=== PATIENT | female | born 2000 | race Caucasian/White ===

== ENCOUNTER 2019-03-10 19:22 | Outpatient (REF) | payer MEDICAID, SELFPAY ==
--- NOTE | 2019-03-10 14:40 | PAPFT_PTH ---
PATIENT: Christie Nuñez LOC: [facility] U#:[id number] AGE/SX: 19/F ROOM: RE03/10/[address]: Natividad Kenney : 2000 BED: DIS: 03/10/2019 SPEC #: [id number] RECD: 03/11/19 12:01 STATUS: JENNIFER WHITMAN #: [id number] RAO: 03/10/19 14:[address]: Natividad Kenney DEPT: [facility] Cytology RECD BY: Claire Borjas Tissues: 1 - CX/ENDOCX FOR PAP SMEARS Procedures: PAP THIN PREP/UVM Screening Comments: [id number]
[2019-03-12 12:37] LABS: Chlamydia Result Negative; GC Result Negative; Specimen Description CERVIX
== END 2019-03-10 19:42 ==
LOC: NCHCN 19:22
PROVIDERS: PCP Nurse Practitioner Family; Visit Provider Nurse Practitioner Family
DX: Z11.3 Encounter for screening for infections with a predominantly sexual mode of transmission (principal); Z20.2 Contact with and (suspected) exposure to infections with a predominantly sexual mode of transmission; Z00.00 Encounter for general adult medical examination without abnormal findings; Z12.4 Encounter for screening for malignant neoplasm of cervix; Z11.51 Encounter for screening for human papillomavirus (HPV)
CPT/HCPCS: 87491; 87591; 88142

== ENCOUNTER 2019-09-06 10:41 | Emergency (ER) | payer MEDICAID, SELFPAY ==
[2019-09-06 10:58] VITALS: BP 148/77; PULSE 74; RESP 16; TEMP 36.5; O2SAT 100
--- NOTE | 2019-09-06 11:58 | ED.GENADUL_ITS ---
Discharge Plan Disposition Patient Disposition: HOME Condition: Improving Discharge Details Chief Complaint: Nk/Back Pain Clinical Impression: Back contusion, Lumbar radiculopathy, right, Primary Care Provider: Natividad Kenney ED Provider: Maty Worley Home Meds and New Rx's Prescriptions: Continued trazodone 50 MG tablet 50 mg PO HS RF: 0 prazosin 1 MG capsule 1 mg PO HS RF: 0 escitalopram oxalate [Lexapro] 20 MG tablet 20 mg PO DAILY RF: 0 Discharge Instructions Instructions: (ED), Contusion in Adults (ED) Additional Instructions: Alternate ice and heat to the affected area several times daily for 20 minutes at a time. Take Tylenol as needed and directed for pain. Return to the hospital in 48 hours for repeat hormone blood test. Follow-up with women's wellness for the results. Return to the emergency department if you develop any worsening or new concerning symptoms. Stand Alone Forms: Work Release Discharge Data Discharge Physician: Maty Worley Medical Decision Making 19-year-old female presents with right sided lower back pain with radiation to her right leg since fall last night. Patient states she was at a local gym play area when she slipped and hit her right lower back on a hard cement floor. She states she woke this morning and had worsening of pain with paresthesias in her right leg. She has been able to ambulate and weight-bear but with pain. She has not taken any medication for pain today. test obtained on arrival and faintly positive x2. Will obtain beta quant. She states her last menstrual period was July 14 and she is usually every 28 days. She recently stopped her control. She states she was unaware she was . She denies any abdominal pain, vaginal bleeding or vomiting. Tenderness to palpation midline and right paraspinal lumbar spine region. No focal deficits. Neurovascularly intact. Abdomen soft nontender. Discussed with patient that we can consider a lumbar spine x-ray for further evaluation but she would rather wait on beta quant result. Will give a dose of Tylenol and place a Lidoderm patch. 1435 --beta quant 9. This was discussed with OB on-call who recommended repeat beta quant in 48 hours. It was discussed at length whether patient wanted to obtain a lumbar spine x- ray. She was informed of the risk although low radiation to the fetus and she would like an x-ray. X-ray was negative. She felt better and was able to ambulate. An order for beta quant in 48 hours was ordered and she was advised to follow-up with women's wellness for results. Medical Records Medical records reviewed: Yes I reviewed the patient's medical records. Imaging Data Radiologic Study: Radiologist's impression: XR Lumbosacral Spine, 4 or 5 Views Exam date and time: 09/06/2019 2:00 PM Age: 19 years old Clinical indication: Injury or trauma; Fall; Initial encounter; Blunt trauma (contusions or hematomas); Injury details: Fell; Patient HX: Patient is potentially one week . TECHNIQUE: Imaging protocol: XR of the lumbosacral spine, 4 or 5 views. COMPARISON: No relevant prior studies available. FINDINGS: Vertebrae: No acute fracture or subluxation is seen. Intraperitoneal space: Surgical clips project over the right upper quadrant. Gastrointestinal tract: The bowel gas pattern is unremarkable. Soft tissues: Unremarkable as visualized. IMPRESSION: No acute findings. Lab Data Lab results reviewed: Yes I reviewed the patient's lab results. Labs: Laboratory Tests Range/Units 09/06/19 12:20 Beta HCG, Quant (1-3) mIU/mL 9 H HPI General Mode of arrival: ambulatory . Date/Time Provider Initiated Documentation: 09/06/19 11:11 . Limitations to Documentation: no limitations . Information obtained by: patient . History of Present Illness 19 year old F presents to the emergency department with the chief complaint of back pain , Patient extremity (R leg). Patient started experiencing this day(s) (last night) and it has been constant. No relieving factors improve symptom(s), Movement worsens symptoms . Patient notes denies fever/chills, headaches, loss of appetite, malaise and nausea/vomiting. Patient did receive the following treatments prior to arrival, none Related Data Home Medications Medication Instructions Recorded Confirmed escitalopram oxalate [Lexapro] 20 mg PO DAILY 12/22/17 09/06/19 prazosin 1 mg PO HS 12/22/17 09/06/19 trazodone 50 mg PO HS 12/22/17 09/06/19 Allergies Allergy/AdvReac Type Severity Reaction Status Date / Time Penicillins Allergy Intermediate Skin Rash Unverified 09/06/19 11:02 blueberries Allergy Severe Anaphylaxsi Uncoded 09/06/19 11:02 s blue food coloring Allergy Intermediate Hives Uncoded 09/06/19 11:02 General Stated Complaint: Nk/Back Pain HERBERT: 4 Review of Systems All systems reviewed & are unremarkable except as noted in HPI and below Constitutional Constitutional: Reports as per HPI, Denies chills and Denies fever(s) Eyes Eyes: Denies blurry vision ENT Ears, Nose, Mouth, and Throat: Denies dizziness, Denies sore throat and Denies throat swelling Cardiovascular Cardiovascular: Denies chest pain and Denies dyspnea Respiratory Respiratory: Denies cough and Denies dyspnea Gastrointestinal Gastrointestinal: Denies abdominal pain, Denies diarrhea and Denies vomiting Genitourinary Genitourinary: Denies hematuria and Denies dysuria Musculoskeletal Musculoskeletal: Reports back pain and Denies numbness Integumentary/Breasts Skin/Breast: Denies lesions and Denies rash Neurologic Neurologic: Denies dizziness, Denies focal weakness and Denies numbness Allergic/Immunologic Allergic/Immunologic: Denies throat swelling [facility] Medical History Anxiety (Chronic) Bipolar affective disorder (Acute) PTSD (post-traumatic stress disorder) (Acute) Surgical History No significant past surgical history (Acute) Social History Smoking/Tobacco Use Status: Current every day Tobacco Type: cigarettes Drug use: Daily Substance use type: marijuana Do you feel safe in your relationship?: Yes Exam Const General: cooperative, healthy appearing and no acute distress HENWY Head: normal to inspection Face and sinus: normal facial exam Eyes General: appearance normal, both eyes and all related structures EOM: EOM intact bilaterally Neck Neck: normal visual inspection and No submandibular swelling Lymphatic: no lymphadenopathy noted Chest Chest: normal inspection of the chest and no tenderness Resp Effort & Inspection: normal respiratory effort and able to speak in complete sentences Auscultation: clear to auscultation bilaterally Cardio Rate: regular rate Rhythm: regular rhythm GI Inspection: normal to inspection Palpation: soft, not firm, not rigid and nontender Auscultation: normal bowel sounds Back/Spine/Pelvis Thoracic/Lumbar Spine: thoracic and lumbar spine normal to inspection, straight leg raise negative bilaterally, No thoracic spinal tenderness and lumbar spinal tenderness Pelvis: no pain with anterior-posterior compression Skin General skin exam: no rashes or lesions noted Neuro General: alert, awake and oriented x3 Cognition: normal cognition Speech: speech normal Motor: muscle tone normal throughout and strength 5/5 throughout Sensory Exam: no sensory deficits noted Extrem General: normal to inspection, full ROM, normal capillary refill, no calf tenderness bilaterally and no edema Other: B/L DP/PT pulses intact Psych Appearance: grossly normal Mental Status: mental status grossly normal Speech and Movement: speech and movement normal Affect: normal affect Course Vital Signs Vital signs: Vital Signs Temperature 97.7 F 09/06/19 10:58 Pulse 74 09/06/19 10:58 Respiratory Rate 16 09/06/19 10:58 Blood Pressure 148/77 H 09/06/19 10:58 Pulse Oximetry 100 09/06/19 10:58 Temperature 97.7 F 09/06/19 10:58 Temperature Source Skin 09/06/19 10:58 Pulse 74 09/06/19 10:58 Respiratory Rate 16 09/06/19 10:58 Respiratory Effort Non-Labored 09/06/19 10:58 Blood Pressure 148/77 H 09/06/19 10:58 Blood Pressure Position Sitting 09/06/19 10:58 Pulse Oximetry 100 09/06/19 10:58 Oxygen Delivery Method Room Air 09/06/19 10:58 Oxygen Flow Rate 0 09/06/19 10:58 Pain Level 8 09/06/19 11:15 Lab/Test Results Lab/Test Results: POC- Test(urine) Positive
[2019-09-06 12:47] LABS: HCG Quant, Pregnancy 9 mIU/mL (1-3)
[2019-09-06] MEDS: Acetaminophen 325 MG TAB 650 MG PO (12:53)
[2019-09-06] MEDS: Lidocaine 5% Patch 1 PATCH TP (12:54)
[2019-09-06 13:21] VITALS: BP 126/72; PULSE 70; TEMP 36.9; O2SAT 100
--- NOTE | 2019-09-06 13:54 | DI.RAD_ITS ---
EXAM: XR LUMBAR SPINE COMPLETE INDICATION: s/p fall onto her back, r/o acute fracture. COMPARISON: No exams were available for comparison TECHNIQUE: 2D digital imaging was performed. FINDINGS: No acute fracture or subluxation is present. The bones are normally mineralized. IMPRESSION: No acute fracture or subluxation.
--- NOTE | 2019-09-06 14:29 | DI.VRAD_ITS ---
PROCEDURE INFORMATION: Exam: XR Lumbosacral Spine, 4 or 5 Views Exam date and time: 09/06/2019 2:00 PM Age: 19 years old Clinical indication: Injury or trauma; Fall; Initial encounter; Blunt trauma (contusions or hematomas); Injury details: Fell; Patient HX: Patient is potentially one week . TECHNIQUE: Imaging protocol: XR of the lumbosacral spine, 4 or 5 views. COMPARISON: No relevant prior studies available. FINDINGS: Vertebrae: No acute fracture or subluxation is seen. Intraperitoneal space: Surgical clips project over the right upper quadrant. Gastrointestinal tract: The bowel gas pattern is unremarkable. Soft tissues: Unremarkable as visualized. IMPRESSION: No acute findings. Dictated and Authenticated by: Maryk Moreno MD. Ordering:BEATRIZ Rutledge MD
[2019-09-06 15:08] VITALS: BP 110/68; PULSE 72; RESP 16; O2SAT 99
== END 2019-09-06 15:06 | disposition home or self-care (01) ==
PROVIDERS: Emergency Provider Physician Assistant; PCP Nurse Practitioner Family
DX: S20.221A Contusion of right back wall of thorax, initial encounter (principal); W17.89XA Other fall from one level to another, initial encounter; Z33.1 Pregnant state, incidental; M54.16 Radiculopathy, lumbar region
CPT/HCPCS: 36415; 81025; 99283; 72110; 84702

== ENCOUNTER 2019-09-08 08:54 | Outpatient (CLI) | payer MEDICAID, SELFPAY ==
[2019-09-08 10:34] LABS: HCG Quant, Pregnancy 10 mIU/mL (1-3)
== END 2019-09-08 09:14 ==
PROVIDERS: PCP Nurse Practitioner Family; Visit Provider Physician Assistant
DX: Z32.01 Encounter for pregnancy test, result positive (principal)
CPT/HCPCS: 36415; 84702

== ENCOUNTER 2019-09-10 09:06 | Emergency (ER) | payer MEDICAID, SELFPAY ==
[2019-09-10 09:11] VITALS: BP 134/81; PULSE 74; RESP 20; TEMP 36.7; O2SAT 100
--- NOTE | 2019-09-10 09:15 | W.ED.GENAD ---
Discharge Plan Disposition Patient Disposition: HOME Condition: Good Discharge Details Chief Complaint: Abd Prob Clinical Impression: Nausea & vomiting, Chemical Primary Care Provider: Natividad Kenney ED Provider: Tana Quintero Home Meds and New Rx's Prescriptions: New ondansetron 4 mg tablet,disintegrating 4 mg PO Q6H PRN (Reason: nausea and vomiting) Qty: 10 RF: 0 prenat.vits,oni,[id number] Tablet 1 tab PO DAILY Qty: 30 RF: 0 Continued albuterol sulfate 90 mcg/actuation Hfa Aerosol Inhaler 2 puff INHALATION PRN PRNRF: 0 No Action aripiprazole [Abilify] 2 mg Tablet 1 mg PO DAILY RF: 0 Flovent HFA 220 mcg/actuation Hfa Aerosol Inhaler 2 puff INHALATION BID RF: 0 trazodone 50 MG tablet 50 mg PO HS RF: 0 prazosin 1 MG capsule 1 mg PO HS RF: 0 escitalopram oxalate [Lexapro] 20 MG tablet 20 mg PO DAILY RF: 0 Discharge Instructions Instructions: Acute Nausea and Vomiting (ED) Additional Instructions: Encourage hydration. You may use the Zofran as prescribed if you have any recurrence of your nausea or vomiting. Please keep your upcoming appointment with [facility]. Please begin your daily . Continue with the smoking cessation. Your serum quantitative hCG has gone down today indicating that you do not currently have a viable . This does not mean you will not have a successful in the future and should continue to plan for one. Please see the education given. Please discuss your medications further with [facility] at upcoming appointment. If you develop any fever/chills, increased pain or other new/worsening symptoms please seek care urgently once again. Stand Alone Forms: Work Release Referrals: Eileen Yeung MD [ [facility] STAFF PHYSICIAN] - Natividad Kenney [Primary Care Provider] - Medical Decision Making Patient is a 19-year-old female, accompanied by significant other, with chief complaint of nausea, vomiting abdominal pain. She reports that symptoms began approximately 3 days ago and have progressively been worsening. Patient was seen here 2 days ago after a fall. At that time, her chief complaint was back pain and imaging was ordered. Patient is currently trying to become and was noted to have a quantitative hCG of 10 at that time. Was advised that she have this rechecked in 48 hours. She would like to have this rechecked today. Denies any vaginal discharge. No bleeding. No cramping. Indicates the left upper quadrant as area of discomfort describes this as needle stabbing me. Has not had any vomiting today but vomited x1 yesterday. Reports I vomit every time I eat. She does appear well-hydrated. Vital signs are within normal limits. No pain is elicited on exam. Abdomen is benign. Patient is status post cholecystectomy. She has no lower abdominal pain. Based on recent menses, patient will have estimated gestational age of 2 weeks. I have very low suspicion for emergent pathology based on her exam. As she is likely , will hold off on imaging we will instead perform baseline labs to include a lipase given location. She denies any alcohol intake. Has stopped taking her medications as she would like to discuss this further with obstetrics next week at her upcoming appointment. Will give Zofran to help with nausea, hydrate the patient. UPT positive. Patient feels improved after Zofran. Abdominal pain resolved. Reviewed the labs. No leukocytosis. Patient is anemic. No abnormalities in her electrolytes, she appears well-hydrated. Normalities in the urine. Patient has persistent low level quant. On the quant was 9, on the quant was 10 and today at 7. Consulted with [facility], spoke with Dr. Yeung, she advised that this is likely chemical with no growth and that patient will likely have a period soon. Discussed this with the patient. She does use multivitamins. We did discuss ensuring she is ready for upcoming would be getting . She has stopped smoking recently and I encouraged her to continue with this. We discussed cessation from alcohol. She has an appointment next week with [facility] which I advised she keep. We discussed return precautions. Advised that she may also have a gastroenteritis causing her with her GI upset. Will give prescription for ondansetron to help with the nausea and vomiting. This did seem to work well for her here. No evidence of emergent etiology causing her abdominal pain today. All of her questions and concerns were addressed and she is in agreement this plan. HPI General Mode of arrival: ambulatory. Date/Time Provider Initiated Documentation: 09/10/19 09:15. Limitations to Documentation: no limitations. Information obtained by: patient and family (signficant other). History of Present Illness 19 year old F presents to the emergency department with the chief complaint of LUQ pain, described as moderate, with intensity rated at 7. Quality is described as stabbing (endorses needles stabbing me), and is localized to the abdomen. Patient reports no radiation. Patient started experiencing this hour(s) and it has been constant. No relieving factors improve symptom(s), No exacerbating factors reported . Patient notes loss of appetite (associated with nausea present x 3 days); denies chest pain, cough, fever/chills and headaches. Patient did receive the following treatments prior to arrival, none Related Data Home Medications Medication Instructions Recorded Confirmed escitalopram oxalate [Lexapro] 20 mg PO DAILY 12/22/17 09/10/19 prazosin 1 mg PO HS 12/22/17 09/10/19 trazodone 50 mg PO HS 12/22/17 09/10/19 albuterol sulfate 2 puff INHALATION PRN PRN 09/10/19 09/10/19 aripiprazole [Abilify] 1 mg PO DAILY 09/10/19 09/10/19 fluticasone propionate [Flovent 2 puff INHALATION BID 09/10/19 09/10/19 HFA] ondansetron 4 mg PO Q6H PRN #10 tab 09/10/19 prenat.vits,oni,[id number] 1 tab PO DAILY #30 tab 09/10/19 Previous Rx's Medication Instructions Recorded ondansetron 4 mg PO Q6H PRN #10 tab 09/10/19 prenat.vits,oni,[id number] 1 tab PO DAILY #30 tab 09/10/19 Allergies Allergy/AdvReac Type Severity Reaction Status Date / Time Penicillins Allergy Intermediate Skin Rash Unverified 09/10/19 09:43 blueberries Allergy Severe Anaphylaxsi Uncoded 09/10/19 09:43 s blue food coloring Allergy Intermediate Hives Uncoded 09/10/19 09:43 General Stated Complaint: Abd Prob HERBERT: 3 Review of Systems Constitutional Constitutional: Reports as per HPI, Denies chills, Denies fatigue, Denies fever(s) and Denies headache(s) ENT Ears, Nose, Mouth, and Throat: Denies headache(s) Cardiovascular Cardiovascular: Reports as per HPI, Denies chest pain and Denies dyspnea Respiratory Respiratory: Reports as per HPI, Denies cough and Denies dyspnea Gastrointestinal Gastrointestinal: Reports as per HPI Genitourinary Genitourinary: Denies urinary frequency, Denies dysuria, Denies pelvic pain, Denies flank pain, Denies urinary hesitancy, Denies urinary urgency, Denies vaginal discharge and Denies vaginal pruritus Musculoskeletal Musculoskeletal: Reports as per HPI and Denies back pain Integumentary/Breasts Skin/Breast: Reports as per HPI and Denies rash Neurologic Neurologic: Reports as per HPI and Denies headache(s) Endocrine Endocrine: Denies fatigue [facility] Medical History Anxiety (Chronic) Bipolar affective disorder (Acute) PTSD (post-traumatic stress disorder) (Acute) Surgical History No significant past surgical history (Acute) Social History Smoking/Tobacco Use Status: Current every day Tobacco Type: cigarettes Drug use: Daily Substance use type: marijuana Details: quit smoking 09/08/2019 when she found out she was Do you feel safe at home: Yes Do you feel safe in your relationship?: Yes Exam Const General: cooperative, healthy appearing, comfortable, no acute distress and well developed Nutritional Appearance: well nourished and obese Orientation: alert and awake HENMT Head: normal to inspection Mouth: moist mucous membranes Resp Effort & Inspection: normal respiratory effort, able to speak in complete sentences and no respiratory distress Auscultation: clear to auscultation bilaterally, no rales, no rhonchi and no wheezes Cardio Rate: regular rate Rhythm: regular rhythm Heart Sounds: S1 normal and S2 normal GI Inspection: normal to inspection and obesity Palpation: soft, no hepatosplenomegaly, not firm, no guarding, not rigid and nontender Percussion: normal to percussion Auscultation: normal bowel sounds Back/Spine/Pelvis Back: no CVA tenderness Skin General skin exam: no rashes or lesions noted Trauma: no lacerations or abrasions Neuro General: alert and awake Cognition: normal cognition Speech: speech normal Gait: normal gait Psych Appearance: grossly normal and well kempt Mental Status: mental status grossly normal Speech and Movement: speech and movement normal Course Vital Signs Vital signs: Vital Signs Temperature 36.7 C 09/10/19 09:11 Pulse 74 09/10/19 09:11 Respiratory Rate 09/10/19 09:11 Blood Pressure 134/81 09/10/19 09:11 Pulse Oximetry 100 09/10/19 09:11 Temperature 36.7 C 09/10/19 09:11 Temperature Source Skin 09/10/19 09:11 Pulse 74 09/10/19 09:11 Respiratory Rate 09/10/19 09:11 Blood Pressure 134/81 09/10/19 09:11 Blood Pressure Position Sitting 09/10/19 09:11 Pulse Oximetry 100 09/10/19 09:11 Oxygen Delivery Method Room Air 09/10/19 09:11 Oxygen Flow Rate 0 09/10/19 09:11 Pain Level 7 09/10/19 09:11 Comment has been trying to get 09/10/19 09:11
[2019-09-10 09:30] LABS: Bilirubin Negative (Negative); Blood Negative (Negative); Clarity Clear (Clear); Glucose Negative (Negative); Ketones Negative (Negative); Leukocyte Esterase Negative (Negative); Nitrite Negative (Negative); Specific Gravity 1.025 (1.005-1.025); Urobilinogen 0.2 EU/dL (Up TO 0.2)
[2019-09-10] MEDS: Normal Saline 1,000 ML 1000 ML IV (09:30)
[2019-09-10] MEDS: Normal Saline Flush 10 ML SYR IVP (09:30)
[2019-09-10] MEDS: Ondansetron 4 MG/2 ML VIAL IVP (09:40)
[2019-09-10 09:43] LABS: Abs Immature Grans 0.01 k/cumm (0.0-0.09); Absolute Basophil Count 0.02 k/cumm (0.0-0.2); Absolute Eosinophil Count 0.07 k/cumm (0.0-0.7); Absolute Lymphocyte Count 1.88 k/cumm (1.2-3.4); Absolute Monocyte Count 0.48 k/cumm (0.11-0.7); Absolute Neutrophil Count 3.82 k/cumm (1.2-6.7); Basophils % 0.3; Eosinophils % 1.1; HCT 43.7 % (36.0-46.0); HGB 14.5 g/dL (12.0-15.5); Immature Grans % 0.2; Lymphocytes % 29.9; Mean Corp. HGB Concentration 33.2 g/dL (32.0-36.0); Mean Corpuscular Hemoglobin 29.2 pg (27.0-33.0); Mean Corpuscular Volume 87.9 fL (80-95); Mean Platelet Volume 9.8 fL (8.0-11.0); Monocytes % 7.6; Neutrophils % 60.9; Platelet Count 311 x1000/uL (130-400); RBC 4.97 m/cumm (4.00-5.20); RBC Distribution Width 12.9 % (11.7-14.6); White Blood Cell Count 6.28 k/cumm (4.4-10.8)
[2019-09-10 09:59] LABS: ALT 16 U/L (14-59); AST 17 U/L (15-37); Albumin 3.5 g/dL (3.4-5.0); Alkaline Phosphatase 76 U/L (46-116); BUN 7 mg/dL (7-18); Bilirubin, Total 0.6 mg/dL (0.2-1.0); CREATININE 0.77 mg/dL (0.55-1.02); Calcium 8.8 mg/dL (8.5-10.1); Chloride 105 mmol/L (98-107); Glucose 96 mg/dL (74-106); Lipase 52 U/L (73-393); Sodium 142 mmol/L (136-145)
[2019-09-10 10:16] LABS: HCG Quant, Pregnancy 7 mIU/mL (1-3)
[2019-09-10 10:32] VITALS: BP 109/61; PULSE 75; RESP 15; TEMP 36.9; O2SAT 99
[2019-09-10 10:33] VITALS: BP 109/61; PULSE 75; RESP 15; TEMP 36.9; O2SAT 99
== END 2019-09-10 10:48 | disposition home or self-care (01) ==
PROVIDERS: Emergency Provider Physician Assistant; PCP Nurse Practitioner Family
DX: O02.81 Inappropriate change in quantitative human chorionic gonadotropin (hCG) in early pregnancy (principal); R10.12 Left upper quadrant pain
CPT/HCPCS: 80053; 81025; 83690; 96361; 96374; 99284; 81003; 84702; 85025; 99283; J2405

== ENCOUNTER 2019-09-15 15:55 | Outpatient (CLI) | payer MEDICAID, SELFPAY ==
[2019-09-15 17:42] LABS: HCG Quant, Pregnancy < 1 mIU/mL (1-3)
== END 2019-09-15 16:15 ==
PROVIDERS: PCP Nurse Practitioner Family; Visit Provider Nurse Practitioner Women's Health
DX: O02.81 Inappropriate change in quantitative human chorionic gonadotropin (hCG) in early pregnancy (principal); E34.9 Endocrine disorder, unspecified
CPT/HCPCS: 36415; 84702

== ENCOUNTER 2021-06-11 22:06 | Emergency (ER) | payer SELFPAY ==
[2021-06-11 22:09] VITALS: BP 126/66; PULSE 90; RESP 20; TEMP 36.7; O2SAT 97
--- NOTE | 2021-06-11 22:34 | NUR.NOTE ---
Nursing Note:REFERAL SENT TO CM FOR FOLLOW UP ABDOMINAL TRAUMA FOR 06/12/21
--- NOTE | 2021-06-11 22:39 | ED.GENADUL_ITS ---
Discharge Plan Disposition Patient Disposition: HOME Condition: Good Discharge Details Clinical Impression: Pelvic cramping Primary Care Provider: Natividad Kenney ED Provider: Balbir Singh Home Meds and New Rx's Prescriptions: Continued albuterol sulfate 90 mcg/actuation Hfa Aerosol Inhaler 2 puff INHALATION PRN PRNRF: 0 prenat.vits,oni,[id number] Tablet 1 tab PO DAILY Qty: 30 RF: 0 Discharge Instructions Additional Instructions: At this time there is no evidence of significant abnormality on the limited bedside ultrasound, however this is not a formal ultrasound. It is very important that you follow-up promptly with OB tomorrow. They will contact you for an appointment time, but please do not hesitate to call them tomorrow morning when you wake up to help schedule the time. If you notice any worsening of your symptoms, or any new symptoms such as pelvic cramping that is worsening, vaginal discharge, worsening pain, vomiting, diarrhea, fever, chills, shortness of breath, chest pain, numbness, weakness, or fainting , please return immediately to the emergency department for reevaluation. Please follow up with your primary care provider as soon as possible for reassessment and reevaluation. As always, it was a pleasure participating in your medical care today. Referrals: Paula Lu MD [ [facility] STAFF PHYSICIAN] - Shanae Zaidi DO [OSTEOPATHIC DOCTOR] - Eileen Yeung MD [ [facility] STAFF PHYSICIAN] - Medical Decision Making This is a 21-year-old female who is a G5, P1 who is currently 16 weeks who is O+, who presents for abdominal and pelvic pain. Patient recently just moved here back from [place]. OB appointment 2 weeks ago was unremarkable. Patient states that 3 hours ago her 4-year-old child on her her lower pelvic region, and since then she has been having cramping. She denies any vaginal discharge or bleeding. She denies any change in movement of the baby. No other complaints at this time. No other modifying factors. Physical exam demonstrates mild/minimal lower pelvic tenderness on the left and right. No vaginal discharge, no bruising. Limited bedside ultrasound was performed demonstrate an intact fetus, moving vigorously, heart rate is 160. Evaluation of the placenta on limited bedside exam demonstrates no evidence of large central leg, homogenous vascularity throughout, no other significant abnormalities. Bedside FAST exam shows no evidence of free fluid or other abnormality in the abdomen. I did contact the OB physician seasoner hand Dr. Negro and discussed the case with her, as well as the limited ultrasound findings. No formal ultrasonography available at this time. Patient feels well and is hemodynamically stable. At this time after discussion with the OB provider, decision was made that the patient demonstrates notable stability, no significant concerning exam findings, patient stable for discharge with very close follow-up. Patient will follow up with the OB office tomorrow morning to establish care and be rechecked. Discussed red flags which to return. I have extensively reviewed the treatment plan and discharge instructions with the patient. I have addressed all patient concerns at this time. The patient was made aware of what symptoms to monitor for that would warrant a return to the emergency department. Discussed the plan with the patient, they demonstrate verbal understanding and agreement with our assessment and plan at this time. The documentation in this chart was dictated using [employer] dictation software. Please excuse any dictation errors. HPI General Date/Time Provider Initiated Documentation: 06/11/21 22:11 . HPI Narrative: This is a 21-year-old female who is a G5, P1 who is currently 16 weeks who is O+, who presents for abdominal and pelvic pain. Patient recently just moved here back from [place]. OB appointment 2 weeks ago was unremarkable. Patient states that 3 hours ago her 4-year-old child on her her lower pelvic region, and since then she has been having cramping. She denies any vaginal discharge or bleeding. She denies any change in movement of the baby. No other complaints at this time. No other modifying factors. Related Data Home Medications Medication Instructions Recorded Confirmed albuterol sulfate 2 puff INHALATION PRN PRN 09/10/19 06/11/21 prenat.vits,oni,[id number] 1 tab PO DAILY #30 tab 09/10/19 06/11/21 Previous Rx's Medication Instructions Recorded prenat.vits,oni,bgl-okue-sdndy 1 tab PO DAILY #30 tab 09/10/19 Allergies Allergy/AdvReac Type Severity Reaction Status Date / Time cephalexin [From Keflex] Allergy Severe Hives Unverified 06/11/21 22:12 Penicillins Allergy Intermediate Skin Rash Unverified 06/11/21 22:12 blueberries Allergy Severe Anaphylaxsi Uncoded 06/11/21 22:12 s blue food coloring Allergy Intermediate Hives Uncoded 06/11/21 22:12 General Stated Complaint: Abd Prob HERBERT: 3 Review of Systems All systems reviewed & are unremarkable except as noted in HPI and below PFSH Medical History Anxiety Bipolar affective disorder PTSD (post-traumatic stress disorder) Smoker Surgical History No significant past surgical history Social History Smoking/Tobacco Use Status: Current-Occasional Tobacco Type: cigarettes Tobacco: How many years used: 4 Quit status: has quit before Smoking risk assessment performed?: Yes Drug use: Daily Substance use type: marijuana Details: quit smoking 09/08/2019 when she found out she was Do you feel safe at home: Yes Do you feel safe in your relationship?: Yes Female Reproductive History Menstrual control method: none History History 3 Para 1 Hx # Term Pregnancies Multiple births Hx # Pregnancies Ectopic pregnancies AB induced Hx Number of Living Children AB spontaneous 2 Exam Narrative Exam Narrative: 1.Const: Well-nourished, Well-developed, appearing stated age 2.Eyes: PERRL, no conjunctival injection, and symmetrical lids. 3.ENT: Atraumatic external nose and ears. Moist MM. Neck: Symmetric, trachea midline, No thyromegaly. 4.CVS: +S1/S2, No murmurs or gallops. Peripheral pulses 2+ and equal in all extremities. Brisk capillary refill in all extremities. 5.RESP: Unlabored respiratory effort. Clear to auscultation bilaterally. No wheezes rales or rhonchi 6.GI: Soft, Nontender/Nondistended, No hepatosplenomegaly. No guarding or rebound. Exam demonstrated very mild pelvic tenderness on palpation. No signs of an acute surgical abdomen. No vaginal bleeding or discharge. 7.MSK: Normocephalic/Atraumatic, Extremities w/o deformity or ttp No cyanosis or clubbing, Normal movement of all extremities 8.Skin: Warm, Dry. No rashes or lesions. 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 Sensation grossly intact, no focal neurologic deficits. 10.Psych: (AAO) x3. Appropriate mood and affect Course Vital Signs Vital signs: Vital Signs Temperature 36.7 C 06/11/21 22:09 Pulse 90 06/11/21 22:09 Respiratory Rate 20 06/11/21 22:09 Blood Pressure 126/66 06/11/21 22:09 Pulse Oximetry 97 06/11/21 22:09 Temperature 36.7 C 06/11/21 22:09 Temperature Source Temporal Artery Scan 06/11/21 22:09 Pulse 90 06/11/21 22:09 Respiratory Rate 20 06/11/21 22:09 Blood Pressure 126/66 06/11/21 22:09 Blood Pressure Position Sitting 06/11/21 22:09 Pulse Oximetry 97 06/11/21 22:09 Oxygen Delivery Method Room Air 06/11/21 22:09 Oxygen Flow Rate 0 06/11/21 22:09 Pain Level 6 06/11/21 22:09
[2021-06-11 23:03] VITALS: BP 116/80; PULSE 80; RESP 20; TEMP 36.8; O2SAT 98
== END 2021-06-11 23:00 | disposition home or self-care (01) ==
PROVIDERS: Emergency Provider Student in an Organized Health Care Education/Training Program; PCP Nurse Practitioner Family
DX: O26.892 Other specified pregnancy related conditions, second trimester (principal); R10.31 Right lower quadrant pain; Z3A.16 16 weeks gestation of pregnancy
CPT/HCPCS: 99284; 87070; 99283

== ENCOUNTER 2021-06-20 08:33 | Emergency (ER) | payer SELFPAY ==
[2021-06-20 08:37] VITALS: BP 150/70; PULSE 86; RESP 16; TEMP 36.2; O2SAT 97
--- NOTE | 2021-06-20 08:45 | DI.RAD_ITS ---
Exam(s) XR FOOT RT LIMITED EXAM: XR FOOT RT LIMITED-two views CLINICAL HISTORY: FB (needle) Right lateral foot, R/O bone involve. TECHNIQUE: 2D digital imaging was performed. COMPARISON: No exams were available for comparison FINDINGS: There is a metallic pin foreign body in the lateral aspect of the right foot extending from inferior upwards and lying lateral to the midshaft of the 5th metatarsal. No fractures. No radiographic evid ence of osteomyelitis. No other foreign bodies evident. IMPRESSION: DATA REPOSITORY: RADIATION DOSE DELIVERED:
--- NOTE | 2021-06-20 08:52 | ED.GENADUL_ITS ---
Discharge Plan Disposition Patient Disposition: HOME Condition: Stable Discharge Details Clinical Impression: Foreign body in foot, right, Puncture wound of foot Primary Care Provider: Natividad Kenney ED Provider: Mely Madera Home Meds and New Rx's Prescriptions: No Action reglan PO RF: 0 albuterol sulfate 90 mcg/actuation Hfa Aerosol Inhaler 2 puff INHALATION PRN PRNRF: 0 prenat.vits,oni,jpl-ziyh-smvkp Tablet 1 tab PO DAILY Qty: 30 RF: 0 Discharge Instructions Instructions: Puncture Wound (ED) Additional Instructions: Keep clean and dry. Have it rechecked in 2 to 3 days if you notice any signs of infection including increased redness, swelling, drainage or increased pain. At this time we hold off on antibiotics due to your allergies and . You were given a tetanus booster today. Please discuss this with your CONSTRUCTION DIRECTOR. Wash area once a day. No soaking. Follow up with primary care provider in 3-5 days. Return to ED sooner if any worsening or concerns. Increase oral fluids. Please take Tylenol with food every 6 hours as needed for pain and swelling. Referrals: Eileen Yeung MD [ [facility] STAFF PHYSICIAN] - Return if symptoms worsen Natividad Kenney [Primary Care Provider] - 3 days Medical Decision Making I did discuss options including removal of foreign body by direct visualization versus obtaining x-ray and numbing the area. I did discuss the risks and benefits regarding x-ray patient verbalized understanding and agrees to be x-ray and numbing at this time. X-ray right foot limited ordered. Lateral foot anesthetized with 1% lidocaine with epinephrine. Patient tolerated with some difficulty complaining of pain. Foreign body removed as noted in procedure note above. Needle is intact. According to the CDC, patients can receive Tdap prior to 24 to 27-week if needed. This time we will give Tdap booster last tetanus shot was in 2009 according to our records. Patient is allergic to Keflex and penicillin. At this time we will hold off giving antibiotic due to the allergy and . I did inform patient of signs of infection and when to return and to get rechecked in 2 to 3 days. Patient was given a postop shoe here in the department. Instructed on home care, verbalized standing. This text was generated using [employer] Mediaation system, please disregard any oddities of phrase or misspellings. HPI General Mode of arrival: ambulatory . Date/Time Provider Initiated Documentation: 06/20/21 08:38 . Limitations to Documentation: no limitations . Information obtained by: patient and RN notes reviewed . HPI Narrative: 21-yea r-old female presents to the ER with chief complaint of needle embedded into her right lateral foot. Patient states that she stepped on the needle this morning. She was unable to pull it out prior to arrival. The end of the needle is visualized. Patient is 18 weeks . She denies any other complaints. Patient has a past medical history of bipolar, anxiety, PTSD. She is a former smoker. Related Data Home Medications Medication Instructions Recorded Confirmed albuterol sulfate 2 puff INHALATION PRN PRN 09/10/19 06/20/21 prenat.vits,oni,fkc-[id number] 1 tab PO DAILY #30 tab 09/10/19 06/20/21 reglan PO 06/12/21 06/12/21 Previous Rx's Medication Instructions Recorded prenat.vits,oni,thk-qtjq-bribe 1 tab PO DAILY #30 tab 09/10/19 Allergies Allergy/AdvReac Type Severity Reaction Status Date / Time cephalexin [From Keflex] Allergy Severe Hives Unverified 06/20/21 08:44 Penicillins Allergy Intermediate Skin Rash Unverified 06/20/21 08:44 blueberries Allergy Severe Anaphylaxsi Uncoded 06/20/21 08:44 s blue food coloring Allergy Intermediate Hives Uncoded 06/20/21 08:44 General Stated Complaint: Laceration HERBERT: 4 Review of Systems All systems reviewed & are unremarkable except as noted in HPI and below Musculoskeletal Musculoskeletal: Reports as per HPI Comments: FB right foot PFSH Medical History Anxiety Bipolar affective disorder PTSD (post-traumatic stress disorder) Smoker Surgical History No significant past surgical history Social History Smoking/Tobacco Use Status: Former Tobacco Use Tobacco: How many years used: 4 Quit status: has quit before Smoking risk assessment performed?: Yes Alcohol Intake: former Substance use type: marijuana Details: quit smoking 09/08/2019 when she found out she was Do you feel safe at home: Yes Do you feel safe in your relationship?: Yes Female Reproductive History Menstrual control method: none History History 2 5 Para 1 Hx # Term Pregnancies 1 Multiple births Hx # Pregnancies Ectopic pregnancies AB induced Hx Number of Living Children AB spontaneous 2 Exam Extrem Right lower extremity: foot Details: normal capillary refill and foreign body plantar lateral mid Details: single (Sewing needle) Ankle/foot/toe images: 1. Visualized tip of needle to lateral plantar edge of foot Course Vital Signs Vital signs: Vital Signs Temperature 36.2 C L 06/20/21 08:37 Pulse 86 06/20/21 08:37 Respiratory Rate 16 06/20/21 08:37 Blood Pressure 150/70 H 06/20/21 08:37 Pulse Oximetry 97 06/20/21 08:37 Temperature 36.2 C L 06/20/21 08:37 Temperature Source Skin 06/20/21 08:37 Pulse 86 06/20/21 08:37 Respiratory Rate 16 06/20/21 08:37 Respiratory Effort Non-Labored 06/20/21 08:37 Blood Pressure 150/70 H 06/20/21 08:37 Blood Pressure Position Sitting 06/20/21 08:37 Pulse Oximetry 97 06/20/21 08:37 Oxygen Delivery Method Room Air 06/20/21 08:37 Oxygen Flow Rate 0 06/20/21 08:37 Pain Level 8 06/20/21 08:46 Procedures Foreign Body Removal Time Out Performed: no Site: right and foot Description of foreign body: needle Sedation/Analgesia: none and other (Local anesthesia, Lido with Epi 1%) Technique: manual removal Confirmed by:: direct visualization and radiograph Complications: pain Post-procedure exam: awake, alert Neurovascular: normal distal pulse, normal capillary fill, distal light touch sensation intact, distal motor function normal, no signs of compartment syndrome and no change from pre-procedure
== END 2021-06-20 09:59 | disposition home or self-care (01) ==
PROVIDERS: Emergency Provider Registered Nurse Emergency; PCP Nurse Practitioner Family
DX: S91.341A Puncture wound with foreign body, right foot, initial encounter (principal); W27.3XXA Contact with needle (sewing), initial encounter
CPT/HCPCS: 90471; 99284; 73620; 99283

== ENCOUNTER 2021-06-21 04:12 | Outpatient (CLI) | payer SELFPAY ==
[2021-06-21 15:15] LABS: Glucose,1 Hr (Glucola) 140 mg/dL (80-140)
[2021-06-21 15:45] LABS: TSH (W/Ref FT4) 0.57 uIU/mL (0.36-3.74)
[2021-06-21 20:17] LABS: *AMPHETAMINES SCREEN URINE Negative (Negative); *BARBITURATES SCREEN URINE Negative (Negative); *BENZODIAZEPINES SCREEN URINE Negative (Negative); Cannabinoids THC Positive (Negative); Cocaine Screen,Urine Negative (Negative); METHADONE URINE SCREEN Negative (Negative); OPIATES URINE SCREEN Negative (Negative); Tricyclic Antidepressants Negative (Negative)
[2021-06-29 11:46] LABS: Buprenorphine Negative ng/mL (Cutoff: 5.0); Norbuprenorphine Negative ng/mL (Cutoff: 2.5)
== END 2021-06-21 04:13 | disposition home or self-care (01) ==
LOC: LBO 04:12
PROVIDERS: PCP Nurse Practitioner Family; Visit Provider Advanced Practice Midwife
DX: Z34.91 Encounter for supervision of normal pregnancy, unspecified, first trimester; F41.9 Anxiety disorder, unspecified
CPT/HCPCS: 36415; 80307; 82950; 84443; 87086

== ENCOUNTER 2021-07-12 00:42 | Outpatient (CLI) | payer SELFPAY ==
[2021-08-10 17:23] VITALS: BP 111/63; PULSE 73
[2021-08-10 17:24] VITALS: BP 111/63; PULSE 73
--- NOTE | 2021-08-10 18:28 | W.OBNST ---
Date of service: 08/10/21 Time of Service: 18:28 NST Evaluation Reason for NST Reasons for Nonstress Test: OTHER, SEE COMMENT Reason for NST Other: well being Gestational Age Gestational Age in Weeks and Days: 24 Weeks and 2Days Test and Monitor Explained Test/Monitor Explained: Test Explained, Monitor Explained and Patient Verbalized Understanding Vital Signs Blood Pressure: 111/63 Pulse: 73 NST Information Date on Monitor: 08/10/21 Time on Monitor: 17:06 Date off Monitor: 08/10/21 Time off Monitor: 18:25 Total Time on Monitor: 79 NST Interventions: PO Hydration NST Evaluation Patient States Movement: Present Variability: Moderate 6-25 bpm Accelerations: 10x10 Note NST Note Note: Christie complains of right lori-umbilical pain which awoke her at 0300 and persisted all day. She is experiencing nausea associated with it and has been taking zofran 4 mg tablets. She also has had a migraine since yesterday and light sensitivity. She reports that she frequently has nausea associated with migraines. Medical history significant for cholcystitis and appendicitis. She reports that appendicitis resolved spontaneously after the gallbladder was removed. O She is resting comfortably. She reports discomfort in upper right quadrant. deep palpation elicits slight discomfort at the uterine fundus on the right side of her abdomen and mild discomfort in the right epigastric area. negative rebound tenderness. FHR 140s. No uterine contractions noted. She did report that she passed gas in the bathroom while providing a urine sample. A- RUQ abdominal pain and nausea 24 weeks gestation s/p cholecystectomy. Suspect GI gas as source of dicomfort. Will rule out right hydronephrosis P - UA sent and is pending at this time. I recommended trying fioricet for headache and attempting to rest at home. I also recommended increasing zofran to 8 mg TID for relief of nausea. Will consider an abdominal US tomorrow if symptoms persist. NST Reviewed and Verified by: Terese Cornell
[2021-08-10 18:35] VITALS: BP 111/63; PULSE 73
[2021-08-10] MEDS: Butalbital/Acetaminophen/Caffeine 50/325/40 TAB PO (18:46)
== END 2021-08-10 18:55 | disposition home or self-care (01) ==
LOC: DI 00:42 → OBS 08-10 17:03
PROVIDERS: PCP Nurse Practitioner Family; Visit Provider Obstetrics & Gynecology Gynecology
DX: O35.9XX0 Maternal care for (suspected) fetal abnormality and damage, unspecified, not applicable or unspecified (principal); Z3A.24 24 weeks gestation of pregnancy; R10.11 Right upper quadrant pain; R11.0 Nausea
CPT/HCPCS: 59025; 81003

== ENCOUNTER 2021-07-18 04:09 | Outpatient (CLI) | payer SELFPAY ==
[2021-07-18 10:19] LABS: Glucose 1 Hour 139 mg/dL
== END 2021-07-18 04:10 | disposition home or self-care (01) ==
LOC: LBO 04:09
PROVIDERS: PCP Nurse Practitioner Family; Visit Provider Advanced Practice Midwife
DX: Z34.92 Encounter for supervision of normal pregnancy, unspecified, second trimester (principal); Z3A.21 21 weeks gestation of pregnancy
CPT/HCPCS: 36415; 82951

== ENCOUNTER 2021-07-26 12:55 | Observation (INO) | payer SELFPAY ==
[2021-07-26 12:57] VITALS: BP 160/82; PULSE 92; RESP 16; TEMP 36.7; O2SAT 98
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
[2021-07-26 13:30] LABS: Source Nasal/Nares
[2021-07-26 14:21] VITALS: BP 133/70; PULSE 78; RESP 20; TEMP 36.9
[2021-07-26 14:21] LABS: COVID-19 PCR Negative (Negative)
--- NOTE | 2021-07-26 14:49 | W.PM.PROGNOT ---
Date of Service Date of service: 07/26/21 Time of Service: 14:49 Assessment and Plan Assessment and plan (1) Second trimester : Status: Acute Assessment and plan: A: @ 22 wks Dehydration per UA, sp gr 1.025, otherwise negative GI distress since after dinner last night, has not had any PO intake today Obstetrically nml, cvx closed, PPOOP, intact membranes FHT appropriate to EGA, no uterine activity traced via toco P: Pushing PO fluid intake without emesis VPS collected and pending wellbeing verified Appropriate to discharge pt to home F/up with OB Provider as scheduled and as needed Subjective Subjective Patient reports: tolerating liquids well and flatus Interval history since last seen: Pt sent to from ED after presenting for vaginal pressure, mid-abd cramps, increased white vaginal mucous, all sx starting last night and continuing this morning. ED performed initial evaluation, COVID test is negative, then referred pt to . Exam Const General: cooperative, healthy appearing and comfortable Nutritional Appearance: obese Orientation: alert, awake and oriented x3 Neck Neck: normal visual inspection and full ROM Chest Chest: normal inspection of the chest Resp Effort & Inspection: normal respiratory effort Cardio Rate: regular rate Rhythm: regular rhythm GI Inspection: normal to inspection Palpation: soft Auscultation: normal bowel sounds Rectal Exam - female: visual inspection normal Back/Spine/Pelvis Back: no CVA tenderness Skin General skin exam: no rashes or lesions noted and elasticity normal Extrem General: normal to inspection and full ROM Objective Last Vital Signs Temp 98.4 F 07/26/21 14:21 Pulse 78 07/26/21 14:21 Resp 20 07/26/21 14:21 BP 133/70 07/26/21 14:21 Pulse Ox 98 07/26/21 12:57 Laboratory Results - last 24 hr 07/26/21 13:30 COVID-19 Source Nasal/Nares
[2021-07-26 15:16] VITALS: BP 113/69; PULSE 73; RESP 16; TEMP 36.8
[2021-07-26] MEDS: Ondansetron O.D.T. 4 MG TABEF PO (15:35)
[2021-07-26] MEDS: Docusate Sodium 100 MG CAP PO (15:35)
[2021-07-26] MEDS: Simethicone 80 MG CHEW PO (15:36)
== END 2021-07-26 15:45 | disposition home or self-care (01) ==
LOC: ER 13:20 → OBS 13:41
PROVIDERS: Admitting Provider Advanced Practice Midwife; Emergency Provider Registered Nurse Emergency; PCP Nurse Practitioner Family; Visit Provider Advanced Practice Midwife
DX: O26.892 Other specified pregnancy related conditions, second trimester (principal); E86.0 Dehydration; Z3A.22 22 weeks gestation of pregnancy
CPT/HCPCS: 87635; 99285; 87480; 87510; 87660; G0378

== ENCOUNTER 2021-08-11 12:51 | Outpatient (CLI) | payer SELFPAY ==
[2021-08-10 19:03] LABS: Bilirubin Negative (Negative); Blood Negative (Negative); Clarity Clear (Clear); Glucose Negative (Negative); Ketones Trace mg/dL (Negative); Leukocyte Esterase Trace (Negative); Nitrite Negative (Negative); Specific Gravity 1.015 (1.005-1.025); Urobilinogen 0.2 EU/dL (Up TO 0.2); pH 7.5 (5-8)
[2021-08-10 19:05] LABS: Bacteria Negative HPF (Negative); C & S Indicated? Yes; Casts Negative LPF (Negative); Crystals Negative HPF (Negative); Epithelial Cells Negative HPF (Negative); Mucus Negative (Negative); Other Cells Few Transitional (Negative); RBC Negative HPF (0-2); WBC 0-2 HPF (0-5)
== END 2021-08-11 12:52 | disposition home or self-care (01) ==
LOC: BCD 12:52
PROVIDERS: PCP Nurse Practitioner Family; Visit Provider Advanced Practice Midwife
DX: O26.893 Other specified pregnancy related conditions, third trimester (principal); R11.0 Nausea; R10.11 Right upper quadrant pain
CPT/HCPCS: 81003; 81015; 87086

== ENCOUNTER 2021-09-03 21:25 | Observation (INO) | payer SELFPAY ==
[2021-09-03] MEDS: DEXTROSE 5%-LACTATED RINGERS 1,000 ML 300 ML IV (20:30)
[2021-09-03 21:51] VITALS: BP 112/60; PULSE 75; RESP 22; TEMP 36.4; O2SAT 100
[2021-09-03 23:13] VITALS: BP 120/66; PULSE 82; RESP 20; TEMP 36.7; O2SAT 97
[2021-09-03 23:26] VITALS: BP 120/66; PULSE 82; RESP 20; TEMP 36.7; O2SAT 97
[2021-09-03 23:32] LABS: Abs Immature Grans 0.09 10^3/uL (0.0-0.06); Absolute Basophil Count 0.03 10^3/uL (0.0-0.2); Absolute Eosinophil Count 0.07 10^3/uL (0.0-0.7); Absolute Lymphocyte Count 3.19 10^3/uL (1.2-3.4); Absolute Monocyte Count 0.52 10^3/uL (0.1-0.8); Absolute Neutrophil Count 7.55 10^3/uL (1.2-6.7); Basophils % 0.3; Eosinophils % 0.6; Immature Grans % 0.8; Lymphocytes % 27.9; Monocytes % 4.5; Neutrophils % 65.9
--- NOTE | 2021-09-03 23:48 | W.PM.PROGNOT ---
Date of Service Date of service: 09/03/21 Time of Service: 23:48 Assessment and Plan Assessment and plan (1) COVID-19 affecting in third trimester: Status: Acute Assessment and plan: A: COVID infection @ 28 wks, Mild symptoms began 09/01 (3 days ago) pt recalls exposure at work; is partially vaccinated (1 dose) COVID tests negative on Aug. & 15 GI upset currently controlled, rehydration in progress No OB concerns at this time P: discussed pt's status with Dr. Zaidi will continue observation & IV rehydration through the night Pt is offered MAB, fact sheet given to pt to review Pt declines PO sleep med, declines anti-diarrheal med Plan discharge tomorrow if tolerating PO fluid intake Will f/up through [facility] Subjective Subjective Patient reports: feels better, pain is less and tolerating liquids well Interval history since last seen: After being informed of COVID+ result, pt states she is worried and scared for her baby. Objective Reviewed Pertinent PMH: Yes Objective Narrative Objective Narrative: Received Zofran and Reglan IV Has received 2500 ml D5 LR Ketones are diminishing to trace/small Pt states she feels better though some epigastric discomfort persists Has taken sips of liquids and ice chips without emesis Afebrile, normotensive, pulse 70-80, O2 Sat 98% COVID swab is POSITIVE NST was reactive, no labor
[2021-09-03] MEDS: Lactated Ringers 1,000 ML 125 ML IV (23:52)
[2021-09-04] MEDS: Ondansetron 4 MG/2 ML VIAL 8 MG IVP ×2 (00:49→08:31)
[2021-09-04 03:32] VITALS: BP 107/70; PULSE 85; RESP 20; TEMP 36.9; O2SAT 98
--- NOTE | 2021-09-04 07:36 | W.PM.PROGNOT ---
Date of Service Date of service: 09/04/21 Time of Service: 07:36 Assessment and Plan Assessment and plan (1) COVID-19 affecting in third trimester: Status: Acute Assessment and plan: A: mild symptoms of COVID infection status is stable 28 wks , obstetrically stable P: Pt to be discharged this morning Will give MAB prior to discharge if pt consents NST (30 minute tracing) prior to discharge appt this week will be changed to telehealth 28 wk glucola will be rescheduled Subjective Subjective Patient reports: no new complaints and feels better Interval history since last seen: Sleeping since 129, feels tired Objective Reviewed Pertinent PMH: Yes Objective Narrative Objective Narrative: Pt slept through the night No vomiting, no coughing Vital signs remain stable, O2 sat is nml, no signs of respiratory difficulty MAB infusion recommended to pt, she is undecided
[2021-09-04] MEDS: Lactated Ringers 1,000 ML 125 ML IV (07:38)
[2021-09-04 07:39] VITALS: BP 121/80; PULSE 83; RESP 16; TEMP 36.6; O2SAT 99
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
--- NOTE | 2021-09-04 08:47 | W.OBNST ---
Date of service: 09/04/21 Time of Service: 08:47 NST Evaluation Reason for NST Reasons for Nonstress Test: OTHER, SEE COMMENT Gestational Age Gestational Age in Weeks and Days: 27 Weeks and 5Days Test and Monitor Explained Test/Monitor Explained: Test Explained, Monitor Explained and Patient Verbalized Understanding NST Information Date on Monitor: 09/04/21 Time on Monitor: 07:45 Date off Monitor: 09/04/21 Time off Monitor: 08:20 Total Time on Monitor: 35 NST Interventions: None, PO Hydration, IV Fluids and Reposition Patient NST Evaluation Patient States Movement: Present FHR Baseline: 150 Variability: Moderate 6-25 bpm Accelerations: 10x10 Decelerations: None NST Results: Reactive Note NST Note Note: reactive NST which was performed due to patient who is being treated for dehydration, plan discharge to home. NST Reviewed and Verified by: Terese Calhoun
--- NOTE | 2021-09-04 10:01 | NUR.NOTE ---
This RN assumed care at 0700. Pt was in bed. CNM in room. This RN did VSS, which are stable, NST, which was reactive. Encouraged clear diet, got patietn OOB to shower, gave 3rd dose of zofran. Pt declined monoclonal treatment IV. CNM aware. IV was d/c. Pt's sister called to let her know patietn was d/c. no answer. Pt was comfortable driving herself home. This RN wheelchaired her to the exit as precuations ordered. Nursing Note:
== END 2021-09-04 10:00 | disposition home or self-care (01) ==
PROVIDERS: Admitting Provider Advanced Practice Midwife; PCP Nurse Practitioner Family; Visit Provider Advanced Practice Midwife
DX: O98.513 Other viral diseases complicating pregnancy, third trimester (principal); U07.1 COVID-19; O99.613 Diseases of the digestive system complicating pregnancy, third trimester; Z3A.28 28 weeks gestation of pregnancy; E86.0 Dehydration; R82.4 Acetonuria; R11.11 Vomiting without nausea
CPT/HCPCS: 96360; 96361; 59025; 85007; G0378; J2405

== ENCOUNTER 2021-09-14 14:50 | Outpatient (CLI) | payer MEDICAID, SELFPAY ==
[2021-09-14 16:28] VITALS: BP 129/75; PULSE 95; TEMP 36.6
[2021-09-14 17:38] LABS: Bilirubin Small (Negative); Blood Negative (Negative); Clarity Clear (Clear); Glucose Negative (Negative); Ketones 15 mg/dL (Negative); Leukocyte Esterase Small (Negative); Nitrite Negative (Negative); Specific Gravity >= 1.030 (1.005-1.025); Urobilinogen 0.2 EU/dL (Up TO 0.2)
[2021-09-14 17:44] LABS: Bacteria Moderate HPF (Negative); C & S Indicated? No/Sq. Contamination; Casts Negative LPF (Negative); Crystals Negative HPF (Negative); Epithelial Cells Many HPF (Negative); Mucus Trace (Negative); RBC 0-2 HPF (0-2)
[2021-09-14 18:40] LABS: Fetal Fibronectin Positive (Negative)
--- NOTE | 2021-09-15 10:42 | PDOC.NST_ITS ---
Date of service: 09/14/21 Time of Service: 16:00 NST Evaluation Reason for NST Reasons for Nonstress Test: OTHER, SEE COMMENT Reason for NST Other: lower abdominal pain Gestational Age Gestational Age in Weeks and Days: 29 Weeks and 2Days Test and Monitor Explained Test/Monitor Explained: Test Explained, Monitor Explained and Patient Verbalized Understanding Vital Signs Blood Pressure: 129/75 Pulse: 95 Temperature: 97.9 F Urine Results Urine Protein: Positive Urine Ketones: Positive Urine Glucose: Negative Urine Blood: Negative NST Information Date on Monitor: 09/14/21 Time on Monitor: 16:17 NST Interventions: PO Hydration and Notify Provider NST Evaluation Patient States Movement: Present FHR Baseline: 135 Variability: Moderate 6-25 bpm Accelerations: 15x15 Decelerations: None NST Results: Reactive Note NST Note Note: Christie reported lower abdominal pain which woke her up at 0430. it persisted through the day. It was better when she was resting but would occur when she sat up in a chair. She describes suprapubic discomfort. Urine dip shows concentrated urine and ketones. We discussed dehydration and adequate fluid intake was encouraged. No evidence of uterine contractions. Sterile speculum exam. fibronectin and vaginal pathogen screen taken. SVE. External os soft and open, internal os closed. No presenting part in the pelvis. Reviewed signs of labor. Rest and fluids at home discussed. Lab results show pos. fibronectin and gardnerella infection. I attempted to reach Christie by telephone and was unable to leave a message on her phone x 2. Metronidazole escribed to [facility] rom[facility] in [facility]. NST Reviewed and Verified by: Terese Cornell
[2021-09-15 10:47] VITALS: BP 129/75; PULSE 95; TEMP 36.6
== END 2021-09-14 18:05 | disposition home or self-care (01) ==
LOC: BCD 14:52 → OBS 16:24
PROVIDERS: Advanced Practice Midwife; PCP Nurse Practitioner Family; Visit Provider Advanced Practice Midwife
DX: O26.893 Other specified pregnancy related conditions, third trimester (principal); R10.30 Lower abdominal pain, unspecified; O99.283 Endocrine, nutritional and metabolic diseases complicating pregnancy, third trimester; E86.0 Dehydration; O23.593 Infection of other part of genital tract in pregnancy, third trimester; B96.89 Other specified bacterial agents as the cause of diseases classified elsewhere
CPT/HCPCS: 59025; 81003; 81015; 82731; 87086; 87480; 87510; 87660

== ENCOUNTER 2021-09-18 03:51 | Outpatient (CLI) | payer MEDICAID, SELFPAY | END 2021-09-18 03:52 | disposition home or self-care (01) | PROVIDERS: PCP Nurse Practitioner Family; Visit Provider Advanced Practice Midwife ==

== ENCOUNTER 2021-09-22 19:36 | Outpatient (CLI) | payer MEDICAID, SELFPAY ==
[2021-09-22 20:32] VITALS: BP 120/67; PULSE 87; TEMP 36.6
[2021-09-22 20:36] VITALS: BP 120/67; PULSE 86; PULSE 91; O2SAT 98
--- NOTE | 2021-09-22 21:26 | W.OBNST ---
Date of service: 09/22/21 Time of Service: 21:25 NST Evaluation Reason for NST Reasons for Nonstress Test: OTHER, SEE COMMENT Reason for NST Other: Rule Out Gestational Age Gestational Age in Weeks and Days: 30 Weeks and 3Days Test and Monitor Explained Test/Monitor Explained: Test Explained, Monitor Explained and Patient Verbalized Understanding Vital Signs Blood Pressure: 120/67 Pulse: 87 Temperature: 97.9 F NST Information Date on Monitor: 09/22/21 Time on Monitor: 20:31 Date off Monitor: 09/22/21 Time off Monitor: 20:53 Total Time on Monitor: 22 NST Interventions: PO Hydration Contraction Frequency: 0 NST Evaluation Patient States Movement: Present FHR Baseline: 145 Variability: Moderate 6-25 bpm Accelerations: 15x15 Decelerations: None NST Results: Reactive Note NST Note Note: Christie presented for NST due to complaint of contractions that are occasional but then spotting times 2 of red blood on toilet tissue after using bathroom today. Baby is active. NST is reassuring and reactive. Cervix is visualized with speculum, appears closed ( recent VE /-4 ) here at [facility] and then 4 [place] [facility] [place]. She had diagnosis of BV when [place] [facility] and is taking Flagyl for that. Urinalysis was negative for [place] [facility] and patient denies symptoms. There was no blood or old blood in vagina on exam. Patient is discharged to home ambulatory, in satisfactory condition. She does not have a partner at this time and states she is not sexually active. She is usually working 4-8 hour shifts at [employer] in [place] and feels she can continue working. Will RTO on 10/02 for her next visit. Is aware of PTL warning signs and when to page CNM. RANGEL NST Reviewed and Verified by: Terese Calhoun
[2021-09-22 21:30] VITALS: BP 120/67; PULSE 87; TEMP 36.6
== END 2021-09-22 21:23 | disposition home or self-care (01) ==
LOC: BCD 19:37 → OBS 20:30
PROVIDERS: PCP Nurse Practitioner Family; Visit Provider Advanced Practice Midwife
DX: O47.03 False labor before 37 completed weeks of gestation, third trimester (principal); Z3A.30 30 weeks gestation of pregnancy
CPT/HCPCS: 59025

== ENCOUNTER 2021-09-26 16:59 | Outpatient (CLI) | payer MEDICAID, SELFPAY ==
[2021-09-26 17:29] VITALS: BP 111/59; PULSE 77; TEMP 36.5
[2021-09-26 17:36] LABS: Bilirubin Negative (Negative); Blood Negative (Negative); Clarity Clear (Clear); Glucose Negative (Negative); Ketones Negative (Negative); Leukocyte Esterase Negative (Negative); Nitrite Negative (Negative); Urobilinogen 0.2 EU/dL (Up TO 0.2)
[2021-09-26 19:26] LABS: Fetal Fibronectin Negative (Negative)
--- NOTE | 2021-09-26 19:33 | PDOC.NST_ITS ---
Date of service: 09/26/21 Time of Service: 19:33 NST Evaluation Reason for NST Reasons for Nonstress Test: OTHER, SEE COMMENT Reason for NST Other: wellbeing Gestational Age Gestational Age in Weeks and Days: 31 Weeks and 0Days Test and Monitor Explained Test/Monitor Explained: Test Explained, Monitor Explained and Patient Verbalized Understanding Vital Signs Blood Pressure: 111/59 Pulse: 77 Temperature: 97.7 F Urine Results Urine Protein: Negative Urine Ketones: Negative Urine Glucose: Negative Urine Blood: Negative NST Information Time on Monitor: 16:50 NST Interventions: PO Hydration Note NST Note Note: Pt presents with lower abd pain & contractions since 08 today Last Zofran 8 mg @ 1300; currently taking Flagyl 500 PO BID for BV Cvx ft/th posterior, firm, PPOOP; fFN today is negative, UA is neg Notes from [facility] triage visit 09/19/21 reviewed; pt responded to flexaril & Atarax Today NST is reactive, given PO hydration, phenergan 12.5 PO, Vistaril 50 mg PO, discharged to home Will send note requesting her employer provider her with 15 minute breaks q3hrs daily NST Reviewed and Verified by: Lyla Seymour
[2021-09-26 19:38] VITALS: BP 111/59; PULSE 77; TEMP 36.5
[2021-09-26] MEDS: Promethazine 25 MG TAB 12.5 MG PO (20:19)
[2021-09-26] MEDS: hydrOXYzine PAMOATE 25 MG CAP 50 MG PO (20:19)
[2021-09-26 20:28] VITALS: BP 111/59; PULSE 77; RESP 20; TEMP 36.7
== END 2021-09-26 21:00 | disposition home or self-care (01) ==
LOC: BCD 17:00 → OBS 17:09
PROVIDERS: PCP Nurse Practitioner Family; Visit Provider Advanced Practice Midwife
DX: O35.8XX0 Maternal care for other (suspected) fetal abnormality and damage, not applicable or unspecified (principal); Z3A.31 31 weeks gestation of pregnancy
CPT/HCPCS: 59025; 81003; 82731; G0378

== ENCOUNTER 2021-10-01 13:33 | Outpatient (CLI) | payer MEDICAID, SELFPAY ==
[2021-10-01] MEDS: Ondansetron O.D.T. 4 MG TABEF 8 MG PO (15:11)
[2021-10-01 15:13] VITALS: BP 114/66; PULSE 71; TEMP 36.4
[2021-10-01 15:43] VITALS: TEMP 36.4
[2021-10-01] MEDS: Acetaminophen 500 MG TAB 1000 MG PO (15:43)
[2021-10-01 16:02] LABS: Bilirubin Negative (Negative); Blood Negative (Negative); Clarity Sl Cloudy (Clear); Glucose Negative (Negative); Ketones Negative (Negative); Leukocyte Esterase Negative (Negative); Nitrite Negative (Negative); Specific Gravity 1.025 (1.005-1.025); Urobilinogen 0.2 EU/dL (Up TO 0.2)
--- NOTE | 2021-10-01 17:09 | W.OBNST ---
Date of service: 10/01/21 Time of Service: 17:09 NST Evaluation Reason for NST Reasons for Nonstress Test: OTHER, SEE COMMENT Reason for NST Other: pain, llQ Gestational Age Gestational Age in Weeks and Days: 31 Weeks and 5Days Test and Monitor Explained Test/Monitor Explained: Test Explained, Monitor Explained and Patient Verbalized Understanding Vital Signs Blood Pressure: 114/66 Pulse: 71 Temperature: 97.5 F NST Information Date on Monitor: 10/01/21 Time on Monitor: 14:52 Date off Monitor: 10/01/21 Time off Monitor: 15:54 Total Time on Monitor: 62 NST Interventions: PO Hydration NST Evaluation Patient States Movement: Present FHR Baseline: 130 Variability: Moderate 6-25 bpm Accelerations: 15x15 Decelerations: None NST Results: Reactive Note NST Note Note: DFM and LLQ pain No contractions Given tylenol and Zofran UA and UC&S sent Pt discharged to home NST Reviewed and Verified by: Lyla Seymour
[2021-10-01 17:10] VITALS: BP 114/66; PULSE 71; TEMP 36.4
== END 2021-10-01 16:14 | disposition home or self-care (01) ==
LOC: BCD 13:34 → OBS 14:48
PROVIDERS: PCP Nurse Practitioner Family; Visit Provider Advanced Practice Midwife
DX: O26.893 Other specified pregnancy related conditions, third trimester (principal); R10.32 Left lower quadrant pain; Z3A.31 31 weeks gestation of pregnancy
CPT/HCPCS: 59025; 81003; 87086

== ENCOUNTER 2021-11-01 00:27 | Outpatient (CLI) | payer MEDICAID, SELFPAY ==
--- NOTE | 2021-11-01 06:54 | DI.US_ITS ---
Exam(s) US OB SG WEIGHT EXAM: US OB SG WEIGHT CLINICAL HISTORY: growth and SG check due to COVID during ,u07.1. COMPARISON: No exams were available for comparison TECHNIQUE: Transabdominal obstetrical ultrasound performed. FINDINGS: Sonographic images demonstrate a single intrauterine gestation in cephalic position. Placenta:Anterior, grade 2. Predicted gestational age: 36 weeks 1 day Estimated date of delivery 28 November 2021: heart rate motion is Dopplered at: 130 BPM. BPD: 89mm = 36+ 1 weeks HC: 322mm = 36+ 3 weeks AC: 324mm = 36+ 2 weeks FL: 71mm = 36+ 1 weeks EFW: [id number] Grams = 56 % Sonographically assessed composite gestational age: 36+ 2 weeks Estimated date of delivery based on this ultrasound is: 27 November 2021 Amniotic fluid:. Amount of fluid is within normal limits. IMPRESSION: size and weight are within the expected range . DATA REPOSITORY:
== END 2021-11-01 00:47 ==
PROVIDERS: PCP Nurse Practitioner Family; Visit Provider Advanced Practice Midwife
DX: U07.1 COVID-19 (principal); O98.513 Other viral diseases complicating pregnancy, third trimester
CPT/HCPCS: 76816

== ENCOUNTER 2021-11-02 11:15 | Outpatient (RCR) | payer MEDICAID, SELFPAY ==
[2021-11-02] MEDS: Normal Saline Flush 10 ML SYR IVP (12:35)
[2021-11-02] MEDS: IRON SUCROSE COMPLEX 200 MG in Normal Saline 100 ML 220 MG IVPB (12:43)
== END 2021-11-06 23:59 | disposition home or self-care (01) ==
LOC: INF 11:15
PROVIDERS: PCP Nurse Practitioner Family; Visit Provider Advanced Practice Midwife
DX: D50.9 Iron deficiency anemia, unspecified (principal)
CPT/HCPCS: 96365; J1756

== ENCOUNTER 2021-11-02 12:35 | Outpatient (REF) | payer MEDICAID, SELFPAY ==
[2021-11-02 14:14] LABS: *AMPHETAMINES SCREEN URINE Negative (Negative); *BARBITURATES SCREEN URINE Negative (Negative); *BENZODIAZEPINES SCREEN URINE Negative (Negative); Cannabinoids THC Positive (Negative); Cocaine Screen,Urine Negative (Negative); METHADONE URINE SCREEN Negative (Negative); OPIATES URINE SCREEN Negative (Negative); Tricyclic Antidepressants Negative (Negative)
[2021-11-08 10:45] LABS: Buprenorphine Negative ng/mL (Cutoff: 5.0); Norbuprenorphine Negative ng/mL (Cutoff: 2.5)
== END 2021-11-02 12:36 | disposition home or self-care (01) ==
LOC: LBN 12:35
PROVIDERS: PCP Nurse Practitioner Family; Visit Provider Advanced Practice Midwife
DX: O99.013 Anemia complicating pregnancy, third trimester (principal)
CPT/HCPCS: 80307; 87081

== ENCOUNTER 2021-11-03 04:37 | Observation (INO) | payer MEDICAID, SELFPAY ==
[2021-11-03 04:28] VITALS: PULSE 82; RESP 18; TEMP 36.8; O2SAT 98
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
--- NOTE | 2021-11-03 06:30 | W.OBNST ---
Date of service: 11/03/21 Time of Service: 04:50 NST Evaluation Reason for NST Reasons for Nonstress Test: FALSE LABOR Gestational Age Gestational Age in Weeks and Days: 36 Weeks and 3Days Test and Monitor Explained Test/Monitor Explained: Test Explained, Monitor Explained and Patient Verbalized Understanding NST Information Date on Monitor: 11/03/21 Time on Monitor: 04:21 Date off Monitor: 11/03/21 Time off Monitor: 04:56 Total Time on Monitor: 35 NST Interventions: PO Hydration NST Evaluation Patient States Movement: Present FHR Baseline: 135 Variability: Moderate 6-25 bpm Accelerations: 15x15 Decelerations: None NST Results: Reactive Note NST Note Note: NST is done for irregular uterine contractions. Reactive and reassuring. If no cervical changes in 2 hours will discharge to home. CLAIRE NST Reviewed and Verified by: Terese Calhoun
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
== END 2021-11-03 06:59 | disposition home or self-care (01) ==
PROVIDERS: Admitting Provider Advanced Practice Midwife; PCP Nurse Practitioner Family; Visit Provider Advanced Practice Midwife
DX: O47.03 False labor before 37 completed weeks of gestation, third trimester (principal); Z3A.36 36 weeks gestation of pregnancy; O99.013 Anemia complicating pregnancy, third trimester; D64.9 Anemia, unspecified; O99.333 Smoking (tobacco) complicating pregnancy, third trimester; F17.210 Nicotine dependence, cigarettes, uncomplicated; Z86.16 Personal history of COVID-19; O99.343 Other mental disorders complicating pregnancy, third trimester; F43.10 Post-traumatic stress disorder, unspecified; F41.9 Anxiety disorder, unspecified; F31.9 Bipolar disorder, unspecified
CPT/HCPCS: 59025; G0378

== ENCOUNTER 2021-11-05 11:55 | Inpatient (IN) | payer MEDICAID, SELFPAY ==
[2021-11-05] VITALS (30 sets, daily range): BP systolic 106–143; BP diastolic 57–86; PULSE 65–98; RESP 18–20; TEMP 36.3–37.2; O2SAT 94–100; BMI 41.8
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
[2021-11-05 12:55] LABS: HCT 33.2 % (36.0-46.0); HGB 9.8 g/dL (11.2-15.7); MCH 23.1 pg (27.0-33.0); MCHC 29.5 % (32.0-36.0); MCV 78.3 fL (80-95); MPV 11.6 fL (8.0-11.0); Platelet Count 338 10^3/uL (130-400); RBC 4.24 10^6/uL (3.93-5.22); RDW 18.4 % (11.7-14.6); RDW-SD 49.3 fL; WBC 12.71 10^3/uL (4.4-10.8)
[2021-11-05 12:58] LABS: Source Nasal/Nares
[2021-11-05 13:15] LABS: ALT 28 U/L (14-59); AST 27 U/L (15-37); Albumin 2.3 g/dL (3.4-5.0); Alkaline Phosphatase 133 U/L (46-116); Anion Gap 8.2 mmol/L (3-11); BUN 9 mg/dL (7-18); Bilirubin, Total 0.2 mg/dL (0.2-1.0); CO2 23.8 mmol/L (21.0-32.0); CREATININE 0.7 mg/dL (0.55-1.02); Calcium 8.7 mg/dL (8.5-10.1); Chloride 105 mmol/L (98-107); Glucose 85 mg/dL (74-106); Potassium 4.3 mmol/L (3.5-5.1); Sodium 137 mmol/L (136-145); Total Protein 6.5 g/dL (6.4-8.2)
[2021-11-05] MEDS: VANCOMYCIN 1,000 MG in Normal Saline 250 ML 166.667 MG IVPB (13:28)
--- NOTE | 2021-11-05 13:43 | W.PM.OBNL1 ---
Date of service: 11/05/21 Time of Service: 13:44 Informed Consent Informed Consent: Augmentation of Labor and Other (GBS prophylaxis with Vancomycin) Pelvic Exam Dilation: 3 Effacement (%): 80 station: -1 Position: NEDA Cervix Position: mid Consistency: soft BISHOPS Score(Cervical Ripeness Score): 9 Contractions Monitor Mode: Palpation (plapble on right side of fundus, moderate, 2-4 minutes apart, lasting 40-60) Fetus A Monitor: External (US) Heart Rate Baseline: 135 Presentation: Vertex Variability: Moderate (6-25 BPM) Categories: Category I Accelerations: 15 X 15 Decelerations: None Assessment and Plan Assessment and plan (1) premature rupture of membranes: Status: Acute Assessment and plan: will continue to support labor, no need for augmentation at this time. IV antibiotic is hung at this time due to difficulty obtaining IV site prior to this. will use nitrous to help with relaxation. KH Objective Abnormal lab results 11/05/21 11/05/21 Range/Units 12:45 12:45 WBC 12.71 H (4.4-10.8) 10^3/uL Hgb 9.8 L (11.2-15.7) g/dL Hct 33.2 L (36.0-46.0) % MCV 78.3 L (80-95) fL MCH 23.1 L (27.0-33.0) pg MCHC 29.5 L (32.0-36.0) % RDW 18.4 H (11.7-14.6) % MPV 11.6 H (8.0-11.0) fL Alkaline Phosphatase 133 H (46-116) U/L Albumin 2.3 L (3.4-5.0) g/dL Pulse BP 74 127/66 11/05/21 13:35 11/05/21 13:35 Laboratory Results WBC 12.71 10^3/uL (4.4-10.8) H 11/05/21 12:45 RBC 4.24 10^6/uL (3.93-5.22) 11/05/21 12:45 Hgb 9.8 g/dL (11.2-15.7) L 11/05/21 12:45 Hct 33.2 % (36.0-46.0) L 11/05/21 12:45 MCV 78.3 fL (80-95) L 11/05/21 12:45 MCH 23.1 pg (27.0-33.0) L 11/05/21 12:45 MCHC 29.5 % (32.0-36.0) L 11/05/21 12:45 RDW 18.4 % (11.7-14.6) H 11/05/21 12:45 Plt Count 338 10^3/uL (130-400) 11/05/21 12:45 MPV 11.6 fL (8.0-11.0) H 11/05/21 12:45 Sodium 137 mmol/L (136-145) 11/05/21 12:45 Potassium 4.3 mmol/L (3.5-5.1) 11/05/21 12:45 Chloride 105 mmol/L (98-107) 11/05/21 12:45 Carbon Dioxide 23.8 mmol/L (21.0-32.0) 11/05/21 12:45 Anion Gap 8.2 mmol/L (3-11) 11/05/21 12:45 BUN 9 mg/dL (7-18) 11/05/21 12:45 Creatinine 0.7 mg/dL (0.55-1.02) 11/05/21 12:45 Estimated GFR/1.73 m2 >= 60.00 (mL/min/1.73m2) 11/05/21 12:45 Glucose 85 mg/dL (74-106) 11/05/21 12:45 Calcium 8.7 mg/dL (8.5-10.1) 11/05/21 12:45 Total Bilirubin 0.2 mg/dL (0.2-1.0) 11/05/21 12:45 AST 27 U/L (15-37) 11/05/21 12:45 ALT 28 U/L (14-59) 11/05/21 12:45 Alkaline Phosphatase 133 U/L (46-116) H 11/05/21 12:45 Total Protein 6.5 g/dL (6.4-8.2) 11/05/21 12:45 Albumin 2.3 g/dL (3.4-5.0) L 11/05/21 12:45 COVID-19 Source Nasal/Nares 11/05/21 12:15 Subjective Interval history since last seen: feeling much more discomfort. Rhonda Kochi is being used to monitor patient and is picking up FHR very well but unable to get contractions. Will be readjusted by Nursing and if no improvement we may need to return to external or internal monitoring if necessary. KH Interventions Pain Management Interventions: Comfort Measures , Breathing/Relaxation Techniques, Position Change and Soothing Environment and Nitrous Oxide , Patient has been informed on how to use Nitrous oxide and its expected results. KH . Results Hemoglobin/Hematocrit: Hgb 9.8 g/dL (11.2-15.7) L 11/05/21 12:45 Hct 33.2 % (36.0-46.0) L 11/05/21 12:45 Abnormal Lab Findings: Abnormal Labs 11/05/21 11/05/21 12:45 12:45 WBC 12.71 H Hgb 9.8 L Hct 33.2 L MCV 78.3 L MCH 23.1 L MCHC 29.5 L RDW 18.4 H MPV 11.6 H Alkaline Phosphatase 133 H Albumin 2.3 L
[2021-11-05 13:50] LABS: COVID-19 PCR Negative (Negative)
[2021-11-05] MEDS: Ondansetron 4 MG/2 ML VIAL IVP (14:48)
[2021-11-05] MEDS: Lactated Ringers 1,000 ML 125 ML IV (16:17)
--- NOTE | 2021-11-05 16:19 | W.PM.OBNL1 ---
Date of service: 11/05/21 Time of Service: 16:20 Informed Consent Informed Consent: Augmentation of Labor and Other (GBS prophylaxis with Vancomycin) Pelvic Exam Dilation: 3.5 Effacement (%): 90 station: -1 Cervix Position: mid Contractions Contraction Frequency(min): every 3-4 minutes by palpation, patient has difficult time allowing monitor Intensity: Moderate Fetus A Monitor: Doppler (130) Assessment Note: patient is not tolerating monitor well, will continue with doppler assessments and work toward epidural for pain management. Assessment and Plan Assessment and plan (1) premature rupture of membranes: Status: Acute Assessment and plan: 1. Patient has tried multiple position changes and tub / shower with minimal relief of her pain. She is becoming intolerant of labor. Has requested epidural and anesthesia will attend when able but are currently in a case, will give Nubain IV to help patient relax through contractions until epidural is available. 2. Much emotional and physical support offered. Objective Abnormal lab results 11/05/21 11/05/21 Range/Units 12:45 12:45 WBC 12.71 H (4.4-10.8) 10^3/uL Hgb 9.8 L (11.2-15.7) g/dL Hct 33.2 L (36.0-46.0) % MCV 78.3 L (80-95) fL MCH 23.1 L (27.0-33.0) pg MCHC 29.5 L (32.0-36.0) % RDW 18.4 H (11.7-14.6) % MPV 11.6 H (8.0-11.0) fL Alkaline Phosphatase 133 H (46-116) U/L Albumin 2.3 L (3.4-5.0) g/dL Temp Pulse Resp BP 97.5 F L 74 20 127/66 11/05/21 14:22 11/05/21 14:22 11/05/21 13:35 11/05/21 13:35 Laboratory Results WBC 12.71 10^3/uL (4.4-10.8) H 11/05/21 12:45 RBC 4.24 10^6/uL (3.93-5.22) 11/05/21 12:45 Hgb 9.8 g/dL (11.2-15.7) L 11/05/21 12:45 Hct 33.2 % (36.0-46.0) L 11/05/21 12:45 MCV 78.3 fL (80-95) L 11/05/21 12:45 MCH 23.1 pg (27.0-33.0) L 11/05/21 12:45 MCHC 29.5 % (32.0-36.0) L 11/05/21 12:45 RDW 18.4 % (11.7-14.6) H 11/05/21 12:45 Plt Count 338 10^3/uL (130-400) 11/05/21 12:45 MPV 11.6 fL (8.0-11.0) H 11/05/21 12:45 Sodium 137 mmol/L (136-145) 11/05/21 12:45 Potassium 4.3 mmol/L (3.5-5.1) 11/05/21 12:45 Chloride 105 mmol/L (98-107) 11/05/21 12:45 Carbon Dioxide 23.8 mmol/L (21.0-32.0) 11/05/21 12:45 Anion Gap 8.2 mmol/L (3-11) 11/05/21 12:45 BUN 9 mg/dL (7-18) 11/05/21 12:45 Creatinine 0.7 mg/dL (0.55-1.02) 11/05/21 12:45 Estimated GFR/1.73 m2 >= 60.00 (mL/min/1.73m2) 11/05/21 12:45 Glucose 85 mg/dL (74-106) 11/05/21 12:45 Calcium 8.7 mg/dL (8.5-10.1) 11/05/21 12:45 Total Bilirubin 0.2 mg/dL (0.2-1.0) 11/05/21 12:45 AST 27 U/L (15-37) 11/05/21 12:45 ALT 28 U/L (14-59) 11/05/21 12:45 Alkaline Phosphatase 133 U/L (46-116) H 11/05/21 12:45 Total Protein 6.5 g/dL (6.4-8.2) 11/05/21 12:45 Albumin 2.3 g/dL (3.4-5.0) L 11/05/21 12:45 COVID-19 Source Nasal/Nares 11/05/21 12:15 SARS-CoV-2 (PCR) Negative (Negative) 11/05/21 12:15 Patient ABO/Rh O Positive 11/05/21 12:45 Antibody Screen NEGATIVE 11/05/21 12:45 Subjective Patient Reports: New Complaints (I can't take the pain any more, I need an epidural) Results Hemoglobin/Hematocrit: Hgb 9.8 g/dL (11.2-15.7) L 11/05/21 12:45 Hct 33.2 % (36.0-46.0) L 11/05/21 12:45 Abnormal Lab Findings: Abnormal Labs 11/05/21 11/05/21 12:45 12:45 WBC 12.71 H Hgb 9.8 L Hct 33.2 L MCV 78.3 L MCH 23.1 L MCHC 29.5 L RDW 18.4 H MPV 11.6 H Alkaline Phosphatase 133 H Albumin 2.3 L
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
[2021-11-05] MEDS: FentaNYL/ROPIvacaine 2 mcg/ml and 0.1% 200 ML CADD Cassette EP (18:02)
--- NOTE | 2021-11-05 18:46 | W.PM.OBNL1 ---
Date of service: 11/05/21 Time of Service: 18:46 Informed Consent Informed Consent: Augmentation of Labor and Other (GBS prophylaxis with Vancomycin) Pelvic Exam Dilation: 5.5 Effacement (%): 90 station: -1 Cervix Position: mid Consistency: soft Contractions Contraction Frequency(min): 2-4 Contraction Duration(sec): 50-90 Intensity: Moderate Fetus A Heart Rate Baseline: 130 Variability: Moderate (6-25 BPM) Categories: Category I Accelerations: Absent Decelerations: None Assessment and Plan Assessment and plan (1) Active labor at term: Status: Acute Assessment and plan: 1. Epidural placed and pain is well controlled 2. will place IUPC and FSE for better monitoring 3. Kennedy will be placed 4. Will augment with pitocin to achieve delivery if indicated by MVU's. KH Objective Abnormal lab results 11/05/21 11/05/21 Range/Units 12:45 12:45 WBC 12.71 H (4.4-10.8) 10^3/uL Hgb 9.8 L (11.2-15.7) g/dL Hct 33.2 L (36.0-46.0) % MCV 78.3 L (80-95) fL MCH 23.1 L (27.0-33.0) pg MCHC 29.5 L (32.0-36.0) % RDW 18.4 H (11.7-14.6) % MPV 11.6 H (8.0-11.0) fL Alkaline Phosphatase 133 H (46-116) U/L Albumin 2.3 L (3.4-5.0) g/dL Temp Pulse Resp BP Pulse Ox 97.6 F 90 20 130/67 100 11/05/21 17:25 11/05/21 18:41 11/05/21 13:35 11/05/21 18:40 11/05/21 18:41 Laboratory Results WBC 12.71 10^3/uL (4.4-10.8) H 11/05/21 12:45 RBC 4.24 10^6/uL (3.93-5.22) 11/05/21 12:45 Hgb 9.8 g/dL (11.2-15.7) L 11/05/21 12:45 Hct 33.2 % (36.0-46.0) L 11/05/21 12:45 MCV 78.3 fL (80-95) L 11/05/21 12:45 MCH 23.1 pg (27.0-33.0) L 11/05/21 12:45 MCHC 29.5 % (32.0-36.0) L 11/05/21 12:45 RDW 18.4 % (11.7-14.6) H 11/05/21 12:45 Plt Count 338 10^3/uL (130-400) 11/05/21 12:45 MPV 11.6 fL (8.0-11.0) H 11/05/21 12:45 Sodium 137 mmol/L (136-145) 11/05/21 12:45 Potassium 4.3 mmol/L (3.5-5.1) 11/05/21 12:45 Chloride 105 mmol/L (98-107) 11/05/21 12:45 Carbon Dioxide 23.8 mmol/L (21.0-32.0) 11/05/21 12:45 Anion Gap 8.2 mmol/L (3-11) 11/05/21 12:45 BUN 9 mg/dL (7-18) 11/05/21 12:45 Creatinine 0.7 mg/dL (0.55-1.02) 11/05/21 12:45 Estimated GFR/1.73 m2 >= 60.00 (mL/min/1.73m2) 11/05/21 12:45 Glucose 85 mg/dL (74-106) 11/05/21 12:45 Calcium 8.7 mg/dL (8.5-10.1) 11/05/21 12:45 Total Bilirubin 0.2 mg/dL (0.2-1.0) 11/05/21 12:45 AST 27 U/L (15-37) 11/05/21 12:45 ALT 28 U/L (14-59) 11/05/21 12:45 Alkaline Phosphatase 133 U/L (46-116) H 11/05/21 12:45 Total Protein 6.5 g/dL (6.4-8.2) 11/05/21 12:45 Albumin 2.3 g/dL (3.4-5.0) L 11/05/21 12:45 COVID-19 Source Nasal/Nares 11/05/21 12:15 SARS-CoV-2 (PCR) Negative (Negative) 11/05/21 12:15 Patient ABO/Rh O Positive 11/05/21 12:45 Antibody Screen NEGATIVE 11/05/21 12:45 Vital Signs Reviewed: Yes Subjective Interval history since last seen: much more comfortable since epidural was placed. KH Results Hemoglobin/Hematocrit: Hgb 9.8 g/dL (11.2-15.7) L 11/05/21 12:45 Hct 33.2 % (36.0-46.0) L 11/05/21 12:45 Abnormal Lab Findings: Abnormal Labs 11/05/21 11/05/21 12:45 12:45 WBC 12.71 H Hgb 9.8 L Hct 33.2 L MCV 78.3 L MCH 23.1 L MCHC 29.5 L RDW 18.4 H MPV 11.6 H Alkaline Phosphatase 133 H Albumin 2.3 L
--- NOTE | 2021-11-05 18:49 | W.ANESNEU ---
Epidural/Spinal Catheter Date Performed: 11/05/21 Procedure Start: 18:02 Procedure Stop: 18:24 Requesting Provider: Terese Calhoun Procedure Location: Obstetrics Reason Performed: Labor Epidural Standard Monitors Applied: Blood Pressure and SpO2 Patient Position: Sitting Sedation Given (Indicate Dose Given): No Sedation given Patient Mental Status: Awake Sterility: Hand Hygiene, Surgical Cap, Surgical Mask, Sterile Gloves, Sterile Drape/Sheet and Chlorhexidine Procedure Location: L2-L3 Interspace Epidural Needle: Tuohy 17 Guage Needle Length: 5 Inch Needle Approach: Midline Epidural Procedure: Skin Prepped, Sterile Drape Placed, 1% Lidocaine to skin and subcutaneous tissue with 25G needle, Tuohy Needle placed, MATTHEW to Saline Used and Epidural Catheter Placed Catheter Placed?: Catheter Placed Test Dose (Indicate Dose Given): 3ml 1.5% Lidocaine with 1:200K Epinephrine Given Loss of Resistance Depth (cm): 10 Catheter depth at skin (cm): 15 Dressing: Sorbaview Dressing Placed and Mastisol Used Epidural Provider Bolus (Indicate Dose Given): Total Ropivacaine 0.1% with Fentanyl 2mcg/ml Given from pump. (ml) (8 mL + 5 mL + 5 mL over ~ 15 minutes. ) Dose:: 18 mL Additives (Indicate Dose Given ): None Infusion Medication: Medication Infusion Began Medication Infusion: Ropivacaine 0.1% with Fentanyl 2mcg/ml Maintenance Infusion Rate (ml/hour): 10 PCEA Bolus Dose (ml): 5 Block Level: N/A Paresthesia: None Ultrasound: Used to buck site Number of Attempts (See previous attempts in note section): 1 Procedure Tolerated: No Complications Procedure Outcome: Successful Procedure Comment:: epidural placed with good MATTHEW and catheter threaded very easily. Negative test dose. Loaded off pump. After first 8 mL, pt looks more comfortable, but doesn't feel much better. Test with alcohol wipes, she states no loss of cold sensation. additional 5 mL given. States better, but still uncomfortable. Describes the numbness being over most of her lower back, which is an improvement. We discussed the lack of losing sensation to cold may mean that we are in the incorrect spot, but that given how easily the catheter threaded that it should be unlikely, dafne since she does appear and feel slightly more comfortable. another 5 mL bolus was given with more improvement in her discomfort. She was educated on the PCEA function of the epidural. Of note, NOT pertaining to this patient, Buddy her SO/FOB has a seizure around the time that I was entering the room. O2 was administered, an IV was placed (18 ga left FA), and his SPO2 was ~ 95%. After a few minutes he roused. He has a known seizure disorder. He was asked repeatedly by myself, and the OB staff if we can assist him to the ED for evaluation. He declined to do so. He is alert, oriented, and fully aware of what is going on and what happened. His IV was removed shortly after the epidural was placed. Performed By: Jamir Wharton
--- NOTE | 2021-11-05 20:45 | W.PM.OBNL1 ---
Date of service: 11/05/21 Time of Service: 20:45 Informed Consent Informed Consent: Augmentation of Labor and Other (GBS prophylaxis with Vancomycin) Pelvic Exam Effacement (%): 90 station: -1 Cervix Position: anterior Contractions Monitor Mode: External (latanya novi) Contraction Frequency(min): 2-4 Contraction Duration(sec): 40-60 Intensity: Moderate/Strong (on palpation) Fetus A Monitor: External (US) Heart Rate Baseline: 150 Variability: Moderate (6-25 BPM) Categories: Category II (occasional variable deceleration, non repetative, overall reassuring.) Accelerations: 15 X 15 Decelerations: Variable Recurrence: Intermittent Assessment and Plan Assessment and plan (1) Active labor at term: Status: Acute Assessment and plan: 1. continue with present management 2. Bladder scan performed, less than 130 ml noted, fluid bolus given 3. will encourage position changes 4. reassess at midnight or prn. KH Objective Abnormal lab results 11/05/21 11/05/21 Range/Units 12:45 12:45 WBC 12.71 H (4.4-10.8) 10^3/uL Hgb 9.8 L (11.2-15.7) g/dL Hct 33.2 L (36.0-46.0) % MCV 78.3 L (80-95) fL MCH 23.1 L (27.0-33.0) pg MCHC 29.5 L (32.0-36.0) % RDW 18.4 H (11.7-14.6) % MPV 11.6 H (8.0-11.0) fL Alkaline Phosphatase 133 H (46-116) U/L Albumin 2.3 L (3.4-5.0) g/dL Temp Pulse Resp BP Pulse Ox 97.6 F 74 18 122/60 100 11/05/21 20:09 11/05/21 19:18 11/05/21 19:15 11/05/21 19:18 11/05/21 19:15 Laboratory Results WBC 12.71 10^3/uL (4.4-10.8) H 11/05/21 12:45 RBC 4.24 10^6/uL (3.93-5.22) 11/05/21 12:45 Hgb 9.8 g/dL (11.2-15.7) L 11/05/21 12:45 Hct 33.2 % (36.0-46.0) L 11/05/21 12:45 MCV 78.3 fL (80-95) L 11/05/21 12:45 MCH 23.1 pg (27.0-33.0) L 11/05/21 12:45 MCHC 29.5 % (32.0-36.0) L 11/05/21 12:45 RDW 18.4 % (11.7-14.6) H 11/05/21 12:45 Plt Count 338 10^3/uL (130-400) 11/05/21 12:45 MPV 11.6 fL (8.0-11.0) H 11/05/21 12:45 Sodium 137 mmol/L (136-145) 11/05/21 12:45 Potassium 4.3 mmol/L (3.5-5.1) 11/05/21 12:45 Chloride 105 mmol/L (98-107) 11/05/21 12:45 Carbon Dioxide 23.8 mmol/L (21.0-32.0) 11/05/21 12:45 Anion Gap 8.2 mmol/L (3-11) 11/05/21 12:45 BUN 9 mg/dL (7-18) 11/05/21 12:45 Creatinine 0.7 mg/dL (0.55-1.02) 11/05/21 12:45 Estimated GFR/1.73 m2 >= 60.00 (mL/min/1.73m2) 11/05/21 12:45 Glucose 85 mg/dL (74-106) 11/05/21 12:45 Calcium 8.7 mg/dL (8.5-10.1) 11/05/21 12:45 Total Bilirubin 0.2 mg/dL (0.2-1.0) 11/05/21 12:45 AST 27 U/L (15-37) 11/05/21 12:45 ALT 28 U/L (14-59) 11/05/21 12:45 Alkaline Phosphatase 133 U/L (46-116) H 11/05/21 12:45 Total Protein 6.5 g/dL (6.4-8.2) 11/05/21 12:45 Albumin 2.3 g/dL (3.4-5.0) L 11/05/21 12:45 COVID-19 Source Nasal/Nares 11/05/21 12:15 SARS-CoV-2 (PCR) Negative (Negative) 11/05/21 12:15 Patient ABO/Rh O Positive 11/05/21 12:45 Antibody Screen NEGATIVE 11/05/21 12:45 Subjective Interval history since last seen: very comfortable and able to watch TV. Denies rectal pressure. Is aware of fluid leaking and can move legs well. Denies urge to void. KH Results Hemoglobin/Hematocrit: Hgb 9.8 g/dL (11.2-15.7) L 11/05/21 12:45 Hct 33.2 % (36.0-46.0) L 11/05/21 12:45 Abnormal Lab Findings: Abnormal Labs 11/05/21 11/05/21 12:45 12:45 WBC 12.71 H Hgb 9.8 L Hct 33.2 L MCV 78.3 L MCH 23.1 L MCHC 29.5 L RDW 18.4 H MPV 11.6 H Alkaline Phosphatase 133 H Albumin 2.3 L
--- NOTE | 2021-11-05 22:55 | W.PM.OBNL1 ---
Date of service: 11/05/21 Time of Service: 22:55 Informed Consent Informed Consent: Augmentation of Labor and Other (GBS prophylaxis with Vancomycin) Pelvic Exam Dilation: 9 Effacement (%): 100 station: -1 Contractions Contraction Frequency(min): 5-6 Contraction Duration(sec): 50-60 Fetus A Heart Rate Baseline: 150 Variability: Moderate (6-25 BPM) Categories: Category I Accelerations: 15 X 15 Decelerations: None Assessment and Plan Assessment and plan (1) Irregular uterine contractions: Status: Acute Assessment and plan: 1. Will augment with pitocin due to irregularity of contractions at this time, patient is aware of risks, benefits and alternatives of pitocin use and expectant management 2. expect NVD. KH Objective Abnormal lab results 11/05/21 11/05/21 Range/Units 12:45 12:45 WBC 12.71 H (4.4-10.8) 10^3/uL Hgb 9.8 L (11.2-15.7) g/dL Hct 33.2 L (36.0-46.0) % MCV 78.3 L (80-95) fL MCH 23.1 L (27.0-33.0) pg MCHC 29.5 L (32.0-36.0) % RDW 18.4 H (11.7-14.6) % MPV 11.6 H (8.0-11.0) fL Alkaline Phosphatase 133 H (46-116) U/L Albumin 2.3 L (3.4-5.0) g/dL Temp Pulse Resp BP Pulse Ox 99.0 F 72 18 118/66 100 11/05/21 22:00 11/05/21 21:02 11/05/21 21:00 11/05/21 21:02 11/05/21 21:00 Laboratory Results WBC 12.71 10^3/uL (4.4-10.8) H 11/05/21 12:45 RBC 4.24 10^6/uL (3.93-5.22) 11/05/21 12:45 Hgb 9.8 g/dL (11.2-15.7) L 11/05/21 12:45 Hct 33.2 % (36.0-46.0) L 11/05/21 12:45 MCV 78.3 fL (80-95) L 11/05/21 12:45 MCH 23.1 pg (27.0-33.0) L 11/05/21 12:45 MCHC 29.5 % (32.0-36.0) L 11/05/21 12:45 RDW 18.4 % (11.7-14.6) H 11/05/21 12:45 Plt Count 338 10^3/uL (130-400) 11/05/21 12:45 MPV 11.6 fL (8.0-11.0) H 11/05/21 12:45 Sodium 137 mmol/L (136-145) 11/05/21 12:45 Potassium 4.3 mmol/L (3.5-5.1) 11/05/21 12:45 Chloride 105 mmol/L (98-107) 11/05/21 12:45 Carbon Dioxide 23.8 mmol/L (21.0-32.0) 11/05/21 12:45 Anion Gap 8.2 mmol/L (3-11) 11/05/21 12:45 BUN 9 mg/dL (7-18) 11/05/21 12:45 Creatinine 0.7 mg/dL (0.55-1.02) 11/05/21 12:45 Estimated GFR/1.73 m2 >= 60.00 (mL/min/1.73m2) 11/05/21 12:45 Glucose 85 mg/dL (74-106) 11/05/21 12:45 Calcium 8.7 mg/dL (8.5-10.1) 11/05/21 12:45 Total Bilirubin 0.2 mg/dL (0.2-1.0) 11/05/21 12:45 AST 27 U/L (15-37) 11/05/21 12:45 ALT 28 U/L (14-59) 11/05/21 12:45 Alkaline Phosphatase 133 U/L (46-116) H 11/05/21 12:45 Total Protein 6.5 g/dL (6.4-8.2) 11/05/21 12:45 Albumin 2.3 g/dL (3.4-5.0) L 11/05/21 12:45 COVID-19 Source Nasal/Nares 02/27/22 12:15 SARS-CoV-2 (PCR) Negative (Negative) 11/05/21 12:15 Patient ABO/Rh O Positive 11/05/21 12:45 Antibody Screen NEGATIVE 11/05/21 12:45 Vital Signs Reviewed: Yes Subjective Interval history since last seen: remains comfortable, anxious to meet baby. KH Interventions Augmentation , Pitocin rate (mU/min): 2 reviewed risks and benefits as well as risks and benefits of expectant management, patient agrees to move forward with pitocin as contractions have spaced out despite some cervical changes. KH . Results Hemoglobin/Hematocrit: Hgb 9.8 g/dL (11.2-15.7) L 11/05/21 12:45 Hct 33.2 % (36.0-46.0) L 11/05/21 12:45 Abnormal Lab Findings: Abnormal Labs 11/05/21 11/05/21 12:45 12:45 WBC 12.71 H Hgb 9.8 L Hct 33.2 L MCV 78.3 L MCH 23.1 L MCHC 29.5 L RDW 18.4 H MPV 11.6 H Alkaline Phosphatase 133 H Albumin 2.3 L
[2021-11-05] MEDS: Oxytocin/Normal Saline 30 UNIT/500 ML BAG 2 UNITS IV (23:00)
[2021-11-05] MEDS: VANCOMYCIN 1,000 MG in Normal Saline 250 ML 167 MG IVPB (23:55)
[2021-11-06] VITALS (16 sets, daily range): BP systolic 105–154; BP diastolic 58–72; PULSE 62–111; RESP 18–20; TEMP 36.6–37.2; O2SAT 96–99
[2021-11-06] MEDS: Oxytocin/Normal Saline 30 UNIT/500 ML BAG 95 UNITS IV (00:49)
--- NOTE | 2021-11-06 00:57 | PLAC_PTH ---
PATIENT: Christie Nuñez LOC: OBS U#:[id number] AGE/SX: 21/F ROOM: OBS.300 RE11/05/[address]: Terese Calhoun CNM : 2000 BED: A DIS: 11/08/2021 SPEC #: [id number] RECD: 11/06/21 12:34 STATUS: JENNIFER REQ #: [id number] RAO: 11/06/21 00:[address]: Terese Calhoun DEPT: Surgical Specimen RECD BY: Yessi Claudio ENTERED: 11/06/21 12:34 SP TYPE: PLAC OTHR DR: Natividad Kenney Tissues: 1 - PLACENTA (3RD TRIMESTER) Procedures: GROSS AND MICRO LEVEL 5 Comments: [id number]
--- NOTE | 2021-11-06 01:10 | W.OBDELIVERY ---
Date of service: 11/06/21 Time of Service: 01:10 OB Labor/ Delivery Information Baby A Delivery Delivery Method: Spontaneaous Presentation: Vertex Cephalic Position: Vertex Vertex Position: Left Occipital Anterior Breech Position: N/A Cord Description-Baby A: 3 Vessels and Nuchal Cord (times 1, loose, reduced before shoulders deliver) Estimated Blood Loss: 250 Delivery Outcome: Liveborn Infant Transferred: Remains with Mother Note: tracing was CAT I until 9 cm then became CAT II with variable decelerations with overall good variability and accelerations. Patient progressed to 10 cm with urge to push. Second stage huddle was completed with team. Reviewed risks with increase risk of PPH reviewed. Active management of third stage with IV pitocin discussed and rectal misoprostol if needed. Patient had excellent pushing effort and head delivered JEANETTE, nuchal cord times 1 loose was reduced easily and shoulders delivered quickly with maternal pushing effort at 0047. Baby girl was brought to Mother's abdomen for skin to skin. Positive bonding noted. scores, 8 and 9. After 5 minutes cord stopped pulsing and was double clamped and cut by Christie. Placenta delivers via ray mechanism, intact at 0057. Pitocin IV was infusing after baby delivered. Fundus firms to U-1 with massage and EBL is 250cc. Perineum and vagina inspected and noted to be intact with hemostatic abrasion on left labia and at introitus which are left unrepaired. Sponge, needle and instrument count are correct. Baby's weight 6lb 2715 g. Patient plans Kyleena IUD at 6 week PP visit. Tyler is baby's name. Expect normal PP course. Providers Nurse Subwarehouse Supervisor: Terese Calhoun Nurse: Hortencia Sanchez Nurse: Peggy Bowen Labor/Delivery Information Number of Babies in Womb: 1 Steroids Given: None Reason Steroids Not Administered: N/A Group Beta Strep: Positive Antibiotics Administered: Yes Rubella Status: Immune Blood Type: O+ Varicella Immunity: Immune Shoulder Dystocia: No Stages of Labor Onset of Labor Date: 11/05/21 Onset of Labor Time: 11:00 Complete Dilatation Date: 11/06/21 Complete Dilatation Time: 00:44 Labor - Stage 1 Duration: 24 hours and 0 minutes ROM Baby A: 11/05/21 ROM Baby A: 10:30 Delivery Date-Baby A: 11/06/21 Infant Delivery Time-Baby A: 00:47 Labor Stage 2 Duration: 3 minutes Placenta Delivery Date-Baby A: 11/06/21 Placenta Delivery Time-Baby A: 00:57 Labor-Stage 3 Duration: 10 minutes Total Length of Labor-Baby A: 13 hours and 47 minutes Placenta Status: Delivered Baby A Gender: Female Gestational Status: Late (34-36.6 wks) Gestational Age in Weeks/Days: 36 Weeks and 6 Days Score-1 Minute Interval(Baby A) Heart Rate-1 minute: 100 BPM or Greater Respiratory Effort- 1 minute: Slow Respiration/Weak Cry Muscle Tone-1 minute: Active Movement Reflex Response-1 minute: Prompt Response Color-1 minute: Bluish Hands or Feet Total Score-1 minute: 8 Score-5 Minute Interval(Baby A) Heart Rate- 5 minute: 100 BPM or Greater Respiratory Effort-5 minute: Spontaneous/Strong Cry Muscle Tone-5 minute: Active Movement Reflex Response-5 minute: Prompt Response Color-5 minute: Bluish Hands or Feet Total Score- 5 minute: 9 Shoulder Dystocia Delivery Times Date of Delivery of Head: 11/06/21 Time of Delivery of the Head: 00:47
[2021-11-06] MEDS: Ibuprofen 600 MG TAB PO (01:49)
[2021-11-06] MEDS: Dibucaine 1% 28 GM TUBE TP (03:31)
[2021-11-06] MEDS: Lactated Ringers 1,000 ML 125 ML IV (03:31)
[2021-11-06] MEDS: Hamamelis Leaf/Glycerin 100 EACH BOX PR (03:32)
[2021-11-06] MEDS: Ondansetron 4 MG/2 ML VIAL (07:59)
[2021-11-06] MEDS: Sertraline 50 MG TAB PO ×2 (08:06→21:30)
[2021-11-06 08:08] LABS: HCT 27.9 % (36.0-46.0); HGB 8.3 g/dL (11.2-15.7); MCH 23.1 pg (27.0-33.0); MCHC 29.7 % (32.0-36.0); MCV 77.5 fL (80-95); MPV 11.8 fL (8.0-11.0); Platelet Count 258 10^3/uL (130-400); RDW 18.6 % (11.7-14.6); RDW-SD 49.1 fL; WBC 18.74 10^3/uL (4.4-10.8)
--- NOTE | 2021-11-06 08:26 | W.ANESPOSTOP ---
Postoperative Evaluation Date, Time and Location Date Performed: 11/06/21 Time Performed: 08:15 Patient Location: Obstetrics Vital Signs Most Recent Imported Vital Signs: Most Recent Vital Signs Temp Pulse Resp BP Pulse Ox 36.8 C 72 18 115/72 96 11/06/21 07:23 11/06/21 07:23 11/06/21 07:23 11/06/21 07:23 11/06/21 07:23 Assessment Mental Status: Awake (Alert & Oriented to Patient Baseline) Airway and Respiratory Function: Patent airway with normal (patient baseline) respiratory exam Cardiovascular Function: Hemodynamically Stable Hydration Status: Adequately Hydrated Nausea & Vomiting: No Nausea or Vomiting Pain: Pt. Denies Any Pain Peripheral Nerve Block: Patient did not receive a nerve block Epidural/Spinal Cath. Removal Date Performed: 11/06/21 Procedure Time: 08:15 Catheter Removal Type: Epidural Catheter Procedure Location: Obstetrics Patient Position: Left Lateral Decubitus Catheter Removal Procedure: Dressing Removed, Catheter removed with slight resistance and Catheter Tip Intact Paresthesia: None Procedure Tolerated: No Complications Procedure Outcome: Successful Performed By: Leah Morales
--- NOTE | 2021-11-06 10:51 | W.PM.OBPNV1 ---
Date of service: 11/06/21 Time of Service: 10:54 Exam Physical Exam Vital signs: Temp Pulse Resp BP Pulse Ox 98.2 F 72 18 115/72 96 11/06/21 07:23 11/06/21 07:23 11/06/21 07:23 11/06/21 07:23 11/06/21 07:23 Constitutional Comments: Christie feels well and has had a few hours sleep. I Discussed sertraline dose with Christie. She had reported to hugh Rico that she did not feel that it is working for her depression symptoms. We discussed increasing the dose to 100 mg PO at HS. Christie is agreeable to that and will given an additional 50 mg at HS and then 100 mg at HS tomorrow. Results Hemoglobin/Hematocrit: Hgb 8.3 g/dL (11.2-15.7) L 11/06/21 07:40 Hct 27.9 % (36.0-46.0) L 11/06/21 07:40 Abnormal Lab Findings: Abnormal Labs 11/05/21 11/05/21 11/06/21 12:45 12:45 07:40 WBC 12.71 H 18.74 H D RBC 3.60 L Hgb 9.8 L 8.3 L Hct 33.2 L 27.9 L MCV 78.3 L 77.5 L MCH 23.1 L 23.1 L MCHC 29.5 L 29.7 L RDW 18.4 H 18.6 H MPV 11.6 H 11.8 H Alkaline Phosphatase 133 H Albumin 2.3 L
[2021-11-07] MEDS: Acetaminophen 325 MG TAB 650 MG PO (01:16)
[2021-11-07] MEDS: Ibuprofen 600 MG TAB PO (01:16)
[2021-11-07 01:46] VITALS: BP 136/88; PULSE 71; RESP 18; TEMP 36.6
[2021-11-07 07:32] VITALS: BP 108/66; PULSE 59; RESP 16; TEMP 36.6; O2SAT 100
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
[2021-11-07 19:45] VITALS: BP 110/71; PULSE 59; RESP 18; TEMP 37.1
[2021-11-07] MEDS: Sertraline 50 MG TAB 100 MG PO (22:25)
[2021-11-08 08:05] VITALS: BP 131/86; PULSE 62; RESP 16; TEMP 36.5; O2SAT 97
--- NOTE | 2021-11-08 09:47 | OBPPV_ITS ---
Date of service: 11/08/21 Time of Service: 09:47 Assessment and Plan Assessment and plan (1) Anemia affecting second : Status: Acute Assessment and plan: Will receive 200 mg Iron Sucrose today IVPB Asymptomatic (2) Term delivered: Status: Acute Assessment and plan: A: PPD#2, normal recovery Anemia of , asymptomatic Depression Rx'ed with sertraline 100 mg qd Plans to pump milk & bottle feed, currently supplementing w/formula Appropriate responses to infant observed Pt moving into her own apartment soon P: Pt was scheduled for iron infusion this week, will do today prior to discharge Reschedule next iron infusion for 1 week later Pt desires Depo injection for immediate BCM, then plans IUD insertion @ 6 wks Will order Depo for pt to bring to 2 wk appt w/CNM Written instructions reviewed and given F/up at 2 & 6 wks with feeder associate Subjective Subjective Patient comments: Pain well controlled, Tolerating diet and Bowel Movement Patient's Mood: happy, tired [place] baby status: Doing well, Nursing well, Rooming in and Strong Bonding Observed [place] feeding status: Exclusively breast feeding Exam Physical Exam Vital signs: Temp Pulse Resp BP Pulse Ox 97.7 F 62 16 131/86 97 11/08/21 08:05 11/08/21 08:05 11/08/21 08:05 11/08/21 08:05 11/08/21 08:05 Vital Signs Reviewed: Yes Constitutional Constitutional: no acute distress, obese and cooperative HEENT Exam HEENT Exam: Normal Neck Exam Neck Exam: Not Done Breast Exam Bilateral: Breast Exam: Normal and Soft Nipple Exam: Normal and Uninjured Respiratory Exam Respiratory Exam: Normal Cardiovascular Exam Cardiovascular Exam: Normal Abdominal Exam Abdomen: Other (soft, nontender) Fundal Exam Fundus: Below Umbilicus and Firm Rectal Exam Rectal Exam: Not Done Exam Perineum: Intact and Normal Extremities Exam Extremity Exam: Normal Back/Spine/Pelvis Exam Back Exam: Normal Skin Exam Skin Exam: Normal Neurological Exam Neurological Exam: Normal Psychiatric Exam Psychiatric Exam: Normal (feeling better emotionally since she started sertraline 100 mg, bonding well with . ) Additional findings Additional findings: Most Recent Vital Signs Temp Pulse Resp BP 36.4 C L 74 20 127/66 11/05/21 14:22 11/05/21 14:22 11/05/21 13:35 11/05/21 13:35 Results Hemoglobin/Hematocrit: Hgb 8.3 g/dL (11.2-15.7) L 11/06/21 07:40 Hct 27.9 % (36.0-46.0) L 11/06/21 07:40
[2021-11-08] MEDS: IRON SUCROSE COMPLEX 200 MG in Normal Saline 100 ML 400 MG IVPB (14:15)
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
== END 2021-11-08 16:39 | disposition home or self-care (01) | DRG 807 ==
PROVIDERS: Admitting Provider Advanced Practice Midwife; PCP Nurse Practitioner Family; Visit Provider Advanced Practice Midwife
DX: O42.913 Preterm premature rupture of membranes, unspecified as to length of time between rupture and onset of labor, third trimester (principal); Z37.0 Single live birth; O99.824 Streptococcus B carrier state complicating childbirth; Z3A.36 36 weeks gestation of pregnancy
CPT/HCPCS: 36415; 80053; 85027; 86850; 86900; 86901; 87635; 96365; 88307; J1756; J2405; J3490

== ENCOUNTER 2022-01-05 15:40 | Outpatient (REF) | payer MEDICAID, SELFPAY ==
--- NOTE | 2022-01-05 14:40 | PAPFT_PTH ---
PATIENT: Christie Nuñez LOC: [facility] U#:[id number] AGE/SX: 21/F ROOM: RE01/05/[address]: Terese Calhoun CNM : 2000 BED: DIS: 01/05/2022 SPEC #: [id number] RECD: 01/05/22 17:21 STATUS: JENNIFER REQ #: [id number] RAO: 01/05/22 14:[address]: Terese Calhoun DEPT: [facility] Cytology RECD BY: Yessi Claudio ENTERED: 01/05/22 17:21 SP TYPE: PAPFT OTHR DR: Nativiadd Kenney Tissues: 1 - CX/ENDOCX FOR PAP SMEARS Procedures: PAP THIN PREP/UVM Screening Comments: [id number] (CHLAMYDIA/GC)
[2022-01-10 15:42] LABS: Chlamydia Result Negative (Negative); GC Result Negative (Negative)
== END 2022-01-05 15:41 | disposition home or self-care (01) ==
LOC: LBN 15:40
PROVIDERS: PCP Nurse Practitioner Family; Visit Provider Advanced Practice Midwife
DX: Z11.3 Encounter for screening for infections with a predominantly sexual mode of transmission (principal); Z12.4 Encounter for screening for malignant neoplasm of cervix
CPT/HCPCS: 87491; 87591; 88142

== ENCOUNTER 2022-01-18 18:38 | Emergency (ER) | payer MEDICAID, SELFPAY ==
[2022-01-18 18:44] VITALS: BP 144/94; PULSE 114; RESP 14; TEMP 36.1; O2SAT 100
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
== END 2022-01-18 19:46 | disposition left against medical advice (07) ==
PROVIDERS: Emergency Provider Physician Assistant; PCP Nurse Practitioner Family
DX: Z53.29 Procedure and treatment not carried out because of patient's decision for other reasons (principal)

== ENCOUNTER 2022-01-27 14:38 | Emergency (ER) | payer MEDICAID, SELFPAY ==
[2022-01-27 15:05] VITALS: BP 125/72; PULSE 78; RESP 18; TEMP 36.9; O2SAT 96
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
--- NOTE | 2022-01-27 16:41 | DI.VRAD_ITS ---
PROCEDURE INFORMATION: Exam: CT Head Without Contrast Exam date and time: 01/27/2022 3:59 PM Age: 22 years old Clinical indication: Other: Head tauma, headache TECHNIQUE: Imaging protocol: Computed tomography of the head without contrast. COMPARISON: No relevant prior studies available. FINDINGS: Brain: Cerebrum is unremarkable. Lam-white matter differentiation is intact. No mass lesion is seen. No mass effect or midline shift. Thalamus is unremarkable. No evidence of hemorrhage. Cerebellum is unremarkable. No posterior fossa mass lesion or mass effect. No pathologic edema. No evidence of cerebellar hemorrhage. Cerebral ventricles: No ventriculomegaly. Paranasal sinuses: Small retention cyst in dependent portion of left maxillary sinus. No fluid levels in the sinuses. Mastoid air cells: Visualized mastoid air cells are well aerated. Orbital cavities: Orbits are unremarkable. No orbital hematoma. No mass lesion. No proptosis. Oculomotor muscles and optic nerves are unremarkable. Orbital globes are intact. No evidence of globe rupture. Bones/joints: No evidence of fracture. Soft tissues: Unremarkable. IMPRESSION: 1. No evidence of fracture. No evidence of acute intracranial bleed. 2. No evidence of pathology. Dictated and Authenticated by: Darrin Espinosa MD. Ordering:MIKY Boone MD
[2022-01-27 16:59] VITALS: BP 128/68; PULSE 70; RESP 18; TEMP 37; O2SAT 99
== END 2022-01-27 16:58 | disposition home or self-care (01) ==
PROVIDERS: Emergency Provider Nurse Practitioner Family; PCP Nurse Practitioner Family
DX: S06.0X9A Concussion with loss of consciousness of unspecified duration, initial encounter (principal); Y04.2XXA Assault by strike against or bumped into by another person, initial encounter
CPT/HCPCS: 81025; 99284; 70450; 99283

== ENCOUNTER 2022-04-02 11:09 | Outpatient (REF) | payer MEDICAID, SELFPAY ==
[2022-04-02 14:57] LABS: Abs Immature Grans 0.02 10^3/uL (0.0-0.06); Absolute Basophil Count 0.03 10^3/uL (0.0-0.2); Absolute Eosinophil Count 0.14 10^3/uL (0.0-0.7); Absolute Lymphocyte Count 2.78 10^3/uL (1.2-3.4); Absolute Monocyte Count 0.63 10^3/uL (0.1-0.8); Absolute Neutrophil Count 5.05 10^3/uL (1.2-6.7); Basophils % 0.3; Eosinophils % 1.6; HCT 43.1 % (36.0-46.0); HGB 13.3 g/dL (11.2-15.7); Immature Grans % 0.2; Lymphocytes % 32.1; MCH 25.8 pg (27.0-33.0); MCHC 30.9 % (32.0-36.0); MCV 84 fL (80-95); MPV 10.7 fL (8.0-11.0); Monocytes % 7.3; Neutrophils % 58.5; Platelet Count 353 10^3/uL (130-400); RBC 5.16 10^6/uL (3.93-5.22); RDW 16.2 % (11.7-14.6); RDW-SD 48.7 fL; WBC 8.65 10^3/uL (4.4-10.8)
[2022-04-02 15:15] LABS: ALT 26 U/L (14-59); AST 23 U/L (15-37); Albumin 3.7 g/dL (3.4-5.0); Alkaline Phosphatase 76 U/L (46-116); Anion Gap 8.9 mmol/L (3-11); BUN 9 mg/dL (7-18); Bilirubin, Total 0.5 mg/dL (0.2-1.0); C-Reactive Protein 0.45 mg/dL (0.0-0.3); CO2 26.1 mmol/L (21.0-32.0); CREATININE 0.7 mg/dL (0.55-1.02); Chloride 106 mmol/L (98-107); Glucose 90 mg/dL (74-106); Potassium 4.4 mmol/L (3.5-5.1); Sodium 141 mmol/L (136-145)
[2022-04-02 21:23] LABS: HCG Beta,Quant Preg <5 mIU/mL (<5)
== END 2022-04-02 11:10 | disposition home or self-care (01) ==
LOC: NCHCN 11:09
PROVIDERS: PCP Nurse Practitioner Family; Visit Provider Nurse Practitioner Family
DX: R10.31 Right lower quadrant pain (principal)
CPT/HCPCS: 80053; 84702; 85025; 86140; 87086

== ENCOUNTER 2022-05-02 15:41 | Emergency (ER) | payer MEDICAID, SELFPAY ==
--- NOTE | 2022-05-02 15:45 | DI.CT_ITS ---
Exam(s) CT ABDOMEN PELVIS W EXAM: CT ABDOMEN PELVIS W INDICATION: LLQ pain on ex, epigastric pain on hx(fhx panc CA). COMPARISON: CT ABD PELVIS WITH CONTRAST from 01/04/2018 TECHNIQUE: FINDINGS: CT examination of the abdomen and pelvis was performed with intravenous infusion of 100 cc of Omnipaq ue 350. Images obtained through the lung bases are unremarkable. The liver is unremarkable in appearance. Gallbladder has been surgically removed, bile ducts are CT normal. Pancreas appears normal. Spleen is unremarkable in appearance. Adrenals appear normal. The kidneys are unremarkable with no evidence of hydronephrosis, nephrolithiasis, or renal mass.. Ur inary bladder unremarkable. Abdominal aorta is of normal diameter and no major vascular abnormality is seen. No abdominal wall hernia. No abdominal or pelvic adenopathy. 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 Appendix is normal. No evidence of diverticulitis or bowel obstruction. IMPRESSION: Negative CT examination of the abdomen and pelvis. RADIATION DOSE DELIVERED: 1,404.04mGy.cm Total DLP 1,404.04mGy.cm Total DLP !Error CTDIvol RADIATION OPTIMIZATION: All CT scans at this facility use at least one of these dose optimization te chniques: automated exposure control; mA and/or kV adjustment per patient size (includes targeted exa ms where dose is matched to clinical indication); or iterative reconstruction.
[2022-05-02 15:49] VITALS: BP 112/84; PULSE 112; RESP 18; TEMP 36.6; O2SAT 97
[2022-05-02] MEDS: Normal Saline 1,000 ML 1000 ML IV (16:15)
[2022-05-02] MEDS: Ondansetron 4 MG/2 ML VIAL IVP (16:28)
[2022-05-02 16:32] LABS: Abs Immature Grans 0.04 10^3/uL (0.0-0.06); Absolute Basophil Count 0.05 10^3/uL (0.0-0.2); Absolute Eosinophil Count 0.08 10^3/uL (0.0-0.7); Absolute Lymphocyte Count 3.22 10^3/uL (1.2-3.4); Absolute Monocyte Count 0.76 10^3/uL (0.1-0.8); Basophils % 0.4; Eosinophils % 0.7; HCT 45.8 % (36.0-46.0); Immature Grans % 0.3; Lymphocytes % 27.4; MCH 25.9 pg (27.0-33.0); MCHC 32.8 % (32.0-36.0); MCV 79 fL (80-95); MPV 10.6 fL (8.0-11.0); Monocytes % 6.5; Neutrophils % 64.7; Platelet Count 376 10^3/uL (130-400); RBC 5.79 10^6/uL (3.93-5.22); RDW-SD 45.7 fL; WBC 11.74 10^3/uL (4.4-10.8)
[2022-05-02 16:34] LABS: Bilirubin Negative (Negative); Blood Negative (Negative); Clarity Sl Cloudy (Clear); Glucose Negative (Negative); Ketones Negative (Negative); Leukocyte Esterase Negative (Negative); Nitrite Negative (Negative); Specific Gravity >= 1.030 (1.005-1.025)
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
[2022-05-02 16:45] LABS: Bacteria Moderate HPF (Negative); C & S Indicated? No; Crystals Negative HPF (Negative); Epithelial Cells Many HPF (Negative); Mucus Moderate (Negative); RBC 0-2 HPF (0-2); WBC 0-2 HPF (0-5)
[2022-05-02 16:49] LABS: ALT 25 U/L (14-59); AST 19 U/L (15-37); Albumin 4.1 g/dL (3.4-5.0); Alkaline Phosphatase 88 U/L (46-116); Anion Gap 13.2 mmol/L (3-11); BUN 13 mg/dL (7-18); Bilirubin, Total 0.6 mg/dL (0.2-1.0); CO2 22.8 mmol/L (21.0-32.0); CREATININE 0.8 mg/dL (0.55-1.02); Calcium 9.3 mg/dL (8.5-10.1); Chloride 105 mmol/L (98-107); Glucose 97 mg/dL (74-106); Lipase 57 U/L (73-393); Potassium 3.9 mmol/L (3.5-5.1); Sodium 141 mmol/L (136-145); Total Protein 8.4 g/dL (6.4-8.2)
[2022-05-02] MEDS: Omnipaque 350 MG/ML 100 ML BTL IJ (17:54)
--- NOTE | 2022-05-02 18:33 | DI.VRAD_ITS ---
PROCEDURE INFORMATION: Exam: CT Abdomen And Pelvis With Contrast Exam date and time: 05/02/2022 5:52 PM Age: 22 years old Clinical indication: Llq pain on ex, epigastic pain on HX panc CA TECHNIQUE: Imaging protocol: Computed tomography of the abdomen and pelvis with contrast. Contrast material: 350; Contrast volume: 100 ml; Contrast route: INTRAVENOUS (IV); COMPARISON: CT ABD PELVIS WITH CONTRAST 02/09/2017 2:30 AM FINDINGS: Liver: Unremarkable liver. No mass identified. Gallbladder and bile ducts: The patient is status post cholecystectomy. Pancreas: No definite pancreatic lesion seen. Correlate with prior clinical history. Spleen: The spleen is unremarkable. No splenomegaly. No ductal dilation. Adrenal glands: The adrenal glands are unremarkable. No defined mass. Kidneys and ureters: The kidneys are unremarkable. No hydronephrosis. Stomach and bowel: No obstruction. No mucosal thickening. Appendix: No evidence of appendicitis. Intraperitoneal space: No free air. No significant fluid collection. Vasculature: No abdominal aortic aneurysm. Lymph nodes: No enlarged lymph nodes. Urinary bladder: Unremarkable as visualized. Reproductive: A prominent 3.3 cm cystic structure noted in the right ovary and 2.9 cm cystic structure in the left ovary. Bones/joints: No acute fracture. Soft tissues: Unremarkable. IMPRESSION: 1. No evidence of bowel obstruction or acute bowel inflammation. 2. Prominent cystic structures in the bilateral ovaries, which may represent dominant ovarian follicles/cysts. Dictated and Authenticated by: Elif Loya MD. Ordering:NEELAM Mcgregor MD
[2022-05-02] MEDS: Ondansetron O.D.T. 4 MG TABEF, 3 TABS/BTL PO (19:00)
== END 2022-05-02 19:06 | disposition home or self-care (01) ==
PROVIDERS: Emergency Provider Student in an Organized Health Care Education/Training Program; PCP Nurse Practitioner Family
DX: R10.13 Epigastric pain (principal); R11.2 Nausea with vomiting, unspecified; Z90.49 Acquired absence of other specified parts of digestive tract; R10.816 Epigastric abdominal tenderness; Z87.891 Personal history of nicotine dependence
CPT/HCPCS: 80053; 81025; 83690; 96361; 96374; 99285; 74177; 81003; 81015; 85025; 99284; J2405; J3490

== ENCOUNTER 2022-07-03 14:42 | Outpatient (REF) | payer MEDICAID, SELFPAY ==
[2022-07-06 16:01] LABS: Chlamydia Result Negative (Negative); GC Result Negative (Negative)
== END 2022-07-03 14:43 | disposition home or self-care (01) ==
LOC: LBN 14:42
PROVIDERS: PCP Nurse Practitioner Family; Visit Provider Advanced Practice Midwife
DX: Z01.419 Encounter for gynecological examination (general) (routine) without abnormal findings (principal); Z11.3 Encounter for screening for infections with a predominantly sexual mode of transmission
CPT/HCPCS: 87491; 87591; 87480; 87510; 87660

== ENCOUNTER 2022-08-30 16:55 | Outpatient (REF) | payer MEDICAID, SELFPAY ==
[2022-08-30 17:54] LABS: Abs Immature Grans 0.03 10^3/uL (0.0-0.06); Absolute Basophil Count 0.03 10^3/uL (0.0-0.2); Absolute Eosinophil Count 0.14 10^3/uL (0.0-0.7); Absolute Lymphocyte Count 3.16 10^3/uL (1.2-3.4); Absolute Neutrophil Count 6.04 10^3/uL (1.2-6.7); Basophils % 0.3; Eosinophils % 1.4; HCT 45.2 % (36.0-46.0); HGB 14.6 g/dL (11.2-15.7); Immature Grans % 0.3; Lymphocytes % 31.6; MCH 27.4 pg (27.0-33.0); MCHC 32.3 % (32.0-36.0); MCV 85 fL (80-95); MPV 10.7 fL (8.0-11.0); Neutrophils % 60.4; Platelet Count 317 10^3/uL (130-400); RBC 5.32 10^6/uL (3.93-5.22); RDW-SD 46.6 fL
[2022-08-30 18:26] LABS: Vitamin D 25 Total 14.1 ng/mL (30-100)
[2022-08-30 18:32] LABS: ALT 19 U/L (14-59); AST 18 U/L (15-37); Albumin 3.6 g/dL (3.4-5.0); Alkaline Phosphatase 93 U/L (46-116); Anion Gap 6.4 mmol/L (3-11); BUN 10 mg/dL (7-18); Bilirubin, Total 0.3 mg/dL (0.2-1.0); CO2 29.6 mmol/L (21.0-32.0); CREATININE 0.8 mg/dL (0.55-1.02); Calcium 9.2 mg/dL (8.5-10.1); Chloride 106 mmol/L (98-107); Estimated GFR 105.45 (mL/min/1.73m2); Glucose 99 mg/dL (74-106); Potassium 4.2 mmol/L (3.5-5.1); Sodium 142 mmol/L (136-145); TSH (W/Ref FT4) 1.41 uIU/mL (0.36-3.74); Total Protein 7.1 g/dL (6.4-8.2); Vitamin B12 315 pg/mL (193-986)
== END 2022-08-30 16:56 | disposition home or self-care (01) ==
LOC: NCHCN 16:55
PROVIDERS: PCP Nurse Practitioner Family; Visit Provider Nurse Practitioner Family
DX: R51.9 Headache, unspecified (principal); F41.8 Other specified anxiety disorders; F43.10 Post-traumatic stress disorder, unspecified; D64.9 Anemia, unspecified
CPT/HCPCS: 80053; 82306; 82607; 84443; 85025

== ENCOUNTER 2022-12-07 20:26 | Outpatient (CLI) | payer MEDICAID, SELFPAY ==
--- NOTE | 2022-12-07 | DI.RAD_ITS ---
Exam(s) XR TIB/FIB LT EXAM: XR TIB/FIB LT CLINICAL HISTORY: pain. TECHNIQUE: 2D digital imaging was performed. COMPARISON: No exams were available for comparison FINDINGS: Two views: No evidence of fracture nor dislocation. Bone density normal. No osseous lesions. No radiopaque fo reign body. Tibial plateau appears unremarkable. IMPRESSION: No acute osseous findings. DATA REPOSITORY: RADIATION DOSE DELIVERED:
--- NOTE | 2022-12-07 19:50 | DI.VRAD_ITS ---
PROCEDURE INFORMATION: Exam: XR Left Tibia and Fibula Exam date and time: 12/07/2022 7:19 PM Age: 22 years old Clinical indication: Injury or trauma; Fall; Sprain or strain; Lower leg; Injury details: Snowboard injury, left ankle pain TECHNIQUE: Imaging protocol: Radiologic exam of the left tibia and fibula. Views: 2 views. COMPARISON: No relevant prior studies available. FINDINGS: Bones/joints: Normal. Soft tissues: Normal. IMPRESSION: No acute findings. Dictated and Authenticated by: Shalom Cerda MD. Ordering:COURTNEY Milelrlouann Sneed MD
== END 2022-12-07 20:46 ==
LOC: DI 20:27
PROVIDERS: PCP Nurse Practitioner Family; Visit Provider Nurse Practitioner Family
DX: M79.662 Pain in left lower leg (principal)
CPT/HCPCS: 73590

== ENCOUNTER 2023-02-07 12:57 | Outpatient (CLI) | payer MEDICAID, SELFPAY ==
[2023-02-07 17:00] LABS: HCG Quant, Pregnancy 110 mIU/mL (1-3)
== END 2023-02-07 12:58 | disposition home or self-care (01) ==
LOC: LBO 05-07 12:58
PROVIDERS: PCP Nurse Practitioner Family; Visit Provider Advanced Practice Midwife
DX: N92.6 Irregular menstruation, unspecified (principal); Z32.01 Encounter for pregnancy test, result positive
CPT/HCPCS: 36415; 84702

== ENCOUNTER 2023-02-11 03:41 | Outpatient (CLI) | payer MEDICAID, SELFPAY ==
[2023-02-11 17:18] LABS: HCG Quant, Pregnancy 186 mIU/mL (1-3)
== END 2023-02-11 03:42 | disposition home or self-care (01) ==
LOC: LBO 03:42
PROVIDERS: PCP Nurse Practitioner Family; Visit Provider Advanced Practice Midwife
DX: N92.5 Other specified irregular menstruation (principal)
CPT/HCPCS: 36415; 84702

== ENCOUNTER 2023-02-13 04:21 | Outpatient (CLI) | payer MEDICAID, SELFPAY ==
[2023-02-13 10:09] LABS: HCG Quant, Pregnancy 222 mIU/mL (1-3)
== END 2023-02-13 04:22 | disposition home or self-care (01) ==
LOC: LBO 04:21
PROVIDERS: PCP Nurse Practitioner Family; Visit Provider Advanced Practice Midwife
DX: O20.0 Threatened abortion (principal)
CPT/HCPCS: 36415; 84702

== ENCOUNTER 2023-02-14 15:25 | Outpatient (CLI) | payer MEDICAID, SELFPAY ==
[2023-02-14 11:10] LABS: Abs Immature Grans 0.02 10^3/uL (0.0-0.06); Absolute Basophil Count 0.02 10^3/uL (0.0-0.2); Absolute Eosinophil Count 0.16 10^3/uL (0.0-0.7); Absolute Lymphocyte Count 3.01 10^3/uL (1.2-3.4); Absolute Monocyte Count 0.52 10^3/uL (0.1-0.8); Absolute Neutrophil Count 5.12 10^3/uL (1.2-6.7); Basophils % 0.2; Eosinophils % 1.8; HGB 15.1 g/dL (11.2-15.7); Immature Grans % 0.2; MCH 29.3 pg (27.0-33.0); MCHC 32.8 % (32.0-36.0); MCV 89 fL (80-95); MPV 10.3 fL (8.0-11.0); Monocytes % 5.9; Neutrophils % 57.9; Platelet Count 289 10^3/uL (130-400); RBC 5.15 10^6/uL (3.93-5.22); RDW-SD 45.9 fL; WBC 8.85 10^3/uL (4.4-10.8)
[2023-02-14 11:39] LABS: ALT 15 U/L (14-59); AST 11 U/L (15-37); Albumin 3.6 g/dL (3.4-5.0); Alkaline Phosphatase 87 U/L (46-116); Anion Gap 5.4 mmol/L (3-11); BUN 3 mg/dL (7-18); Bilirubin, Total 0.3 mg/dL (0.2-1.0); CO2 28.6 mmol/L (21.0-32.0); CREATININE 0.7 mg/dL (0.55-1.02); Calcium 8.8 mg/dL (8.5-10.1); Chloride 106 mmol/L (98-107); Estimated GFR 123.01 (mL/min/1.73m2); Glucose 102 mg/dL (74-106); HCG Quant, Pregnancy 268 mIU/mL (1-3); Potassium 3.8 mmol/L (3.5-5.1); Sodium 140 mmol/L (136-145); Total Protein 7.4 g/dL (6.4-8.2)
== END 2023-02-14 15:26 | disposition home or self-care (01) ==
LOC: LBO 15:25
PROVIDERS: PCP Nurse Practitioner Family; Visit Provider Obstetrics & Gynecology
DX: O36.80X0 Pregnancy with inconclusive fetal viability, not applicable or unspecified (principal); F41.8 Other specified anxiety disorders; F32.89 Other specified depressive episodes; Z86.2 Personal history of diseases of the blood and blood-forming organs and certain disorders involving the immune mechanism
CPT/HCPCS: 36415; 80053; 84702; 85025

== ENCOUNTER 2023-02-18 04:32 | Outpatient (CLI) | payer MEDICAID, SELFPAY ==
[2023-02-18 17:02] LABS: HCG Quant, Pregnancy 253 mIU/mL (1-3)
== END 2023-02-18 04:33 | disposition home or self-care (01) ==
LOC: LBO 04:32
PROVIDERS: PCP Nurse Practitioner Family; Visit Provider Obstetrics & Gynecology Gynecology
DX: O36.80X0 Pregnancy with inconclusive fetal viability, not applicable or unspecified (principal)
CPT/HCPCS: 36415; 84702

== ENCOUNTER 2023-02-21 01:28 | Outpatient (CLI) | payer MEDICAID, SELFPAY ==
[2023-02-21 19:35] LABS: HCG Quant, Pregnancy 175 mIU/mL (1-3)
== END 2023-02-21 01:29 | disposition home or self-care (01) ==
LOC: LBO 01:28
PROVIDERS: PCP Nurse Practitioner Family; Visit Provider Obstetrics & Gynecology
DX: O20.0 Threatened abortion (principal); Z3A.00 Weeks of gestation of pregnancy not specified
CPT/HCPCS: 36415; 84702

== ENCOUNTER 2023-02-28 15:54 | Outpatient (CLI) | payer MEDICAID, SELFPAY ==
[2023-02-28 14:55] LABS: HCG Quant, Pregnancy 45 mIU/mL (1-3)
== END 2023-02-28 15:55 | disposition home or self-care (01) ==
LOC: LBO 15:58
PROVIDERS: PCP Nurse Practitioner Family; Visit Provider Obstetrics & Gynecology
DX: O36.80X0 Pregnancy with inconclusive fetal viability, not applicable or unspecified; Z3A.01 Less than 8 weeks gestation of pregnancy
CPT/HCPCS: 36415; 84702

== ENCOUNTER 2023-03-22 02:18 | Outpatient (CLI) | payer MEDICAID, SELFPAY ==
[2023-03-22 14:48] LABS: HCG Quant, Pregnancy 3 mIU/mL (1-3)
== END 2023-03-22 02:19 | disposition home or self-care (01) ==
PROVIDERS: PCP Nurse Practitioner Family; Visit Provider Obstetrics & Gynecology
DX: O36.80X0 Pregnancy with inconclusive fetal viability, not applicable or unspecified (principal); Z3A.00 Weeks of gestation of pregnancy not specified
CPT/HCPCS: 36415; 84702

== ENCOUNTER 2023-08-31 19:17 | Emergency (ER) | payer MEDICAID, SELFPAY ==
--- NOTE | 2023-08-31 19:15 | RT.EKG_ITS ---
APPROVED REPORT Exam: Resting ECG Reason for Exam: chest paain Patient Location: E HR:81 bpm ECG Measurements Heart Rate 81 AXIS NJ 82 P 31 QRSd 93 QRS 80 QT 364 T 14 QTc 423 Conclusion Sinus rhythm...normal P axis, V-rate 60- 99 sinus rhythm, normal axis, normal intervals, non ischemic
[2023-08-31 19:22] VITALS: BP 139/65; PULSE 100; RESP 22; TEMP 36.2; O2SAT 100
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
[2023-08-31 20:11] LABS: COVID-19 PCR Negative (Negative); Influenza A PCR Negative (Negative); Influenza B PCR Negative (Negative)
[2023-08-31 20:18] LABS: RSV PCR Positive (Negative); Source Nasopharynx
[2023-08-31 20:24] VITALS: BP 112/66; BP 123/64; PULSE 75; PULSE 76; RESP 21; RESP 24; TEMP 36.8; TEMP 37; O2SAT 99
--- NOTE | 2023-09-04 07:27 | NUR.NOTE ---
Accessed chart to determine orders for EKG and to determine whether or not one needs to be cancelled. Nursing Note:
== END 2023-08-31 20:24 | disposition home or self-care (01) ==
PROVIDERS: Emergency Provider Registered Nurse Emergency; PCP Nurse Practitioner Family
DX: J06.9 Acute upper respiratory infection, unspecified (principal); B97.4 Respiratory syncytial virus as the cause of diseases classified elsewhere; F17.210 Nicotine dependence, cigarettes, uncomplicated; F12.90 Cannabis use, unspecified, uncomplicated; O99.321 Drug use complicating pregnancy, first trimester; O99.331 Smoking (tobacco) complicating pregnancy, first trimester; O99.511 Diseases of the respiratory system complicating pregnancy, first trimester
CPT/HCPCS: 87637; 93005; 99282; 93010

== ENCOUNTER 2023-11-02 12:14 | Emergency (ER) | payer MEDICAID, SELFPAY ==
[2023-11-02 12:20] VITALS: BP 137/55; PULSE 75; RESP 14; TEMP 36.5; O2SAT 98
--- NOTE | 2023-11-02 12:30 | W.EDPROG ---
Date of service: 11/13/23 Time of Service: 12:30 Medical Decision Making I participated in this patient's care by assisting with limited bedside ultrasound in setting of with back pain. Patient had bilateral mild hydronephrosis consistent with . Reassuring heart rate at 160 bpm. Please see advanced practice providers note for complete details. Quality:SDOH Health Related Social Needs: No Data to Display Discharge Plan Discharge Details Chief Complaint: Nk/Back Pain Primary Care Provider: Natividad Kenney ED Provider: Yessi Reaves Home Meds and New Rx's Prescriptions: No Action albuterol sulfate 90 mcg/actuation HFA aerosol inhaler 2 puff INHALATION PRN PRN (Reason: shortness of breath or wheezing) Qty: 6.7 1RF acetaminophen 500 mg Capsule 1,000 mg PO PRN PRN pantoprazole [Protonix] 20 mg tablet,delayed release (DR/EC) 20 mg PO DAILY Vitamin 27 mg iron- 800 mcg tablet 1 tab PO DAILY POCUS Exam (ED) Limited Pelvic Exam DATE OF EXAM: 11/02/23 TIME OF EXAM: 13:24 PROVIDER THAT PERFORMED THE STUDY: Azar Ewing IS THIS A REPEAT EXAM DURING THIS ENCOUNTER: No Type of Exam: Pelvic Trans Abdominal Exam REASON FOR EXAM: Other indication: VISUALIZED STRUCTURES: Uterus PERTINENT FINDINGS/IMPRESSION: Other (Reassuring heart rate 160 bpm) impression: Reassuring heart rate 160 bpm Exam Complete Limited Retroperitoneal(Renal)Exam DATE OF EXAM: 11/02/23 TIME OF EXAM: 13:23 PROVIDER THAT PERFORMED THE STUDY: Azar Ewing IS THIS A REPEAT EXAM DURING THIS ENCOUNTER: No REASON FOR EXAM: Other indication: Low back pain VISUALIZED STRUCTURES: Left kidney, Right kidney and Other structures: Bladder appeared decompressed PERTINENT FINDINGS/IMPRESSION: Hydronephrosis present bilaterally INCIDENTAL FINDINGS: Mild bilateral hydronephrosis. Bladder not visualized. Exam complete
[2023-11-02 13:00] LABS: Bilirubin Negative (Negative); Blood Negative (Negative); Clarity Clear (Clear); Glucose Negative (Negative); Ketones Negative (Negative); Leukocyte Esterase Negative (Negative); Nitrite Negative (Negative); Specific Gravity 1.025 (1.005-1.025); Urobilinogen 0.2 mg/dL (Up to 0.2); pH 6.5 (5-8)
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
== END 2023-11-02 14:14 | disposition home or self-care (01) ==
PROVIDERS: Emergency Provider Physician Assistant; PCP Nurse Practitioner Family
DX: O99.892 Other specified diseases and conditions complicating childbirth (principal); M54.50 Low back pain, unspecified
CPT/HCPCS: 00123; 76775; 76857; 99284; 81003; 99283

== ENCOUNTER 2024-02-17 13:58 | Emergency (ER) | payer MEDICAID, SELFPAY ==
[2024-02-17] VITALS (58 sets, daily range): BP systolic 99–148; BP diastolic 52–77; PULSE 58–108; RESP 14–29; TEMP 36.3; O2SAT 94–100
[2024-02-17] MEDS: Normal Saline 1,000 ML 1000 ML IV ×3 (14:20→16:01)
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
[2024-02-17 14:23] LABS: Abs Immature Grans 0.13 10^3/uL (0.0-0.06); Absolute Eosinophil Count 0.23 10^3/uL (0.0-0.7); Absolute Monocyte Count 0.75 10^3/uL (0.1-0.8); Absolute Neutrophil Count 11.77 10^3/uL (1.2-6.7); Basophils % 0.3 %; Eosinophils % 1.5 %; HGB 13.3 g/dL (11.2-15.7); Immature Grans % 0.8 %; Lymphocytes % 15.9 %; MCH 29.9 pg (27.0-33.0); MCHC 33.3 % (32.0-36.0); MCV 90 fL (80-95); MPV 10.8 fL (8.0-11.0); Monocytes % 4.9 %; Neutrophils % 76.6 %; Platelet Count 252 10^3/uL (130-400); RBC 4.45 10^6/uL (3.93-5.22); RDW-SD 42.5 fL; WBC 15.37 10^3/uL (4.4-10.8)
[2024-02-17 14:24] LABS: Absolute Basophil Count 0.05 10^3/uL (0.0-0.2); Absolute Lymphocyte Count 2.44 10^3/uL (1.2-3.4)
[2024-02-17] MEDS: diphenhydrAMINE 50 MG/ML VIAL 25 MG IVP ×2 (14:26→14:52)
[2024-02-17] MEDS: Prochlorperazine 10 MG/2 ML VIAL IVP (14:27)
[2024-02-17 14:33] LABS: Anion Gap 9.2 mmol/L (3-11); BUN 5 mg/dL (7-18); CO2 25.8 mmol/L (21.0-32.0); CREATININE 0.6 mg/dL (0.55-1.02); Chloride 103 mmol/L (98-107); Estimated GFR 126.87 (mL/min/1.73m2); Glucose 87 mg/dL (74-106); Magnesium 1.6 mg/dL (1.8-2.4); Potassium 3.6 mmol/L (3.5-5.1); Sodium 138 mmol/L (136-145)
[2024-02-17 14:39] LABS: Bilirubin Small (Negative); Blood Negative (Negative); Clarity Clear (Clear); Glucose Negative (Negative); Ketones 80 mg/dL (Negative); Leukocyte Esterase Negative (Negative); Nitrite Positive (Negative); Specific Gravity 1.025 (1.005-1.025)
[2024-02-17 14:57] LABS: Bacteria Rare HPF (Negative); C & S Indicated? No; Casts 0-2 Hyaline LPF (Negative); Crystals Negative HPF (Negative); Epithelial Cells Few HPF (Negative); Mucus Moderate (Negative); Other Cells Rare Renal (Negative); RBC Negative HPF (0-2); WBC Negative HPF (0-5)
== END 2024-02-17 16:52 | disposition home or self-care (01) ==
PROVIDERS: Emergency Provider Emergency Medicine; PCP Nurse Practitioner Family
DX: O21.2 Late vomiting of pregnancy (principal); O99.333 Smoking (tobacco) complicating pregnancy, third trimester; F17.290 Nicotine dependence, other tobacco product, uncomplicated; Z3A.35 35 weeks gestation of pregnancy
CPT/HCPCS: 80048; 96360; 99284; 81003; 81015; 83735; 85025; J0780; J1200

== ENCOUNTER 2024-03-02 20:38 | Observation (INO) | payer MEDICAID, SELFPAY ==
[2024-03-02 20:35] VITALS: BP 154/85; PULSE 82; RESP 18; TEMP 37.1
[2024-03-02 21:15] VITALS: BP 126/84
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
[2024-03-02] MEDS: DEXTROSE 5%-0.9% SALINE 1,000 ML 1000 ML IV (21:35)
[2024-03-02 21:37] LABS: Abs Immature Grans 0.06 10^3/uL (0.0-0.06); Absolute Basophil Count 0.05 10^3/uL (0.0-0.2); Absolute Eosinophil Count 0.15 10^3/uL (0.0-0.7); Absolute Monocyte Count 0.76 10^3/uL (0.1-0.8); Absolute Neutrophil Count 9.49 10^3/uL (1.2-6.7); Basophils % 0.4 %; Eosinophils % 1.1 %; HCT 41.6 % (36.0-46.0); HGB 13.9 g/dL (11.2-15.7); Immature Grans % 0.5 %; MCH 29.8 pg (27.0-33.0); MCHC 33.4 % (32.0-36.0); MCV 89 fL (80-95); MPV 11.3 fL (8.0-11.0); Monocytes % 5.7 %; Neutrophils % 71.3 %; Platelet Count 288 10^3/uL (130-400); RBC 4.67 10^6/uL (3.93-5.22); RDW-SD 42.5 fL; WBC 13.31 10^3/uL (4.4-10.8)
[2024-03-02] MEDS: Ondansetron 4 MG/2 ML VIAL IVP (21:37)
--- NOTE | 2024-03-02 21:45 | RT.EKG_ITS ---
APPROVED REPORT Exam: Resting ECG Reason for Exam: chest pain Patient Location: E HR:61 bpm ECG Measurements Heart Rate 61 AXIS DE 107 P 0 QRSd 95 QRS 72 QT 427 T 35 QTc 431 Conclusion Sinus rhythm...normal P axis, V-rate 60- 99 Narrow complex normal sinus rhythm at a rate of 61. Normal axis. Short DE interval no obvious delta wave. QTc within normal limits. Biphasic T wave in lead III. No acute injury pattern. Compared t o prior dated last year DE interval has lengthened. Biphasic T wave in lead III is persistent. Appe ars similar.
[2024-03-02 21:50] LABS: ALT 35 U/L (14-59); AST 40 U/L (15-37); Albumin 2.8 g/dL (3.4-5.0); Alkaline Phosphatase 147 U/L (46-116); Anion Gap 12.8 mmol/L (3-11); BUN 5 mg/dL (7-18); Bilirubin, Total 0.39 mg/dL (0.2-1.0); CO2 22.2 mmol/L (21.0-32.0); CREATININE 0.6 mg/dL (0.55-1.02); Chloride 104 mmol/L (98-107); Estimated GFR 126.87 (mL/min/1.73m2); Glucose 78 mg/dL (74-106); Potassium 3.9 mmol/L (3.5-5.1); Sodium 139 mmol/L (136-145); Total Protein 7.4 g/dL (6.4-8.2)
[2024-03-02 22:16] LABS: Troponin I < 50 ng/L (< or =60)
[2024-03-02 22:19] VITALS: O2SAT 97
[2024-03-02 22:35] LABS: D-Dimer 865 ng/mlFEU (<500)
[2024-03-02 23:17] VITALS: BP 123/72; PULSE 75; RESP 18; TEMP 36.7; O2SAT 98
[2024-03-02 23:37] VITALS: BP 100/57; PULSE 62; TEMP 36.7
[2024-03-02 23:42] VITALS: BP 100/57; PULSE 62; TEMP 36.7
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
[2024-03-03 00:58] VITALS: BP 100/57; PULSE 62; TEMP 36.7
[2024-03-03] MEDS: ACETAMINOPHEN 1,000 MG/100 ML BTL 400 MG IVPB (01:15)
[2024-03-03 01:30] VITALS: BP 112/63; PULSE 60
[2024-03-03 02:35] LABS: Bilirubin Small (Negative); Blood Negative (Negative); Clarity Sl Cloudy (Clear); Glucose Negative (Negative); Ketones 80 mg/dL (Negative); Leukocyte Esterase Negative (Negative); Nitrite Negative (Negative); Specific Gravity 1.025 (1.005-1.025)
[2024-03-03] MEDS: Ondansetron 4 MG/2 ML VIAL IVP (02:36)
[2024-03-03 02:44] LABS: Bacteria Few HPF (Negative); C & S Indicated? No; Crystals Negative HPF (Negative); Epithelial Cells Moderate HPF (Negative); Mucus Moderate (Negative); RBC 0-2 HPF (0-2); WBC 0-2 HPF (0-5)
[2024-03-03 03:43] VITALS: BP 100/57; PULSE 62; TEMP 36.7
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
== END 2024-03-03 07:15 | disposition home or self-care (01) ==
LOC: ER 22:59 → OBS 23:29
PROVIDERS: Admitting Provider Obstetrics & Gynecology Gynecology; Emergency Provider Emergency Medicine; PCP Nurse Practitioner Family; Visit Provider Obstetrics & Gynecology Gynecology
DX: O21.2 Late vomiting of pregnancy (principal); Z3A.36 36 weeks gestation of pregnancy; O47.03 False labor before 37 completed weeks of gestation, third trimester; R07.89 Other chest pain; R10.12 Left upper quadrant pain; O99.343 Other mental disorders complicating pregnancy, third trimester; F41.9 Anxiety disorder, unspecified; F43.10 Post-traumatic stress disorder, unspecified; F31.9 Bipolar disorder, unspecified; O99.333 Smoking (tobacco) complicating pregnancy, third trimester; F17.290 Nicotine dependence, other tobacco product, uncomplicated
CPT/HCPCS: 36415; 76815; 80053; 93005; 96361; 96365; 96372; 96375; 96376; 99285; 59025; 81003; 81015; 84484; 85025; 85379; 87081; 93010; G0378; J0131; J2405; J7042

== ENCOUNTER 2024-04-05 16:49 | Emergency (ER) | payer MEDICAID, SELFPAY ==
[2024-04-05 16:54] VITALS: BP 131/91; PULSE 133; RESP 18; TEMP 36.8; O2SAT 96
--- OUTSIDE RECORDS SUMMARY | 2024-04-05 16:57 | XMS_ITS | Continuity of Care Document ---
Author Organization [facility] Address [address] [place] [address] Encounter [facility] FIN NBR [id number] Date(s): 08/05/23 - 08/05/23 [facility] [address] [place] [address]- [place] Discharge Disposition: Home Allergies, Adverse Reactions, Alerts Substance Reaction Severity Status penicillin Hives Mild Active Assessment and Plan Future Appointments Future Scheduled Tests Radiology* US OB < 14 Weeks Single 08/07/23 Medications Complete with DHA 0 Refill(s) Start Date: 07/22/23 Status: Ordered Problem List Condition Confirmation Course Effective Dates Status Health atus Informant Depression 1 Confirmed Active 1suicide attempt 10/2017, hospitalized at [facility] [place] Procedures Procedure Date Related Diagnosis Body Site Status Cholecystectomy 06/2016 Completed Social History Social History Type Response Tobacco Current everyday tob acco user Tobacco Use:. smokes in a bong with MJ at same time per day. Sex
--- OUTSIDE RECORDS SUMMARY | 2024-04-05 16:57 | XMS_ITS | Continuity of Care Document ---
Author Organization [facility] Address [address] [place] [id number] Care Team Providers Care [employer] Installer Name Role Phone ALYCIA ARCHER APRN Primary Care Physician Encounter [facility] FIN NBR [id number] Date(s): 11/05/23 - 11/05/[address] [id number]- [place] Encounter Diagnosis Supervision of other high risk pregnancies, first trimester(Final) - Discharge Disposition: Home or Self Care Attending Physician: Dionisio Ochoa MD Admitting Physician: Dionisio Ochoa MD Referring Physician: Dionisio Ochoa MD Allergies, Adverse Reactions, Alerts Substance Reaction Severity Status penicillin Hives Mild Active Blueberries Anaphylaxis Severe Active Assessment and Plan Future Appointments Appointment Date:12/05/2023 10:00:00 AM Scheduled Provider:Moris Perez MD Location:[facility] Appointment Type:OB Follow Up Medications acetaminophen 500 mg oral tablet 1,000 mg = 2 tab, Oral, every 8 hr, PRN as needed for fever, 0 Refill(s) Start Date: 09/06/23 Status: Ordered albuterol 90 mcg/inh inhalation powder 1 puffs, Inhale, every 4 hr, PRN as needed, # 1 EA, 0 Refill(s) Start Date: 09/06/23 Status: Ordered cyclobenzaprine 10 mg oral tablet 10 mg = 1 tab, Oral, TID, PRN as needed for muscle spasm, # 30 tab, 0 Refill(s), Pharmacy: [id number], 165.1, cm, 09/06/23 13:49:00 EST, Height, 105, kg, 11/05/23 14:29:00 EST, Weight Dosing Start Date: 11/05/23 Status: Ordered ondansetron 4 mg oral disintegrating strip 4 mg = 1 EA, Oral, TID, PRN nausea, # 6 EA, 0 Refill(s) Start Date: 09/06/23 Status: Ordered ondansetron 4 mg oral tablet, disintegrating 4 mg = 1 tab, Oral, every 8 hr, PRN as needed for nausea/vomiting, # 30 tab, 0 Refill(s), Pharmacy:[id number], 165.1, cm, 09/06/23 13:49:00 EST, Height, 103.6, kg, 09/06/23 14:07:00 EST, Weight Dosing Start Date: 10/02/23 Status: Ordered Complete with DHA 0 Refill(s) Start Date: 07/22/23 Status: Ordered promethazine 12.5 mg oral tablet 12.5 mg = 1 tab, Oral, every 4 hr, PRN as needed for nausea/vomiting, # 60 tab, 2 Refill(s), Pharmacy: [id number], 165.1, cm, 08/07/23 10:09:00 EST, Height, 107.9, kg, 08/07/23 10:15:00 EST, Weight Dosing Start Date: 08/07/23 Status: Ordered Protonix 20 mg oral delayed release tablet 20 mg = 1 tab, Oral, Daily, # 90 tab, 3 Refill(s), Pharmacy: [id number], 165.1, cm, 09/06/23 13:49:00 EST, Height, 104.6, kg, 10/04/23 13:31:00 EST, Weight Dosing Start Date: 10/04/23 Status: Ordered Problem List Condition Confirmation Course Effective Dates Status Health St at[facility] Informant Depression 1 Confirmed Active History of ectopic Confirmed Active with history of ectopic , antepartum Confirmed Active History of recurrent miscarriages Confirmed Active History of delivery, currently in first trimester Confirmed Active History of gestational diabetes Confirmed Active Supervision of normal in second trimester Confirmed Active Confirmed 06/19/23 Active 1suicide attempt 10/2017, hospitalized at [facility] and [facility] Procedures Procedure Date Related Diagnosis Body Site Status Cholecystectomy 06/2016 Completed Results Radiology Reports * Exam Date Time Procedure Performing Provider Status 11/05/23 1:51 PM US OB Greater Than 14 Weeks Maillet, A nhan; Auth (Verified) Notes: (US OB Greater Than 14 Weeks) Reason For Exam: Anatomy survey US OB Greater Than 14 Weeks EXAM DESCRIPTION: US OB Greater Than 14 Weeks 11/05/2023 INDICATION: ANATOMY SURVEY TECHNIQUE: Grayscale and color Doppler obstetric ultrasound. COMPARISON: 08/07/2023 FINDINGS: Single live uterine gestation in variable position with average ultrasound age of 20 weeks 1 days for an ultrasound EDC of 03/23/2024. Appropriate interval growth. Amniotic fluid volume is qualitatively normal. Anterior placenta with no previa, terminating greater than 2 cm from the internal os. BPD: 20 weeks 2 days. Head circumference: 20 weeks 1 days. Abdominal circumference: 19 weeks 6 days. Femur length: 20 weeks 2 days. heart rate was 158 bpm. Survey of anatomy reveals no obvious anomaly. Views of the face, head including lateral ventricles, choroid plexus and cerebellum, chest including four-chamber heart and outflow tract views, abdomen including stomach, kidneys, bladder and cord insertion, three-vessel umbilical cord, as well as views of the spine and extremities were submitted. Estimated weight is 329.0 grams which is the 56th percentile by LMP. Placental cord insertion is approximately 2 cm from the edge of the placenta consistent with borderline marginal cord insertion. IMPRESSION: Single live intrauterine gestation with average ultrasound age of 20 weeks 1 days for an ultrasound EDC of 03/23/2024. Appropriate interval growth anatomy survey was completed Placental cord insertion is approximately 2 cm from the edge of the placenta consistent with borderline marginal cord insertion. JOB #: [id number] Final Signed by: Dionisio Russell MD Signed (Electronic Signature): 11/05/2023 2:02 pm Social History Social History Type Response Smoking Status Smoking tobacco use: Current everyday tobacco user;Never; Number used per day: smokes in a bong with MJ at same time; entered on: 09/06/23 Sex Patient Care team information Care Team Personnel Name: ALYCIA ARCHER APRN Position: No Access Member Role: Primary Care Physician Address: Address: [address] [phone]- [place]
--- OUTSIDE RECORDS SUMMARY | 2024-04-05 16:57 | XMS_ITS | Continuity of Care Document ---
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 Role Phone ALYCIA ARCHER APRN Primary Care Physician Encounter [facility] NBR [id number] Date(s): 03/19/24 - 03/19/24 [facility] Ambulatory Clinics [address] [place] [address]- Encounter Diagnosis endometritis(Discharge Diagnosis) - 03/19/24 Endometritis following delivery(Final) - Cannabis use, unspecified, uncomplicated(Final) - Discharge Disposition: Home or Self Care Attending Physician: Dionisio Ochoa MD Allergies, Adverse Reactions, Alerts Substance Reaction Severity Status penicillin Hives Mild Active Blueberries Anaphylaxis Severe Active Assessment and Plan Extracted from: Title:Office Visit Note Author:Dionisio Ochoa MD D ate:03/19/24 1.?? endometritis? ?O86.12 ??Likely this represents endometritis.?? She does have risk factor??related to the D&C and Tawnya catheter.?? I do recommend??IV antibiotics at least 24 hours??in the hospital.?? She does have challenges at home??as her significant other has a poorly controlled??seizure disorder and cannot be left alone with the baby. Future Appointments Future Scheduled Tests Laboratory* Group B Strep ([facility]) 03/10/24 Immunizations Given and Recorded Vaccine Date Status Refusal Reason tetanus/diphth/pertuss (Tdap) adult/adol 12/30/23 Given Medications acetaminophen 500 mg oral tablet 1,000 mg = 2 tab, Oral, every 8 hr, PRN as needed for fever, 0 Refill(s) Start Date: 09/06/23 Status: Ordered albuterol 90 mcg/inh inhalation powder 1 puffs, Inhale, every 4 hr, PRN as needed, # 1 EA, 0 Refill(s) Start Date: 09/06/23 Status: Ordered clindamycin 300 mg oral capsule 300 mg = 1 cap, Oral, every 6 hr, # 40 cap, 0 Refill(s), Pharmacy: [facility], 165.1, cm, 03/19/24 15:24:00 EDT, Height, 98.5, kg, 03/19/24 15:25:00 EDT, Weight Dosing Start Date: 03/20/24 Stop Date: 03/30/24 Status: Ordered cyclobenzaprine 10 mg oral tablet 10 mg = 1 tab, Oral, TID, PRN as needed for muscle spasm, # 30 tab, 0 Refill(s), Pharmacy: [facility], 165.1, cm, 09/06/23 13:49:00 EST, Height, 105, kg, 11/05/23 14:29:00 EST, Weight Dosing Start Date: 11/05/23 Status: Ordered ibuprofen as needed., 0 Refill(s) Start Date: 03/19/24 Status: Ordered ondansetron 4 mg oral tablet, disintegrating 4 mg = 1 tab, Oral, every 8 hr, PRN as needed for nausea/vomiting, # 30 tab, 0 Refill(s), Pharmacy:[facility], 165.1, cm, 01/10/24 14:49:00 EDT, Height, 106.6, kg, 01/10/24 14:55:00 EDT, Weight Dosing Start Date: 01/30/24 Status: Ordered Complete with DHA 1 cap, Oral, Daily, 0 Refill(s) Start Date: 07/22/23 Status: Ordered promethazine 25 mg oral tablet 25 mg = 1 tab, Oral, every night at bedtime, # 24 tab, 0 Refill(s), Pharmacy: [facility], 165.1, cm, 02/24/24 14:56:00 EDT, Height, 109, kg, 02/24/24 15:10:00 EDT, Weight Dosing Start Date: 02/24/24 Status: Ordered Protonix 20 mg oral delayed release tablet 20 mg = 1 tab, Oral, Daily, # 90 tab, 3 Refill(s), Pharmacy: [facility], 165.1, cm, 09/06/23 13:49:00 EST, Height, 104.6, kg, 10/04/23 13:31:00 EST, Weight Dosing Start Date: 10/04/23 Status: Ordered Tums 500 mg oral tablet, chewable 1,000 mg = 2 tab, Chewed, QID, PRN as needed for dyspepsia, 0 Refill(s) Start Date: 03/07/24 Status: Ordered Problem List Condition Confirmation Course Effective Dates Status Health St atus Informant Depression 1 Confirmed Active GERD (gastroesophageal reflux disease) Confirmed Active History of ectopic Confirmed Active with history of ectopic , antepartum Confirmed Active History of recurrent miscarriages Confirmed Active History of delivery, currently in third trimester Confirmed Active History of gestational diabetes Confirmed Active History of delivery Confirmed Active Normal in multigravida in third trimester Confirmed Active endometritis Confirmed Active 1suicide attempt 10/2017, hospitalized at [facility] and [facility] Procedures Procedure Date Related Diagnosis Body Site Status Dilation and Curettage 1 03/08/24 Completed Cholecystectomy 06/2016 Completed 1auto-populated from documented surgical case Vital Signs Most recent to oldest [Reference Range]: 1 Blood Pressure [90-140/60-90 mmHg] 110/8 0mmHg (03/19/24 1:41 PM) Mean Arterial Pressure, Cuff [65-140 mmH g] 90 mmHg (03/19/24 1:41 PM) Weight 98.5 kg (03/19/24 1:41 PM) Weight Measured (lbs) 217.155 lb (03/19/24 1:41 PM) Weight Dosing 98.500 kg (03/19/24 1:41 PM) Social History Social History Type Response Smoking Status Smoking tobacco use: Current everyday tobacco user;Never; Number used per day: smokes in a bong with MJ at same time; entered on: 09/06/23 Sex summary Document * Event Display: Summary Document Authored Date: [id number] BRIDGET ALCOCER : 2000 Age: 24 Years BRIDGET ALCOCER : [birth year] Summary (Date of Report: 03/20/24) G 7 P 2 (1,1,4,2) Gestation: Anderson LMP: 06/19/2023 (from pt. history) JEREMÍAS: 03/25/2024 JEREMÍAS/EGA Method: Last Menstrual Period EGA: Delivered Gestation info at delivery: Baby A : 37 weeks 3 days BRIDGET ALCOCER : [birth year] Antepartum Note Date: 02/11/24 17:07 (33 weeks) By: Moris Perez MD Reglan for nausea (c) Date: 01/10/24 15:06 (29 weeks) By: Moris Perez MD Will add in Pepcid. Date: 12/30/23 11:14 (27 weeks) By: Moris Perez MD Labs, Kick counts, Tdap Date: 12/26/23 13:11 (27 weeks) By: Dionisio Ochoa MD GCT ordered Date: 10/04/23 13:54 (15 weeks) By: Dionisio Ochoa MD Anatomy survey next visit. Date: 09/06/23 14:37 (11 weeks) By: Carlos Akers MD Initial OB BRIDGET ALCOCER : [birth year] Problems (Active Problems Only) (SNOMED CT: 332647138, Onset: 06/19/23) Tobacco use (SNOMED CT: 1674515049, Onset: --) Depressive disorder (SNOMED CT: 50260940, Onset: --) Comment: suicide attempt 10/2017, hospitalized at [facility] and [facility] (Lata Cano on 07/22/23) H/O: ectopic (SNOMED CT: 264034109, Onset: --) History of gestational diabetes mellitus (SNOMED CT: 8122967002, Onset: --) H/O: miscarriage (SNOMED CT: 057126435, Onset: --) H/O: ectopic (SNOMED CT: 608060873, Onset: --) Gastroesophageal reflux disease (SNOMED CT: 610286732, Onset: --) Normal (SNOMED CT: 137340827, Onset: --) History of delivery (SNOMED CT: 5129203730, Onset: --) High risk (SNOMED CT: 42075502, Onset: --) Puerperal endometritis (SNOMED CT: 32462798, Onset: --) BRIDGET ALCOCER DOB: [birth year] Risk Factors and Genetic Screening All Results Documented Since 06/19/2023 Risk Factors (Current ) Unique Risk Factors: Drug abuse during , Tobacco use during Ethnic Screening No ethnicities have been recorded. Genetic Disorders Screening No genetic disorders have been recorded. BRIDGET ALCOCER DOB: [birth year] Gestational Age (EGA) and JEREMÍAS * Note: EGA calculated as of 03/20/2024 JEREMÍAS: 03/25/2024 EGA*: 37 weeks 3 days Type: Authoritative Method Date: 06/19/2023 Method: Last Menstrual Period (06/19/2023) Confirmation: Confirmed Description: -- Comments: -- Entered by: Lisa Cisse on 09/05/2023 Other JEREMÍAS Calculations for this : Method: Ultrasound Method Date: 11/05/2023 JEREMÍAS: 03/23/2024 EGA (At Entry): 20 weeks 1 days Type: Non-Authoritative Comments: Normal anatomy, survey complete, cord insert 2 cm from sheridan of placenta (no f/u required) Entered by: Moris Perez MD on 12/05/2023 Method: Ultrasound Method Date: 08/07/2023 JEREMÍAS: 03/22/2024 EGA (At Entry): 7 weeks 3 days Type: Non-Authoritative Comments: -- Entered by: Lisa Cisse on 09/05/2023 BRIDGET ALCOCER : [birth year] Measurements Pre- Weight: -- Recent Weight Measured: 109 kg 03/07/24 (37 weeks) Height/Length Measured: 165.1 cm 03/07/24 (37 weeks) Body Mass Index Measured: 39.99 kg/m2 03/07/24 (37 weeks) BRIDGET ALCOCER : [birth year] Exam and Notes Date EGA FunHt PTL S/S Cervix BP Weight Urine Baby cm Dil Eff(%) Sta mmHg lbs kg Gluc Prot FHR Activity Fet Pres 03/07/24 37w3d -- -- 6.5 100% 0 149/82 *240... -- -- Baby A = 135bpm *Present pe... -- 02/24/24 35w5d 37 None -- -- -- 90/56 *240... Negative Trace Baby A = 145 *Present pe... Vertex 02/11/24 33w6d 34 -- -- -- -- 122/68 *238... Negative Negative Baby A = 145 *Present pe... -- 01/30/24 32w1d -- -- -- -- -- 114/62 -- -- -- Baby A = 140 *Present pe... -- 01/10/24 29w2d 30 -- -- -- -- 126/64 *235... Negative Trace Baby A = 140 *Present pe... -- 12/31/23 27w6d -- -- 0 0% -- 132/70 -- -- -- Baby A = 150bpm *Present pe... -- 12/30/23w5d 27 -- -- -- -- 118/68 *235... Negative Trace Baby A = 145 *Present pe... -- 12/26/23 27w1d -- -- -- -- -- 106/58 *238... Negative Trace Baby A = 153 -- -- 11/05/23 19w6d -- -- -- -- -- 120/68 *231... Negative Trace -- -- -- 10/04/23 15w2d -- None -- -- -- 124/66 *230... Negative Trace Baby A = 160 -- -- 09/06/23 11w2d 11 None -- -- -- 130/76 *228... -- -- Baby A = 160 -- -- 08/07/23 7w0d -- -- -- -- -- 116/74 *237... -- -- -- -- -- 07/22/23 4w4d -- -- -- -- -- 144/84 *238... -- -- -- -- -- Next Visit: +1 weeks from 02/24/2024 * Weight 03/07/2024 240.345(lbs) 109(kg) 02/24/2024 240.345(lbs) 109.0(kg) 02/11/2024 238.140(lbs) 108.0(kg) 01/10/2024 235.053(lbs) 106.6(kg) 12/30/2023 235.274(lbs) 106.7(kg) 12/26/2023 238.140(lbs) 108.0(kg) 11/05/2023 231.525(lbs) 105.0(kg) 10/04/2023 230.643(lbs) 104.6(kg) 09/06/2023 228.438(lbs) 103.6(kg) 08/07/2023 237.920(lbs) 107.9(kg) 07/22/2023 238.140(lbs) 108(kg) * Activity 03/07/2024 Present per patient 03/07/2024 Present per patient 03/07/2024 Present per patient 03/07/2024 Present per patient 03/07/2024 Present per patient 03/07/2024 Present per patient 03/07/2024 Present per patient 03/07/2024 Present per patient 03/07/2024 Present per patient 03/07/2024 Present per patient 03/07/2024 Present per patient 03/07/2024 Present per patient 03/07/2024 Present per patient 03/07/2024 Present per patient 03/07/2024 Present per patient 03/07/2024 Present per patient 03/07/2024 Present per patient 03/07/2024 Present per patient 03/07/2024 Present per patient 03/07/2024 Present per patient 03/07/2024 Present per patient 03/07/2024 Present per patient 03/07/2024 Present per patient 03/07/2024 Present per patient 03/07/2024 Present per palpation 03/07/2024 Present per palpation 03/07/2024 Present per palpation 03/07/2024 Present per palpation 03/07/2024 Present per palpation 03/07/2024 Present per palpation 03/07/2024 Present per patient 03/07/2024 Present per patient 03/07/2024 Present per patient 03/07/2024 Present per patient 02/24/2024 Present per patient 02/11/2024 Present per patient 01/30/2024 Present per patient 01/30/2024 Present per patient 01/30/2024 Present per patient 01/30/2024 Present per patient 01/10/2024 Present per patient 12/31/2023 Present per patient 12/30/2023 Present per patient BRIDGET ALCOCER : [birth year] Physical Exams Physical Exam Mental Status Level of Consciousness: Alert (03/19/24) Orientation Assessment: Oriented x 4 (03/19/24) Affect/Behavior: Appropriate, Calm (03/19/24) Distress: None (03/07/24) HEENT Mouth: Mouth appears normal (03/09/24) Throat: Throat appears normal (03/08/24) Cardiovascular Cardiovascular Symptoms: None (03/19/24) Nail Bed Color: Normal for ethnicity (03/19/24) Capillary Refill: 2 seconds or less (03/19/24) Skin Temperature, Upper Extremities: Warm (03/09/24) Skin Temperature, Lower Extremities: Warm (03/09/24) Heart Rhythm: Regular (03/19/24) Respiratory Respiratory Symptoms: None (03/19/24) Respirations: Unlabored (03/19/24) Respiratory Pattern: Regular (03/19/24) Chest Motion: Symmetrical (03/19/24) Oxygen Therapy: Room air (03/19/24) SpO2: 94 % (03/08/24) Cough: None (03/19/24) All Lobes Breath Sounds: Clear (03/19/24) Gastrointestinal GI Symptoms: None (03/09/24) Appetite: Good (03/07/24) Abdomen Description: Rounded (03/19/24) Abdomen Palpation: Soft (03/19/24) Bowel Sounds All Quadrants: Present (03/07/24) Passing Flatus: Yes (03/19/24) Musculoskeletal Ambulatory Devices: None (03/07/24) Extremities Clonus: Not present (03/07/24) Clonus Number of Beats: 0 (03/07/24) Edema Edema: None (03/19/24) Integumentary Skin Color General: Usual for ethnicity (03/09/24) Skin Color: Normal for ethnicity (03/19/24) Skin Description: Elmo (03/19/24) Skin Temperature: Warm (03/19/24) Skin Turgor: Elastic (03/19/24) Skin Moisture General: Dry (03/19/24) Skin Integrity: Intact, no abnormalities (03/19/24) Mucous Membrane Color: Elmo (03/19/24) BRIDGET ALCOCER : [birth year] Blood Types and Anti-D Immune Globulin Blood Type and Screen Mother ABO/Rh: O POS Mother Antibody Screen: -- Father of Baby ABO/Rh: -- Father of Baby Antibody Screen: -- Anti-D Immune Globulin Rho(D) Initial Status: -- Rho(D) 28 Week Status: -- Rho(D) Dates Given: -- BRIDGET ALCOCER : [birth year] Tests and Lab Results Results ending with 'TR' have been keyed in by the practice or interpreted manually. Result Date: Estimated weeks post onset will display next to actual result date. Test Result Date Ref Range Beta hCG Qnt (H) 1630.0 mIntlUnit/mL 07/22/23 (4 weeks) <=5.0 U Preg POCT (A) Positive 07/22/23 (4 weeks) Negative Beta hCG Qnt (H) 2913.0 mIntlUnit/mL 07/24/23 (5 weeks) <=5.0 Test Result Date Ref Range WBC 10.0 K/mcL 09/06/23 (11 weeks) (4.8 - 10.8) RBC 5.04 Million/mcL 09/06/23 (11 weeks) (4.20 - 5.40) Slide Review Not Indicated 09/06/23 (11 weeks) RDW-CV 13.7 % 09/06/23 (11 weeks) (11.5 - 14.5) Platelets 257 K/mcL 09/06/23 (11 weeks) (130 - 400) MPV 8.7 fL 09/06/23 (11 weeks) (7.4 - 10.4) Hgb 15.1 g/dL 09/06/23 (11 weeks) (12.0 - 16.0) MCH 29.9 pg 09/06/23 (11 weeks) (27.0 - 31.0) Hct 44.7 % 09/06/23 (11 weeks) (37.0 - 47.0) MCHC 33.7 g/dL 09/06/23 (11 weeks) (32.0 - 37.0) MCV 88.6 fL 09/06/23 (11 weeks) (81.0 - 99.0) [place] Absolute 0.5 K/mcL 09/06/23 (11 weeks) (0.1 - 0.6) Eos Absolute 0.1 K/mcL 09/06/23 (11 weeks) (0.0 - 0.2) Lymph Absolute 3.2 K/mcL 09/06/23 (11 weeks) (1.2 - 3.4) Basophil Auto 0.4 % 09/06/23 (11 weeks) (0.0 - 0.8) [place] Auto 4.9 % 09/06/23 (11 weeks) (1.7 - 9.3) Neutro Absolute 6.2 K/mcL 09/06/23 (11 weeks) (1.4 - 6.5) Neutro Auto 62.3 % 09/06/23 (11 weeks) (42.2 - 75.2) Baso Absolute 0.0 K/mcL 09/06/23 (11 weeks) (0.0 - 0.2) Eos, Auto 0.60 % 09/06/23 (11 weeks) (0.00 - 3.00) Lymph Auto 31.8 % 09/06/23 (11 weeks) (20.5 - 51.1) ABO/Rh Echo (U) O POS 09/06/23 (11 weeks) ABSC Echo Negative ABSC 09/06/23 (11 weeks) HCV Ab: LC (N) Non Reactive 09/06/23 (11 weeks) Non Reactive Hep B Surf Ag Scr LC (N) Negative 09/06/23 (11 weeks) Negative Interpretation 1 LC (N) Comment 09/06/23 (11 weeks) Treponema pallidum Antibodies: LC (N) Non Reactive 09/06/23 (11 weeks) Non Reactive HIV Scrn 4th Generation wRfx LC (N) Non Reactive 09/06/23 (11 weeks) Non Reactive Rubella Antibodies, IgG LC (N) 2.98 index 09/06/23 (11 weeks) Immune >0.99 MaterniT 21 PLUS w/ESS and SCA Ref See scan report 09/06/23 (11 weeks) Inheritest Core Panel Ref See scan report 09/06/23 (11 weeks) MaterniT 21 PLUS w/ESS and SCA Ref See scan report 09/23/23 (13 weeks) Urobilinogen Urine Dipstick 1 mg/dl 10/04/23 (15 weeks) Protein Urine Dipstick Trace 10/04/23 (15 weeks) Urine Color Urine Dipstick Dark yellow 10/04/23 (15 weeks) Urine Appearance Urine Dipstick Clear 10/04/23 (15 weeks) Glucose Urine Dipstick Negative 10/04/23 (15 weeks) Neisseria gonorrhoeae DNA -[facility] Not Detected 10/04/23 (15 weeks) Not Detected Chlamydia trachomatis DNA -[facility] Not Detected 10/04/23 (15 weeks) Not Detected Urine Color Urine Dipstick Dark yellow 11/05/23 (19 weeks) Glucose Urine Dipstick Negative 11/05/23 (19 weeks) Urine Appearance Urine Dipstick Clear 11/05/23 (19 weeks) Protein Urine Dipstick Trace 11/05/23 (19 weeks) Test Result Date Ref Range Protein Urine Dipstick Trace 12/26/23 (27 weeks) Glucose Urine Dipstick Negative 12/26/23 (27 weeks) Urine Color Urine Dipstick Dark yellow 12/26/23 (27 weeks) Protein Urine Dipstick Trace 12/30/23 (27 weeks) Glucose Urine Dipstick Negative 12/30/23 (27 weeks) Urine Color Urine Dipstick Dark yellow 12/30/23 (27 weeks) Urine Appearance Urine Dipstick Clear 12/30/23 (27 weeks) RBC 4.20 Million/mcL 12/30/23 (27 weeks) (4.20 - 5.40) WBC (H) 12.2 K/mcL 12/30/23 ( weeks) (4.8 - 10.8) RDW-CV 13.5 % 12/30/23 ( weeks) (11.5 - 14.5) Platelets 269 K/mcL 12/30/23 ( weeks) (130 - 400) MPV 9.1 fL 12/30/23 ( weeks) (7.4 - 10.4) Hgb 13.1 g/dL 12/30/23 (27 weeks) (12.0 - 16.0) MCH (H) 31.2 pg 12/30/23 (27 weeks) (27.0 - 31.0) Hct 37.5 % 12/30/23 ( weeks) (37.0 - 47.0) MCHC 34.9 g/dL 12/30/23 (27 weeks) (32.0 - 37.0) MCV 89.4 fL 12/30/23 ( weeks) (81.0 - 99.0) Eos, Auto 1.50 % 12/30/23 ( weeks) (0.00 - 3.00) [place] Absolute (H) 0.7 K/mcL 12/30/23 ( weeks) (0.1 - 0.6) Neutro Absolute (H) 8.9 K/mcL 12/30/23 ( weeks) (1.4 - 6.5) Lymph Absolute 2.4 K/mcL 12/30/23 ( weeks) (1.2 - 3.4) Eos Absolute 0.2 K/mcL 12/30/23 ( weeks) (0.0 - 0.2) Neutro Auto 72.8 % 12/30/23 ( weeks) (42.2 - 75.2) Baso Absolute 0.0 K/mcL 12/30/23 ( weeks) (0.0 - 0.2) Basophil Auto 0.4 % 12/30/23 ( weeks) (0.0 - 0.8) [place] Auto 5.7 % 12/30/23 ( weeks) (1.7 - 9.3) Lymph Auto (L) 19.6 % 12/30/23 ( weeks) (20.5 - 51.1) Gluc 1hr OB (N) 104 12/30/23 ( weeks) UA Color Yellow 12/31/23 ( weeks) Yellow UA Urobilinogen (A) 1.0 12/31/23 ( weeks) 0.2 UA Bili (A) Small 12/31/23 ( weeks) Negative UA Ketones (N) >=80 mg/dL 12/31/23 ( weeks) UA Leuk Est Negative 12/31/23 (27 weeks) Negative UA Nitrite Negative 12/31/23 (27 weeks) Negative UA Glucose Negative 12/31/23 ( weeks) Negative UA Protein (A) Trace 12/31/23 ( weeks) Negative UA Blood Negative 12/31/23 (27 weeks) Negative UA Spec Grav 1.015 12/31/23 (27 weeks) (1.001 - 1.030) UA pH 8.00 12/31/23 (27 weeks) (5.00 - 9.00) UA Appear Clear 12/31/23 (27 weeks) Clear Urine Srce Clean Catch 12/31/23 (27 weeks) Test Result Date Ref Range Protein Urine Dipstick Trace 01/10/24 (29 weeks) Urine Color Urine Dipstick Yellow 01/10/24 (29 weeks) Urine Appearance Urine Dipstick Clear 01/10/24 (29 weeks) Glucose Urine Dipstick Negative 01/10/24 (29 weeks) Hgb 12.3 g/dL 01/30/24 (32 weeks) (12.0 - 16.0) MCH 30.6 pg 01/30/24 (32 weeks) (27.0 - 31.0) RBC (L) 4.03 Million/mcL 01/30/24 (32 weeks) (4.20 - 5.40) Hct (L) 36.4 % 01/30/24 (32 weeks) (37.0 - 47.0) Platelets 225 K/mcL 01/30/24 ( weeks) (130 - 400) WBC 9.4 K/mcL 01/30/24 ( weeks) (4.8 - 10.8) MCV 90.5 fL 01/30/24 (32 weeks) (81.0 - 99.0) RDW-CV 13.4 % 01/30/24 (32 weeks) (11.5 - 14.5) MPV 9.5 fL 01/30/24 (32 weeks) (7.4 - 10.4) MCHC 33.8 g/dL 01/30/24 (32 weeks) (32.0 - 37.0) Neutro Auto 70.8 % 01/30/24 (32 weeks) (42.2 - 75.2) Lymph Auto 20.6 % 01/30/24 ( weeks) (20.5 - 51.1) Eos, Auto 0.50 % 01/30/24 (32 weeks) (0.00 - 3.00) Eos Absolute 0.1 K/mcL 01/30/24 (32 weeks) (0.0 - 0.2) Neutro Absolute (H) 6.7 K/mcL 01/30/24 (32 weeks) (1.4 - 6.5) [place] Absolute (H) 0.7 K/mcL 01/30/24 (32 weeks) (0.1 - 0.6) Lymph Absolute 1.9 K/mcL 01/30/24 (32 weeks) (1.2 - 3.4) Baso Absolute 0.0 K/mcL 01/30/24 (32 weeks) (0.0 - 0.2) Basophil Auto 0.5 % 01/30/24 (32 weeks) (0.0 - 0.8) [place] Auto 7.6 % 01/30/24 (32 weeks) (1.7 - 9.3) Urine Color Urine Dipstick Yellow 02/11/24 (33 weeks) Glucose Urine Dipstick Negative 02/11/24 (33 weeks) Urine Appearance Urine Dipstick Clear 02/11/24 (33 weeks) Protein Urine Dipstick Negative 02/11/24 (33 weeks) Urine Color Urine Dipstick Yasemin 02/24/24 (35 weeks) Glucose Urine Dipstick Negative 02/24/24 (35 weeks) Protein Urine Dipstick Trace 02/24/24 (35 weeks) Urine Appearance Urine Dipstick Clear 02/24/24 (35 weeks) Amnisure ROM Negative 03/07/24 (37 weeks) Negative Eos Absolute (H) 0.4 K/[facility] 03/07/24 (37 weeks) (0.0 - 0.2) Neutro Auto 61.7 % 03/07/24 (37 weeks) (42.2 - 75.2) [place] Auto 7.6 % 03/07/24 (37 weeks) (1.7 - 9.3) Lymph Absolute (H) 3.8 K/[facility] 03/07/24 (37 weeks) (1.2 - 3.4) Baso Absolute 0.1 K/[facility] 03/07/24 (37 weeks) (0.0 - 0.2) Basophil Auto 0.6 % 03/07/24 (37 weeks) (0.0 - 0.8) Eos, Auto 2.60 % 03/07/24 (37 weeks) (0.00 - 3.00) [place] Absolute (H) 1.1 K/[facility] 03/07/24 (37 weeks) (0.1 - 0.6) Lymph Auto 27.5 % 03/07/24 (37 weeks) (20.5 - 51.1) Neutro Absolute (H) 8.6 K/[facility] 03/07/24 (37 weeks) (1.4 - 6.5) Hct 37.9 % 03/07/24 (37 weeks) (37.0 - 47.0) RBC 4.30 Million/mcL 03/07/24 (37 weeks) (4.20 - 5.40) MCH 30.1 pg 03/07/24 (37 weeks) (27.0 - 31.0) Hgb 12.9 g/dL 03/07/24 (37 weeks) (12.0 - 16.0) MCV 88.2 fL 03/07/24 (37 weeks) (81.0 - 99.0) MPV 9.9 fL 03/07/24 (37 weeks) (7.4 - 10.4) Platelets 277 K/mcL 03/07/24 (37 weeks) (130 - 400) MCHC 34.1 g/dL 03/07/24 (37 weeks) (32.0 - 37.0) Slide Review Not Indicated 03/07/24 (37 weeks) RDW-CV 13.4 % 03/07/24 (37 weeks) (11.5 - 14.5) WBC (H) 14.0 K/mcL 03/07/24 (37 weeks) (4.8 - 10.8) Globulin 3.0 g/dL 03/07/24 (37 weeks) (2.3 - 3.5) BUN/Creat Ratio 17.1 03/07/24 (37 weeks) (8.0 - 20.0) A/G Ratio 1.2 g/dL 03/07/24 (37 weeks) (1.0 - 2.5) Anion Gap 10.0 03/07/24 (37 weeks) (3.0 - 12.0) Chloride Level 104 mmol/L 03/07/24 (37 weeks) (98 - 107) CO2 23 mmol/L 03/07/24 (37 weeks) (21 - 31) Alk Phos (H) 126 IntlUnit/L 03/07/24 (37 weeks) (34 - 104) Bilirubin Total 0.3 mg/dL 03/07/24 (37 weeks) (0.3 - 1.0) Protein Total 6.6 g/dL 03/07/24 (37 weeks) (6.4 - 8.9) eGFR CKD-EPI 122 mL/min/1.73 m2 03/07/24 (37 weeks) >=60 Calcium Level 9.1 mg/dL 03/07/24 (37 weeks) (8.6 - 10.3) Sodium Level 137 mmol/L 03/07/24 (37 weeks) (136 - 145) Osmolality (L) 273 mOsm/kg 03/07/24 (37 weeks) (275 - 295) ALT 29 IntlUnit/L 03/07/24 (37 weeks) (7 - 52) AST 29 IntlUnit/L 03/07/24 (37 weeks) (13 - 39) Potassium Level 3.9 mmol/L 03/07/24 (37 weeks) (3.5 - 5.1) Glucose Level 83 mg/dL 03/07/24 (37 weeks) (70 - 109) BUN 12 mg/dL 03/07/24 (37 weeks) (7 - 25) Creatinine Level 0.70 mg/dL 03/07/24 (37 weeks) (0.60 - 1.20) Albumin Level 3.6 g/dL 03/07/24 (37 weeks) (3.5 - 5.7) Antibody Screen Gel Negative ABSC 03/07/24 (37 weeks) Group B Strep ([facility]) Negative 03/07/24 (37 weeks) Negative ABO/Rh Type (U) O POS 03/07/24 (37 weeks) BRIDGET ALCOCER : [birth year] Actions No Actions have been documented. BRIDGET ALCOCER DOB: [birth year] Situational Awareness No comments have been documented. 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 DOB: [birth year] Medications Prescriptions and Home Medications Currently Active or Taking acetaminophen 500 mg oral tablet (Historically recorded) SI,000 mg = 2 tab, Oral, every 8 hr, PRN: as needed for fever, 0 Refill(s) Ordered: 09/06/23 Provider: -- albuterol 90 mcg/inh inhalation powder (Historically recorded) SI puffs, Inhale, every 4 hr, PRN: as needed, 1 EA, 0 Refill(s) Ordered: 09/06/23 Provider: -- cyclobenzaprine 10 mg oral tablet SI mg = 1 tab, Oral, TID, PRN: as needed for muscle spasm, 30 tab, 0 Refill(s) Ordered: 11/05/23 Provider: Dionisio Ochoa MD ibuprofen (Historically recorded) SIG: as needed., 0 Refill(s) Ordered: 03/19/24 Provider: -- ondansetron 4 mg oral tablet, disintegrating SI mg = 1 tab, Oral, every 8 hr, PRN: as needed for nausea/vomiting, 30 tab, 0 Refill(s) Ordered: 01/30/24 Provider: Dionisio Ochoa MD Complete with DHA (Historically recorded) SI cap, Oral, Daily, 0 Refill(s) Ordered: 07/22/23 Provider: -- promethazine 25 mg oral tablet SI mg = 1 tab, Oral, every night at bedtime, 24 tab, 0 Refill(s) Ordered: 02/24/24 Provider: Carlos Akers MD Protonix 20 mg oral delayed release tablet SI mg = 1 tab, Oral, Daily, 90 tab, 3 Refill(s) Ordered: 10/04/23 Provider: Dionisio Ochoa MD Tums 500 mg oral tablet, chewable (Historically recorded) SI,000 mg = 2 tab, Chewed, QID, PRN: as needed for dyspepsia, 0 Refill(s) Ordered: 03/07/24 Provider: -- Inactive or Suspended (Prescriptions and documented medications since 03/19/23) metoclopramide 10 mg oral tablet SI mg = 1 tab, Oral, QID, for 30 days, 30 tab, 1 Refill(s) Status: Discontinued Ordered: 02/11/24 Provider: Moris Perez MD ondansetron 4 mg oral disintegrating strip (Historically recorded) SI mg = 1 EA, Oral, TID, PRN: nausea, 6 EA, 0 Refill(s) Status: Discontinued Ordered: 09/06/23 Provider: -- ondansetron 4 mg oral tablet, disintegrating SI mg = 1 tab, Oral, every 8 hr, PRN: as needed for nausea/vomiting, 30 tab, 0 Refill(s) Status: Discontinued Ordered: 10/02/23 Provider: Lore Guido APRN promethazine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 of other high risk pregnancies, first trimester (ICD-10-CM: O09.891, Date: 10/04/23) 09/23/23 - Encounter for supervision of other normal , second trimester (ICD-10-CM: Z34.82, Date: ) 09/23/23 - Weeks of gestation of not specified (ICD-10-CM: Z3A.00, Date: ) 09/23/23 - Encounter for supervision of other normal , second trimester (ICD-10-CM: Z34.82, Date: 09/23/23) 09/06/23 - Encounter for supervision of other normal , first trimester (ICD-10-CM: Z34.81,Date: ) 09/06/23 - Weeks of gestation of not specified (ICD-10-CM: Z3A.00, Date: ) 09/06/23 - Encounter for supervision of other normal , first trimester (ICD-10-CM: Z34.81,Date: 09/06/23) 09/06/23 - Procedure and treatment not carried out, unspecified reason (ICD-10-CM: Z53.9, Date: ) 09/06/23 - Supervision of with history of ectopic , first trimester (ICD-10-CM: O09.11, Date: ) 09/06/23 - 11 weeks gestation of (ICD-10-CM: Z3A.11, Date: ) 09/06/23 - Nicotine dependence, other tobacco product, uncomplicated (ICD-10-CM: F17.290, Date: ) 09/06/23 - Smoking (tobacco) complicating , first trimester (ICD-10-CM: O99.331, Date: ) 09/06/23 - Supervision of with history of ectopic , first trimester (ICD-10-CM: O09.11, Date: ) 09/06/23 - Supervision of with history of ectopic , unspecified trimester (ICD-10-CM: O09.10, Date: 09/06/23) 09/06/23 - Supervision of other high risk pregnancies, first trimester (ICD-10-CM: O09.891, Date: 09/06/23) 08/07/23 - Vomiting of , unspecified (ICD-10-CM: O21.9, Date: ) 08/07/23 - Personal history of gestational diabetes (ICD-10-CM: Z86.32, Date: ) 08/07/23 - Personal history of pre-term labor (ICD-10-CM: Z87.51, Date: ) 08/07/23 - Less than 8 weeks gestation of (ICD-10-CM: Z3A.01, Date: ) 08/07/23 - Nicotine dependence, cigarettes, uncomplicated (ICD-10-CM: F17.210, Date: ) 08/07/23 - Smoking (tobacco) complicating , first trimester (ICD-10-CM: O99.331, Date: ) 08/07/23 - Vomiting of , unspecified (ICD-10-CM: O21.9, Date: ) 08/07/23 - Personal history of other complications of , childbirth and the puerperium (ICD-10-CM: Z87.59, Date: 08/07/23) 08/07/23 - Personal history of pre-term labor (ICD-10-CM: Z87.51, Date: 08/07/23) 08/07/23 - Personal history of gestational diabetes (ICD-10-CM: Z86.32, Date: 08/07/23) 08/07/23 - Vomiting of , unspecified (ICD-10-CM: O21.9, Date: 08/07/23) 08/07/23 - Supervision of with other poor reproductive or obstetric history, first trimester (ICD-10-CM: O09.291, Date: ) 08/07/23 - Personal history of other complications of , childbirth and the puerperium (ICD-10-CM: Z87.59, Date: ) 07/24/23 - Supervision of with other poor reproductive or obstetric history, first trimester (ICD-10-CM: O09.291, Date: ) 07/24/23 - Weeks of gestation of not specified (ICD-10-CM: Z3A.00, Date: ) 07/24/23 - Supervision of with other poor reproductive or obstetric history, first trimester (ICD-10-CM: O09.291, Date: ) 07/24/23 - Supervision of with other poor reproductive or obstetric history, first trimester (ICD-10-CM: O09.291, Date: ) 07/24/23 - Supervision of with other poor reproductive or obstetric history, first trimester (ICD-10-CM: O09.291, Date: 07/24/23) 07/22/23 - Supervision of with other poor reproductive or obstetric history, first trimester (ICD-10-CM: O09.291, Date: ) 07/22/23 - Weeks of gestation of not specified (ICD-10-CM: Z3A.00, Date: ) 07/22/23 - Supervision of with other poor reproductive or obstetric history, first trimester (ICD-10-CM: O09.291, Date: ) 07/22/23 - Supervision of with other poor reproductive or obstetric history, first trimester (ICD-10-CM: O09.291, Date: ) 07/22/23 - Supervision of with other poor reproductive or obstetric history, first trimester (ICD-10-CM: O09.291, Date: 07/22/23) 07/22/23 - Supervision of with other poor reproductive or obstetric history, first trimester (ICD-10-CM: O09.291, Date: ) 07/22/23 - Nicotine dependence, other tobacco product, uncomplicated (ICD-10-CM: F17.290, Date: ) 07/22/23 - Weeks of gestation of not specified (ICD-10-CM: Z3A.00, Date: ) 07/22/23 - Personal history of other complications of , childbirth and the puerperium (ICD-10-CM: Z87.59, Date: ) 07/22/23 - Supervision of with other poor reproductive or obstetric history, first trimester (ICD-10-CM: O09.291, Date: ) 07/22/23 - Personal history of other complications of , childbirth and the puerperium (ICD-10-CM: Z87.59, Date: 07/22/23) 07/22/23 - Supervision of with other poor reproductive or obstetric history, first trimester (ICD-10-CM: O09.291, Date: 07/22/23) 09/09/99 - Encounter for supervision of other normal , third trimester (ICD-10-CM: Z34.83,Date: 09/09/99) 09/09/99 - Encounter for supervision of normal , unspecified, second trimester (ICD-10-CM:Z34.92, Date: 12/25/23) BRIDGET ALCOCER : 89 Delivery Summary Baby A Membrane Status Information ROM Date/Time: 03/07/24 08:35:00 Amniotic Fluid Color/Description: Clear Labor Information Labor Onset Methods: Spontaneous, Augmented Augmentation Methods: Artificial rupture of membranes, Oxytocin infusion Precipitous Labor: No Prolonged Labor: No Monitoring FHR Monitoring Method: spiral electrode Delivery Information Delivery Type: Vaginal Delivery of Head Date/Time: 03/07/24 21:29:00 Date/Time of : 03/07/24 21:30:00 Placenta Delivery Date/Time: 03/07/24 21:35:00 Placenta Delivery Method: Spontaneous Placenta to Pathology: Yes Cord Blood Banking: No Cord Blood Sent to Lab: Yes Compound Finisher: Love Kamara Maternal Delivery Complications: None Delivery Physician: Dionisio Ochoa MD Information Risk Factors: Other: left compound arm Complications: None Nuchal Cord Times: 1 Nuchal Cord Tension: Loose Nuchal Cord Intervention: Reduced prior to delivery Umbilical Cord Description: 3 vessel cord, Nuchal cord Infant Data Gender: Male ID Band Number: [id number] Outcome: Live Security Tag Number: [id number] Weight: 2.750 kg Score 1 Minute: 8 Score 5 Minute: 9 Human Resources Psychologist: Bridgette Jasso MD Note: Items documented with '--' had no clinical data which qualified at time of report creation END OF REPORT Physician Outpatient Note * Dionisio Ochoa MD: PERFORM Event Display: Office Clinic Note Physician Authored Date: [id number] BRIDGET ALCOCER :2000 Age:24 years Sex:Female Visit Date:03/19/2024 Primary Care Physician: ALYCIA ARCHER APRN Chief Complaint Soaking through pads, having to change her pad every hour, trying to wear a thicker pad currently. Cramping, painful. Lower back pain, epidural with delivery. Some clots with the bleeding, size of nickel. D&C on 03/08, pp hemorhage. Additional Information Tearful in the room. History of Present Illness Presents for evaluation of vaginal bleeding. She is s/p complicated by hemorrhage requiring D&C and Tawnya catheter placement.?She reports the onset of moderate to severe??low abdominal cramping pain??and had vaginal bleeding beginning this morning.?? She reports saturating pads??and not feeling well. ??She denies any fevers or chills??but does??feel like she has had some??hot flashes. Review of Systems Constitutional:?No??fevers,?No??chills,?No??sweats Eye:?No??recent visual problems ENT:?No??ear pain,?No??nasal congestion,?No??sore throat Respiratory:?No??shortness of breath,?No??cough Cardiovascular:?No??Chest pain,?No??palpitations,?No??syncope Gastrointestinal:?Nonausea,?No??vomiting,?No??diarrhea Genitourinary:?No??hematuria Bernardo/Lymph:?No??bruising tendency,?No??swollen lymph glands Endocrine:?No??excessive thirst,??No??excessive hunger Musculoskeletal:??No??back pain,??No??neck pain,??No??joint pain,??No??muscle pain,??No??decreased range of motion Integumentary:?No??rash,?No??pruritus,?No??abrasions Neurologic: Alert & oriented X 4 Psychiatric:?No??anxiety,?No??depression Physical Exam Vitals & Measurements BP:??110/80?? WT:??98.5??kg?? Abdomen:??Soft. ??With moderate tenderness palpation in the low midline abdomen??overlying the uterine fundus Pelvic:??A speculum examination was performed. ??Moderate vaginal bleeding??which did not appear tohave??abnormal discharge was noted??and was malodorous. Assessment/Plan 1.?? endometritis??O86.12 ??Likely this represents endometritis.?? She does have risk factor??related to the D&C and Tawnya catheter.?? I do recommend??IV antibiotics at least 24 hours??in the hospital.?? She does have challenges at home??as her significant other has a poorly controlled??seizure disorder and cannot be left alone with the baby. Problem List/Past Medical History Ongoing Depression GERD (gastroesophageal reflux disease) History of ectopic History of gestational diabetes History of delivery History of delivery, currently in third trimester History of recurrent miscarriages Normal in multigravida in third trimester endometritis with history of ectopic , antepartum Tobacco use Historical History of delivery, currently in first trimester Supervision of normal in second trimester Procedure/Surgical History ???Dilation and Curettage (03/08/2024)???Cholecystectomy (06/2016) Medications acetaminophen 500 mg oral tablet, 1000 mg= 2 tab, Oral, every 8 hr, PRN albuterol 90 mcg/inh inhalation powder, 1 puffs, Inhale, every 4 hr, PRN cyclobenzaprine 10 mg oral tablet, 10 mg= 1 tab, Oral, TID, PRN ibuprofen ondansetron 4 mg oral tablet, disintegrating, 4 mg= 1 tab, Oral, every 8 hr, PRN Complete with DHA, 1 cap, Oral, Daily promethazine 25 mg oral tablet, 25 mg= 1 tab, Oral, every night at bedtime Protonix 20 mg oral delayed release tablet, 20 mg= 1 tab, Oral, Daily, 3 refills Tums 500 mg oral tablet, chewable, 1000 mg= 2 tab, Chewed, QID, PRN Allergies Blueberries??(Anaphylaxis) penicillin??(Hives) Social History Alcohol Past- Comments: very occasionallly Electronic Cigarette/Vaping Electronic Cigarette Use: Never. 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 Home/Environment Lives with Children, baby's dad. Sexual Sexually active: Yes. Substance Use Marijuana- Comments: smokes in bong with tobacco Tobacco Current everyday tobacco user Tobacco Use:. smokes in a bong with MJ at same time per day. Never Smokeless Tobacco use:. Family History Alive and well: Sister and Daughter. Cancer: Father. Heart attack: Mother. Family Member(s): ?? FATHER, at age: Unknown. Cause of : pancreatic cancer, lung cancer Family Member(s): ?? MOTHER, at age: Unknown. Cause of : heart attack, obesity Family Member(s): ?? GPARENT, at age: Unknown. Cause of : Family Member(s): ?? GPARENT, at age: Unknown. Cause of : Family Member(s): ?? GPARENT, at age: Unknown. Cause of : Immunizations Vaccine Date Status tetanus/diphth/pertuss (Tdap) adult/adol 12/30/2023 Given Electronically Signed on 03/19/2024 14:02 EDT Dionisio Ochoa MD Patient Care team information Care Team Personnel Name: ALYCIA ARCHER APRN Position: No Access Member Role: Primary Care Physician Address: Address: [address] [address]- Care Team Related Persons Name: RYLEY ALCOCER Address: Home [address] [place], [place] [id number] [facility]
--- OUTSIDE RECORDS SUMMARY | 2024-04-05 16:57 | XMS_ITS | Continuity of Care Document ---
Author Organization [facility] Address [address] [place] [address] Encounter [facility] FIN NBR [id number] Date(s): 09/06/23 - 09/06/23 [facility] [address] [place] [address]- [place] Discharge Disposition: Home or Self Care Attending Physician: Carlos Akers MD Admitting Physician: Carlos Akers MD Referring Physician: Carlos Akers MD Allergies, Adverse Reactions, Alerts Substance Reaction Severity Status penicillin Hives Mild Active Blueberries Anaphylaxis Severe Active Assessment and Plan Future Appointments Appointment Date:10/04/2023 01:30:00 PM Scheduled Provider:Dionisio Ochoa MD Location:[facility] Appointment Type:OB Follow Up Medications acetaminophen 500 mg oral tablet 1,000 mg = 2 tab, Oral, every 8 hr, PRN as needed for fever, 0 Refill(s) Start Date: 09/06/23 Status: Ordered albuterol 90 mcg/inh inhalation powder 1 puffs, Inhale, every 4 hr, PRN as needed, # 1 EA, 0 Refill(s) Start Date: 09/06/23 Status: Ordered ondansetron 4 mg oral disintegrating strip 4 mg = 1 EA, Oral, TID, PRN nausea, # 6 EA, 0 Refill(s) Start Date: 09/06/23 Status: Ordered Complete with DHA 0 Refill(s) Start Date: 07/22/23 Status: Ordered promethazine 12.5 mg oral tablet 12.5 mg = 1 tab, Oral, every 4 hr, PRN as needed for nausea/vomiting, # 60 tab, 2 Refill(s), Pharmacy: [facility], 165.1, cm, 08/07/23 10:09:00 EST, Height, 107.9, kg, 08/07/23 10:15:00 EST, Weight Dosing Start Date: 08/07/23 Status: Ordered Problem List Condition Confirmation Course Effective Dates Status Health St [facility] Informant Depression 1 Confirmed Active History of ectopic Confirmed Active with history of ectopic , antepartum Confirmed Active History of recurrent miscarriages Confirmed Active History of delivery, currently in first trimester Confirmed Active History of gestational diabetes Confirmed Active Confirmed 06/19/23 Active 1suicide attempt 10/2017, hospitalized at [facility] and [facility] Procedures Procedure Date Related Diagnosis Body Site Status Cholecystectomy 06/2016 Completed Social History Social History Type Response Smoking Status Smoking tobacco use: Current everyday tobacco user;Never; Number used per day: smokes in a bong with MJ at same time; entered on: 09/06/23 Sex
--- OUTSIDE RECORDS SUMMARY | 2024-04-05 16:57 | XMS_ITS | Continuity of Care Document ---
Author Organization [facility] Address [address] [place] [address] Encounter [facility] FIN NBR [id number] Date(s): 07/24/23 - 07/24/23 [facility] [address] [place] [address]- [place] Discharge Disposition: Home Allergies, [...] Confirmed Active 1suicide attempt 10/2017, hospitalized at [facility] and [facility] Procedures Procedure Date Related Diagnosis Body Site Status Cholecystectomy 06/2016 Completed Social History Social History Type Response Tobacco Current everyday tob acco user Tobacco Use:. smokes in a bong with MJ at same time per day. Sex
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
--- OUTSIDE RECORDS SUMMARY | 2024-04-05 16:57 | XMS_ITS | Continuity of Care Document ---
Author Organization [facility] Ambulatory Clinics Address [address] [place] [address] Encounter [facility] NBR [id number] Date(s): 09/12/23 - 09/12/23 [facility] Ambulatory Clinics [address] [place] [address]- [place] Discharge Disposition: Home Allergies, Adverse Reactions, Alerts Substance Reaction Severity Status penicillin Hives Mild Active Blueberries Anaphylaxis Severe Active Assessment and Plan Future Appointments Appointment Date:10/04/2023 01:30:00 PM Scheduled Provider:Dionisio Ochoa MD Location:[facility] Appointment Type:OB Follow Up Medications acetaminophen 500 [...] nausea/vomiting, # 60 tab, 2 Refill(s), Pharmacy: [id number], 165.1, cm, 08/07/23 10:09:00 EST, Height, [...] 06/19/23 Active 1suicide attempt 10/2017, hospitalized at [facility] and [facility] [place] Procedures Procedure Date Related Diagnosis Body Site Status Cholecystectomy 06/2016 Completed Social History Social History Type Response Smoking Status Smoking tobacco use: Current everyday tobacco user;Never; Number used per day: smokes in a bong with MJ at same time; entered on: 09/06/23 Sex
--- OUTSIDE RECORDS SUMMARY | 2024-04-05 16:57 | XMS_ITS | Continuity of Care Document ---
Author Organization [facility] Ambulatory Clinics Address [address] [place] [address] Care Team Providers Care Thermoplastic Technician Name Role Phone ALYCIA ARCHER APRN Primary Care Physician Encounter [facility] FIN NBR [id number] Date(s): 10/04/23 - 10/04/23 [facility] Ambulatory Clinics [address] [place] [address]- Encounter Diagnosis History of delivery, currently in first trimester(Discharge Diagnosis) - 10/04/23 History of delivery, currently in second trimester(Discharge Diagnosis) - 10/04/23 Discharge Disposition: Home or Self Care Attending Physician: Dionisio Ochoa MD Allergies, Adverse Reactions, Alerts Substance Reaction Severity Status penicillin Hives Mild Active Blueberries Anaphylaxis Severe Active Assessment and Plan Extracted from: Title:Office Visit Note Author:Dionisio Ochoa MD D ate:10/04/23 1.??History of wilberiv yaneth, currently in first trimester??O09.891 Reports continued difficulty with morning sickness. Zofran helps a little. Reports a fair amount of reflux. Rx for protonix. Follow up 4 weeks US for anatomy ordered. ?? Ordered: US OB Greater Than 14 Weeks, 11/04/23, Routine, Reason: Anatomy survey, Transport Mode: Ambulatory, History of delivery, currently in first trimester ?? Orders: Protonix 20 mg oral delayed release tablet, 20 mg = 1 tab, Oral, Daily, # 90 tab, 3 Refill(s), Pharmacy: [facility] #[facility], 165.1, cm, 09/06/23 13:49:00 EST, Height, 104.6, kg, 10/04/23 13:31:00 EST, Weight Dosing Future Appointments Appointment Date:11/05/2023 02:15:00 PM Scheduled Provider:Dionisio Ochoa MD Location:[facility] Appointment Type:OB Follow Up Future Scheduled Tests Radiology* US OB Greater Than 14 Weeks 11/05/23 Medications acetaminophen 500 mg oral tablet 1,000 [...] for nausea/vomiting, # 30 tab, 0 Refill(s), Pharmacy:[facility] #[facility], 165.1, cm, 09/06/23 13:49:00 EST, Height, 103.6, kg, 09/06/23 14:07:00 EST, Weight Dosing Start Date: 10/02/23 Status: Ordered Complete with DHA 0 Refill(s) Start Date: 07/22/23 Status: Ordered promethazine 12.5 mg oral tablet 12.5 mg = 1 tab, Oral, every 4 hr, PRN as needed for nausea/vomiting, # 60 tab, 2 Refill(s), Pharmacy: [facility] #[facility], 165.1, cm, 08/07/23 10:09:00 EST, Height, 107.9, kg, 08/07/23 10:15:00 EST, Weight Dosing Start Date: 08/07/23 Status: Ordered Protonix 20 mg oral delayed release tablet 20 mg = 1 tab, Oral, Daily, # 90 tab, 3 Refill(s), Pharmacy: [facility] #[facility], 165.1, cm, 09/06/23 13:49:00 EST, Height, [...] 06/19/23 Active 1suicide attempt 10/2017, hospitalized at [facility] and [facility] [place] Procedures Procedure Date Related Diagnosis Body Site Status Cholecystectomy 06/2016 Completed Results Most recent to oldest [Reference Range]: 1 Urobilinogen Urine Dipstick 1 mg/dl (10/04/23 1:20 PM) Protein Urine Dipstick Trace (10/04/23 1:20 PM) Glucose Urine Dipstick Negative (10/04/23 1:20 PM) Urine Color Urine Dipstick Dark yellow (10/04/23 1:20 PM) Urine Appearance Urine Dipstick Clear (10/04/23 1:20 PM) Vital Signs Most recent to oldest [Reference Range]: 1 Blood Pressure [90-140/60-90 mmHg] 124/6 6mmHg (10/04/23 1:20 PM) Mean Arterial Pressure, Cuff [70-110 mmH g] 85 mmHg (10/04/23 1:20 PM) Weight 104.6 kg (10/04/23 1:20 PM) Weight Measured (lbs) 230.603 lb (10/04/23 1:20 PM) Weight Dosing 104.600 kg (10/04/23 1:20 PM) Social History Social History Type Response Smoking Status Smoking tobacco use: Current everyday tobacco user;Never; Number used per day: smokes in a bong with MJ at same time; entered on: 09/06/23 Sex Physician Outpatient Note * Dionisio Ochoa MD: PERFORM Event Display: Office Clinic Note Physician Authored Date: [id number] BRIDGET ALCOCER :2000 Age:23 years Sex:Female Visit Date:10/04/2023 Primary Care Physician: ALYCIA ARCHER APRN Chief Complaint OB FU 15wks, 2d. Pain on left lower side, sometimes radiates up into the rib cage. Received gender in envelope from front desk representative. CT/NG today. Physical Exam Vitals & Measurements BP:??124/66?? WT:??104.6??kg?? Assessment/Plan 1.??History of delivery, currently in first trimester??O09.891 Reports continued difficulty with morning sickness. Zofran helps a little. Reports a fair amount ofreflux. Rx for protonix. Follow up 4 weeks US for anatomy ordered. Ordered: US OB Greater Than 14 Weeks, 11/04/23, Routine, Reason: Anatomy survey, Transport Mode: Ambulatory,History of delivery, currently in first trimester ?? Orders: Protonix 20 mg oral delayed release tablet, 20 mg = 1 tab, Oral, Daily, # 90 tab, 3 Refill(s), Pharmacy: [facility] #[facility], 165.1, cm, 09/06/23 13:49:00 EST, Height, 104.6, kg, 10/04/23 13:31:00 EST, Weight Dosing Future Orders US OB Greater Than 14 Weeks, 11/04/23, Routine, Reason: Anatomy survey, Transport Mode: Ambulatory,History of delivery, currently in first trimester Problem List/Past Medical History Ongoing Depression History of ectopic History of gestational diabetes History of delivery, currently in first trimester History of recurrent miscarriages with history of ectopic , antepartum Tobacco use Historical Procedure/Surgical History ???Cholecystectomy (06/2016) Medications acetaminophen 500 mg oral tablet, 1000 mg= 2 tab, Oral, every 8 hr, PRN albuterol 90 mcg/inh inhalation powder, 1 puffs, Inhale, every 4 hr, PRN ondansetron 4 mg oral disintegrating strip, 4 mg= 1 EA, Oral, TID, PRN ondansetron 4 mg oral tablet, disintegrating, 4 mg= 1 tab, Oral, every 8 hr, PRN Complete with DHA promethazine 12.5 mg oral tablet, 12.5 mg= 1 tab, Oral, every 4 hr, PRN, 2 refills Protonix 20 mg oral delayed release tablet, [...] GPARENT, at age: Unknown. Cause of : Lab Results Test Name Test Result Date/Time Urine Color Urine Dipstick Dark yellow 10/04/2023 13:20 EST Urine Appearance Urine Dipstick Clear 10/04/2023 13:20 EST Urobilinogen Urine Dipstick 1 mg/dl 10/04/2023 13:20 EST Glucose Urine Dipstick Negative 10/04/2023 13:20 EST Protein Urine Dipstick Trace 10/04/2023 13:20 EST Electronically Signed on 10/04/23 01:54 PM Dionisio Ochoa MD Patient Care team information Care Team Personnel Name: ALYCIA ARCHER APRN Position: No Access Member Role: Primary Care Physician Address: Address: [address] [facility] [address]
--- OUTSIDE RECORDS SUMMARY | 2024-04-05 16:57 | XMS_ITS | Continuity of Care Document ---
Author Organization [facility] Address [address] [place] [address] Encounter [facility] FIN NBR [id number] Date(s): 09/23/23 - 09/23/[address] [address]- [place] Discharge Disposition: Home or Self Care Attending Physician: Carlos Akers MD Admitting Physician: Carlos Akers MD Allergies, Adverse Reactions, Alerts Substance Reaction Severity Status penicillin Hives Mild Active Blueberries Anaphylaxis Severe Active Assessment and Plan Future Appointments Appointment Date:10/04/2023 01:30:00 PM Scheduled Provider:Dionisio Ochoa MD Location:[facility] Appointment Type:OB Follow Up Diagnostic Tests Pending * MaterniT 21 PLUS w/ESS and SCA Ref 09/23/23 Medications acetaminophen 500 mg oral tablet 1,000 [...] nausea/vomiting, # 60 tab, 2 Refill(s), Pharmacy: [facility] #[facility], 165.1, cm, 08/07/23 10:09:00 EST, Height, 107.9, kg, 08/07/23 10:15:00 EST, Weight Dosing Start Date: 08/07/23 Status: Ordered Problem List Condition Confirmation Course Effective Dates Status Health atus Informant Depression 1 Confirmed Active History of ectopic Confirmed Active with history of ectopic , antepartum Confirmed Active History of recurrent miscarriages Confirmed Active History of delivery, currently in first trimester Confirmed Active History of gestational diabetes Confirmed Active Confirmed 06/19/23 Active 1suicide attempt 10/2017, hospitalized at [facility] and [facility] Procedures Procedure Date Related Diagnosis Body Site Status Cholecystectomy 06/2016 Completed Social History Social History Type Response Smoking Status Smoking tobacco use: Current everyday tobacco user;Never; Number used per day: smokes in a bong with MJ at same time; entered on: 09/06/23 Sex
--- OUTSIDE RECORDS SUMMARY | 2024-04-05 16:57 | XMS_ITS | Continuity of Care Document ---
Author Organization [facility] Ambulatory Clinics Address [address] [place] [address] Care Team Providers Care Benzene Washer Operator Name Role Phone ALYCIA ARCHER APRN Primary Care Physician Encounter [facility] NBR [id number] Date(s): 12/26/23 - 12/26/23 [facility] Ambulatory Clinics [address], [place] [address] Encounter Diagnosis Supervision of normal in third trimester(Discharge Diagnosis) - 12/26/23 Discharge Disposition: Home or Self Care Attending Physician: Dionisio Ochoa MD Allergies, Adverse Reactions, Alerts Substance Reaction Severity Status penicillin Hives Mild Active Blueberries Anaphylaxis Severe Active Assessment and Plan Extracted from: Title:OB Extended Office Visit Author:Dionisio rogel MD Date:12/26/23 1.??Supervision of normal pr egnancy in third trimester??Z34.93 ??Did not complete GCT. - Reports having had vomiting with prior GCTs in the past and would elect for meal.?? No showed last visit.?? Doing well. Some periodic vomiting in am.? Orders: CBC w/ Diff, Blood, Routine, 12/25/23, Once, Lab Collect, Supervision of normal in second trimester, Order for future visit Glucose 1Hr 50 gm OB, Blood, Stat, 12/25/23, Once, Lab Collect, Supervision of normal in second trimester, Order for future visit Future Appointments Appointment Date:12/30/2023 11:00:00 AM Scheduled Provider:Moris Perez MD Location:[facility] Appointment Type:OB Follow Up Future Scheduled Tests Laboratory* CBC w/ Diff 12/25/23 * Glucose 1Hr 50 gm OB 12/25/23 Medications acetaminophen 500 mg oral tablet 1,000 [...] # 30 tab, 0 Refill(s), Pharmacy: [facility] #[facility], 165.1, cm, [...] for nausea/vomiting, # 30 tab, 0 Refill(s), Pharmacy:[facility] #93, 165.1, cm, 09/06/23 13:49:00 EST, Height, 103.6, kg, 09/06/23 14:07:00 EST, Weight Dosing Start Date: 10/02/23 Status: Ordered Complete with DHA 0 Refill(s) Start Date: 07/22/23 Status: Ordered promethazine 12.5 mg oral tablet 12.5 mg = 1 tab, Oral, every 4 hr, PRN as needed for nausea/vomiting, # 60 tab, 2 Refill(s), Pharmacy: [facility] #93, 165.1, cm, 08/07/23 10:09:00 EST, Height, [...] of recurrent miscarriages Confirmed Active History of gestational diabetes Confirmed Active Supervision of normal in second trimester Confirmed Active Confirmed 06/19/23 Active 1suicide attempt 10/2017, hospitalized at [facility] and [facility] Procedures Procedure Date Related Diagnosis Body Site Status Cholecystectomy 06/2016 Completed Results Most recent to oldest [Reference Range]: 1 Protein Urine Dipstick Trace (12/26/23 11:05 AM) Glucose Urine Dipstick Negative (12/26/23 11:05 AM) Urine Color Urine Dipstick Dark yellow (12/26/23 11:05 AM) Vital Signs Most recent to oldest [Reference Range]: 1 Blood Pressure [90-140/60-90 mmHg] 106/5 8mmHg (12/26/23 11:05 AM) Mean Arterial Pressure, Cuff [65-140 mmH g] 74 mmHg (12/26/23 11:05 AM) Weight 108.0 kg (12/26/23 11:05 AM) Weight Measured (lbs) 238.099 lb (12/26/23 11:05 AM) Weight Dosing 108.000 kg (12/26/23 11:05 AM) Social History Social History Type Response Smoking Status Smoking tobacco use: Current everyday tobacco user;Never; Number used per day: smokes in a bong with MJ at same time; entered on: 09/06/23 Sex Physician Outpatient Note * Dionisio Ochoa MD: PERFORM Event Display: Office Clinic Note Physician Authored Date: [id number] BRIDGET ALCOCER :2000 Age:23 years Sex:Female Visit Date:12/26/2023 Primary Care Physician: ALYCIA ARCHER APRN Chief Complaint OB FU 27wks, 1d. Doing alright, having vomiting in the morning. Protonix, helping with acid reflux.Wearing a belly band, to help with back pain, has provided some relief. Visit Vital Signs/Measurements Systolic Blood Gwuzykjz793 mmHg Diastolic Blood Qsnxffae05 mmHg (Low) Uaefqi838.0 kg Physical Exam Vitals & Measurements BP:??106/58?? WT:??108.0??kg?? Assessment/Plan 1.??Supervision of normal in third trimester??Z34.93 ??Did not complete GCT. - Reports having had vomiting with prior GCTs in the past and would elect for meal.?? No showed last visit.?? Doing well. Some periodic vomiting in am.?? Orders: CBC w/ Diff, Blood, Routine, 12/25/23, Once, Lab Collect, Supervision of normal in secondtrimester, Order for future visit Glucose 1Hr 50 gm OB, Blood, Stat, 12/25/23, Once, Lab Collect, Supervision of normal in second trimester, Order for future visit LMP/EGA/JEREMÍAS Last Menstrual Period: 06/19/23 Gestational Age (EGA) and JEREMÍAS? * Note: EGA calculated as of 12/26/2023 ?? JEREMÍAS:??03/25/2024?EGA*:??27 weeks 1 day ?Type:??Authoritative?MethodDate:??06/19/2023 ?Method:??Last Menstrual Period??(06/19/2023) ?Confirmation:??Confirmed ?Description:??-- ?Comments:??-- ?Entered [...] weeks ? Outcome:??Live ? Sex:??Female?Wt:?2722 g ?Child's Name:??Brenleigh ?Hospital:??[facility] ?Comment:??Covid in August prior to delivery, dilated [...] recorded. Problem List/Past Medical History Ongoing Depression History of ectopic History of gestational diabetes History of recurrent miscarriages with history of ectopic , antepartum Supervision of normal in second trimester Tobacco use Historical History of delivery, currently in first trimester Procedure/Surgical History ???Cholecystectomy (06/2016) Medications acetaminophen 500 mg oral tablet, 1000 mg= 2 tab, Oral, every 8 hr, PRN albuterol 90 mcg/inh inhalation powder, 1 puffs, Inhale, every 4 hr, PRN cyclobenzaprine 10 mg oral tablet, 10 mg= 1 tab, Oral, TID, PRN ondansetron 4 mg oral disintegrating strip, [...] GPARENT, at age: Unknown. Cause of : Transcribed Labs ABO/Rh Echo: O POS Blood Type, Transcribed: O positive Chlamydia Date Performed: 10/04/23 Chlamydia, Transcribed: Negative Gonorrhea Date Performed: 10/04/23 Gonorrhea, Transcribed: Negative Hepatitis B Date Performed: 09/06/23 Hepatitis B, Transcribed: Negative HIV Antibodies, Transcribed: Negative HIV Date Performed: 09/06/23 RPR Date Performed: 09/06/23 RPR, Transcribed: Negative Rubella Date Performed: 09/06/23 Rubella,Transcribed: Immune Electronically Signed on 12/26/23 01:08 PM Dionisio Ochoa MD Patient Care team information Care Team Personnel Name: ALYCIA ARCHER APRN Position: No Access Member Role: Primary Care Physician Address: Address: [address], [place] [address]
--- OUTSIDE RECORDS SUMMARY | 2024-04-05 16:58 | XMS_ITS | Continuity of Care Document ---
Author Organization [facility] Ambulatory Clinics Address [address] [place] [address] Care Team Providers Care Chemistry Quality Control Analyst Name Role Phone ALYCIA ARCHER APRN Primary Care Physician Encounter [facility] NBR [id number] Date(s): 02/11/24 - 02/11/24 [facility] Ambulatory Clinics [address] [place], [place] [address] Encounter Diagnosis Normal in multigravida in third trimester(Discharge Diagnosis) - 02/11/24 Encounter for supervision of other normal , third trimester(Final) - 33 weeks gestation of (Final) - Discharge Disposition: Home or Self Care Attending Physician: Moris Perez MD Allergies, Adverse Reactions, Alerts Substance Reaction Severity Status penicillin Hives Mild Active Blueberries Anaphylaxis Severe Active Assessment and Plan Extracted from: Title:OB Extended Office Visit Author:Moris miels MD Date:02/11/24 1.??Normal in mult igravida in third trimester??Z34.83 ??The patient describes symptoms consistent with??gastroparesis. ??She can vomit her dinner??and it looks basically chewed but undigested the following morning. ??Frequent small meals with BRAT Diet type??offerings??would be a good start??along with??plenty of fluids.?? She may see some improvement with??metoclopramide??if it can help her with improved gastric emptying. Orders: metoclopramide 10 mg oral tablet, 10 mg = 1 tab, Oral, QID, # 30 tab, 1 Refill(s), Pharmacy: [facility] #93, 165.1, cm, 02/11/24 13:45:00 EDT, Height, 108, kg, 02/11/24 13:52:00 EDT, Weight Dosing Future Appointments Appointment Date:02/24/2024 02:45:00 PM Scheduled Provider:Carlos Akers MD Location:[facility] Appointment Type:OB Follow Up Appointment Date:03/02/2024 01:45:00 PM Scheduled Provider:Moris Perez MD Location:[facility] Appointment Type:OB Follow Up Appointment Date:03/10/2024 01:00:00 PM Scheduled Provider:Dionisio Ochoa MD Location:[facility] Appointment Type:OB Follow Up Appointment Date:03/17/2024 01:00:00 PM Scheduled Provider:Carlos Akers MD Location:[facility] Appointment Type:OB Follow Up Appointment Date:03/24/2024 01:00:00 PM Scheduled Provider:Dionisio Ochoa MD Location:[facility] Appointment Type:OB Follow Up Immunizations Given and [...] spasm, # 30 tab, 0 Refill(s), Pharmacy: [facility] #93, 165.1, cm, 09/06/23 13:49:00 EST, Height, 105, kg, 11/05/23 14:29:00 EST, Weight Dosing Start Date: 11/05/23 Status: Ordered metoclopramide 10 mg oral tablet 10 mg = 1 tab, Oral, QID, # 30 tab, 1 Refill(s), Pharmacy: [facility] #93, 165.1, cm, 02/11/24 13:45:00 EDT, Height, 108, kg, 02/11/24 13:52:00 EDT, Weight Dosing Start Date: 02/11/24 Stop Date: 04/11/24 Status: Ordered ondansetron 4 mg oral disintegrating strip 4 mg = 1 EA, Oral, TID, PRN nausea, # 6 EA, 0 Refill(s) Start Date: 09/06/23 Status: Ordered ondansetron 4 mg oral tablet, disintegrating 4 mg = 1 tab, Oral, every 8 hr, PRN as needed for nausea/vomiting, # 30 tab, 0 Refill(s), Pharmacy:[facility] #93, 165.1, cm, 01/10/24 14:49:00 EDT, Height, 106.6, kg, 01/10/24 14:55:00 EDT, Weight Dosing Start Date: 01/30/24 Status: Ordered Complete with DHA 0 Refill(s) Start Date: 07/22/23 Status: Ordered promethazine 12.5 mg oral tablet 12.5 mg = 1 tab, Oral, every 4 hr, PRN as needed for nausea/vomiting, # 60 tab, 2 Refill(s), Pharmacy: [facility] #93, 165.1, cm, 08/07/23 10:09:00 EST, Height, 107.9, kg, 08/07/23 10:15:00 EST, Weight Dosing Start Date: 08/07/23 Status: Ordered Protonix 20 mg oral delayed release tablet 20 mg = 1 tab, Oral, Daily, # 90 tab, 3 Refill(s), Pharmacy: [facility] #93, 165.1, cm, 09/06/23 13:49:00 EST, Height, [...] 06/19/23 Active 1suicide attempt 10/2017, hospitalized at [facility] and [facility] Procedures Procedure Date Related Diagnosis Body Site Status Cholecystectomy 06/2016 Completed Results Most recent to oldest [Reference Range]: 1 Protein Urine Dipstick Negative (02/11/24 1:45 PM) Glucose Urine Dipstick Negative (02/11/24 1:45 PM) Urine Color Urine Dipstick Yellow (02/11/24 1:45 PM) Urine Appearance Urine Dipstick Clear (02/11/24 1:45 PM) Vital Signs Most recent to oldest [Reference Range]: 1 Blood Pressure [90-140/60-90 mmHg] 122/6 8mmHg (02/11/24 1:45 PM) Mean Arterial Pressure, Cuff [65-140 mmH g] 86 mmHg (02/11/24 1:45 PM) Weight 108.0 kg (02/11/24 1:45 PM) Weight Measured (lbs) 238.099 lb (02/11/24 1:45 PM) Weight Dosing 108.000 kg (02/11/24 1:45 PM) [place] Body Weight Calculated 57 kg (02/11/24 1:45 PM) Height 165.1 cm (02/11/24 1:45 PM) Height/Length Measured (inches) 65 inch (02/11/24 1:45 PM) BSA Measured 2.23 m2 (02/11/24 1:45 PM) Body Mass Index 39.62 kg/m2 (02/11/24 1:45 PM) Social History Social History Type Response Smoking Status Smoking tobacco use: Current everyday tobacco user;Never; Number used per day: smokes in a bong with MJ at same time; entered on: 09/06/23 Sex Physician Outpatient Note * Moris Perez MD: PERFORM Event Display: Office Clinic Note Physician Authored Date: [id number] BRIDGET ALCOCER :2000 Age:24 years Sex:Female Visit Date:02/11/2024 Primary Care Physician: ALYCIA ARCHER APRN Chief Complaint OB follow-up History of Present Illness Miserable with N/V.?? No bleeding or cramping.?? Baby is active.? Visit Baby A Activity:Present per patient FHR Baseline:145 Vital Signs/Measurements Systolic Blood Zsxfcxxx329 mmHg Diastolic Blood Dhnunoyl69 mmHg Zoasgw467.0 kg Urine POC Protein Urine DipstickNegative Glucose Urine DipstickNegative Fundal Height Fundal Dxnslk19 cm Additional Information Antepartum CommentReglan for nausea Next Appointment2 weeks Physical Exam Vitals & Measurements BP:??122/68?? HT:??165.1??cm?? WT:??108.0??kg?? BMI:??39.62?? BSA:??2.23?? Assessment/Plan 1.??Normal in multigravida in third trimester??Z34.83 ??The patient describes symptoms consistent with??gastroparesis. ??She can vomit her dinner??and itlooks basically chewed but undigested the following morning. ??Frequent small meals with BRAT Diet type??offerings??would be a good start??along with??plenty of fluids.?? She may see some improvement with??metoclopramide??if it can help her with improved gastric emptying. Orders: metoclopramide 10 mg oral tablet, 10 mg = 1 tab, Oral, QID, # 30 tab, 1 Refill(s), Pharmacy: [facility] #93, 165.1, cm, 02/11/24 13:45:00 EDT, Height, 108, kg, 02/11/24 13:52:00 EDT, Weight Dosing LMP/EGA/JEREMÍAS Last Menstrual Period: 06/19/23 Gestational Age (EGA) and JEREMÍAS? * Note: EGA calculated as of 02/11/2024 ?? JEREMÍAS:??03/25/2024?EGA*:??33 weeks 6 days ?Type:??Authoritative?Method Date:??06/19/2023 ?Method:??Last Menstrual Period??(06/19/2023) ?Confirmation:??Confirmed [...] gestational diabetes History of delivery History of recurrent miscarriages Normal in multigravida [...] 10 mg= 1 tab, Oral, TID, PRN metoclopramide 10 mg oral tablet, 10 mg= 1 tab, Oral, QID, 1 refills ondansetron 4 mg oral disintegrating strip, 4 [...] Performed: 09/06/23 Rubella,Transcribed: Immune Electronically Signed on 02/11/2024 17:10 EDT Moris Perez MD Patient Care team information Care Team Personnel Name: ALYCIA ARCHER APRN Position: No Access Member Role: Primary Care Physician Address: Address: [address] [place] [facility] [place] [address]- [place]
--- OUTSIDE RECORDS SUMMARY | 2024-04-05 16:58 | XMS_ITS | Continuity of Care Document ---
Author Organization [facility] Ambulatory Clinics Address [address] [place] [address] Care Team Providers Care Tier Lift Operator Name Role Phone ALYCIA ARCHER APRN Primary Care Physician Encounter [facility] NBR [id number] Date(s): 01/22/24 - 01/22/24 [facility] Ambulatory Clinics [address] [place] [address]- [place] Discharge Disposition: Home Allergies, Adverse Reactions, Alerts Substance Reaction Severity Status penicillin Hives Mild Active Blueberries Anaphylaxis Severe Active Assessment and Plan Future Appointments Appointment Date:01/27/2024 02:00:00 PM Scheduled Provider:Lore Guido APRN Location:[facility] Appointment Type:OB Follow Up Appointment Date:02/11/2024 04:00:00 PM Scheduled Provider:Moris Perez MD Location:[facility] Appointment Type:OB Follow Up Appointment Date:02/24/2024 02:45:00 PM Scheduled Provider:Carlos Akers MD Location:[facility] Appointment Type:OB Follow Up Appointment Date:03/02/2024 01:45:00 PM Scheduled Provider:Moris Perez MD Location:[facility] Appointment Type:OB Follow Up Appointment Date:03/10/2024 01:00:00 PM Scheduled Provider:Dionisio Ochoa MD Location:[facility] Appointment Type:OB Follow Up Appointment Date:03/17/2024 01:00:00 PM Scheduled Provider:Carlos Akers MD Location:[facility] Appointment Type:OB Follow Up Appointment Date:03/24/2024 01:00:00 PM Scheduled Provider:Dionisio Ochoa MD Location:[facility] Appointment Type:OB Follow Up Immunizations [...] spasm, # 30 tab, 0 Refill(s), Pharmacy: [facility] #93, 165.1, cm, 09/06/23 13:49:00 EST, Height, [...] for nausea/vomiting, # 30 tab, 0 Refill(s), Pharmacy:[facility] #[facility], 165.1, cm, 09/06/23 13:49:00 EST, Height, 103.6, kg, 09/06/23 14:07:00 EST, Weight Dosing Start Date: 10/02/23 Status: Ordered Complete with DHA 0 Refill(s) Start Date: 07/22/23 Status: Ordered promethazine 12.5 mg oral tablet 12.5 mg = 1 tab, Oral, every 4 hr, PRN as needed for nausea/vomiting, # 60 tab, 2 Refill(s), Pharmacy: [facility] #93, 165.1, cm, 08/07/23 10:09:00 EST, Height, [...] Active 1suicide attempt 10/2017, hospitalized at [facility] Procedures Procedure Date Related Diagnosis [...] Member Role: Primary Care Physician Address: Address: [place] [address] [facility] [address]
--- OUTSIDE RECORDS SUMMARY | 2024-04-05 16:58 | XMS_ITS | Continuity of Care Document ---
Author Organization [facility] Ambulatory Clinics Address [address] [place] [address] Care Team Providers Care Board Winder Name Role Phone ALYCIA ARCHER APRN Primary Care Physician Encounter [facility] NBR [id number] Date(s): 12/30/23 - 12/30/23 [facility] Ambulatory Clinics [address] [place], [place] [address] Encounter Diagnosis Supervision of normal in second trimester(Discharge Diagnosis) - 12/30/23 Need for Tdap vaccination(Discharge Diagnosis) - 12/30/23 GERD (gastroesophageal reflux disease)(Discharge Diagnosis) - 12/30/23 Discharge Disposition: Home or Self Care Attending Physician: Moris Perez MD Allergies, Adverse Reactions, Alerts Substance Reaction Severity Status penicillin Hives Mild Active Blueberries Anaphylaxis Severe Active Assessment and Plan Extracted from: Title:OB Extended Office Visit Author:Moris miles MD Date:12/30/23 1.??Supervision of normal pr egnancy in second trimester??Z34.82 ??Doing well except her GERD ?? 2.??GERD (gastroesophageal reflux disease)??K21.9 ??Will inc her protonix from 20 to 40mg.? Need for Tdap vaccination??Z23 Ordered: Adacel (Tdap), 0.5 mL, Intramuscular, Once, First Dose: 12/30/23 12:00:00 EDT, Stop Date: 12/30/23 12:00:00 EDT, Physician Stop, Routine ?? Future Appointments Appointment Date:12/31/2023 02:30:00 PM Scheduled Provider:Carlos Akers MD Location:[facility] Appointment Type:OB Follow Up Appointment Date:01/10/2024 02:45:00 PM Scheduled Provider:Moris Perez MD Location:[facility] Appointment Type:OB Follow Up Immunizations Given and [...] spasm, # 30 tab, 0 Refill(s), Pharmacy: [facility] #[facility], 165.1, cm, 09/06/23 13:49:00 EST, Height, [...] for nausea/vomiting, # 30 tab, 0 Refill(s), Pharmacy:[facility] #[facility], 165.1, cm, 09/06/23 13:49:00 EST, Height, 103.6, kg, 09/06/23 14:07:00 EST, Weight Dosing Start Date: 10/02/23 Status: Ordered Complete with DHA 0 Refill(s) Start Date: 07/22/23 Status: Ordered promethazine 12.5 mg oral tablet 12.5 mg = 1 tab, Oral, every 4 hr, PRN as needed for nausea/vomiting, # 60 tab, 2 Refill(s), Pharmacy: [facility] #93, 165.1, cm, 08/07/23 10:09:00 EST, Height, 107.9, kg, 08/07/23 10:15:00 EST, Weight Dosing Start Date: 08/07/23 Status: Ordered Protonix 20 mg oral delayed release tablet 20 mg = 1 tab, Oral, Daily, # 90 tab, 3 Refill(s), Pharmacy: [facility], 165.1, cm, 09/06/23 13:49:00 EST, Height, [...] 06/19/23 Active 1suicide attempt 10/2017, hospitalized at [facility] Procedures Procedure Date Related Diagnosis Body Site Status Cholecystectomy 06/2016 Completed Results Most recent to oldest [Reference Range]: 1 Protein Urine Dipstick Trace (12/30/23 10:54 AM) Glucose Urine Dipstick Negative (12/30/23 10:54 AM) Urine Color Urine Dipstick Dark yellow (12/30/23 10:54 AM) Urine Appearance Urine Dipstick Clear (12/30/23 10:54 AM) Vital Signs Most recent to oldest [Reference Range]: 1 Blood Pressure [90-140/60-90 mmHg] 118/6 8mmHg (12/30/23 10:54 AM) Mean Arterial Pressure, Cuff [65-140 mmH g] 85 mmHg (12/30/23 10:54 AM) Weight 106.7 kg (12/30/23 10:54 AM) Weight Measured (lbs) 235.233 lb (12/30/23 10:54 AM) Weight Dosing 106.700 kg (12/30/23 10:54 AM) [place] Body Weight Calculated 57 kg (12/30/23 10:54 AM) Height 165.1 cm (12/30/23 10:54 AM) Height/Length Measured (inches) 65 inch (12/30/23 10:54 AM) BSA Measured 2.21 m2 (12/30/23 10:54 AM) Body Mass Index 39.14 kg/m2 (12/30/23 10:54 AM) Social History Social History Type Response Smoking Status Smoking tobacco use: Current everyday tobacco user;Never; Number used per day: smokes in a bong with MJ at same time; entered on: 09/06/23 Sex Physician Outpatient Note * Moris Perez MD: PERFORM Event Display: Office Clinic Note Physician Authored Date: [id number] BRIDGET ALCOCER :2000 Age:23 years Sex:Female Visit Date:12/30/2023 Primary Care Physician: ALYCIA ARCHER APRN Chief Complaint OB follow-up History of Present Illness Still vomiting- typically in the morning.?? Taking protonix Visit Baby A Activity:Present per patient FHR Baseline:145 Vital Signs/Measurements Systolic Blood Dhhktljp598 mmHg Diastolic Blood Wbnkpkpw23 mmHg Bucejj418.7 kg Urine POC Protein Urine DipstickTrace Glucose Urine DipstickNegative Fundal Height Fundal Xzraux58 cm Additional Information Antepartum CommentLabs, Kick counts, Tdap Next Appointment2 weeks Physical Exam Vitals & Measurements BP:??118/68?? HT:??165.1??cm?? WT:??106.7??kg?? BMI:??39.14?? BSA:??2.21?? Assessment/Plan 1.??Supervision of normal in second trimester??Z34.82 ??Doing well except her GERD ?? 2.??GERD (gastroesophageal reflux disease)??K21.9 ??Will inc her protonix from 20 to 40mg.? Need for Tdap vaccination??Z23 Ordered: Adacel (Tdap), 0.5 mL, Intramuscular, Once, First Dose: 12/30/23 12:00:00 EDT, Stop Date: 12/30/23 12:00:00 EDT, Physician Stop, Routine ?? LMP/EGA/JEREMÍAS Last Menstrual Period: 06/19/23 Gestational Age (EGA) and JEREMÍAS? * Note: EGA calculated as of 12/30/2023 ?? JEREMÍAS:??03/25/2024?EGA*:??27 weeks 5 days ?Type:??Authoritative?Method Date:??06/19/2023 ?Method:??Last Menstrual [...] ? Outcome:??Live ? Sex:??Female?Wt:?2722 g ?Child's Name:??Lance ?Hospital:??[facility] ?Comment:??Covid in August prior to delivery, [...] 2 tab, Oral, every 8 hr, PRN Adacel (Tdap), 0.5 mL, Intramuscular, Once albuterol 90 mcg/inh inhalation powder, 1 puffs, [...] Performed: 09/06/23 Rubella,Transcribed: Immune Electronically Signed on 12/30/23 11:16 AM Moris ePrez MD Patient Care team information Care Team Personnel Name: ALYCIA ARCHER APRN Position: No Access Member Role: Primary Care Physician Address: Address: [address], [place] [address]
--- OUTSIDE RECORDS SUMMARY | 2024-04-05 16:58 | XMS_ITS | Continuity of Care Document ---
Author Organization [facility] Ambulatory Clinics Address [address] [place] [address] Encounter [facility] NBR [id number] Date(s): 07/25/23 - 07/25/23 [facility] Ambulatory Clinics [address] [place] [address]- [place] Discharge Disposition: Home Allergies, [...] Confirmed Active 1suicide attempt 10/2017, hospitalized at [facility] and [facility] Procedures Procedure Date Related Diagnosis Body Site Status Cholecystectomy 06/2016 Completed Social History Social History Type Response Tobacco Current everyday tob acco user Tobacco Use:. smokes in a bong with MJ at same time per day. Sex
--- OUTSIDE RECORDS SUMMARY | 2024-04-05 16:58 | XMS_ITS | Continuity of Care Document ---
Author Organization [facility] Address [address] [place] [id number] Care Team Providers Care [employer] Name Role Phone ALYCIA ARCHER APRN Primary Care Physician Encounter [facility] NBR [id number] Date(s): 11/05/23 - 11/05/[address] [address] Encounter Diagnosis Supervision of normal in second trimester(Discharge Diagnosis) - 11/05/23 Encounter for supervision of normal , unspecified, second trimester (Final) - Weeks of gestation of not specified(Final) - Discharge Disposition: Home or Self Care Attending Physician: Dionisio Ochoa MD Admitting Physician: Dionisio Ochoa MD Allergies, Adverse Reactions, Alerts Substance Reaction Severity Status penicillin Hives Mild Active Blueberries Anaphylaxis Severe Active Assessment and Plan Future Appointments Appointment Date:12/05/2023 10:00:00 AM Scheduled Provider:Moris Perez MD Location:[facility] Appointment Type:OB Follow Up Medications [...] spasm, # 30 tab, 0 Refill(s), Pharmacy: [id number], 165.1, cm, 09/06/23 13:49:00 EST, Height, [...] for nausea/vomiting, # 30 tab, 0 Refill(s), Pharmacy:[id number], 165.1, cm, 09/06/23 13:49:00 EST, Height, 103.6, kg, 09/06/23 14:07:00 EST, Weight Dosing Start Date: 10/02/23 Status: Ordered Complete with DHA 0 Refill(s) Start Date: 07/22/23 Status: Ordered promethazine 12.5 mg oral tablet 12.5 mg = 1 tab, Oral, every 4 hr, PRN as needed for nausea/vomiting, # 60 tab, 2 Refill(s), Pharmacy: [id number], 165.1, cm, 08/07/23 10:09:00 EST, Height, 107.9, kg, 08/07/23 10:15:00 EST, Weight Dosing Start Date: 08/07/23 Status: Ordered Protonix 20 mg oral delayed release tablet 20 mg = 1 tab, Oral, Daily, # 90 tab, 3 Refill(s), Pharmacy: [id number], 165.1, cm, 09/06/23 13:49:00 EST, Height, 104.6, kg, 10/04/23 13:31:00 EST, Weight Dosing Start Date: 10/04/23 Status: Ordered Problem List Condition Confirmation Course Effective Dates Status [facility] Informant Depression 1 Confirmed Active History of ectopic Confirmed Active with history of ectopic , antepartum Confirmed Active History of recurrent miscarriages Confirmed Active History of delivery, currently in first trimester Confirmed Active History of gestational diabetes Confirmed Active Supervision of normal in second trimester Confirmed Active Confirmed 06/19/23 Active 1suicide attempt 10/2017, hospitalized at [facility] and [facility] Procedures Procedure Date Related Diagnosis Body Site Status Cholecystectomy 06/2016 Completed Results Orders for Microbiology Reports Name Date Urine Culture 11/05/23 Microbiology Reports TEST:Urine Culture STATUS:Order in Progress BODY SITE: SOURCE:Urine, Clean Catch COLLECTED DATE/TIME:11/05/23 3:39 PM PRELIMINARY REPORT No growth first am read Social History Social History Type Response Smoking Status Smoking tobacco use: Current everyday tobacco user;Never; Number used per day: smokes in a bong with MJ at same time; entered on: 09/06/23 Sex Patient Care team information Care Team Personnel Name: ALYCIA ARCHER APRN Position: No Access Member Role: Primary Care Physician Address: Address: [address] [facility] [address]
--- OUTSIDE RECORDS SUMMARY | 2024-04-05 16:58 | XMS_ITS | Continuity of Care Document ---
Author Organization [facility] Address [address] [place] [address] Care Team Providers Care Project Geophysicist Name Role Phone ALYCIA ARCHER APRN Primary Care Physician Encounter [facility] NBR [id number] Date(s): 12/05/23 - 12/05/23 [facility] [address], [place] [address] Discharge Disposition: Home Allergies, Adverse Reactions, Alerts Substance Reaction Severity Status penicillin Hives Mild Active Blueberries Anaphylaxis Severe Active Medications acetaminophen 500 mg oral tablet 1,000 [...] # 30 tab, 0 Refill(s), Pharmacy: [id number], 165.1, cm, 09/06/23 13:49:00 EST, Height, [...] for nausea/vomiting, # 30 tab, 0 Refill(s), Pharmacy:[id number], 165.1, cm, 09/06/23 13:49:00 EST, Height, 103.6, kg, 09/06/23 14:07:00 EST, Weight Dosing Start Date: 10/02/23 Status: Ordered Complete with DHA 0 Refill(s) Start Date: 07/22/23 Status: Ordered promethazine 12.5 mg oral tablet 12.5 mg = 1 tab, Oral, every 4 hr, PRN as needed for nausea/vomiting, # 60 tab, 2 Refill(s), Pharmacy: [id number], 165.1, cm, 08/07/23 10:09:00 EST, Height, 107.9, kg, 08/07/23 10:15:00 EST, Weight Dosing Start Date: 08/07/23 Status: Ordered Protonix 20 mg oral delayed release tablet 20 mg = 1 tab, Oral, Daily, # 90 tab, 3 Refill(s), Pharmacy: [id number], 165.1, cm, 09/06/23 13:49:00 EST, [...] 06/19/23 Active 1suicide attempt 10/2017, hospitalized at [facility] and [facility] Procedures Procedure Date Related Diagnosis Body Site [...] Member Role: Primary Care Physician Address: Address: [address] [place], [place] [address]
--- OUTSIDE RECORDS SUMMARY | 2024-04-05 16:58 | XMS_ITS | Continuity of Care Document ---
Author Organization [facility] Address [address] [place] [address] Care Team Providers Care Policy Writer Sales Name Role Phone ALYCIA ARCHER APRN Primary Care Physician Encounter [facility] NBR [id number] Date(s): 03/24/24 - 03/24/[address] [facility] [address] [place] [address]- Encounter Diagnosis exam(Discharge Diagnosis) - 03/24/24 Encounter for routine follow-up(Final) - Cannabis use, unspecified, uncomplicated(Final) - Discharge Disposition: Home or Self Care Attending Physician: Dionisio Ochoa MD Allergies, Adverse Reactions, Alerts Substance Reaction Severity Status penicillin Hives Mild Active Blueberries Anaphylaxis Severe Active Assessment and Plan Extracted from: Title:Office Visit Note Author:Dionisio Ochoa MD D ate:03/24/24 1.?? exam??Z39.2 ??Clinical course of endometritis appears to be??improved. Discussed coping strategies??in order to??try to??meet her own personal needs. Follow-up in 1 month for visit. ?? Future Appointments Future Scheduled Tests Laboratory* Group [...] Refill(s) Start Date: 09/06/23 Status: Ordered clindamycin 150 mg oral capsule 300 mg = 2 cap, Oral, every 6 hr, 0 Refill(s) Start Date: 03/20/24 Status: Ordered clindamycin 300 mg oral capsule 300 mg = 1 cap, Oral, every 6 hr, # 40 cap, 0 Refill(s), Pharmacy: [facility], 165.1, cm, 03/19/24 15:24:00 EDT, Height, 98.5, kg, 03/19/24 15:25:00 EDT, Weight Dosing Start Date: 03/20/24 Stop Date: 03/30/24 Status: Ordered cyclobenzaprine 10 mg oral tablet 10 mg = 1 tab, Oral, TID, PRN as needed for muscle spasm, # 30 tab, 0 Refill(s), Pharmacy: [id number], 165.1, cm, 09/06/23 13:49:00 EST, Height, 105, kg, 11/05/23 14:29:00 EST, Weight Dosing Start Date: 11/05/23 Status: Ordered ibuprofen as needed., 0 Refill(s) Start Date: 03/19/24 Status: Ordered Complete with DHA 1 cap, Oral, Daily, 0 Refill(s) Start Date: 07/22/23 Status: Ordered Tums 500 mg oral tablet, [...] in multigravida in third trimester Confirmed Active exam Confirmed Active endometritis Confirmed Active 1suicide attempt 10/2017, hospitalized at [facility] Procedures Procedure Date Related Diagnosis Body Site Status Dilation and Curettage 1 03/08/24 Completed Cholecystectomy 06/2016 Completed 1auto-populated from documented surgical case Vital Signs Most recent to oldest [Reference Range]: 1 Blood Pressure [90-140/60-90 mmHg] 112/8 6mmHg (03/24/24 1:29 PM) Mean Arterial Pressure, Cuff [65-140 mmH g] 95 mmHg (03/24/24 1:29 PM) Social History Social History Type Response Smoking Status Smoking tobacco use: Current everyday tobacco user;Never; Number used per day: smokes in a bong with MJ at same time; entered on: 09/06/23 Sex summary Document * Event Display: Summary Document Authored Date: [id number] BRIDGET ALCOCER : 2000 Age: 24 Years [...] [birth year] Problems (Active Problems Only) (SNOMED CT: 156904292, Onset: 06/19/23) Tobacco use (SNOMED CT: 9746971702, Onset: --) Depressive disorder (SNOMED CT: 69883726, Onset: --) Comment: suicide attempt 10/2017, hospitalized at [facility] (Lata Cano on 07/22/23) H/O: ectopic (SNOMED CT: 915207694, Onset: --) History of gestational diabetes mellitus (SNOMED CT: 3175396645, Onset: --) H/O: miscarriage (SNOMED CT: 981891885, Onset: --) H/O: ectopic (SNOMED CT: 070841058, Onset: --) Gastroesophageal reflux disease ([facility] CT: 558359797, Onset: --) Normal ([facility] CT: 554224028, Onset: --) History of delivery ([facility] CT: 4544915723, Onset: --) High risk ([facility] CT: 52081121, Onset: --) Puerperal endometritis ([facility] CT: 47648014, Onset: --) BRIDGET ALCOCER DOB: [birth year] Risk Factors and Genetic Screening All Results Documented Since 06/19/2023 Risk Factors (Current ) Unique Risk Factors: Drug abuse during , Tobacco use during Ethnic Screening No ethnicities have been recorded. Genetic Disorders Screening No genetic disorders have been recorded. BRIDGET ALCOCER : [birth year] Gestational Age (EGA) and JEREMÍAS * [...] Index Measured: 39.99 kg/m2 03/07/24 (37 weeks) CARLYNBRIDGET : [birth year] Exam and Notes Date EGA [...] Baby A = 150bpm *Present pe... -- 12/30/23 27w5d 27 -- -- -- -- 118/68 *235... [...] Color: Normal for ethnicity (03/19/24) Skin Description: [place] (03/19/24) Skin Temperature: Warm (03/19/24) Skin Turgor: Elastic (03/19/24) Skin Moisture General: Dry (03/19/24) Skin Integrity: Intact, no abnormalities (03/19/24) Mucous Membrane Color: [place] (03/19/24) CARLYN, BRIDGET L : [birth year] Blood Types and Anti-D Immune [...] fL 09/06/23 (11 weeks) (81.0 - 99.0) [place] Absolute 0.5 K/mcL 09/06/23 (11 weeks) (0.1 - 0.6) Eos Absolute 0.1 K/mcL 09/06/23 (11 weeks) (0.0 - 0.2) Lymph Absolute 3.2 K/mcL 09/06/23 (11 weeks) (1.2 - 3.4) Basophil Auto 0.4 % 09/06/23 (11 weeks) (0.0 - 0.8) [place] Auto 4.9 % 09/06/23 (11 weeks) (1.7 [...] - 5.40) WBC (H) 12.2 K/mcL 12/30/23 (27 weeks) (4.8 - 10.8) RDW-CV 13.5 % 12/30/23 (27 weeks) (11.5 - 14.5) Platelets 269 K/mcL 12/30/23 ( weeks) (130 - 400) MPV 9.1 fL 12/30/23 ( weeks) (7.4 - 10.4) Hgb 13.1 g/dL 12/30/23 ( weeks) (12.0 - 16.0) MCH (H) 31.2 pg 12/30/23 ( weeks) (27.0 - 31.0) Hct 37.5 % 12/30/23 ( weeks) (37.0 - 47.0) MCHC 34.9 g/dL 12/30/23 ( weeks) (32.0 - 37.0) MCV 89.4 fL 12/30/23 ( weeks) (81.0 - 99.0) Eos, Auto 1.50 % 12/30/23 ( weeks) (0.00 - 3.00) [place] Absolute (H) 0.7 K/mcL 12/30/23 ( weeks) [...] % 12/30/23 ( weeks) (0.0 - 0.8) [place] Auto 5.7 % 12/30/23 ( weeks) (1.7 - 9.3) Lymph Auto (L) 19.6 % 12/30/23 ( weeks) (20.5 - 51.1) Gluc 1hr OB (N) 104 12/30/23 ( weeks) UA Color Yellow 12/31/23 ( weeks) Yellow UA Urobilinogen (A) 1.0 12/31/23 ( weeks) 0.2 UA Bili (A) Small 12/31/23 ( weeks) Negative UA Ketones (N) >=80 mg/dL 12/31/23 (27 weeks) UA Leuk Est Negative 12/31/23 ( weeks) Negative UA Nitrite Negative 12/31/23 ( weeks) Negative UA Glucose Negative 12/31/23 ( weeks) Negative UA Protein (A) Trace 12/31/23 ( weeks) Negative UA Blood Negative 12/31/23 ( weeks) Negative UA Spec Grav 1.015 12/31/23 ( weeks) (1.001 - 1.030) UA pH 8.00 12/31/23 ( weeks) (5.00 - 9.00) UA Appear Clear 12/31/23 ( weeks) Clear Urine Srce Clean Catch 12/31/23 ( weeks) Test Result Date Ref Range Protein Urine Dipstick Trace 01/10/24 ( weeks) Urine Color Urine Dipstick Yellow 01/10/24 ( weeks) Urine Appearance Urine Dipstick Clear 01/10/24 ( weeks) Glucose Urine Dipstick Negative 01/10/24 ( weeks) Hgb 12.3 g/dL 01/30/24 (32 weeks) (12.0 - 16.0) MCH 30.6 pg 01/30/24 (32 weeks) (27.0 - 31.0) RBC (L) 4.03 Million/mcL 01/30/24 (32 weeks) (4.20 - 5.40) Hct (L) 36.4 % 01/30/24 (32 weeks) (37.0 - 47.0) Platelets 225 K/mcL 01/30/24 (32 weeks) (130 - 400) WBC 9.4 K/mcL 01/30/24 (32 weeks) (4.8 - 10.8) MCV 90.5 fL 01/30/24 (32 weeks) (81.0 - 99.0) RDW-CV 13.4 % 01/30/24 (32 weeks) (11.5 - 14.5) MPV 9.5 fL 01/30/24 (32 weeks) (7.4 - 10.4) MCHC 33.8 g/dL 01/30/24 (32 weeks) (32.0 - 37.0) Neutro Auto 70.8 % 01/30/24 (32 weeks) (42.2 - 75.2) Lymph Auto 20.6 % 01/30/24 (32 weeks) (20.5 - 51.1) Eos, Auto 0.50 % 01/30/24 (32 weeks) (0.00 - 3.00) Eos Absolute 0.1 K/mcL 01/30/24 (32 weeks) (0.0 - 0.2) Neutro Absolute (H) 6.7 K/mcL 01/30/24 (32 weeks) (1.4 - 6.5) [place] Absolute (H) 0.7 K/mcL 01/30/24 (32 weeks) (0.1 - 0.6) Lymph Absolute 1.9 K/mcL 01/30/24 (32 weeks) (1.2 - 3.4) Baso Absolute 0.0 K/mcL 01/30/24 (32 weeks) (0.0 - 0.2) Basophil Auto 0.5 % 01/30/24 (32 weeks) (0.0 - 0.8) [place] Auto 7.6 % 01/30/24 (32 weeks) (1.7 [...] (37 weeks) Negative Eos Absolute (H) 0.4 K/mcL 03/07/24 (37 weeks) (0.0 - 0.2) Neutro Auto 61.7 % 03/07/24 (37 weeks) (42.2 - 75.2) [place] Auto 7.6 % 03/07/24 (37 weeks) (1.7 - 9.3) Lymph Absolute (H) 3.8 K/mcL 03/07/24 (37 weeks) (1.2 - 3.4) Baso Absolute 0.1 K/mcL 03/07/24 (37 weeks) (0.0 - 0.2) Basophil Auto 0.6 % 03/07/24 (37 weeks) (0.0 - 0.8) Eos, Auto 2.60 % 03/07/24 (37 weeks) (0.00 - 3.00) [place] Absolute (H) 1.1 K/mcL 03/07/24 (37 weeks) (0.1 - 0.6) Lymph Auto 27.5 % 03/07/24 (37 weeks) (20.5 - 51.1) Neutro Absolute (H) 8.6 K/mcL 03/07/24 (37 weeks) (1.4 - 6.5) Hct [...] ABSC 03/07/24 (37 weeks) Group B Strep (GeneXpert) Negative 03/07/24 (37 weeks) Negative ABO/Rh Type (U) O POS 03/07/24 (37 weeks) BRIDGET ALCOCER DOB: [birth year] Actions No Actions have been documented. BRIDGET ALCOCER DOB: [birth year] Situational Awareness No comments have been documented. BRIDGET ALCOCER DOB: [birth year] Allergies (Active and Proposed Allergies Only) Blueberries (Severity: Severe, Onset: Unknown) Reactions: Anaphylaxis penicillin (Severity: Mild, Onset: Unknown) Reactions: Hives CARLYNBRIDGET : [birth year] Medications Prescriptions and Home Medications Currently [...] N/A, Once Status: Completed Ordered: 03/08/24 Provider: Rj Hampton dexamethasone (ANES) (dexAMETHasone 10 mg/1 mL PF Vial [LTTL]) IV, Once Status: Completed Ordered: 03/08/24 Provider: Love Kamara dexAMETHasone preservative-free (dexamethasone) 10 mg = 1 mL, N/A, Once Status: Completed Ordered: 03/08/24 Provider: Tanishar, Generated fentaNYL (ANES) (fentaNYL 50 mcg/mL 2 mL Vial [LTTL]) IV, Once Status: Completed Ordered: 03/08/24 Provider: Love Kamara ibuprofen 600 mg = 1 tab, N/A, Once Status: Completed Ordered: 03/08/24 Provider: MarilinUser, Generated Lactated Ringers Injection (ANES) 1000 mL [...] Status: Completed Ordered: 03/07/24 Provider: MarilinUser, Generated mineral oil 100% (mineral oil) 30 [...] Status: Completed Ordered: 03/08/24 Provider: MarilinUser, Generated succinylcholine (ANES) (Succinylcholine 20 mg/mL Inj [...] Provider: Dionisio Ochoa MD oxytocin IV additive 20 units [...] (Tdap) adult/adol 12/30/23 (25 weeks) BRIDGET ALCOCER DOB: [birth year] Menstrual History Last Recorded Menstrual Period: [...] Sex: Female Wt: 2722 g Child's Name: [facility]: [facility] Comment: Covid in August prior to delivery, [...] Patient Safety Assessment Safety Assessment BRIDGET ALCOCER : [birth year] Infection History Infection history negative or not recorded BRIDGET ALCOCER : [birth year] Anesthesia and Transfusions Prior Anesthesia or Transfusion Received: No prior anesthesia for procedure, No prior transfusion Prior Anesthesia Reaction(s): Other: Per patient needed inhaler prior. Prior Transfusion Reaction(s): -- Blood Transfusion Acceptable to Patient: -- BRIDGET ALCOCER : [birth year] Plan and Patient Requests Desired Delivery Location: -- Education: Never Written Plan: No Written Plan Location: -- Support Person/Ice Cream Scooper Relationship to Pt: Boyfriend, Father of baby Oral Intake OB: -- Labor Preferences: -- Non-Medicinal Pain Relief: -- Anesthesia/Pain Medication During Labor: Epidural, IV narcotic Delivery Plan: -- Infant Feeding: -- Circumcision: Before discharge Baby For Adoption: No Patient Requests: -- Father of the Baby's Name: -- Neurobiologist Selected: -- Surrogate : No Support Person's Name: Bill Barbour BRIDGET ALCOCER : [birth year] Education Educational Materials/Leaflets Provided Title/Topic Date Provided [facility] - Vaginal or Delivery Post Discharge Instructions 03/08/24 BRIDGET ALCOCER DOB: [birth year] Registration and Information Race: White Ethnicity: Not , , or Colombian Origin Marital Status: Single Language(s): Croatian Muslim Preference(s): None/No Preference Occupation/Education: Address, Phone, and Health Plans Home Address: [address] [place] [phone] (Home), , -- Health Plans: 1 - [place] Member/Group: [id number] Deductible: $ -- Type: Medicaid Address: [address] [place] [id number] 2 - [place] Member/Group: [id number] Deductible: $ -- Type: Medicaid Address: [address] [place] [id number] 3 - [place] Member/Group: [id number] Deductible: $ -- Type: Medicaid Address: [address] [address] [place], [place] [id number] 4 - [place] Member/Group: [id number] Deductible: $ -- Type: Medicaid Address: [address] [facility] [place], [place] [id number] 5 - [place] Member/Group: [id number] Deductible: $ -- Type: Medicaid Address: [address] [address] [place], [place] [id number] 6 - [place] Member/Group: [id number] Deductible: $ -- Type: Medicaid Address: [address] [facility] [place], [place] [id number] 7 - [place] Member/Group: [id number] Deductible: $ -- Type: Medicaid Address: [address], [place] [id number] General Information OB Provider(s) Information: Not explicitly recorded. May be noted in encounter section below. See below for detailed information for all visits and information. Delivery Center/Hospital Information: -- [place] Provider Information: -- Referring Provider Information: Dionisio Ochoa MD Primary Provider Information: ALYCIA ARCHER APRN /Partner Information: -- -- Support Person Information: Bill Barbour (Boyfriend, Father of baby) Planned/Unplanned : -- Date Consent Signed for Tubal Ligation: -- Date Record Sent to Hospital: -- BRIDGET ALCOCER: [birth year] Visits and Encounters (Known encounters since 06/19/2023. May include lab encounters.) Date Location Provider Type Medical Service 04/17/2024 [facility] Dionisio Ochoa MD Clinic [facility] 03/24/2024 [facility] Dionisio Ochoa MD Clinic [facility] Clinic 03/19/2024 Kerry Ochoa MD Inpatient Inpatient 03/19/2024 6 Dionisio Ochoa MD Clinic Clinic 03/17/2024 [facility] -- Clinic Preadmit Clinic 03/10/2024 [facility] -- Clinic Preadmit Clinic 03/07/2024 Kerry Ochoa MD Inpatient Inpatient 03/05/2024 [facility] Moris Perez MD Clinic [facility] 03/02/2024 [facility] Moris Perez MD Clinic [facility] Clinic 03/02/20[facility] Outpatient Lab 02/24/2024 5 Carlos Akers MD Clinic Clinic 02/11/2024 [facility] Moris Perez MD Clinic Preadmit Clinic 02/11/2024 T1 Moris Perez MD Clinic Clinic 01/30/2024 Kerry Ochoa MD Outpatient NST 01/27/2024 [facility] Lore Guido APRN Clinic Preadmit Clinic 01/22/2024 [facility] -- Between Visit -- 01/10/2024 3 Moris Perez MD Clinic Clinic 12/31/2023 Kerry Akers MD Outpatient NST 12/31/2023 [facility] -- Clinic Clinic 12/31/2023 [facility] -- Between Visit -- 12/30/20[facility] Outpatient Lab 12/30/2023 1 Moris Perez MD Clinic Clinic 12/26/2023 4 Dionisio Ochoa MD Clinic Clinic 12/05/2023 [facility] -- Between Visit -- 12/05/2023 [facility] Moris Perez MD Clinic Preadmit Clinic 11/05/2023 [facility] Dionisio Ochoa MD Outpatient Lab 11/05/2023 T2 Dionisio Ochoa MD Clinic Clinic 11/05/2023 [facility] Dionisio Ochoa MD Outpatient US 10/07/2023 [facility] -- Between Visit -- 10/04/2023 [facility] Dionisio Ochoa MD Outpatient Lab 10/04/2023 6 Dionisio Ochoa MD Clinic Clinic 10/03/2023 [facility] -- Between Visit -- 09/23/2023 [facility] Carlos Akers MD Outpatient Lab 09/16/2023 [facility] -- Between Visit -- 09/12/2023 [facility] -- Between Visit -- 09/06/2023 [facility] Carlos Akers MD Outpatient Lab 09/06/2023 [facility] Carlos Akers MD Outpatient Lab 09/06/2023 1 Carlos Akers MD Clinic Clinic 08/07/2023 [facility] Lore Guido, [facility] 08/07/2023 [facility] Lore Guido, [facility] Outpatient 08/05/2023 [facility] -- Between Visit -- 07/25/2023 [facility] -- Between Visit -- 07/24/2023 [facility] -- Between Visit -- 07/24/2023 [facility] Lore Guido, [facility] Outpatient Lab 07/22/2023 [facility] Lore Guido, [facility] Outpatient Lab 07/22/2023 [facility] Gu[facility], [facility] BRIDGET ALCOCER : [birth year] Visit / Encounter Location Information The following information represents known location and contact information for locations visitedduring [facility] Business Address: [address] [place] [address] Phone:[phone] (Business) [facility] Business Address: [address] [place] [address] Phone: No phone numbers found on file [...] No Cord Blood Sent to Lab: Yes Lay Brother: Love Kamara Maternal Delivery Complications: None Delivery Physician: Dionisio Ochoa MD Information Risk Factors: Other: left compound arm Complications: None Nuchal Cord Times: 1 Nuchal Cord Tension: Loose Nuchal Cord Intervention: Reduced prior to delivery Umbilical Cord Description: 3 vessel cord, Nuchal cord Infant Data Gender: Male ID Band Number: [id number] Outcome: Live Security Tag Number: [id number] Weight: 2.750 kg Score 1 Minute: 8 Score 5 Minute: 9 Neurobiologist: Bridgette Jasso MD Note: Items documented with '--' had no clinical data which qualified at time of report creation END OF REPORT Physician Outpatient Note * Dionisio Ochoa MD: PERFORM Event Display: Office Clinic Note Physician Authored Date: [id number] BRIDGET ALCOCER :2000 Age:24 years Sex:Female Visit Date:03/24/2024 Primary Care Physician: ALYCIA ARCHER APRN Chief Complaint Delivered 03/07 at 37wks, 3d. PPH sent to the OR for a suction D&C, AZEEM application. Tired, feel the abx is making her tired, wanting to take nap 30min after. Bleeding has lessened, light flow. At sometimes still having some cramping. Additional Information Did not obtain her weight today. History of Present Illness Patient here for follow up recently admitted for endometritis. Discharged home on Clindamycin. Cramping and pain is improved as well as bleeding.?She denies signs or symptoms of depression and EPDS score is 2.?? She does note that??she is not getting a great deal of sleep as the has been underweight requiring feedings every 2 hours and she has??little support at home.?? Her is unable to??hold the baby??without her supervision??due to??his uncontrolled seizure disorder??and does not have an appointment with neurology until??May. Review of Systems As per [facility] Physical Exam Vitals & Measurements BP:??112/86?? Assessment/Plan 1.?? exam??Z39.2 ??Clinical course of endometritis appears to be??improved. Discussed coping strategies??in order to??try to??meet her own personal needs. Follow-up in 1 month for visit. Problem List/Past Medical History Ongoing Depression GERD (gastroesophageal reflux disease) History of ectopic History of gestational diabetes History of delivery History of delivery, currently in third trimester History of recurrent miscarriages Normal in multigravida in third trimester endometritis exam with history of ectopic , antepartum Tobacco use Historical History of delivery, currently in first trimester Supervision of normal in second trimester Procedure/Surgical History ???Dilation and Curettage (03/08/2024)???Cholecystectomy (06/2016) Medications acetaminophen 500 mg oral tablet, 1000 mg= 2 tab, Oral, every 8 hr, PRN albuterol 90 mcg/inh inhalation powder, 1 puffs, Inhale, every 4 hr, PRN clindamycin 150 mg oral capsule, 300 mg= 2 cap, Oral, every 6 hr clindamycin 300 mg oral capsule, 300 mg= 1 cap, Oral, every 6 hr cyclobenzaprine 10 mg oral tablet, 10 mg= 1 tab, Oral, TID, PRN ibuprofen Complete with DHA, 1 cap, Oral, Daily Tums 500 mg oral tablet, chewable, 1000 [...] (Tdap) adult/adol 12/30/2023 Given Electronically Signed on 03/24/2024 15:36 EDT Dionisio Ochoa MD Patient Care team information Care Team Personnel Name: ALYCIA ARCHER APRN Position: No Access Member Role: Primary Care Physician Address: Address: [address] [place] [address]- [place] Care Team Related Persons Name: RYLEY ALCOCER Address: Home [address] [place] [address] [address] [place], [place] [id number] [facility]
--- OUTSIDE RECORDS SUMMARY | 2024-04-05 16:58 | XMS_ITS | Encounter Summary ---
Author Organization [facility] Address [address] [place] [address] Care Team Providers Care Bowling Alley Attendant Name Role Phone Unknown, Provider Primary Care Provider Encounter Details Date Type Department Care Team (Late st Contact Info) Description 01/05/2022 Lab Requisition [facility] Pathology & Laboratory Medicine [facility] [address] [place] [address] Terese Calhoun, RESEARCH PROJECT MANAGER [address] [place] [id number] Encounter for other general examination Social History Tobacco Use Types Packs/Day Years Used Date Smoking Tobacco: Never Assessed Interpersonal Safety Answer Date Record ed Physically Hurt Never 04/11/2020 Verbally Threaten Not on file 04/11/2020 Sex and Gender Information Value Date Recorded Sex Assigned at Not on file Gender Identity Not on file Sexual Orientation Not on file documented as of this encounter Plan of Treatment Not on file documented as of this encounter Procedures Procedure Name Priority Date/Time Associated Diagnosis Comments PAP TEST Today 01/05/2022 14:40 EDT Encounter for other general examination CHLAMYDIA/N. GONORRHOEAE AMPLIFIED NUCLEIC ACID, THINPREP Today 01/05/2022 14:40 EDT documented in this encounter Results * PAP TEST (01/05/2022 14:40 EDT) Specimens A. Cervix and/or Endocervix , ThinPrep Imaging System with Manual Evaluation 01/12/2022 12:33 EDT [facility] Specimen Adequacy Satisfactory for Evaluation - transformation zone component present 01/12/2022 12:33 EDT [facility] General Categorization Negative for intraepithelial lesion or malignancy 01/12/2022 12:33 EDT [facility] Descriptive Diagnosis Reactive cellular changes associated with inflammation present (includes repair). Shift in inna present suggestive of bacterial vaginosis. 01/12/2022 12:33 EDT [facility] Attestation By the signature below, the attending physician certifies that they have personally conducted a gross and/or microscopic examination of the described specimens and rendered or confirmed the above diagnosis. 01/12/2022 12:33 EDT [facility] at 1233 Clinical History See below 01/13/20 12:33 EDT [facility] Performing Lab [facility] 01/12/2022 12:33 EDT [facility] Scanned Images 01/12/2022 12:33 EDT [facility] Papanicolaou smear specimen (specimen) CERVIX UTERI STRUCTURE / Unknown 01/05/2022 14:40 EDT 2022 13:49 EDT Terese Calhoun APN PATHOLOGY ORDERAB LES Performing Organization Address City/State/[facility] Co de Phone Number [facility] [address] [place] [address] * CHLAMYDIA/N. GONORRHOEAE AMPLIFIED RNA, THINPREP (01/05/2022 14:40 EDT) Neisseria gonorrhoeae Result Negative Negative 01/10/2022 15:37 EDT [facility] Chlamydia trachomatis Result Negative Negative 01/10/2022 15:37 EDT [facility] Papanicolaou smear specimen (specimen) CERVIX UTERI STRUCTURE / Unknown 01/05/2022 14:40 EDT 2022 8:23 EDT Terese Calhoun APN MICROBIOLOGY - GE NERAL ORDERABLES [facility] [address] [place] [address] documented in this encounter Visit Diagnoses Diagnosis Encounter for other general examination documented in this encounter Care Teams Bowling Alley Attendant Relationship Specialty Start Date End Date Unknown, Provider, PCP - General 06/07/16 documented as of this encounter
--- OUTSIDE RECORDS SUMMARY | 2024-04-05 16:58 | XMS_ITS | Continuity of Care Document ---
Author Organization [facility] Address [address] [place] [id number] Encounter [facility] FIN NBR [id number] Date(s): 07/24/23 - 07/24/23 [facility] [address] [place] [address]- [place] Encounter Diagnosis Supervision of with other poor reproductive or obstetric history, first trimester(Final) - Weeks of gestation of not specified(Final) - Discharge Disposition: Home or Self Care Attending Physician: Lore Guido APRN Admitting Physician: Lore Guido APRN Allergies, Adverse Reactions, Alerts Substance Reaction Severity Status penicillin Hives Mild Active Assessment and Plan Future Appointments Future Scheduled Tests Radiology* US OB < 14 Weeks Single 08/07/23 Medications Complete with DHA 0 Refill(s) Start Date: 07/22/23 Status: Ordered Problem List Condition Confirmation Course Effective Dates Status Health St atus Informant Depression 1 Confirmed Active 1suicide attempt 10/2017, hospitalized at [facility] [place] Procedures Procedure Date Related Diagnosis Body Site Status Cholecystectomy 06/2016 Completed Results Laboratory List Name Date Beta hCG Quantitative 07/24/23 Most recent to oldest [Reference Range]: 1 Beta hCG Qnt [<=5.0 mIntlUnit/mL] 2913.0 mIntlUnit/mL 1 *HI* (07/24/23 10:38 AM) 1Interpretive Data: WEEKS POST LMP: APPROXIMATE HCG (mIU/mL) 3-4 Weeks 9-130 4-5 Weeks 75-2600 5-6 Weeks 850-20,800 6-7 Weeks 4,000-100,200 7-12 Weeks 11,500-289,000 12-16 Weeks 18,300-137,000 16-29 Weeks 1,400-53,000 29-41 Weeks 940-60,000 Social History Social History Type Response Tobacco Current everyday tob acco user Tobacco Use:. smokes in a bong with MJ at same time per day. Sex
--- OUTSIDE RECORDS SUMMARY | 2024-04-05 16:58 | XMS_ITS | Continuity of Care Document ---
Author Organization [facility] Address [address] [place] [address] Encounter [facility] NBR [id number] Date(s): 07/22/23 - 07/22/23 [facility] [address] [place], [place] [address] Encounter Diagnosis Prior poor obstetrical history in first trimester, antepartum(Discharge Diagnosis) - 07/22/23 Hx of ectopic (Discharge Diagnosis) - 07/22/23 Discharge Disposition: Home or Self Care Attending Physician: Lore Guido APRN Allergies, Adverse Reactions, Alerts Substance Reaction Severity Status penicillin Hives Mild Active Medications Complete with DHA 0 Refill(s) Start Date: 07/22/23 Status: Ordered Problem List Condition Confirmation Course Effective Dates Status Health St atus Informant Depression 1 Confirmed Active 1suicide attempt 10/2017, hospitalized at [facility] and [facility] Procedures Procedure Date Related Diagnosis Body Site Status Cholecystectomy 06/2016 Completed Results Laboratory List Name Date Urine Qual POCT 07/22/23 Urine Qual POCT 07/22/23 Urine Qual POCT 07/22/23 Most recent to oldest [Reference Range]: 1 2 3 U Preg POCT [Negative] Negative (07/22/23 9:30 AM) Positive *ABN* (07/22/23 9:30 AM) Positive *ABN* (07/22/23 9:30 AM) Vital Signs Most recent to oldest [Reference Range]: 1 Blood Pressure [90-140/60-90 mmHg] 144/8 4mmHg *HI* (07/22/23 9:22 AM) Mean Arterial Pressure, Cuff [70-110 mmH g] 104 mmHg (07/22/23 9:22 AM) Weight 108 kg (07/22/23 9:22 AM) Weight Measured (lbs) 238.099 lb (07/22/23 9:22 AM) Weight Dosing 108.000 kg (07/22/23 9:22 AM) [place] Body Weight Calculated 57 kg (07/22/23 9:22 AM) Height 165.10 cm (07/22/23 9:22 AM) Height/Length Measured (inches) 65 inch (07/22/23 9:22 AM) Body Mass Index 39.62 kg/m2 (07/22/23 9:22 AM) Social History Social History Type Response Tobacco Current everyday tob acco user Tobacco Use:. smokes in a bong with MJ at same time per day. Sex Physician Outpatient Note * Lore Guido, WAREHOUSE DRIVER: PERFORM Event Display: Office Clinic Note Physician Authored Date: [id number] BRIDGET ALCOCER :2000 Age:23 years Sex:Female Visit Date:07/22/2023 Chief Complaint confirmation last was ectopic, care at [facility] beginning of February smokes tobacco with MJ via a bong to treat her depression History of Present Illness Presents today to re-establish care. She recently had a +UPT. LMP 06/19/23. Her cycles were regularand monthly. PROM @36 weeks, delivered at [facility]. She states she had GDM with her last , managed through diet. She had an ectopic in February. Review of Systems GENERAL??Overall she feels well.. 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 Physical Exam Vitals & Measurements BP:??144/84?? HT:??165.10??cm?? WT:??108??kg?? BMI:??39.62?GENERAL?Alert and oriented, well nourished, no acute distress Reasonable historian.?EYES Pupils equal ? HEENT Normocephalic, grossly normal hearing, moist oral mucosa ? Assessment/Plan 1.??Prior poor obstetrical history in first trimester, antepartum??O09.291 Hx of SABs and in February there was a suspected ectopic. She reports HCGs were not rising appropriately and was given Methotrexate. She denies cramping/bleeding. Her April-Jun cycles seems to come on time/monthly. She is O pos by blood donor card. Will call with HCGs and make plans from there. Ordered: Beta hCG Quantitative, Blood, Routine, 07/22/23 10:26:00 EST, by JESSICA, every 48 hr, Lab Collect, Prior poor obstetrical history in first trimester, antepartum Urine Test Clinic POC (RE), 07/22/23 12:19:00 EST, Prior poor obstetrical history in first trimester, antepartum, 07/22/23 12:19:00 EST ?? 2.??Hx of ectopic ??Z87.59 Will obtain hCG today and repeat on Saturday. By LMP dating she is approximately 5 weeks with JEREMÍAS 03/26/23. ?? Follow Up Instructions to be determined, will call with hCGs Problem List/Past Medical History Ongoing Depression Tobacco use Historical Procedure/Surgical History ???Cholecystectomy (06/2016) Medications Complete with DHA Allergies penicillin??(Hives) Social History Alcohol Past- Comments: very [...] with MJ at same time per day. Family History Cancer: Father. Healthy adult: Sister. Heart attack: Mother. Family Member(s): ?? FATHER, [...] Lab Results Test Name Test Result Date/Time U Preg POCT Negative 07/22/2023 09:30 EST U Preg POCT Positive 07/22/2023 09:30 EST U Preg POCT Positive 07/22/2023 09:30 EST Electronically Signed on 07/22/23 03:21 PM Lore Guido APRN
--- OUTSIDE RECORDS SUMMARY | 2024-04-05 16:58 | XMS_ITS | Continuity of Care Document ---
Author Organization [facility] Ambulatory Clinics Address [address] [place] [address] Care Team Providers Care Brick Burner Head Name Role Phone ALYCIA ARCHER APRN Primary Care Physician [phone] Encounter [facility] FIN NBR [id number] Date(s): 10/07/23 - 10/07/23 [facility] Ambulatory Clinics [address] [place], [place] [address] Discharge Disposition: Home Allergies, Adverse Reactions, Alerts Substance Reaction Severity Status penicillin Hives Mild Active Blueberries Anaphylaxis Severe Active Assessment and Plan Future Appointments Appointment Date:11/05/2023 02:15:00 PM Scheduled Provider:Dionisio Ochoa MD Location:[facility] Appointment Type:OB [...] for nausea/vomiting, # 30 tab, 0 Refill(s), Pharmacy:[facility] #93, 165.1, cm, 09/06/23 13:49:00 EST, Height, 103.6, kg, 09/06/23 14:07:00 EST, Weight Dosing Start Date: 10/02/23 Status: Ordered Complete with DHA 0 Refill(s) Start Date: 07/22/23 Status: Ordered promethazine 12.5 mg oral tablet 12.5 mg = 1 tab, Oral, every 4 hr, PRN as needed for nausea/vomiting, # 60 tab, 2 Refill(s), Pharmacy: [facility] #93, 165.1, cm, 08/07/23 10:09:00 EST, Height, 107.9, kg, 08/07/23 10:15:00 EST, Weight Dosing Start Date: 08/07/23 Status: Ordered Protonix 20 mg oral delayed release tablet 20 mg = 1 tab, Oral, Daily, # 90 tab, 3 Refill(s), Pharmacy: [facility] #93, 165.1, cm, 09/06/23 13:49:00 EST, Height, [...] Active 1suicide attempt 10/2017, hospitalized at [facility] [place] Procedures Procedure Date Related [...] Member Role: Primary Care Physician Address: Address: [address] [place] [address]- [place]
--- OUTSIDE RECORDS SUMMARY | 2024-04-05 16:58 | XMS_ITS | Continuity of Care Document ---
Author Organization [facility] Address [address] [place] [address] Encounter [facility] FIN NBR [id number] Date(s): 08/07/23 - 08/07/23 [facility] [address] [place] [address]- [place] Discharge Disposition: Home or Self Care Attending Physician: Lore Guido APRN Admitting Physician: Lore Guido APRN Referring Physician: Lore Guido APRN Allergies, Adverse Reactions, Alerts Substance Reaction Severity Status penicillin Hives Mild Active Assessment and Plan Future Appointments Medications Complete with DHA 0 Refill(s) Start Date: 07/22/23 Status: Ordered promethazine 12.5 mg oral tablet 12.5 mg = 1 tab, Oral, every 4 hr, PRN as needed for nausea/vomiting, # 60 tab, 2 Refill(s), Pharmacy: [facility], 165.1, cm, 08/07/23 10:09:00 EST, Height, 107.9, kg, 08/07/23 10:15:00 EST, Weight Dosing Start Date: 08/07/23 Status: Ordered Problem List Condition Confirmation Course Effective Dates Status Health at Informant Depression 1 Confirmed Active History of ectopic Confirmed Active History of delivery Confirmed Active History of gestational diabetes Confirmed Active 1suicide attempt 10/2017, hospitalized at [facility] Procedures Procedure Date Related Diagnosis Body Site Status Cholecystectomy 06/2016 Completed Results Radiology Reports * Exam Date Time Procedure Performing Provider Status 08/07/23 9:59 AM US OB < 14 Weeks Single Vijaya Back ; Navid (Verified) Notes: (US OB < 14 Weeks Single) Reason For Exam: dating US US OB < 14 Weeks Single PROCEDURE INFORMATION: Exam: US First Trimester, Transabdominal and US , Transvaginal Exam date and time: 08/07/2023 9:45 AM Age: 23 years old Clinical indication: Supervision of with other poor reproductive or obstetric history, first trimester; Personal history of other complications of , childbirth and the puerperium; Additional info: Dating US Tech Note: EGA 7 weeks and 0 days by LMP of 06/19/2023. TECHNIQUE: Imaging protocol: Transabdominal obstetrical ultrasound of the maternal pelvis and a first trimester , less than 14 weeks 0 days, with image documentation. Transvaginal imaging was used for better evaluation of the intrauterine gestation and the adnexa. COMPARISON: No prior study is available for comparison at the time of this interpretation. FINDINGS: There is a single live intrauterine with a crown-rump length of 11.5 mm, which corresponds to an EGA (estimated gestational age) of 7 weeks and 3 days. Estimated date of confinement is 03/22/2024. Regular heart motion is detected at a rate of 142 beats per minute. There is a 2.5 mm round yolk sac adjacent to the pole. Amniotic fluid is qualitatively adequate for EGA. There is a subtle hypoechoic possible small subchorionic hemorrhage, but the surrounding uterine echogenicity is otherwise unremarkable. The maternal ovaries are normal, with a 2 cm ovoid left ovarian hemorrhagic prominent corpus luteum noted. Ovarian parenchymal color Doppler flow is demonstrated bilaterally. There is trace free fluid in the posterior cul-de-sac. No abnormal cystic or solid adnexal mass. The urinary bladder could not be adequately evaluated, as it was nearly empty at the time of examination. IMPRESSION: Single live intrauterine at EGA of 7 weeks and 3 days by current crown-rump length, with a possible small subchorionic hemorrhage, an incidental 2 cm left ovarian hemorrhagic prominent corpus luteum, and trace likely physiologic free fluid in the cul-de-sac. THIS DOCUMENT HAS BEEN ELECTRONICALLY SIGNED BY PEDRO LUIS EVANS MD on 08/08/2023 04:13 AM Final Signed by: Rj Hampton Signed (Electronic Signature): 08/08/2023 4:13 am Social History Social History Type Response Tobacco Current everyday tob acco user Tobacco Use:. smokes in a bong with MJ at same time per day. Sex
--- OUTSIDE RECORDS SUMMARY | 2024-04-05 16:58 | XMS_ITS | Continuity of Care Document ---
Author Organization [facility] Ambulatory Clinics Address [address] [place] [address] Encounter [facility] FIN NBR [id number] Date(s): 09/06/23 - 09/06/23 [facility] Ambulatory Clinics [address] [place], [place] [address] Encounter Diagnosis History of delivery, currently in first trimester(Discharge Diagnosis) - 09/06/23 with history of ectopic , antepartum(Discharge Diagnosis) - 09/06/23 Discharge Disposition: Home or Self Care Attending Physician: Carlos Akers MD Allergies, Adverse Reactions, Alerts Substance Reaction Severity Status penicillin Hives Mild Active Blueberries Anaphylaxis Severe Active Assessment and Plan Future Appointments Appointment Date:10/04/2023 01:30:00 PM Scheduled Provider:Dionisio Ochoa MD Location:[facility] Appointment Type:OB Follow Up Medications [...] nausea/vomiting, # 60 tab, 2 Refill(s), Pharmacy: [facility] #[facility], 165.1, cm, 08/07/23 10:09:00 EST, [...] 06/19/23 Active 1suicide attempt 10/2017, hospitalized at [facility] Procedures Procedure Date Related Diagnosis Body Site Status Cholecystectomy 06/2016 Completed Vital Signs Most recent to oldest [Reference Range]: 1 Blood Pressure [90-140/60-90 mmHg] 130/7 6mmHg (09/06/23 1:49 PM) Mean Arterial Pressure, Cuff [70-110 mmH g] 94 mmHg (09/06/23 1:49 PM) Weight 103.6 kg (09/06/23 1:49 PM) Weight Measured (lbs) 228.399 lb (09/06/23 1:49 PM) Weight Dosing 103.600 kg (09/06/23 1:49 PM) [place] Body Weight Calculated 57 kg (09/06/23 1:49 PM) Height 165.1 cm (09/06/23 1:49 PM) Height/Length Measured (inches) 65 inch (09/06/23 1:49 PM) BSA Measured 2.18 m2 (09/06/23 1:49 PM) Body Mass Index 38.01 kg/m2 (09/06/23 1:49 PM) Social History Social History Type Response Smoking Status Smoking tobacco use: Current everyday tobacco user;Never; Number used per day: smokes in a bong with MJ at same time; entered on: 09/06/23 Sex Physician Outpatient Note * Carlos Akers MD: PERFORM Event Display: Office Clinic Note Physician Authored Date: [id number] BRIDGET ALCOCER :2000 Age:23 years Sex:Female Visit Date:09/06/2023 JEREMÍAS/EGA Gestational Age (EGA) and JEREMÍAS? * Note: EGA calculated as of 09/06/2023 ?? JEREMÍAS:??03/25/2024?EGA*:??11 weeks 2 days ?Type:??Authoritative?Method Date:??06/19/2023 ?Method:??Last Menstrual Period??(06/19/2023) ?Confirmation:??Confirmed ?Description:??-- ?Comments:??-- ?Entered by:??Lisa Cisse on 09/05/2023? Other JEREMÍAS Calculations for this : ?Method:??Ultrasound ?Method Date:??08/07/2023 ?JEREMÍAS:??03/22/2024 ?EGA (At Entry):??7 weeks 3 days ?Type:??Non-Authoritative ?Comments:??-- ?Entered by:??Lisa Cisse on 09/05/2023 Chief Complaint Initial OB appointment, 11.2 weeks, chest pain worse with coughing, + RSV History of Present Illness 23yo 142, LMP- 06/19/2023 The patient is here today for her Initial OB appointment.?? Her cycles are usually??regular each month and she is fairly certain of her dates. ??She had a??first Trimester??Ultrasound on??08/07/2023 that was consistent with her dates.?? Since her last appointment she has had??nausea that??is relieved with Zofran. ??She eats frequent small meals several times a day. ??There is no cramping or bleeding.?She began having??symptoms of an Upper Respiratory??Infection on 08/25. ??She tested Positive for RSV??on 08/31. ??She??has congestion in her sinuses??and frequent coughing. ??No fever, shortne ss of breath,??or difficulty breathing. Physical Exam Vitals & Measurements BP:??130/76?? HT:??165.1??cm?? WT:??103.6??kg?? BMI:??38.01?? BSA:??2.18?? General: Alert and oriented, well nourished, no acute distress Eye: Pupils equal, EOMI HEENT: Normocephalic, grossly normal hearing, moist oral mucosa, no scleral icterus Lungs: Clear to auscultation, non-labored respiration Heart: Normal rate, regular rhythm, no murmurs Abdomen: Nontender, gravid Musculoskeletal: Grossly normal range of motion and strength, no tenderness or swelling Skin: Skin is warm, dry, no rashes Neurologic: Awake, alert, and oriented X4, CN II-XII grossly intact Psychiatric: Cooperative, appropriate mood and affect ? Office??US??(Transabdominal)-?? Normal intrauterine?11 weeks size, Heart Rate-160. Risk Factors No risk factors documented Assessment/Plan 1.??History of delivery, currently in first trimester??O09.891 2.?? with history of ectopic , antepartum??O09.10 After orientation to our practice, we discussed??plans for care. ??She??wants to go to [facility] today for her Panel and Maternity 21. Cards Exam and Notes ?? Exams and Notes ?? Date:??09/06/23 EGA:??11w2d Weight (lbs kg):??*228... Fundal Height (cm):??11 ? Blood Pressure (mmHg):??130/76 ? Cervix Exam (Dil cm/Eff %/Sta -):--/--/--?? Labor S/S:??None Urine Glucose:?? Urine Protein:?? Next Visit:??+4 weeks from 09/06/2023 Baby A?FHR:??160 ? Movement:?Presentation:??-- ? Date:??08/07/23 EGA:??7w0d?? Weight (lbs kg):??*237... Fundal Height (cm):??-- ? Blood Pressure (mmHg):??116/74 ? Cervix Exam (Dil cm/Eff %/Sta -):--/--/--?? Labor S/S:?? Urine Glucose:?? Urine Protein:?? Next Visit:? Date:??07/22/23 EGA:??4w5d?? Weight (lbs kg):??*238... Fundal Height (cm):??-- ? Blood Pressure (mmHg):??144/84 ? Cervix Exam (Dil cm/Eff %/Sta -):--/--/--?? Labor S/S:?? Urine Glucose:?? Urine Protein:?? Next Visit:? Problem List/Past Medical History Ongoing Depression History [...] 4 mg= 1 EA, Oral, TID, PRN Complete with DHA promethazine 12.5 mg oral tablet, 12.5 mg= 1 tab, Oral, every 4 hr, PRN, 2 refills Allergies Blueberries??(Anaphylaxis) penicillin??(Hives) Social History Alcohol [...] GPARENT, at age: Unknown. Cause of : PCM Transcribed Labs No qualifying data Electronically Signed on 09/06/23 02:39 PM Carlos Akers MD
--- OUTSIDE RECORDS SUMMARY | 2024-04-05 16:58 | XMS_ITS | Continuity of Care Document ---
Author Organization [facility] Address [address] [place] [id number] Care Team Providers Care Schedule Hanger Name Role Phone ALYCIA ARCHER APRN Primary Care Physician Encounter [facility] NBR [id number] Date(s): 03/02/24 - 03/02/[address] [address]- [place] Discharge Disposition: Home or Self Care Attending Physician: Moris Perez MD Admitting Physician: Moris Perez MD Referring Physician: Moris Perez MD Allergies, Adverse Reactions, Alerts Substance Reaction Severity Status penicillin Hives Mild Active Blueberries Anaphylaxis Severe Active Assessment and Plan Future Appointments Appointment Date:03/05/2024 04:00:00 PM Scheduled Provider:Moris Perez MD Location:[facility] Appointment Type:OB Follow Up Appointment Date:03/10/2024 01:00:00 PM Scheduled Provider:Dionisio Ochoa MD Location:[facility] Appointment Type:OB Follow Up Appointment Date:03/17/2024 01:00:00 PM Scheduled Provider:Carlos Akers MD Location:[facility] Appointment Type:OB Follow Up Appointment Date:03/24/2024 01:00:00 PM Scheduled Provider:Dionisio Ochoa MD Location:[facility] Appointment Type:OB Follow Up Future Scheduled Tests Laboratory* Group B Strep ([facility]) 03/02/24 Immunizations Given and Recorded Vaccine Date Status [...] spasm, # 30 tab, 0 Refill(s), Pharmacy: [facility] #93, 165.1, cm, 09/06/23 13:49:00 EST, Height, 105, kg, 11/05/23 14:29:00 EST, Weight Dosing Start Date: 11/05/23 Status: Ordered ondansetron 4 mg oral tablet, disintegrating 4 mg = 1 tab, Oral, every 8 hr, PRN as needed for nausea/vomiting, # 30 tab, 0 Refill(s), Pharmacy:[facility] #93, 165.1, cm, 01/10/24 14:49:00 EDT, Height, 106.6, kg, 01/10/24 14:55:00 EDT, Weight Dosing Start Date: 01/30/24 Status: Ordered Complete with DHA 0 Refill(s) Start Date: 07/22/23 Status: Ordered promethazine 25 mg oral tablet 25 mg = 1 tab, Oral, every night at bedtime, # 24 tab, 0 Refill(s), Pharmacy: [facility] #93, 165.1, cm, 02/24/24 14:56:00 EDT, Height, 109, kg, 02/24/24 15:10:00 EDT, Weight Dosing Start Date: 02/24/24 Status: Ordered Protonix 20 mg oral delayed release tablet 20 mg = 1 tab, Oral, Daily, # 90 tab, 3 Refill(s), Pharmacy: [facility] #93, 165.1, cm, 09/06/23 13:49:00 EST, Height, [...] 06/19/23 Active 1suicide attempt 10/2017, hospitalized at [facility] Procedures Procedure Date Related Diagnosis Body Site [...] Member Role: Primary Care Physician Address: Address: [address] [facility] [address]
--- OUTSIDE RECORDS SUMMARY | 2024-04-05 16:58 | XMS_ITS | Referral Summary ---
Author Organization [facility] Address [address] [place] [address] Care Team Providers Care Corporate Relations Manager Name Role Phone Unknown, Provider Primary Care Provider Social History Tobacco Use Types Packs/Day Years Used Date Smoking Tobacco: Never Assessed Interpersonal Safety Answer Date Record ed Physically Hurt Never 04/11/2020 Verbally Threaten Not on file 04/11/2020 Sex and Gender Information Value Date Recorded Sex Assigned at Not on file Gender Identity Not on file Sexual Orientation Not on file Plan of Treatment Not on file Procedures Procedure Name Priority Date/Time Associated Diagnosis Comments HEPATITIS C AB W REFLEX TO HCV RNA BY PCR Routine 09/03/2021 20:42 EST from Last 3 Months or Most Recently Relevant to Health Maintenance Results * HEPATITIS C AB W REFLEX TO HCV RNA BY PCR (09/03/2021 20:42 EST) Hep C Antibody Negative Negative 09/05/2021 12:06 EST [facility] Blood VENOUS BLOOD / Unknown 09/03/2021 20:42 EST 09/04/2021 16:32 EST Provider Outr Resulting Lab CHEMISTRY & BLOOD GAS ORDERABLES [facility] [address] [place] [address] from Last 3 Months or Most Recently Relevant to Health Maintenance Care Teams Corporate Relations Manager Relationship Specialty Start Date End Date Unknown, Provider, PCP - General 06/07/16
--- OUTSIDE RECORDS SUMMARY | 2024-04-05 16:58 | XMS_ITS | Continuity of Care Document ---
Author Organization [facility] Address [address] [place] [id number] Care Team Providers Care Medical Records Specialist Name Role Phone ALYCIA ARCHER APRN Primary Care Physician Encounter [facility] NBR [id number] Date(s): 10/04/23 - 10/04/[address] [address]- Encounter Diagnosis History of delivery, currently in second trimester(Discharge [...] for nausea/vomiting, # 30 tab, 0 Refill(s), Pharmacy:[facility], 165.1, cm, 09/06/23 13:49:00 EST, Height, 103.6, kg, 09/06/23 14:07:00 EST, Weight Dosing Start Date: 10/02/23 Status: Ordered Complete with DHA 0 Refill(s) Start Date: 07/22/23 Status: Ordered promethazine 12.5 mg oral tablet 12.5 mg = 1 tab, Oral, every 4 hr, PRN as needed for nausea/vomiting, # 60 tab, 2 Refill(s), Pharmacy: [facility], 165.1, cm, 08/07/23 10:09:00 EST, Height, 107.9, kg, 08/07/23 10:15:00 EST, Weight Dosing Start Date: 08/07/23 Status: Ordered Protonix 20 mg oral delayed release tablet 20 mg = 1 tab, Oral, Daily, # 90 tab, 3 Refill(s), Pharmacy: [facility], 165.1, cm, 09/06/23 13:49:00 EST, [...] Active 1suicide attempt 10/2017, [place] at [facility] [place] [facility] [place] Procedure Date Related Diagnosis Body Site Status Cholecystectomy 06/2016 Completed Results Laboratory List Name Date Chlamydia trachomatis and Ne isseria gonorrhoeae (GeneXpert) (CT/ NG (GeneXpert)) 10/04/23 Most recent to oldest [Reference Range]: 1 Chlamydia trachomatis DNA -GeneXpert [No t Detected] Not Detected (10/04/23 1:59 PM) Neisseria gonorrhoeae DNA -GeneXpert [No t Detected] Not Detected (10/04/23 1:59 PM) Social History Social History Type Response Smoking Status Smoking tobacco use: Current everyday tobacco user;Never; Number used per day: smokes in a bong with MJ at same time; entered on: 09/06/23 Sex Patient Care team information Care Team Personnel Name: ALYCIA ARCHER APRN Position: No Access Member Role: Primary Care Physician Address: Address: [address] [facility], [place] [address]
--- OUTSIDE RECORDS SUMMARY | 2024-04-05 16:58 | XMS_ITS | Continuity of Care Document ---
Author Organization [facility] Ambulatory Clinics Address [address] [place] [address] Care Team Providers Care Delicatessen Department Manager Name Role Phone ALYCIA ARCHER APRN Primary Care Physician Encounter [facility] NBR [id number] Date(s): 10/03/23 - 10/03/23 [facility] Ambulatory Clinics [address] [place] [address]- Discharge Disposition: Home Allergies, Adverse Reactions, Alerts Substance Reaction Severity Status penicillin Hives Mild Active Blueberries Anaphylaxis Severe Active Assessment and Plan Future Scheduled Tests Radiology* US OB Greater Than 14 Weeks 11/04/23 Medications acetaminophen 500 mg oral tablet 1,000 [...] for nausea/vomiting, # 30 tab, 0 Refill(s), Pharmacy:[id number], 165.1, cm, 09/06/23 13:49:00 EST, Height, 103.6, kg, 09/06/23 14:07:00 EST, Weight Dosing Start Date: 10/02/23 Status: Ordered Complete with DHA 0 Refill(s) Start Date: 07/22/23 Status: Ordered promethazine 12.5 mg oral tablet 12.5 mg = 1 tab, Oral, every 4 hr, PRN as needed for nausea/vomiting, # 60 tab, 2 Refill(s), Pharmacy: [facility], 165.1, cm, 08/07/23 10:09:00 EST, Height, 107.9, kg, 08/07/23 10:15:00 EST, Weight Dosing Start Date: 08/07/23 Status: Ordered Protonix 20 mg oral delayed release tablet 20 mg = 1 tab, Oral, Daily, # 90 tab, 3 Refill(s), Pharmacy: [facility], 165.1, cm, 09/06/23 13:49:00 EST, [...] 06/19/23 Active 1suicide attempt 10/2017, hospitalized at [facility] and [facility] [place] Procedures Procedure Date Related Diagnosis [...] Member Role: Primary Care Physician Address: Address: [facility] [address] [facility], [place] [address]
--- OUTSIDE RECORDS SUMMARY | 2024-04-05 16:58 | XMS_ITS | Continuity of Care Document ---
Author Organization [facility] Address [address] [place] [phone] Care Team Providers Care Company Doctor Name Role Phone ALYCIA ARCHER APRN Primary Care Physician [phone] Encounter [facility] NBR [id number] Date(s): 12/30/23 - 12/30/[address] [address]- [place] Encounter Diagnosis Encounter for supervision of normal , unspecified, second trimester (Final) - Weeks of gestation of not specified(Final) - Discharge Disposition: Home or Self Care Attending Physician: Dionisio Ochoa MD Admitting Physician: Dionisio Ochoa MD Allergies, Adverse Reactions, Alerts Substance Reaction Severity Status penicillin Hives Mild Active Blueberries Anaphylaxis Severe Active Assessment and Plan Future Appointments Appointment Date:12/31/2023 02:30:00 PM Scheduled Provider:Carlos Akers MD Location:[facility] Appointment Type:OB Follow Up Appointment Date:01/10/2024 02:45:00 PM Scheduled Provider:Moris Perez MD Location:[facility] Appointment Type:OB Follow Up Immunizations Given and [...] spasm, # 30 tab, 0 Refill(s), Pharmacy: [facility], 165.1, cm, 09/06/23 13:49:00 EST, Height, [...] for nausea/vomiting, # 30 tab, 0 Refill(s), Pharmacy:[facility], 165.1, cm, 09/06/23 13:49:00 EST, Height, 103.6, kg, 09/06/23 14:07:00 EST, Weight Dosing Start Date: 10/02/23 Status: Ordered Complete with DHA 0 Refill(s) Start Date: 07/22/23 Status: Ordered promethazine 12.5 mg oral tablet 12.5 mg = 1 tab, Oral, every 4 hr, PRN as needed for nausea/vomiting, # 60 tab, 2 Refill(s), Pharmacy: [facility], 165.1, cm, 08/07/23 10:09:00 EST, Height, 107.9, kg, 08/07/23 10:15:00 EST, Weight Dosing Start Date: 08/07/23 Status: Ordered Protonix 20 mg oral delayed release tablet 20 mg = 1 tab, Oral, Daily, # 90 tab, 3 Refill(s), Pharmacy: [facility], 165.1, cm, 09/06/23 13:49:00 EST, Height, [...] 10/2017, hospitalized at [facility] and [facility] [place] Procedures Procedure Date Related Diagnosis Body Site Status Cholecystectomy 06/2016 Completed Results Laboratory List Name Date CBC w/ Diff 12/30/23 Glucose 1Hr 50 gm OB 12/30/23 Automated Diff 12/30/23 Most recent to oldest [Reference Range]: 1 WBC [4.8-10.8 K/mcL] 12.2 K/mcL *HI* (12/30/23 10:45 AM) RBC [4.20-5.40 Million/mcL] 4.20 Million /mcL (12/30/23 10:45 AM) Neutro Auto [42.2-75.2 %] 72.8 % (12/30/23 10:45 AM) Lymph Auto [20.5-51.1 %] 19.6 % *LOW* (12/30/23 10:45 AM) Ciales Auto [1.7-9.3 %] 5.7 % (12/30/23 10:45 AM) Basophil Auto [0.0-0.8 %] 0.4 % (12/30/23 10:45 AM) Baso Absolute [0.0-0.2 K/mcL] 0.0 K/mcL (12/30/23 10:45 AM) MCV [81.0-99.0 fL] 89.4 fL (12/30/23 10:45 AM) MCHC [32.0-37.0 g/dL] 34.9 g/dL (12/30/23 10:45 AM) Lymph Absolute [1.2-3.4 K/mcL] 2.4 K/mcL (12/30/23 10:45 AM) Hct [37.0-47.0 %] 37.5 % (12/30/23 10:45 AM) Ciales Absolute [0.1-0.6 K/mcL] 0.7 K/mcL *HI* (12/30/23 10:45 AM) MCH [27.0-31.0 pg] 31.2 pg *HI* (12/30/23 10:45 AM) Neutro Absolute [1.4-6.5 K/mcL] 8.9 K/mc L *HI* (12/30/23 10:45 AM) Hgb [12.0-16.0 g/dL] 13.1 g/dL (12/30/23 10:45 AM) MPV [7.4-10.4 fL] 9.1 fL (12/30/23 10:45 AM) Platelets [130-400 K/mcL] 269 K/mcL (12/30/23 10:45 AM) Eos Absolute [0.0-0.2 K/mcL] 0.2 K/mcL (12/30/23 10:45 AM) RDW-CV [11.5-14.5 %] 13.5 % (12/30/23 10:45 AM) Gluc 1hr OB 104 *NA* (12/30/23 10:45 AM) Eos, Auto [0.00-3.00 %] 1.50 % (12/30/23 10:45 AM) Social History Social History Type Response Smoking Status Smoking tobacco use: Current everyday tobacco user;Never; Number used per day: smokes in a bong with MJ at same time; entered on: 09/06/23 Sex Patient Care team information Care Team Personnel Name: ALYCIA ARCHER APRN Position: No Access Member Role: Primary Care Physician Address: Address: [address] [place] [address]-
--- OUTSIDE RECORDS SUMMARY | 2024-04-05 16:58 | XMS_ITS | Continuity of Care Document ---
Author Organization [facility] Address [address] [place] [id number] Care Team Providers Care Imaging Scheduler Name Role Phone ALYCIA ARCHER APRN Primary Care Physician [phone] Encounter [facility] NBR [id number] Date(s): 03/07/24 - 03/09/[address] [address]- Encounter Diagnosis Labor and delivery complicated by cord around neck, without compression, not applicable or unspecified(Final) - Single live (Final) - Other immediate hemorrhage(Final) - 37 weeks gestation of (Final) - Diseases of the digestive system complicating childbirth(Final) - Gastro-esophageal reflux disease without esophagitis(Final) - Normal labor(Discharge Diagnosis) - 03/07/24 Delay hemorrhage(Discharge Diagnosis) - 03/08/24 Discharge Disposition: Home or Self Care Attending Physician: Dionisio Ochoa MD Admitting Physician: Dionisio Ochoa MD Referring Physician: Dionisio Ochoa MD Allergies, Adverse Reactions, Alerts Substance Reaction Severity Status penicillin Hives Mild Active Blueberries Anaphylaxis Severe Active Assessment and Plan Extracted from: Title:Discharge Note Author:Dionisio Ochoa MD Date :03/09/24 Discharge Plan 1.??Delay hemorrhage??O72.2 2.??Normal labor??O80 Orders: ibuprofen, 600 mg = 1 tab, Oral, Tab, every 6 hr, PRN pain, First Dose: 03/08/24 9:41:00 EDT, Routine oxyCODONE 5 mg oral tablet, 5 mg = 1 tab, Oral, Tab, every 4 hr for 4 doses, PRN pain, First Dose: 03/08/24 9:32:00 EDT, Stop Date: Limited # of times, Physician Stop, Routine Discharge Patient, 03/09/24 7:54:00 EDT, Home Independently Follow Up With When Contact Information Dionisio Ochoa MD Within 1 to 2 weeks [address] [place] [address]- [phone] Additional Instructions: Extracted from: Title:Progress/SOAP Note Author:Dionisio Ochoa MD Date:03/09/24 1.??Delay hemorrhage??O72.2 ?? day #2 status post?complicated by??uterine atony??requiring??D&C and Tawnya catheter placement. ??Remainder of course was uncomplicated??and she was felt suitable for discharge home. 2.??Normal labor??O80 Orders: ibuprofen, 600 mg = 1 tab, Oral, Tab, every 6 hr, PRN pain, First Dose: 03/08/24 9:41:00 EDT, Routine oxyCODONE 5 mg oral tablet, 5 mg = 1 tab, Oral, Tab, every 4 hr for 4 doses, PRN pain, First Dose: 03/08/24 9:32:00 EDT, Stop Date: Limited # of times, Physician Stop, Routine Extracted from: Title:OB Extended Office Visit Author:Dionisio rogel MD Date:03/08/24 1.??Delay hemorrh age??O72.2 ??PPD 1 s/p with PPH and status post D&C with Tawnya??catheter placement and removal this morning.?? Will add oxycodone for pain management this morning.?? Encourage ambulation Routine care from this point.? 2.??Normal labor??O80 Orders: methylergonovine, 0.2 mg = 1 mL, Intramuscular, Vial, Once, PRN other (see comment), First Dose: 03/07/24 23:05:00 EDT, Physician Stop, Routine miSOPROStol, 1,000 mcg = 5 tab, Rectal, Tab, Once, PRN bleeding, First Dose: 03/07/24 23:05:00 EDT, Physician Stop, Routine ondansetron, 4 mg = 2 mL, IV Push, Vial, every 4 hr, PRN nausea/vomiting, First Dose: 03/07/24 16:21:00 EDT, Routine, debby oxyCODONE 5 mg oral tablet, 5 mg = 1 tab, Oral, Tab, every 4 hr for 4 doses, PRN pain, First Dose: 03/08/24 9:32:00 EDT, Stop Date: Limited # of times, Physician Stop, Routine oxytocin, 10 units = 1 mL, Intramuscular, Vial, Once, PRN other (see comment), First Dose: 03/07/24 23:05:00 EDT, Physician Stop, Routine oxytocin IV additive 20 units + LR Diluent 1,000 mL, Total Volume (mL): 1,002, 1,000 mL, Vial, IV, Titrate per protocol, Start Date: 03/07/24 23:05:00 EDT, 109 kg, Populate Charting Weight From Order, 2.24, m2 oxytocin IV additive 30 units + LR Diluent 500 mL, Total Volume (mL): 503, 500 mL, Vial, IV, Titrate Per protocol, Order Duration: 30 days, Start Date: 03/07/24 16:55:00 EDT, Stop Date: 04/06/24 16:54:00 EDT, 109 kg, Populate Charting Weight From Order, 2.24, m2 Diet Order, 03/07/24 23:05:00 EDT, Regular Discontinue IV Fluids, 03/07/24 23:05:00 EDT, Stop date 03/07/24 23:05:00 EDT, Discontinue intravenous fluids with good oral intake if IV no longer needed. Discontinue Saline Lock, 03/07/24 23:05:00 EDT, Stop date 03/07/24 23:05:00 EDT Hematocrit, Blood, Routine, 03/07/24 23:05:00 EDT, every morning, Lab Collect Hemoglobin, Blood, Routine, 03/07/24 23:05:00 EDT, every morning, Lab Collect Notify Provider, 03/07/24 23:05:00 EDT, Constant order, of blood loss > 1 pad in less than 2hrs Notify Provider, 03/07/24 23:05:00 EDT, Constant order, of active blood clots Notify Provider, 03/07/24 23:05:00 EDT, Constant order, of large gushes/continuous trickle/heavy bleeding Checks, 03/07/24 23:05:00 EDT, every 12 hr (rudy), PRN Urinary Catheter Discontinue, 03/07/24 23:05:00 EDT Given Lactated Ringers Injection (ANES), 1000 mL, IV Lactated Ringers Injection, 1000 mL, IV oxytocin IV additive 20 units + LR Diluent 1,000 mL, IV oxytocin IV additive 30 units + LR Diluent 500 mL, IV acetaminophen, 650 mg, 650 mg, Oral albuterol (ANES), 180 mcg, IV dexamethasone (ANES), 10 mg, IV fentaNYL, 50 mcg, 50 mcg, 50 mcg, 50 mcg, 50 mcg, IV Push fentaNYL (ANES), 100 mcg, IV ondansetron, 4 mg, Oral ondansetron, 4 mg, IV Push ondansetron, 4 mg, 4 mg, IV Push propofol (ANES), 200 mg, IV succinylcholine (ANES), 120 mg, IV tranexamic acid, 1000 mg, IV Piggyback Extracted from: Title:OB Delivery - Vaginal Author:Dionisio Ochoa MD Date:03/08/24 1.??Normal labor??O80 Outcome of delivery, unspecified??Z37.9 Orders: fentaNYL, 50 mcg = 1 mL, IV Push, Injection, every 1 hr, PRN pain, severe, First Dose: 03/07/24 2:40:00 EDT, Physician Stop, Routine methylergonovine, 0.2 mg = 1 mL, Intramuscular, Vial, Once, PRN other (see comment), First Dose: 03/07/24 23:05:00 EDT, Physician Stop, Routine miSOPROStol, 1,000 mcg = 5 tab, Rectal, Tab, Once, PRN bleeding, First Dose: 03/07/24 23:05:00 EDT, Physician Stop, Routine ondansetron, 4 mg = 2 mL, IV Push, Vial, every 4 hr, PRN nausea/vomiting, First Dose: 03/07/24 16:21:00 EDT, Routine, zofran oxytocin, 10 units = 1 mL, Intramuscular, Vial, Once, PRN other (see comment), First Dose: 03/07/24 23:05:00 EDT, Physician Stop, Routine oxytocin IV additive 20 units + LR Diluent 1,000 mL, Total Volume (mL): 1,002, 1,000 mL, Vial, IV, Titrate per protocol, Start Date: 03/07/24 23:05:00 EDT, 109 kg, Populate Charting Weight From Order, 2.24, m2 oxytocin IV additive 30 units + LR Diluent 500 mL, Total Volume (mL): 503, 500 mL, Vial, IV, Titrate Per protocol, Order Duration: 30 days, Start Date: 03/07/24 16:55:00 EDT, Stop Date: 04/06/24 16:54:00 EDT, 109 kg, Populate Charting Weight From Order, 2.24, m2 tranexamic acid, 1,000 mg = 100 mL, IV Piggyback, Injection, Once, PRN bleeding, Administer over: 20 minutes, First Dose: 03/07/24 23:05:00 EDT, Physician Stop, Routine, 300 mL/hr Diet Order, 03/07/24 23:05:00 EDT, Regular Discontinue IV Fluids, 03/07/24 23:05:00 EDT, Stop date 03/07/24 23:05:00 EDT, Discontinue intravenous fluids with good oral intake if IV no longer needed. Discontinue Saline Lock, 03/07/24 23:05:00 EDT, Stop date 03/07/24 23:05:00 EDT Screen, Blood, Routine, 03/07/24 23:05:00 EDT, Once, Lab Collect Hematocrit, Blood, Routine, 03/07/24 23:05:00 EDT, every morning, Lab Collect Hemoglobin, Blood, Routine, 03/07/24 23:05:00 EDT, every morning, Lab Collect Notify Provider, 03/07/24 23:05:00 EDT, Constant order, of blood loss > 1 pad in less than 2hrs Notify Provider, 03/07/24 23:05:00 EDT, Constant order, of active blood clots Notify Provider, 03/07/24 23:05:00 EDT, Constant order, of large gushes/continuous trickle/heavy bleeding Checks, 03/07/24 23:05:00 EDT, every 12 hr (rudy), PRN PSO Admit to Inpatient, Obstetrics, Inpatient, 03/07/24 2:42:00 EDT, 06/29/24 2:42:00 EDT, 03/07/24 2:42:00 EDT, 2 midnights or more Rhogam, Routine, Print Label Saline Lock Flush, 03/07/24 23:05:00 EDT, Stop date 03/07/24 23:05:00 EDT, may d/c once taking adequate fluids Saline Lock Insert, 03/07/24 23:05:00 EDT, Stop date 03/07/24 23:05:00 EDT Straight Catheter Insertion, Stop date 03/07/24 23:05:00 EDT, If not voiding, straight catheter as needed Urinary Catheter Discontinue, 03/07/24 23:05:00 EDT Extracted from: Title:OB Admission H&P Author:MD James Perez te:03/07/24 1.??Normal labor??O80 ??Admit to labor and delivery for management of active labor. Patient did receive??Fentanyl for pain management. Reviewed options for nitrous and epidural as well.? Orders: acetaminophen, 650 mg = 2 tab, Oral, Tab, every 4 hr, PRN pain, mild, First Dose: 03/07/24 0:20:00 EDT, Routine calcium (as carbonate) 500 mg oral tablet, 500 mg = 1 tab, Oral, Tab-Chew, every 2 hr, PRN dyspepsia, First Dose: 03/07/24 0:20:00 EDT, Routine calcium (as carbonate) 500 mg oral tablet, 1,000 mg = 2 tab, Oral, Tab-Chew, every 2 hr, PRN dyspepsia, First Dose: 03/07/24 0:20:00 EDT, Routine fentaNYL, 50 mcg = 1 mL, IV Push, Injection, every 1 hr, PRN pain, severe, First Dose: 03/07/24 2:40:00 EDT, Physician Stop, Routine Lactated Ringers Injection 1,000 mL, Total Volume (mL): 1,000, 1,000 mL, Soln- IV, IV, 150 mL/hr, Start Date: 03/07/24 4:00:00 EDT, 109 kg, Populate Charting Weight From Order, 2.24, m2 sodium chloride 0.9% flush, 10 mL, IV Flush, Injection, As Directed, PRN other (see comment), First Dose: 03/07/24 2:40:00 EDT, Routine Activity, 03/07/24 0:20:00 EDT, Stop date 03/07/24 0:20:00 EDT, Up ad martha Activity, 03/07/24 2:40:00 EDT, Stop date 03/07/24 2:40:00 EDT, Up ad martha Ambulate, 03/07/24 2:40:00 EDT, Stop date 03/07/24 2:40:00 EDT, Ad martha Bathroom Privileges, 03/07/24 0:20:00 EDT, PRN, 03/07/24 0:20:00 EDT, 03/07/24 0:20:00 EDT Bathroom Privileges, 03/07/24 2:40:00 EDT, PRN, 03/07/24 2:40:00 EDT, 03/07/24 2:40:00 EDT Communication Order, 03/07/24 2:40:00 EDT, If not voiding, straight cath as needed, Q12 hour frequency Communication Order, 03/07/24 2:40:00 EDT, Nurse /Provider to remain at bedside for 15 minutes after initiation & Vital Signs every 30 minutes while Nitrous in use Consent For Treatment, 03/07/24 2:40:00 EDT, Obtain consent prior to initiation Diet Order, 03/07/24 2:40:00 EDT, Clear Liquids Heart Monitoring, 03/07/24 0:20:00 EDT, PRN, Continuous monitoring. Group B Strep (GeneXpert), Swab, Routine Collect, 03/10/24, Once, Nurse collect, Print Label, Normal in multigravida in third trimester, Order for future visit Hourly Rounding, 03/07/24 2:40:00 EDT, every 12 hr (rudy) Isolation Precautions, 03/07/24 2:40:00 EDT, [place] [facility], 03/07/24 2:40:00 EDT, Stop date 03/07/24 2:40:00 EDT, Obtain heart rate, assess for Decels. Notify Provider, 03/07/24 2:40:00 EDT, Of patient arrival Notify Provider, 03/07/24 2:40:00 EDT, For severe headaches, visual changes, RUQ pain. Q12 hour frequency Notify Provider, 03/07/24 2:40:00 EDT, notify provider acute changes in BP, Two Consecutive BP >160/110 Notify Provider of Vital Signs, 03/07/24 2:40:00 EDT, If temperature greater than 38 C, if pulse greater than 100, or if blood pressure is dropping, Acute Baseline changes. Q12 hour frequency. NST on arrival LTTL, 03/07/24 0:20:00 EDT, Once, Stop date 03/07/24 0:20:00 EDT, Upon Arrival Oxygen Therapy, to keeps sats >= 94% via N/C or simple mask, Dionisio Ochoa MD PSO Admit to Inpatient, Obstetrics, Inpatient, 03/07/24 2:42:00 EDT, 03/07/24 2:42:00 EDT, 03/07/24 2:42:00 EDT, 2 midnights or more Resuscitation Status, 03/07/24 2:40:00 EDT, Full Code Shower Privileges, 03/07/24 2:40:00 EDT, PRN Temperature, 03/07/24 2:40:00 EDT, every 1 hr, After ROM. Vaginal Exam, 03/07/24 2:40:00 EDT, Frequency Once, Prior to epidural placement., Stop date 03/07/24 2:40:00 EDT Vaginal Exam, 03/07/24 2:40:00 EDT, Frequency As Directed, Prior to pain medication administration. Vaginal Exam, 03/07/24 2:40:00 EDT, Frequency Once, On Admission to Unit, Stop date 03/07/24 2:40:00 EDT Vaginal Exam, 03/07/24 0:20:00 EDT, ROM/Vaginal Pressure/Regular Contractions, Stop date 03/07/24 0:20:00 EDT Vital Signs, 03/07/24 2:40:00 EDT, Once, Stop date 03/07/24 2:40:00 EDT, On Arrival to unit. Vital Signs, 03/07/24 2:40:00 EDT, every 30 min, while nitrous in use. Vital Signs, 03/07/24 2:40:00 EDT, every 2 hr, while in labor. Vital Signs, 03/07/24 2:40:00 EDT, Stop date 03/07/24 2:40:00 EDT, Obtain Full set vital signs prior to initiation Future Appointments Future Scheduled Tests Laboratory* Group B Strep (GeneXpert) 03/10/24 Functional Status 03/08/24 Diet Type Regular 03/07/24 ADLs Independent Activity Level at Home Up ad martha Special Services and Community Resources None Mobility Assistance Prior to Admission I ndependent Family Member Travel History No recent t ravel Recent Travel History No recent travel Other exposure to Infectious Disease Non e Immunizations Given and Recorded Vaccine Date Status [...] spasm, # 30 tab, 0 Refill(s), Pharmacy: [id number], 165.1, cm, 09/06/23 13:49:00 EST, Height, 105, kg, 11/05/23 14:29:00 EST, Weight Dosing Start Date: 11/05/23 Status: Ordered ondansetron 4 mg oral tablet, disintegrating 4 mg = 1 tab, Oral, every 8 hr, PRN as needed for nausea/vomiting, # 30 tab, 0 Refill(s), Pharmacy:[id number], 165.1, cm, 01/10/24 14:49:00 EDT, Height, 106.6, kg, 01/10/24 14:55:00 EDT, Weight Dosing Start Date: 01/30/24 Status: Ordered Complete with DHA 1 cap, Oral, Daily, 0 Refill(s) Start Date: 07/22/23 Status: Ordered promethazine 25 mg oral tablet 25 mg = 1 tab, Oral, every night at bedtime, # 24 tab, 0 Refill(s), Pharmacy: [id number], 165.1, cm, 02/24/24 14:56:00 EDT, Height, [...] 06/19/23 Active 1suicide attempt 10/2017, hospitalized at [facility] and [facility] Procedures Procedure Date Related Diagnosis Body Site Status Dilation and Curettage 1 03/08/24 Completed Cholecystectomy 06/2016 Completed 1auto-populated from documented surgical case Results Laboratory List Name Date Hematocrit 03/09/24 Hemoglobin 03/09/24 Hematocrit 03/08/24 Hemoglobin 03/08/24 CBC w/ Diff 03/08/24 Automated Diff 03/08/24 ABO/Rh 03/07/24 Antibody Screen Gel 03/07/24 CBC w/ Diff 03/07/24 Comprehensive Metabolic Panel (CMP) 03/07 Group B Strep (GeneXpert) 03/07/24 Automated Diff 03/07/24 Amnisure ROM 03/07/24 Most recent to oldest [Reference Range]: 1 2 3 WBC [4.8-10.8 K/mcL] 18.6 K/mcL *HI* (03/08/24 12:34 AM) 14.0 K/mcL *HI* (03/07/24 3:20 AM) RBC [4.20-5.40 Million/mcL] 4.03 Million /mcL *LOW* (03/08/24 12:34 AM) 4.30 Million/mcL (03/07/24 3:20 AM) Neutro Auto [42.2-75.2 %] 77.0 % *HI* (03/08/24 12:34 AM) 61.7 % (03/07/24 3:20 AM) Lymph Auto [20.5-51.1 %] 16.8 % *LOW* (03/08/24 12:34 AM) 27.5 % (03/07/24 3:20 AM) [place] Auto [1.7-9.3 %] 4.9 % (03/08/24 12:34 AM) 7.6 % (03/07/24 3:20 AM) Basophil Auto [0.0-0.8 %] 0.2 % (03/08/24 12:34 AM) 0.6 % (03/07/24 3:20 AM) BUN [7-25 mg/dL] 12 mg/dL (03/07/24 3:20 AM) ABO/Rh Type O POS *Unknown* (03/07/24 3:20 AM) Glucose Level [70-109 mg/dL] 83 mg/dL (03/07/24 3:20 AM) Potassium Level [3.5-5.1 mmol/L] 3.9 mmol/L (03/07/24 3:20 AM) Baso Absolute [0.0-0.2 K/mcL] 0.0 K/mcL (03/08/24 12:34 AM) 0.1 K/mcL (03/07/24 3:20 AM) MCV [81.0-99.0 fL] 88.1 fL (03/08/24 12:34 AM) 88.2 fL (03/07/24 3:20 AM) AST [13-39 IntlUnit/L] 29 IntlUnit/L (03/07/24 3:20 AM) ALT [7-52 IntlUnit/L] 29 IntlUnit/L (6/29/24 3:20 AM) MCHC [32.0-37.0 g/dL] 33.5 g/dL (03/08/24 12:34 AM) 34.1 g/dL (03/07/24 3:20 AM) Osmolality [275-295 mOsm/kg] 273 mOsm/kg *LOW* (03/07/24 3:20 AM) Sodium Level [136-145 mmol/L] 137 mmol/L (03/07/24 3:20 AM) Lymph Absolute [1.2-3.4 K/mcL] 3.1 K/mcL (03/08/24 12:34 AM) 3.8 K/mcL *HI* (03/07/24 3:20 AM) Hct [37.0-47.0 %] 26.8 % *LOW* (03/09/24 6:31 AM) 30.9 % *LOW* (03/08/24 7:35 AM) 35.5 % *LOW* (03/08/24 12:34 AM) Calcium Level [8.6-10.3 mg/dL] 9.1 mg/dL (03/07/24 3:20 AM) [place] Absolute [0.1-0.6 K/mcL] 0.9 K/mcL *HI* (03/08/24 12:34 AM) 1.1 K/mcL *HI* (03/07/24 3:20 AM) Albumin Level [3.5-5.7 g/dL] 3.6 g/dL (03/07/24 3:20 AM) Protein Total [6.4-8.9 g/dL] 6.6 g/dL (03/07/24 3:20 AM) MCH [27.0-31.0 pg] 29.6 pg (03/08/24 12:34 AM) 30.1 pg (03/07/24 3:20 AM) Neutro Absolute [1.4-6.5 K/mcL] 14.3 K/mcL *HI* (03/08/24 12:34 AM) 8.6 K/mcL *HI* (03/07/24 3:20 AM) Bilirubin Total [0.3-1.0 mg/dL] 0.3 mg/dL (03/07/24 3:20 AM) Hgb [12.0-16.0 g/dL] 9.2 g/dL *LOW* (03/09/24 6:31 AM) 10.7 g/dL *LOW* (03/08/24 7:35 AM) 11.9 g/dL *LOW* (03/08/24 12:34 AM) Alk Phos [34-104 IntlUnit/L] 126 IntlUnit/L *HI* (03/07/24 3:20 AM) MPV [7.4-10.4 fL] 9.8 fL (03/08/24 12:34 AM) 9.9 fL (03/07/24 3:20 AM) Platelets [130-400 K/mcL] 279 K/mcL (03/08/24 12:34 AM) 277 K/mcL (03/07/24 3:20 AM) CO2 [21-31 mmol/L] 23 mmol/L (03/07/24 3:20 AM) Eos Absolute [0.0-0.2 K/mcL] 0.2 K/mcL (03/08/24 12:34 AM) 0.4 K/mcL *HI* (03/07/24 3:20 AM) Chloride Level [98-107 mmol/L] 104 mmol/L (03/07/24 3:20 AM) RDW-CV [11.5-14.5 %] 13.5 % (03/08/24 12:34 AM) 13.4 % (03/07/24 3:20 AM) A/G Ratio [1.0-2.5 g/dL] 1.2 g/dL (03/07/24 3:20 AM) BUN/Creat Ratio [8.0-20.0] 17.1 (03/07/24 3:20 AM) Globulin [2.3-3.5 g/dL] 3.0 g/dL (03/07/24 3:20 AM) Slide Review Not Indicated (03/08/24 12:34 AM) Not Indicated (03/07/24 3:20 AM) Amnisure ROM [Negative] Negative (03/07/24 12:33 AM) Group B Strep (GeneXpert) [Negative] Negative (03/07/24 3:20 AM) Creatinine Level [0.60-1.20 mg/dL] 0.70 mg/dL (03/07/24 3:20 AM) Antibody Screen Gel Negative ABSC (03/07/24 3:20 AM) Anion Gap [3.0-12.0] 10.0 (03/07/24 3:20 AM) Eos, Auto [0.00-3.00 %] 1.10 % (03/08/24 12:34 AM) 2.60 % (03/07/24 3:20 AM) eGFR CKD-EPI [>=60 mL/min/1.73 m2] 122 mL/min/1.73 m2 (03/07/24 3:20 AM) Vital Signs Most recent to oldest [Reference Range]: 1 2 3 Temperature Oral [35.8-37.3 Deg C] 36.5 Deg C (03/08/24 3:28 AM) Temperature Temporal Artery [36-38 Deg C] 36.7 Deg C (03/09/24 8:21 AM) 36.5 Deg C (03/08/24 10:15 PM) 36.9 Deg C (03/08/24 8:00 AM) Temperature Temporal Artery (DegF) [97.3-100 Deg F] 97.7 Deg F (03/08/24 10:15 PM) 98.42 Deg F (03/08/24 8:00 AM) 98.42 Deg F (03/07/24 7:30 PM) Peripheral Pulse Rate [60-100 bpm] 62 bpm (03/09/24 8:21 AM) 78 bpm (03/08/24 10:15 PM) 78 bpm (03/08/24 2:10 AM) Heart Rate Monitored [60-100 bpm] 60 bpm (03/08/24 9:42 AM) 86 bpm (03/08/24 2:00 AM) 89 bpm (03/08/24 1:55 AM) Respiratory Rate [12-24 br/min] 18 br/min (03/09/24 8:21 AM) 16 br/min (03/08/24 10:15 PM) 16 br/min (03/08/24 9:42 AM) Blood Pressure [90-140/60-90 mmHg] 143/85mmHg *HI* (03/09/24 8:21 AM) 126/74mmHg (03/08/24 10:15 PM) 139/79mmHg (03/08/24 9:42 AM) Mean Arterial Pressure, Cuff [65-140 mmHg] 104 mmHg (03/09/24 8:21 AM) 91 mmHg (03/08/24 10:15 PM) 99 mmHg (03/08/24 9:42 AM) Mean Arterial Pressure Cuff 86 mmHg (03/08/24 2:10 AM) Blood Pressure Location Right arm (03/09/24 8:21 AM) Right arm (03/08/24 9:42 AM) Right arm (03/07/24 6:38 PM) Blood Pressure Method Manual (03/09/24 8:21 AM) Automatic (03/08/24 9:42 AM) Automatic (03/07/24 6:38 PM) Weight 109 kg (03/07/24 4:02 AM) 109 kg (03/07/24 4:02 AM) 109 kg (03/07/24 2:59 AM) Weight Dosing 109.000 kg (03/07/24 2:59 AM) Height 165.1 cm (03/07/24 4:02 AM) 165.1 cm (03/07/24 4:02 AM) 165.1 cm (03/07/24 2:59 AM) BSA Measured 2.24 m2 (03/07/24 2:59 AM) BSA Estimated 0 m2 (03/07/24 2:59 AM) Body Mass Index 39.99 kg/m2 (03/07/24 4:02 AM) 39.99 kg/m2 (03/07/24 4:02 AM) 39.99 kg/m2 (03/07/24 2:59 AM) Social History Social History Type Response Smoking Status Smoking tobacco use: Current everyday tobacco user;Never; Number used per day: smokes in a bong with MJ at same time; entered on: 09/06/23 Sex Hospital Discharge Instructions Patient Education 03/08/2024 17:01:32 [facility] - Vaginal or Delivery Post Discharge Instructions (CUSTOM) [facility] POST DISCHARGE INSTRUCTIONS Going home after a Vaginal or delivery GENERAL: You have just had a baby. It is normal to feel tired and worn out over the next several weeks. Sleep is difficult to get when you have a . We recommend sleeping when your baby sleeps if possible or asking someone to watch your so you can nap. Some discomfort is expected after a vaginal delivery. Most times this discomfort can be adequately managed with rest, heat, Ibuprofen, and Tylenol. Occasionally a narcotic may be needed for breakthrough pain. If you begin to have pain that is not controlled with the medications you were sent home with or if you develop fever and chills, please give the office a call. Vaginal bleeding is normal as your uterus works on returning to its normal size. While nursing yourbaby your uterus may feel crampy and your bleeding may increase during these times. You may experience some clots that may be dime size, quarter size and fifty cent size. This is normal. If you continue to pass larger clots, and the flow is increasing over 4 hours, we recommend that you call the office. If you had a vaginal tear that required suturing these sutures will dissolve over the next three weeks. During this process you may notice some yellowish drainage that may have a foul odor. This is the suture material breaking down, and it is a normal process. Keep the tissue clean with your pericare bottle or by taking a bath. Tucks pads can also be helpful. If you have an incision on your abdomen these sutures will dissolve on their own over the next 2 to 3 weeks. There are sutures that are deeper inside that will take 3 months to dissolve. Remember that eating a diet rich in protein will help your incision heal. When showering let the water run over your incision and pat dry with a towel. You do not need to redress the wound. If it rubs against your pants and feels sore, it is fine to place a gauze pad between your incision and your clothing for cushioning. If you are your milk will come in three or four days after you have given . It is normal for your nipples to feel sore for the first couple of weeks, but it is not normal for them to bleed, crack, or feel so raw that you feel like stopping breast feeding. We have support on the OB unit and Lore is also a middleware consultant in the office. They are very willing to help and provide support in any way they can. During your we talked about what your control plans would be after your delivery. Most times we can make a plan at your six week post checkup and start the plan of your choice at that time. If we know ahead of time what your plan is we can schedule you appropriately and make sure we have what we need on hand when you come for the appointment. It is normal to experience post blues. Your hormone levels change dramatically after you deliver and this can cause you to feel tired, teary eyed, sad, and overwhelmed at times. The post blues typically improve after 2-3 weeks. Post depression can settle in after that and can be very worrisome. If you feel that you cannot stop crying, do not want to see your baby, are struggling to leave your house and/or find that your mind is racing and you can't settle down, please call [facility], and we can see you to discuss depression. ACTIVITY: If you had a vaginal tear that required suturing please avoid sexual intercourse until your six week post visit. If you had no tearing we recommend that you wait to have intercourse until all of your bleeding has stopped. Keep in mind that you can get if you aren't on anything for contraception. If your baby was delivered by please avoid sexual intercourse until your six week post visit. You should also do no heavy lifting for six weeks. Any lifting that takes the strength ofboth of your arms/hands is contraindicated. If you need both hands because whatever you are liftingis cumbersome that is fine. For example, a laundry basket with a few bath towels in it. Also it is good for you to climb stairs and to go for small walks. Your blood volume doubles during . After delivery your body works on removing all of this extra fluid. You may have noticed that your legs and ankles felt pretty swollen prior to delivery. It is normal to see this swelling get worse after delivery. It gets worse if you aren't drinking enough water and/or if you are eating foods with too much sodium. Push the water and watch your salts tohelp the swelling resolve as quickly as possible. Putting your feet up and wearing 2 pairs of socksfor compression can help as well. Most post women who wish to return to work typically do so between 6 and 12 weeks. If you feel you have recovered to the point that you are ready to return to work, please call the office and let one of the secretaries know. It is usually best to discuss your return to work with your employer and pick a date for your return you both agree upon. Let us know that date and a letter will be provided that can be faxed to your employer clearing you to return to work without restriction on yourchosen date. MEDICATIONS: Continue all regularly prescribed medications unless your provider told you to stop a particular medication after your delivery. Continue taking your vitamins until your six week post visit. Ibuprofen is the best medication for your baseline pain control. Taking 600mg by mouth every four hours well help with most of your post pain. Taking it with food is best so it doesn't upset your stomach. Taking it consistently will provide you the greatest pain relief. Tylenol combined with a narcotic: You may have been sent home with a narcotic for pain control. Taking 1 or 2 tablets every 4-6 hours as needed can be helpful for pain you have that isn't covered by the Ibuprofen. We recommend trying one tablet in an attempt to get your pain at a five or less on the pain scale. If after twenty minutes your pain is still greater than a five, you may take the second tablet. There is typically 325mg of Tylenol in each tablet. Be careful not to consume more than 3000mg of Tylenol daily. Most people will find that they need narcotic containing medications sparingly and within a few days not at all. If you had a delivery you may need this medication for a few extra days. These medications are constipating, can leave you slightly sick to your stomach and don't help with inflammation. Increase fluids and fiber. You may need an over the counter stool softener such as Colace or Senna. Taper this type of medication first and then the Ibuprofen. Our office policy is that post op patients can use narcotics in addition to Ibuprofen for up to 7 days. After that, post op pain should be treated with Ibuprofen alone and no further prescriptions for narcotics will be provided. These are the two main medications that we use for post op pain management. See below for the medications that we have recommended you use when you go home. You will have to have the prescriptions filled by your pharmacy. Ibuprofen 600mg by mouth every 4 hours for baseline pain control. Percocet 5/325mg by mouth, 1 or 2 tablets every 4 to 6 hours as needed for pain. Tylenol #3 by mouth, 1 or 2 tablets every 4 to 6 hours as needed for pain. Continue taking your vitamins at least until your six week post visit. Iron sulfate 325mg twice daily - take on an empty stomach with a glass of OJ or a vitamin C tablet until gone. Colace or Senakot once or twice daily to avoid constipation. NorQD for control taken daily at the same time starting in 2 weeks. FOLLOW UP APPOINTMENT: Post appointment is on @ . If this time does not work for you, please call the office to reschedule. The number is . If you need to contact Maternity thenumber is and ask for the Maternity Department. Follow Up Care 03/07/2024 00:06:06 With:Dionisio Ochoa MD Address: [address] [place] [phone] When:1 to 2 weeks Discharge instructions * Lizet Rueda: PERFORM Event Display: Discharge Instructions Authored Date: [id number] BRIDGET ALCOCER :2000 Age:24 years Sex:Female Visit Date:03/07/2024 Primary Care Physician: ALYCIA ARCHER APRN Hospital Discharge Instructions We would like to thank you for allowing us to assist you with your healthcare needs. The following includes patient education materials and information regarding your injury/illness. Your Next Steps Scheduled Future Appointments Saturday 1:00 PM EDT ?? With: Dionisio Ochoa MD Where: [facility] Women's Health Status: Confirmed Saturday 3:15 PM EDT ?? With: Dionisio Ochoa MD Where: [facility] Women's Health Status: Confirmed Follow Up Appointments Follow Up with??Dionisio Ochoa MD When:??Within 1 to 2 weeks Where: [address] [place] [address]- [phone] The Following Services Have Been Arranged for You Special Services and Community Resources - None Medications What How Much When Why Instructions Next Dose Unchanged acetaminophen (acetaminophen 500 mg oral tablet) 2 tab Oral (given by mouth) Every 8 hours as needed for as needed for fever Unchanged albuterol (albuterol 90 mcg/ inh inhalation powder) 1 Puffs Inhale (breathe in) Every 4 hours as needed for as needed Unchanged calcium carbonate (Tums 500 mg oral tablet, chewable) 2 tab Chewed 4 times a day as needed for as needed for dyspepsia Unchanged cyclobenzaprine (cyclobenzaprine 10 mg oral tablet) 1 tab Oral (given by mouth) 3 times a day as needed for as needed for muscle spasm Supervision of normal in second trimester Unchanged multivitamin, ( Complete with DHA) 1 Capsules Oral (given by mouth) Every day Unchanged ondansetron (ondansetron 4 mg oral tablet, disintegrating) 1 tab Oral (given by mouth) Every 8 hours as needed for as needed for nausea/vomiting Unchanged pantoprazole (Protonix 20 mg oral delayed release tablet) 1 tab Oral (given by mouth) Every day Unchanged promethazine (promethazine 25 mg oral tablet) 1 tab Oral (given by mouth) Every night at bedtime Your Summary Your Care Team Admitting Physician - Dionisio Ochoa MD Attending Physician - Dionisio Ochoa MD Primary Care Physician - ALYCIA ARCHER APRN Referring Physician - Dionisio Ochoa MD Your Diagnosis Delay hemorrhage Normal labor Problems Ongoing - Any problem that you are currently receiving treatment for. Depression GERD (gastroesophageal reflux disease) History of ectopic History of gestational diabetes History of delivery History of delivery, currently in third trimester History of recurrent miscarriages Normal in multigravida in third trimester with history of ectopic , antepartum Tobacco use Historical - Any problem that you are no longer receiving treatment for. History of delivery, currently in first trimester Supervision of normal in second trimester Procedures Performed ???Dilation and Curettage (03/08/2024) Tests Performed/Pending ABO/Rh Amnisure ROM Antibody Screen Gel Automated Diff CBC w/ Diff CMP Group B Strep (GeneXpert) Hematocrit Hemoglobin Discharge Vitals Temperature??(Temporal Artery) 98.1 ??F (36.7 ??C) Heart Rate??(Peripheral) 62 Respiratory Rate?? 18 Blood Pressure?? 143/85?? Allergies Blueberries??(Anaphylaxis) penicillin??(Hives) Education Materials [facility] POST DISCHARGE INSTRUCTIONS Going home after a Vaginal or delivery GENERAL: You have just had a baby. It is normal to feel tired and worn out over the next several weeks. Sleep is difficult to get when you have a . We recommend sleeping when your baby sleeps if possible or asking someone to watch your so you can nap. Some discomfort is expected after a vaginal delivery. Most times this discomfort can be adequately managed with rest, heat, Ibuprofen, and Tylenol. Occasionally a narcotic may be needed for breakthrough pain. If you begin to have pain that is not controlled with the medications you were sent home with or if you develop fever and chills, please give the office a call. Vaginal bleeding is normal as your uterus works on returning to its normal size. While nursing yourbaby your uterus may feel crampy and your bleeding may increase during these times. You may experience some clots that may be dime size, quarter size and fifty cent size. This is normal. If you continue to pass larger clots, and the flow is increasing over 4 hours, we recommend that you call the office. If you had a vaginal tear that required suturing these sutures will dissolve over the next three weeks. During this process you may notice some yellowish drainage that may have a foul odor. This is the suture material breaking down, and it is a normal process. Keep the tissue clean with your pericare bottle or by taking a bath. Tucks pads can also be helpful. If you have an incision on your abdomen these sutures will dissolve on their own over the next 2 to 3 weeks. There are sutures that are deeper inside that will take 3 months to dissolve. Remember that eating a diet rich in protein will help your incision heal. When showering let the water run over your incision and pat dry with a towel. You do not need to redress the wound. If it rubs against your pants and feels sore, it is fine to place a gauze pad between your incision and your clothing for cushioning. If you are your milk will come in three or four days after you have given . It is normal for your nipples to feel sore for the first couple of weeks, but it is not normal for them to bleed, crack, or feel so raw that you feel like stopping breast feeding. We have support on the OB unit and Lore is also a middleware consultant in the office. They are very willing to help and provide support in any way they can. During your we talked about what your control plans would be after your delivery. Most times we can make a plan at your six week post checkup and start the plan of your choice at that time. If we know ahead of time what your plan is we can schedule you appropriately and make sure we have what we need on hand when you come for the appointment. It is normal to experience post blues. Your hormone levels change dramatically after you deliver and this can cause you to feel tired, teary eyed, sad, and overwhelmed at times. The post blues typically improve after 2-3 weeks. Post depression can settle in after that and can be very worrisome. If you feel that you cannot stop crying, do not want to see your baby, are struggling to leave your house and/or find that your mind is racing and you can't settle down, please call [facility], and we can see you to discuss depression. ACTIVITY: If you had a vaginal tear that required suturing please avoid sexual intercourse until your six week post visit. If you had no tearing we recommend that you wait to have intercourse until all of your bleeding has stopped. Keep in mind that you can get if you aren't on anything for contraception. If your baby was delivered by please avoid sexual intercourse until your six week post visit. You should also do no heavy lifting for six weeks. Any lifting that takes the strength ofboth of your arms/hands is contraindicated. If you need both hands because whatever you are liftingis cumbersome that is fine. For example, a laundry basket with a few bath towels in it. Also it is good for you to climb stairs and to go for small walks. Your blood volume doubles during . After delivery your body works on removing all of this extra fluid. You may have noticed that your legs and ankles felt pretty swollen prior to delivery. It is normal to see this swelling get worse after delivery. It gets worse if you aren't drinking enough water and/or if you are eating foods with too much sodium. Push the water and watch your salts tohelp the swelling resolve as quickly as possible. Putting your feet up and wearing 2 pairs of socksfor compression can help as well. Most post women who wish to return to work typically do so between 6 and 12 weeks. If you feel you have recovered to the point that you are ready to return to work, please call the office and let one of the secretaries know. It is usually best to discuss your return to work with your employer and pick a date for your return you both agree upon. Let us know that date and a letter will be provided that can be faxed to your employer clearing you to return to work without restriction on yourchosen date. MEDICATIONS: Continue all regularly prescribed medications unless your provider told you to stop a particular medication after your delivery. Continue taking your vitamins until your six week post visit. Ibuprofen is the best medication for your baseline pain control. Taking 600mg by mouth every four hours well help with most of your post pain. Taking it with food is best so it doesn't upset your stomach. Taking it consistently will provide you the greatest pain relief. Tylenol combined with a narcotic: You may have been sent home with a narcotic for pain control. Taking 1 or 2 tablets every 4-6 hours as needed can be helpful for pain you have that isn't covered by the Ibuprofen. We recommend trying one tablet in an attempt to get your pain at a five or less on the pain scale. If after twenty minutes your pain is still greater than a five, you may take the second tablet. There is typically 325mg of Tylenol in each tablet. Be careful not to consume more than 3000mg of Tylenol daily. Most people will find that they need narcotic containing medications sparingly and within a few days not at all. If you had a delivery you may need this medication for a few extra days. These medications are constipating, can leave you slightly sick to your stomach and don't help with inflammation. Increase fluids and fiber. You may need an over the counter stool softener such as Colace or Senna. Taper this type of medication first and then the Ibuprofen. Our office policy is that post op patients can use narcotics in addition to Ibuprofen for up to 7 days. After that, post op pain should be treated with Ibuprofen alone and no further prescriptions for narcotics will be provided. These are the two main medications that we use for post op pain management. See below for the medications that we have recommended you use when you go home. You will have to have the prescriptions filled by your pharmacy. Ibuprofen 600mg by mouth every 4 hours for baseline pain control. Percocet 5/325mg by mouth, 1 or 2 tablets every 4 to 6 hours as needed for pain. Tylenol #3 by mouth, 1 or 2 tablets every 4 to 6 hours as needed for pain. Continue taking your vitamins at least until your six week post visit. Iron sulfate 325mg twice daily - take on an empty stomach with a glass of OJ or a vitamin C tablet until gone. Colace or Senakot once or twice daily to avoid constipation. NorQD for control taken daily at the same time starting in 2 weeks. FOLLOW UP APPOINTMENT: Post appointment is on @ . If this time does not work for you, please call the office to reschedule. The number is . If you need to contact Maternity thenumber is and ask for the Maternity Department. Patient/Transportation Equipment Painter Signature Patient Name:BRIDGET ALCOCER Alvaro I have received this information and my questions have been answered. Patient/Transportation Equipment Painter Name: Patient/Transportation Equipment Painter Signature: Relationship to Patient: Witness Name/Signature: Date: Electronically Signed on: 03/09/2024 11:35 EDTSigned by:MITZY summary Document * Event Display: Summary Document Procedure note * Love Kamara: PERFORM Event Display: Procedure Note Authored Date: [id number] 03/07/2024 15:48:10 Epidural placement for labor and delivery Monitors attached and patient positioned sitting on the side of the bed. L 3-4 interspace identified using landmarks 1503 - Sterile prep and drape.?? Sterile gloved used. 1% lidocaine used on skin then 17g Touhey needle used for epidural placement. Attempt x2 1516 - Loss of resistance found at 9 cm Catheter threaded with ease - secured at??17 cm No CSF; no heme; no paresthesia 1517 - Test dose syringe was attached; negative aspiration.?? 5mL 1.5% lidocaine with 1:200,000 epinephrine given.?? Test dose negative. 1527 - Bolus dose 2% lidocaine 5mL 1532 - Ropiviaine 0.2% gtt started at 10 mL/hr Electronically Signed on 03/07/2024 15:50 EDT Love Kamara * Love Kamara: PERFORM Event Display: Procedure Note Authored Date: [id number] 2031 - Called to patient bedside for increasing discomfort with contractions. A bolus dose of lidocaine 2% 5mL was given and ropivicaine increased to 12 mL/hr Electronically Signed on 03/07/2024 20:41 EDT Love Kamara Note * Dionisio Ochoa MD: PERFORM Event Display: OB Delivery Summary Authored Date: [id number] BRIDGET ALCOCER :2000 Age:24 years Sex:Female Visit Date:03/07/2024 Primary Care Physician: ALYCIA ARCHER APRN Delivery over IP Disposition History/Labor Course 24-year-old -1-4-2??at??37 weeks gestation??presented in early labor.?? She did display cervical change from 2 cm to 4 cm dilatation. ??Amniotomy was performed??in the morning of admission??and she did remain at 4 cm throughout most of the day??but did have regular and painful contractions.?? She did eventually receive an epidural for pain management.?Pitocin augmentation was provided andshe did progress normally thereafter.?? She began pushing at complete cervical dilatation??and had a short second stage of labor of less than 10 minutes.?? She delivered a live??born??male weighing 2750 g with score of 8 and 9.?? Placenta was delivered spontaneously intact.?? IV Pitocin was administered for third stage. ??Intact perineum was noted.?? EBL at the time of delivery was 150 mL. Delivery Documentation Baby A Delivery Details Delivery Type:Vaginal Date, Time of :03/07/2024 21:30 EDT Delivery of Head Date, Time:03/07/2024 21:29 EDT D-EGA at Delivery:37W 3D(Recorded: 03/07/2024 21:30 EDT) EGA at Pvues65P 3D(Recorded: 03/07/2024 21:30 EDT) D-EGA at Delivery:37 weeks 3 days(Recorded: 03/07/2024 21:30 EDT) Details Outcome:Live Gender:Male Weight:2.750 kg Multiple Gestation Description:Anderson Score 1 Minute:8 Score 5 Minute:9 Resuscitation at :Suction Placenta Details Placenta Delivery Date, Time:03/07/2024 21:35 EDT Placenta Delivery Method:Spontaneous Placenta to Pathology:Yes Maternal and Complications Maternal Delivery Complications:None Complications:None Nuchal Cord Times:1 Nuchal Cord Tension:Loose Nuchal Cord Intervention:Reduced prior to delivery Umbilical Cord Description:3 vessel cord, Nuchal cord Cord Blood Banking:No Cord Blood Sent to Lab:Yes Additional Delivery Information Presenting PartVertex(Recorded: 03/07/2024 05:40 EDT) Presenting PartVertex(Recorded: 03/07/2024 02:30 EDT) Presenting PartVertex(Recorded: 03/07/2024 00:30 EDT) Anesthesia TypeGeneral Assessment/Plan 1.??Normal labor??O80 Outcome of delivery, unspecified??Z37.9 Orders: fentaNYL, 50 mcg = 1 mL, IV Push, Injection, every 1 hr, PRN pain, severe, First Dose: 03/07/24 2:40:00 EDT, Physician Stop, Routine methylergonovine, 0.2 mg = 1 mL, Intramuscular, Vial, Once, PRN other (see comment), First Dose: 03/07/24 23:05:00 EDT, Physician Stop, Routine miSOPROStol, 1,000 mcg = 5 tab, Rectal, Tab, Once, PRN bleeding, First Dose: 03/07/24 23:05:00 EDT,Physician Stop, Routine ondansetron, 4 mg = 2 mL, IV Push, Vial, every 4 hr, PRN nausea/vomiting, First Dose: 03/07/24 16:21:00 EDT, Routine, zofran oxytocin, 10 units = 1 mL, Intramuscular, Vial, Once, PRN other (see comment), First Dose: 03/07/2423:05:00 EDT, Physician Stop, Routine oxytocin IV additive 20 units + LR Diluent 1,000 mL, Total Volume (mL): 1,002, 1,000 mL, Vial, IV, Titrate per protocol, Start Date: 03/07/24 23:05:00 EDT, 109 kg, Populate Charting Weight From Order, 2.24, m2 oxytocin IV additive 30 units + LR Diluent 500 mL, Total Volume (mL): 503, 500 mL, Vial, IV, Titrate Per protocol, Order Duration: 30 days, Start Date: 03/07/24 16:55:00 EDT, Stop Date: 04/06/24 16:54:00 EDT, 109 kg, Populate Charting Weight From Order, 2.24, m2 tranexamic acid, 1,000 mg = 100 mL, IV Piggyback, Injection, Once, PRN bleeding, Administer over: 20 minutes, First Dose: 03/07/24 23:05:00 EDT, Physician Stop, Routine, 300 mL/hr Diet Order, 03/07/24 23:05:00 EDT, Regular Discontinue IV Fluids, 03/07/24 23:05:00 EDT, Stop date 03/07/24 23:05:00 EDT, Discontinue intravenous fluids with good oral intake if IV no longer needed. Discontinue Saline Lock, 03/07/24 23:05:00 EDT, Stop date 03/07/24 23:05:00 EDT Screen, Blood, Routine, 03/07/24 23:05:00 EDT, Once, Lab Collect Hematocrit, Blood, Routine, 03/07/24 23:05:00 EDT, every morning, Lab Collect Hemoglobin, Blood, Routine, 03/07/24 23:05:00 EDT, every morning, Lab Collect Notify Provider, 03/07/24 23:05:00 EDT, Constant order, of blood loss > 1 pad in less than 2hrs Notify Provider, 03/07/24 23:05:00 EDT, Constant order, of active blood clots Notify Provider, 03/07/24 23:05:00 EDT, Constant order, of large gushes/continuous trickle/heavy bleeding Checks, 03/07/24 23:05:00 EDT, every 12 hr (rudy), PRN PSO Admit to Inpatient, Obstetrics, Inpatient, 03/07/24 2:42:00 EDT, 03/07/24 2:42:00 EDT, 242:42:00 EDT, 2 midnights or more Rhogam, Routine, Print Label Saline Lock Flush, 03/07/24 23:05:00 EDT, Stop date 03/07/24 23:05:00 EDT, may d/c once taking adequate fluids Saline Lock Insert, 03/07/24 23:05:00 EDT, Stop date 03/07/24 23:05:00 EDT Straight Catheter Insertion, Stop date 03/07/24 23:05:00 EDT, If not voiding, straight catheter as needed Urinary Catheter Discontinue, 03/07/24 23:05:00 EDT LMP/EGA/JEREMÍAS Last Menstrual Period: 06/19/23 Gestational Age (EGA) and JEREMÍAS? * Note: EGA calculated as of 03/08/2024 ?? JEREMÍAS:??03/25/2024?EGA*:??37 weeks 3 days ?Type:??Authoritative?Method Date:??06/19/2023 ?Method:??Last Menstrual Period??(06/19/2023) ?Confirmation:??Confirmed [...] ?Type:??Non-Authoritative ?Comments:??-- ?Entered by:??Lisa Cisse on 09/05/2023 Membrane Status Information Baby A ROM Date, Time:03/07/2024 08:35 EDT Membrane Status:Artificial rupture of membranes Amniotic Fluid Color/Description:Clear Labor Information Baby A Labor Onset Methods:Spontaneous, Augmented Augmentation Methods:Artificial rupture of membranes, Oxytocin infusion Precipitous Labor:No Prolonged Labor:No OB History History?(1,1,4,2)? # 1?Marked as Sensitive [...] Medical Management ?Gest Age:??Unknown ? Outcome:? Sex:??-- Antepartum Risk Factors Risk Factors, Antepartum Current Preg: Drug abuse during , Tobacco use during (03/07/24) Problem List/Past Medical History Ongoing Depression GERD (gastroesophageal reflux disease) History of ectopic History of gestational diabetes History of delivery History of delivery, currently in third trimester History of recurrent miscarriages Normal in multigravida in third trimester with history of ectopic , antepartum Tobacco use Historical History of delivery, currently in first trimester Supervision of normal in second trimester Medications Inpatient acetaminophen, 650 mg= 2 tab, Oral, every 4 hr, PRN calcium (as carbonate) 500 mg oral tablet, 500 mg= 1 tab, Oral, every 2 hr, PRN calcium (as carbonate) 500 mg oral tablet, 1000 mg= 2 tab, Oral, every 2 hr, PRN fentaNYL, 50 mcg= 1 mL, IV Push, every 1 hr, PRN methylergonovine, 0.2 mg= 1 mL, Intramuscular, Once, PRN miSOPROStol, 1000 mcg= 5 tab, Rectal, Once, PRN ondansetron, 4 mg= 2 mL, IV Push, every 4 hr, PRN oxytocin, 10 units= 1 mL, Intramuscular, Once, PRN oxytocin IV additive 20 units + LR Diluent 1,000 mL oxytocin IV additive 30 units + LR Diluent 500 mL ropivacaine 0.2% IV additive 200 mg + Premix Diluent 100 mL tranexamic acid, 1000 mg= 100 mL, IV Piggyback, Once, PRN Home acetaminophen 500 mg oral tablet, 1000 mg= [...] tab, Chewed, QID, PRN Allergies Blueberries??(Anaphylaxis) penicillin??(Hives) Transcribed Labs ABO/Rh Echo: O POS ABO/Rh Type: O POS Blood Type, Transcribed: O positive Chlamydia Date Performed: 10/04/23 Chlamydia, Transcribed: Negative GBS Date Performed: 03/07/24 Genetic Testing Date Performed: 09/23/23 Genetic Testing, Results Text: Inheritest: negativeMaterniT 21: negative/male Genetic Testing, Transcribed: Yes Gonorrhea Date Performed: 10/04/23 Gonorrhea, Transcribed: Negative Group B Strep, Transcribed: Negative Hepatitis B Date Performed: 09/06/23 Hepatitis B, Transcribed: Negative HIV Antibodies, Transcribed: Negative HIV Date Performed: 09/06/23 RPR Date Performed: 09/06/23 RPR, Transcribed: Negative Rubella Date Performed: 09/06/23 Rubella,Transcribed: Immune Electronically Signed on 03/08/2024 02:40 EDT Dionisio Ochoa MD Progress note * Dionisio Ochoa MD: PERFORM Event Display: Progress Note - Physician Authored Date: [id number] BRIDGET ALCOCER :2000 Age:24 years Sex:Female Visit Date:03/07/2024 Primary Care Physician: ALYCIA ARCHER APRN Subjective Doing well this morning. Still having some uterine cramping.?? Bleeding was somewhat moderate earlier in the evening but now improved. Feels ready for discharge home. Objective Vitals & Measurements T:??36.5?C ??(Temporal Artery)?? TMIN:??36.5?C ??(Temporal Artery)?? TMAX:??36.9?C ??(Temporal Artery)?? HR:??78??(Peripheral)?? RR:??16?? BP:??126/74?? Pain Score:??4?? O2 Therapy:??Roomair?? Assessment/Plan 1.??Delay hemorrhage??O72.2 ?? day #2 status post?complicated by??uterine atony??requiring??D&C and Tawnya catheter placement. ??Remainder of course was uncomplicated??and she was felt suitable fordischarge home. 2.??Normal labor??O80 Orders: ibuprofen, 600 mg = 1 tab, Oral, Tab, every 6 hr, PRN pain, First Dose: 03/08/24 9:41:00 EDT, Routine oxyCODONE 5 mg oral tablet, 5 mg = 1 tab, Oral, Tab, every 4 hr for 4 doses, PRN pain, First Dose: 03/08/24 9:32:00 EDT, Stop Date: Limited # of times, Physician Stop, Routine Electronically Signed on 03/09/2024 07:53 EDT Dionisio Ochoa MD Physician Outpatient Note * Dionisio Ochoa MD: PERFORM Event Display: Office Clinic Note Physician Authored Date: [id number] BRIDGET ALCOCER :2000 Age:24 years Sex:Female Visit Date:03/07/2024 Primary Care Physician: ALYCIA ARCHER APRN Chief Complaint contractions, fluid leaking History of Present Illness Doing well this morning.?? Moderate discomfort due to Kennedy and Tawnya catheters. No significant bleeding for remainder of the night and morning.?? Repeat H/H 10.7/30.9 Visit Baby A Activity:Present per patient(Recorded: 03/07/2024 20:30 EDT) Activity:Present per patient(Recorded: 03/07/2024 20:15 EDT) Activity:Present per patient(Recorded: 03/07/2024 20:00 EDT) Activity:Present per patient(Recorded: 03/07/2024 19:45 EDT) Activity:Present per palpation(Recorded: 03/07/2024 19:00 EDT) Activity:Present per palpation(Recorded: 03/07/2024 18:45 EDT) Activity:Present per palpation(Recorded: 03/07/2024 18:30 EDT) Activity:Present per palpation(Recorded: 03/07/2024 18:15 EDT) Activity:Present per palpation(Recorded: 03/07/2024 18:00 EDT) Activity:Present per palpation(Recorded: 03/07/2024 17:45 EDT) Activity:Present per patient(Recorded: 03/07/2024 17:30 EDT) Activity:Present per patient(Recorded: 03/07/2024 17:10 EDT) Activity:Present per patient(Recorded: 03/07/2024 16:50 EDT) Activity:Present per patient(Recorded: 03/07/2024 16:30 EDT) Activity:Present per patient(Recorded: 03/07/2024 16:10 EDT) Activity:Present per patient(Recorded: 03/07/2024 15:50 EDT) Activity:Present per patient(Recorded: 03/07/2024 15:00 EDT) Activity:Present per patient(Recorded: 03/07/2024 14:40 EDT) Activity:Present per patient(Recorded: 03/07/2024 14:20 EDT) Activity:Present per patient(Recorded: 03/07/2024 12:45 EDT) Activity:Present per patient(Recorded: 03/07/2024 11:45 EDT) Activity:Present per patient(Recorded: 03/07/2024 11:25 EDT) Activity:Present per patient(Recorded: 03/07/2024 10:45 EDT) Activity:Present per patient(Recorded: 03/07/2024 10:25 EDT) Activity:Present per patient(Recorded: 03/07/2024 10:05 EDT) Activity:Present per patient(Recorded: 03/07/2024 09:45 EDT) Activity:Present per patient(Recorded: 03/07/2024 09:25 EDT) Activity:Present per patient(Recorded: 03/07/2024 09:05 EDT) Activity:Present per patient(Recorded: 03/07/2024 07:30 EDT) Activity:Present per patient(Recorded: 03/07/2024 02:30 EDT) Activity:Present per patient(Recorded: 03/07/2024 02:00 EDT) Activity:Present per patient(Recorded: 03/07/2024 01:30 EDT) Activity:Present per patient(Recorded: 03/07/2024 01:00 EDT) Activity:Present per patient(Recorded: 03/07/2024 00:30 EDT) FHR:135 bpm(Recorded: 03/07/2024 20:30 EDT) FHR:135 bpm(Recorded: 03/07/2024 20:15 EDT) FHR:140 bpm(Recorded: 03/07/2024 20:00 EDT) FHR:140 bpm(Recorded: 03/07/2024 19:45 EDT) FHR:135 bpm(Recorded: 03/07/2024 19:00 EDT) FHR:135 bpm(Recorded: 03/07/2024 18:45 EDT) FHR:140 bpm(Recorded: 03/07/2024 18:30 EDT) FHR:135 bpm(Recorded: 03/07/2024 18:15 EDT) FHR:135 bpm(Recorded: 03/07/2024 18:00 EDT) FHR:140 bpm(Recorded: 03/07/2024 17:45 EDT) FHR:135 bpm(Recorded: 03/07/2024 17:30 EDT) FHR:135 bpm(Recorded: 03/07/2024 17:10 EDT) FHR:135 bpm(Recorded: 03/07/2024 16:50 EDT) FHR:125 bpm(Recorded: 03/07/2024 16:30 EDT) FHR:135 bpm(Recorded: 03/07/2024 16:10 EDT) FHR:135 bpm(Recorded: 03/07/2024 15:50 EDT) FHR:135 bpm(Recorded: 03/07/2024 15:00 EDT) FHR:145 bpm(Recorded: 03/07/2024 14:40 EDT) FHR:145 bpm(Recorded: 03/07/2024 14:20 EDT) FHR:144 bpm(Recorded: 03/07/2024 12:45 EDT) FHR:135 bpm(Recorded: 03/07/2024 11:45 EDT) FHR:125 bpm(Recorded: 03/07/2024 11:25 EDT) FHR:135 bpm(Recorded: 03/07/2024 11:05 EDT) FHR:145 bpm(Recorded: 03/07/2024 10:45 EDT) FHR:125 bpm(Recorded: 03/07/2024 10:25 EDT) FHR:120 bpm(Recorded: 03/07/2024 10:05 EDT) FHR:135 bpm(Recorded: 03/07/2024 09:45 EDT) FHR:135 bpm(Recorded: 03/07/2024 09:25 EDT) FHR:125 bpm(Recorded: 03/07/2024 09:05 EDT) FHR:144 bpm(Recorded: 03/07/2024 07:30 EDT) FHR:120 bpm(Recorded: 03/07/2024 06:11 EDT) FHR:110 bpm(Recorded: 03/07/2024 05:55 EDT) FHR:120 bpm(Recorded: 03/07/2024 04:20 EDT) FHR:140 bpm(Recorded: 03/07/2024 02:30 EDT) FHR:125 bpm(Recorded: 03/07/2024 02:00 EDT) FHR:130 bpm(Recorded: 03/07/2024 01:30 EDT) FHR:135 bpm(Recorded: 03/07/2024 01:00 EDT) FHR:135 bpm(Recorded: 03/07/2024 00:30 EDT) FHR:135 bpm(Recorded: 03/07/2024 00:25 EDT) FHR Baseline:135(Recorded: 03/07/2024 19:00 EDT) FHR Baseline:135(Recorded: 03/07/2024 18:45 EDT) FHR Baseline:140(Recorded: 03/07/2024 18:30 EDT) FHR Baseline:135(Recorded: 03/07/2024 18:15 EDT) FHR Baseline:135(Recorded: 03/07/2024 18:00 EDT) FHR Baseline:140(Recorded: 03/07/2024 17:45 EDT) FHR Baseline:135(Recorded: 03/07/2024 17:30 EDT) FHR Baseline:135(Recorded: 03/07/2024 17:10 EDT) FHR Baseline:135(Recorded: 03/07/2024 16:50 EDT) FHR Baseline:125(Recorded: 03/07/2024 16:30 EDT) FHR Baseline:135(Recorded: 03/07/2024 16:10 EDT) FHR Baseline:135(Recorded: 03/07/2024 15:50 EDT) FHR Baseline:135(Recorded: 03/07/2024 15:00 EDT) FHR Baseline:145(Recorded: 03/07/2024 14:40 EDT) FHR Baseline:145(Recorded: 03/07/2024 14:20 EDT) FHR Baseline:135(Recorded: 03/07/2024 11:45 EDT) FHR Baseline:125(Recorded: 03/07/2024 11:25 EDT) FHR Baseline:135(Recorded: 03/07/2024 11:05 EDT) FHR Baseline:145(Recorded: 03/07/2024 10:45 EDT) FHR Baseline:125(Recorded: 03/07/2024 10:25 EDT) FHR Baseline:120(Recorded: 03/07/2024 10:05 EDT) FHR Baseline:135(Recorded: 03/07/2024 09:45 EDT) FHR Baseline:135(Recorded: 03/07/2024 09:25 EDT) FHR Baseline:125(Recorded: 03/07/2024 09:05 EDT) Vital Signs/Measurements Systolic Blood Wwelornx096 mmHg(Recorded: 03/08/2024 02:00 EDT) Systolic Blood Emkmuzeo552 mmHg(Recorded: 03/08/2024 01:55 EDT) Systolic Blood Omrkaiqz598 mmHg(Recorded: 03/08/2024 01:50 EDT) Systolic Blood Nbbgurdd958 mmHg(Recorded: 03/08/2024 01:40 EDT) Systolic Blood Qfyxyerw984 mmHg (High)(Recorded: 03/07/2024 22:45 EDT) Systolic Blood Qegatekz961 mmHg (High)(Recorded: 03/07/2024 22:30 EDT) Systolic Blood Lxjmslkp006 mmHg (High)(Recorded: 03/07/2024 22:15 EDT) Systolic Blood Xhchmbwq293 mmHg(Recorded: 03/07/2024 22:00 EDT) Systolic Blood Abzayreo739 mmHg(Recorded: 03/07/2024 21:45 EDT) Systolic Blood Crfnmvli930 mmHg (High)(Recorded: 03/07/2024 21:08 EDT) Systolic Blood Mwwhhpdi732 mmHg (High)(Recorded: 03/07/2024 21:01 EDT) Systolic Blood Xgkfqcno276 mmHg (High)(Recorded: 03/07/2024 19:30 EDT) Systolic Blood Uctdrmml129 mmHg(Recorded: 03/07/2024 18:38 EDT) Systolic Blood Ndkizxcx689 mmHg(Recorded: 03/07/2024 18:28 EDT) Systolic Blood Hxbnwzvv287 mmHg(Recorded: 03/07/2024 18:18 EDT) Systolic Blood Vhbdzere139 mmHg(Recorded: 03/07/2024 18:08 EDT) Systolic Blood Hvbiacon830 mmHg(Recorded: 03/07/2024 17:58 EDT) Systolic Blood Azohhcnf356 mmHg(Recorded: 03/07/2024 17:48 EDT) Systolic Blood Nrepwgtu600 mmHg(Recorded: 03/07/2024 17:38 EDT) Systolic Blood Kscizzwp018 mmHg (High)(Recorded: 03/07/2024 17:28 EDT) Systolic Blood Gpkxpfcl293 mmHg(Recorded: 03/07/2024 17:25 EDT) Systolic Blood Ttsucize568 mmHg (High)(Recorded: 03/07/2024 17:12 EDT) Systolic Blood Qgzljrbk232 mmHg(Recorded: 03/07/2024 16:58 EDT) Systolic Blood Eubjrrmn465 mmHg(Recorded: 03/07/2024 16:43 EDT) Systolic Blood Bifbjysh961 mmHg (High)(Recorded: 03/07/2024 16:38 EDT) Systolic Blood Cszdcjcc406 mmHg (High)(Recorded: 03/07/2024 16:34 EDT) Systolic Blood Fhhxphlx356 mmHg (High)(Recorded: 03/07/2024 16:23 EDT) Systolic Blood Ixenmnak613 mmHg (High)(Recorded: 03/07/2024 16:18 EDT) Systolic Blood Fyjdcgbh076 mmHg (High)(Recorded: 03/07/2024 16:13 EDT) Systolic Blood Lxrkunak926 mmHg (High)(Recorded: 03/07/2024 16:08 EDT) Systolic Blood Bwvukrjm337 mmHg (High)(Recorded: 03/07/2024 16:05 EDT) Systolic Blood Mrrkbkht569 mmHg (High)(Recorded: 03/07/2024 15:53 EDT) Systolic Blood Tnptxytm697 mmHg (High)(Recorded: 03/07/2024 15:48 EDT) Systolic Blood Drwpsken131 mmHg (High)(Recorded: 03/07/2024 15:43 EDT) Systolic Blood Umvbofdc486 mmHg (High)(Recorded: 03/07/2024 15:33 EDT) Systolic Blood Cceonomk445 mmHg (High)(Recorded: 03/07/2024 15:32 EDT) Systolic Blood Kzucgkor165 mmHg(Recorded: 03/07/2024 15:28 EDT) Systolic Blood Xajxwfic048 mmHg (High)(Recorded: 03/07/2024 15:18 EDT) Systolic Blood Lwtvqjhq873 mmHg(Recorded: 03/07/2024 14:05 EDT) Systolic Blood Wruuwnyn630 mmHg(Recorded: 03/07/2024 12:04 EDT) Systolic Blood Xhqzowlx232 mmHg(Recorded: 03/07/2024 07:15 EDT) Systolic Blood Plsdlhbb231 mmHg(Recorded: 03/07/2024 00:37 EDT) Diastolic Blood Qwnkyayr53 mmHg(Recorded: 03/08/2024 02:00 EDT) Diastolic Blood Lghlsdet62 mmHg(Recorded: 03/08/2024 01:55 EDT) Diastolic Blood Cviemoix22 mmHg(Recorded: 03/08/2024 01:50 EDT) Diastolic Blood Bthlydpk14 mmHg(Recorded: 03/08/2024 01:40 EDT) Diastolic Blood Ogwtfeuu59 mmHg(Recorded: 03/07/2024 22:45 EDT) Diastolic Blood Pdmasxje81 mmHg(Recorded: 03/07/2024 22:30 EDT) Diastolic Blood Fcvoxxal47 mmHg(Recorded: 03/07/2024 22:15 EDT) Diastolic Blood Efmdzplu87 mmHg(Recorded: 03/07/2024 22:00 EDT) Diastolic Blood Ssnxgbgz19 mmHg(Recorded: 03/07/2024 21:45 EDT) Diastolic Blood Jubhbinu26 mmHg(Recorded: 03/07/2024 21:08 EDT) Diastolic Blood Vfcpmwle99 mmHg(Recorded: 03/07/2024 21:01 EDT) Diastolic Blood Vxpbgdip25 mmHg(Recorded: 03/07/2024 19:30 EDT) Diastolic Blood Yejjamvv53 mmHg(Recorded: 03/07/2024 18:38 EDT) Diastolic Blood Hvepsqev31 mmHg(Recorded: 03/07/2024 18:28 EDT) Diastolic Blood Wlkgabsl22 mmHg(Recorded: 03/07/2024 18:18 EDT) Diastolic Blood Swhhqhkq68 mmHg(Recorded: 03/07/2024 18:08 EDT) Diastolic Blood Etwfdxns34 mmHg(Recorded: 03/07/2024 17:58 EDT) Diastolic Blood Zkqaaigu83 mmHg(Recorded: 03/07/2024 17:48 EDT) Diastolic Blood Tghlodfr27 mmHg(Recorded: 03/07/2024 17:38 EDT) Diastolic Blood Ffgoqnwj04 mmHg(Recorded: 03/07/2024 17:28 EDT) Diastolic Blood Enahlsut63 mmHg(Recorded: 03/07/2024 17:25 EDT) Diastolic Blood Xuhtquzi06 mmHg(Recorded: 03/07/2024 17:12 EDT) Diastolic Blood Xsrczlry14 mmHg(Recorded: 03/07/2024 16:58 EDT) Diastolic Blood Lkrctela56 mmHg(Recorded: 03/07/2024 16:43 EDT) Diastolic Blood Nkhmfbjs66 mmHg(Recorded: 03/07/2024 16:38 EDT) Diastolic Blood Zqdxrwqv75 mmHg(Recorded: 03/07/2024 16:34 EDT) Diastolic Blood Npdbzujh79 mmHg(Recorded: 03/07/2024 16:23 EDT) Diastolic Blood Aaoqqham66 mmHg(Recorded: 03/07/2024 16:18 EDT) Diastolic Blood Ikkcydtm66 mmHg(Recorded: 03/07/2024 16:13 EDT) Diastolic Blood Ongtldeu14 mmHg(Recorded: 03/07/2024 16:08 EDT) Diastolic Blood Zflyawiz30 mmHg(Recorded: 03/07/2024 16:05 EDT) Diastolic Blood Gasvnhjd65 mmHg(Recorded: 03/07/2024 15:53 EDT) Diastolic Blood Ytihrvvv15 mmHg(Recorded: 03/07/2024 15:48 EDT) Diastolic Blood Dxomslyh42 mmHg(Recorded: 03/07/2024 15:43 EDT) Diastolic Blood Rmqsriip40 mmHg(Recorded: 03/07/2024 15:33 EDT) Diastolic Blood Mlfcvnup67 mmHg(Recorded: 03/07/2024 15:32 EDT) Diastolic Blood Zngeghzs69 mmHg(Recorded: 03/07/2024 15:28 EDT) Diastolic Blood Srxcakvw97 mmHg(Recorded: 03/07/2024 15:18 EDT) Diastolic Blood Rzfxlnsg66 mmHg(Recorded: 03/07/2024 14:05 EDT) Diastolic Blood Jkkytvfo63 mmHg(Recorded: 03/07/2024 12:04 EDT) Diastolic Blood Pfsbezak50 mmHg(Recorded: 03/07/2024 07:15 EDT) Diastolic Blood Vkjhlvrv27 mmHg(Recorded: 03/07/2024 00:37 EDT) Cggvqx944 kg(Recorded: 03/07/2024 04:02 EDT) Rpwxbg768 kg(Recorded: 03/07/2024 04:02 EDT) Wsyfdl553 kg(Recorded: 03/07/2024 02:59 EDT) MovementPresent(Recorded: 03/07/2024 04:02 EDT) MovementPresent(Recorded: 03/07/2024 00:25 EDT) Edema EdemaNone Cervical Exam Cervix Dilation6.5 cm(Recorded: 03/07/2024 20:20 EDT) Cervix Dilation5 cm(Recorded: 03/07/2024 19:23 EDT) Cervix Dilation4 cm(Recorded: 03/07/2024 16:54 EDT) Cervix Dilation4 cm(Recorded: 03/07/2024 10:23 EDT) Cervix Dilation4 cm(Recorded: 03/07/2024 08:35 EDT) Cervix Dilation3.5 cm(Recorded: 03/07/2024 05:40 EDT) Cervix Dilation3 cm(Recorded: 03/07/2024 02:30 EDT) Cervix Dilation2 cm(Recorded: 03/07/2024 00:30 EDT) Cervix Fuppctkchd630(Recorded: 03/07/2024 20:20 EDT) Cervix Okpellldrm31(Recorded: 03/07/2024 19:23 EDT) Cervix Uddwrecohh54(Recorded: 03/07/2024 16:54 EDT) Cervix Niexjzmhbx51(Recorded: 03/07/2024 10:23 EDT) Cervix Urshdozopw79(Recorded: 03/07/2024 08:35 EDT) Cervix Fzlwyrqwgb65(Recorded: 03/07/2024 05:40 EDT) Cervix Tazqsfxhzz34(Recorded: 03/07/2024 02:30 EDT) Cervix Yvhtrahxsf84(Recorded: 03/07/2024 00:30 EDT) Station0(Recorded: 03/07/2024 20:20 EDT) Station-2(Recorded: 03/07/2024 16:54 EDT) Station-2(Recorded: 03/07/2024 10:23 EDT) Station-2(Recorded: 03/07/2024 08:35 EDT) Station-2(Recorded: 03/07/2024 05:40 EDT) Station-2(Recorded: 03/07/2024 02:30 EDT) Station-2(Recorded: 03/07/2024 00:30 EDT) Physical Exam Vitals & Measurements T:??36.9?C ??(Temporal Artery)?? HR:??78??(Peripheral)?? RR:??18?? BP:??127/68?? SpO2:??94%?? HT:??165.1??cm?? HT:??165.1??cm?? WT:??109??kg?? WT:??109??kg?? BMI:??39.99?? BMI:??39.99?? Pain Score:??7?? O2 Therapy:??Room air?? BSA:??2.24?? The Tawnya??catheter was removed and the uterus was well contracted with no active bleeding.?? Assessment/Plan 1.??Delay hemorrhage??O72.2 ??PPD 1 s/p with PPH and status post D&C with Tawnya??catheter placement and removal this morning.?? Will add oxycodone for pain management this morning.?? Encourage ambulation Routine care from this point.?? 2.??Normal labor??O80 Orders: methylergonovine, 0.2 mg = 1 mL, Intramuscular, Vial, Once, PRN other (see comment), First Dose: 03/07/24 23:05:00 EDT, Physician Stop, Routine miSOPROStol, 1,000 mcg = 5 tab, Rectal, Tab, Once, PRN bleeding, First Dose: 03/07/24 23:05:00 EDT,Physician Stop, Routine ondansetron, 4 mg = 2 mL, IV Push, Vial, every 4 hr, PRN nausea/vomiting, First Dose: 03/07/24 16:21:00 EDT, Routine, zofran oxyCODONE 5 mg oral tablet, 5 mg = 1 tab, Oral, Tab, every 4 hr for 4 doses, PRN pain, First Dose: 03/08/24 9:32:00 EDT, Stop Date: Limited # of times, Physician Stop, Routine oxytocin, 10 units = 1 mL, Intramuscular, Vial, Once, PRN other (see comment), First Dose: 03/07/2423:05:00 EDT, Physician Stop, Routine oxytocin IV additive 20 units + LR Diluent 1,000 mL, Total Volume (mL): 1,002, 1,000 mL, Vial, IV, Titrate per protocol, Start Date: 03/07/24 23:05:00 EDT, 109 kg, Populate Charting Weight From Order, 2.24, m2 oxytocin IV additive 30 units + LR Diluent 500 mL, Total Volume (mL): 503, 500 mL, Vial, IV, Titrate Per protocol, Order Duration: 30 days, Start Date: 03/07/24 16:55:00 EDT, Stop Date: 04/06/24 16:54:00 EDT, 109 kg, Populate Charting Weight From Order, 2.24, m2 Diet Order, 03/07/24 23:05:00 EDT, Regular Discontinue IV Fluids, 03/07/24 23:05:00 EDT, Stop date 03/07/24 23:05:00 EDT, Discontinue intravenous fluids with good oral intake if IV no longer needed. Discontinue Saline Lock, 03/07/24 23:05:00 EDT, Stop date 03/07/24 23:05:00 EDT Hematocrit, Blood, Routine, 03/07/24 23:05:00 EDT, every morning, Lab Collect Hemoglobin, Blood, Routine, 03/07/24 23:05:00 EDT, every morning, Lab Collect Notify Provider, 03/07/24 23:05:00 EDT, Constant order, of blood loss > 1 pad in less than 2hrs Notify Provider, 03/07/24 23:05:00 EDT, Constant order, of active blood clots Notify Provider, 03/07/24 23:05:00 EDT, Constant order, of large gushes/continuous trickle/heavy bleeding Checks, 03/07/24 23:05:00 EDT, every 12 hr (rudy), PRN Urinary Catheter Discontinue, 03/07/24 23:05:00 EDT Medications and Immunizations This Visit Given Lactated Ringers Injection (ANES), 1000 mL, IV Lactated Ringers Injection, 1000 mL, IV oxytocin IV additive 20 units + LR Diluent 1,000 mL, IV oxytocin IV additive 30 units + LR Diluent 500 mL, IV acetaminophen, 650 mg, 650 mg, Oral albuterol (ANES), 180 mcg, IV dexamethasone (ANES), 10 mg, IV fentaNYL, 50 mcg, 50 mcg, 50 mcg, 50 mcg, 50 mcg, IV Push fentaNYL (ANES), 100 mcg, IV ondansetron, 4 mg, Oral ondansetron, 4 mg, IV Push ondansetron, 4 mg, 4 mg, IV Push propofol (ANES), 200 mg, IV succinylcholine (ANES), 120 mg, IV tranexamic acid, 1000 mg, IV Piggyback LMP/EGA/JEREMÍAS Last Menstrual Period: 06/19/23 Gestational Age (EGA) and JEREMÍAS? * Note: EGA calculated as of 03/08/2024 ?? JEREMÍAS:??03/25/2024?EGA*:??37 weeks 3 days ?Type:??Authoritative?Method Date:??06/19/2023 ?Method:??Last Menstrual Period??(06/19/2023) ?Confirmation:??Confirmed [...] ? Outcome:??Live ? Sex:??Female?Wt:?2722 g ?Child's Name:??Lance ?Hospital:??[facility] ?Comment:??Covid in August prior to delivery, dilated 2 cm, water broke in October, no lacerations ?? # 6 ?Baby 1 ?Outcome Date:??02/2023 ?Outcome or Result:??Ectopic, Medical Management ?Gest Age:??Unknown ? Outcome:? Sex:??-- Risk Screening Risk Factors (Current ) Unique Risk Factors:?Drug abuse during , Tobacco use during ?? Ethnic Screening ?No ethnicities have been [...] History ???Dilation and Curettage (03/08/2024)???Cholecystectomy (06/2016) Medications acetaminophen, 650 mg= 2 tab, Oral, every 4 hr, PRN acetaminophen 500 mg oral tablet, 1000 mg= 2 tab, Oral, every 8 hr, PRN albuterol 90 mcg/inh inhalation powder, 1 puffs, Inhale, every 4 hr, PRN calcium (as carbonate) 500 mg oral tablet, 500 mg= 1 tab, Oral, every 2 hr, PRN calcium (as carbonate) 500 mg oral tablet, 1000 mg= 2 tab, Oral, every 2 hr, PRN cyclobenzaprine 10 mg oral tablet, 10 mg= 1 tab, Oral, TID, PRN fentaNYL, 50 mcg= 1 mL, IV Push, every 1 hr, PRN methylergonovine, 0.2 mg= 1 mL, Intramuscular, Once, PRN miSOPROStol, 1000 mcg= 5 tab, Rectal, Once, PRN ondansetron, 4 mg= 2 mL, IV Push, every 4 hr, PRN ondansetron 4 mg oral tablet, disintegrating, 4 mg= 1 tab, Oral, every 8 hr, PRN oxyCODONE 5 mg oral tablet, 5 mg= 1 tab, Oral, every 4 hr, PRN oxytocin, 10 units= 1 mL, Intramuscular, Once, PRN oxytocin IV additive 20 units + LR Diluent 1,000 mL oxytocin IV additive 30 units + LR Diluent 500 mL Complete with DHA, 1 cap, Oral, Daily [...] Given Transcribed Labs ABO/Rh Echo: O POS ABO/Rh Type: O POS Blood Type, Transcribed: O positive Chlamydia Date Performed: 10/04/23 Chlamydia, Transcribed: Negative GBS Date Performed: 03/07/24 Genetic Testing Date Performed: 09/23/23 Genetic Testing, Results Text: Inheritest: negativeMaterniT 21: negative/male Genetic Testing, Transcribed: Yes Gonorrhea Date Performed: 10/04/23 Gonorrhea, Transcribed: Negative Group B Strep, Transcribed: Negative Hepatitis B Date Performed: 09/06/23 Hepatitis B, Transcribed: Negative HIV Antibodies, Transcribed: Negative HIV Date Performed: 09/06/23 RPR Date Performed: 09/06/23 RPR, Transcribed: Negative Rubella Date Performed: 09/06/23 Rubella,Transcribed: Immune Electronically Signed on 03/08/2024 09:35 EDT Dionisio Ochoa MD * Dionisio Ochoa MD: PERFORM Event Display: Office Clinic Note Physician Authored Date: [id number] BRIDGET ALCOCER :2000 Age:24 years Sex:Female Visit Date:03/07/2024 Primary Care Physician: ALYCIA ARCHER APRN Chief Complaint contractions, fluid leaking History of Present Illness I was called to the bedside??approximately 1 hour postdelivery??for hemorrhage.?? Patient did have passage of approximately 900 mL of blood and clots??which were weighed.?? Uterus was boggy as she was administered??IV Pitocin and tranexamic acid.?? She became fairly intolerant of fundal m assage??and uterus demonstrated??abundant blood and clots within the cavity. ??She was intolerant of??manual evacuation at the bedside??and the decision was made to proceed with??D&C under anesthesia with Tawnya catheter placement Visit Baby A Activity:Present per patient(Recorded: 03/07/2024 20:30 EDT) Activity:Present per patient(Recorded: 03/07/2024 20:15 EDT) Activity:Present per patient(Recorded: 03/07/2024 20:00 EDT) Activity:Present per patient(Recorded: 03/07/2024 19:45 EDT) Activity:Present per palpation(Recorded: 03/07/2024 19:00 EDT) Activity:Present per palpation(Recorded: 03/07/2024 18:45 EDT) Activity:Present per palpation(Recorded: 03/07/2024 18:30 EDT) Activity:Present per palpation(Recorded: 03/07/2024 18:15 EDT) Activity:Present per palpation(Recorded: 03/07/2024 18:00 EDT) Activity:Present per palpation(Recorded: 03/07/2024 17:45 EDT) Activity:Present per patient(Recorded: 03/07/2024 17:30 EDT) Activity:Present per patient(Recorded: 03/07/2024 17:10 EDT) Activity:Present per patient(Recorded: 03/07/2024 16:50 EDT) Activity:Present per patient(Recorded: 03/07/2024 16:30 EDT) Activity:Present per patient(Recorded: 03/07/2024 16:10 EDT) Activity:Present per patient(Recorded: 03/07/2024 15:50 EDT) Activity:Present per patient(Recorded: 03/07/2024 15:00 EDT) Activity:Present per patient(Recorded: 03/07/2024 14:40 EDT) Activity:Present per patient(Recorded: 03/07/2024 14:20 EDT) Activity:Present per patient(Recorded: 03/07/2024 12:45 EDT) Activity:Present per patient(Recorded: 03/07/2024 11:45 EDT) Activity:Present per patient(Recorded: 03/07/2024 11:25 EDT) Activity:Present per patient(Recorded: 03/07/2024 10:45 EDT) Activity:Present per patient(Recorded: 03/07/2024 10:25 EDT) Activity:Present per patient(Recorded: 03/07/2024 10:05 EDT) Activity:Present per patient(Recorded: 03/07/2024 09:45 EDT) Activity:Present per patient(Recorded: 03/07/2024 09:25 EDT) Activity:Present per patient(Recorded: 03/07/2024 09:05 EDT) Activity:Present per patient(Recorded: 03/07/2024 07:30 EDT) Activity:Present per patient(Recorded: 03/07/2024 02:30 EDT) Activity:Present per patient(Recorded: 03/07/2024 02:00 EDT) Activity:Present per patient(Recorded: 03/07/2024 01:30 EDT) Activity:Present per patient(Recorded: 03/07/2024 01:00 EDT) Activity:Present per patient(Recorded: 03/07/2024 00:30 EDT) FHR:135 bpm(Recorded: 03/07/2024 20:30 EDT) FHR:135 bpm(Recorded: 03/07/2024 20:15 EDT) FHR:140 bpm(Recorded: 03/07/2024 20:00 EDT) FHR:140 bpm(Recorded: 03/07/2024 19:45 EDT) FHR:135 bpm(Recorded: 03/07/2024 19:00 EDT) FHR:135 bpm(Recorded: 03/07/2024 18:45 EDT) FHR:140 bpm(Recorded: 03/07/2024 18:30 EDT) FHR:135 bpm(Recorded: 03/07/2024 18:15 EDT) FHR:135 bpm(Recorded: 03/07/2024 18:00 EDT) FHR:140 bpm(Recorded: 03/07/2024 17:45 EDT) FHR:135 bpm(Recorded: 03/07/2024 17:30 EDT) FHR:135 bpm(Recorded: 03/07/2024 17:10 EDT) FHR:135 bpm(Recorded: 03/07/2024 16:50 EDT) FHR:125 bpm(Recorded: 03/07/2024 16:30 EDT) FHR:135 bpm(Recorded: 03/07/2024 16:10 EDT) FHR:135 bpm(Recorded: 03/07/2024 15:50 EDT) FHR:135 bpm(Recorded: 03/07/2024 15:00 EDT) FHR:145 bpm(Recorded: 03/07/2024 14:40 EDT) FHR:145 bpm(Recorded: 03/07/2024 14:20 EDT) FHR:144 bpm(Recorded: 03/07/2024 12:45 EDT) FHR:135 bpm(Recorded: 03/07/2024 11:45 EDT) FHR:125 bpm(Recorded: 03/07/2024 11:25 EDT) FHR:135 bpm(Recorded: 03/07/2024 11:05 EDT) FHR:145 bpm(Recorded: 03/07/2024 10:45 EDT) FHR:125 bpm(Recorded: 03/07/2024 10:25 EDT) FHR:120 bpm(Recorded: 03/07/2024 10:05 EDT) FHR:135 bpm(Recorded: 03/07/2024 09:45 EDT) FHR:135 bpm(Recorded: 03/07/2024 09:25 EDT) FHR:125 bpm(Recorded: 03/07/2024 09:05 EDT) FHR:144 bpm(Recorded: 03/07/2024 07:30 EDT) FHR:120 bpm(Recorded: 03/07/2024 06:11 EDT) FHR:110 bpm(Recorded: 03/07/2024 05:55 EDT) FHR:120 bpm(Recorded: 03/07/2024 04:20 EDT) FHR:140 bpm(Recorded: 03/07/2024 02:30 EDT) FHR:125 bpm(Recorded: 03/07/2024 02:00 EDT) FHR:130 bpm(Recorded: 03/07/2024 01:30 EDT) FHR:135 bpm(Recorded: 03/07/2024 01:00 EDT) FHR:135 bpm(Recorded: 03/07/2024 00:30 EDT) FHR:135 bpm(Recorded: 03/07/2024 00:25 EDT) FHR Baseline:135(Recorded: 03/07/2024 19:00 EDT) FHR Baseline:135(Recorded: 03/07/2024 18:45 EDT) FHR Baseline:140(Recorded: 03/07/2024 18:30 EDT) FHR Baseline:135(Recorded: 03/07/2024 18:15 EDT) FHR Baseline:135(Recorded: 03/07/2024 18:00 EDT) FHR Baseline:140(Recorded: 03/07/2024 17:45 EDT) FHR Baseline:135(Recorded: 03/07/2024 17:30 EDT) FHR Baseline:135(Recorded: 03/07/2024 17:10 EDT) FHR Baseline:135(Recorded: 03/07/2024 16:50 EDT) FHR Baseline:125(Recorded: 03/07/2024 16:30 EDT) FHR Baseline:135(Recorded: 03/07/2024 16:10 EDT) FHR Baseline:135(Recorded: 03/07/2024 15:50 EDT) FHR Baseline:135(Recorded: 03/07/2024 15:00 EDT) FHR Baseline:145(Recorded: 03/07/2024 14:40 EDT) FHR Baseline:145(Recorded: 03/07/2024 14:20 EDT) FHR Baseline:135(Recorded: 03/07/2024 11:45 EDT) FHR Baseline:125(Recorded: 03/07/2024 11:25 EDT) FHR Baseline:135(Recorded: 03/07/2024 11:05 EDT) FHR Baseline:145(Recorded: 03/07/2024 10:45 EDT) FHR Baseline:125(Recorded: 03/07/2024 10:25 EDT) FHR Baseline:120(Recorded: 03/07/2024 10:05 EDT) FHR Baseline:135(Recorded: 03/07/2024 09:45 EDT) FHR Baseline:135(Recorded: 03/07/2024 09:25 EDT) FHR Baseline:125(Recorded: 03/07/2024 09:05 EDT) Vital Signs/Measurements Systolic Blood Lfsykwgg182 mmHg(Recorded: 03/08/2024 01:40 EDT) Systolic Blood Omidriyn817 mmHg (High)(Recorded: 03/07/2024 19:30 EDT) Systolic Blood Llqujdmx536 mmHg(Recorded: 03/07/2024 18:38 EDT) Systolic Blood Gznrztue404 mmHg(Recorded: 03/07/2024 18:28 EDT) Systolic Blood Xifaqpwu040 mmHg(Recorded: 03/07/2024 18:18 EDT) Systolic Blood Zfygfsdb543 mmHg(Recorded: 03/07/2024 18:08 EDT) Systolic Blood Yvtquvdz020 mmHg(Recorded: 03/07/2024 17:58 EDT) Systolic Blood Pprnhzft237 mmHg(Recorded: 03/07/2024 17:48 EDT) Systolic Blood Hrqbstbt694 mmHg(Recorded: 03/07/2024 17:38 EDT) Systolic Blood Iiomuqfz741 mmHg (High)(Recorded: 03/07/2024 17:28 EDT) Systolic Blood Wjuadwzp059 mmHg(Recorded: 03/07/2024 17:25 EDT) Systolic Blood Lmcehajd271 mmHg (High)(Recorded: 03/07/2024 17:12 EDT) Systolic Blood Ihgxibkg662 mmHg(Recorded: 03/07/2024 16:58 EDT) Systolic Blood Wntuzavg605 mmHg(Recorded: 03/07/2024 16:43 EDT) Systolic Blood Coipqvhv591 mmHg (High)(Recorded: 03/07/2024 16:38 EDT) Systolic Blood Oztcrwys617 mmHg (High)(Recorded: 03/07/2024 16:34 EDT) Systolic Blood Uzsgknuw360 mmHg (High)(Recorded: 03/07/2024 16:23 EDT) Systolic Blood Jxylfmlm979 mmHg (High)(Recorded: 03/07/2024 16:18 EDT) Systolic Blood Ykqspxpj407 mmHg (High)(Recorded: 03/07/2024 16:13 EDT) Systolic Blood Ihaasxnt264 mmHg (High)(Recorded: 03/07/2024 16:08 EDT) Systolic Blood Hzzvnodw970 mmHg (High)(Recorded: 03/07/2024 16:05 EDT) Systolic Blood Nrousqjg335 mmHg (High)(Recorded: 03/07/2024 15:53 EDT) Systolic Blood Casrwwos445 mmHg (High)(Recorded: 03/07/2024 15:48 EDT) Systolic Blood Ghokgvuk322 mmHg (High)(Recorded: 03/07/2024 15:43 EDT) Systolic Blood Zwnplvki026 mmHg (High)(Recorded: 03/07/2024 15:33 EDT) Systolic Blood Uumlkvmg499 mmHg (High)(Recorded: 03/07/2024 15:32 EDT) Systolic Blood Stzwfimc887 mmHg(Recorded: 03/07/2024 15:28 EDT) Systolic Blood Zbwiyruu776 mmHg (High)(Recorded: 03/07/2024 15:18 EDT) Systolic Blood Vjpmfcig680 mmHg(Recorded: 03/07/2024 14:05 EDT) Systolic Blood Savjvmaq647 mmHg(Recorded: 03/07/2024 12:04 EDT) Systolic Blood Xhftutpe970 mmHg(Recorded: 03/07/2024 07:15 EDT) Systolic Blood Cdgmfuzq886 mmHg(Recorded: 03/07/2024 00:37 EDT) Diastolic Blood Vodfjzfk74 mmHg(Recorded: 03/08/2024 01:40 EDT) Diastolic Blood Hlygjqls65 mmHg(Recorded: 03/07/2024 19:30 EDT) Diastolic Blood Scxuohlg07 mmHg(Recorded: 03/07/2024 18:38 EDT) Diastolic Blood Kihuusov31 mmHg(Recorded: 03/07/2024 18:28 EDT) Diastolic Blood Qqcgvygw69 mmHg(Recorded: 03/07/2024 18:18 EDT) Diastolic Blood Pnokqheh17 mmHg(Recorded: 03/07/2024 18:08 EDT) Diastolic Blood Rdincswf29 mmHg(Recorded: 03/07/2024 17:58 EDT) Diastolic Blood Oacigjuj28 mmHg(Recorded: 03/07/2024 17:48 EDT) Diastolic Blood Vjaockae10 mmHg(Recorded: 03/07/2024 17:38 EDT) Diastolic Blood Jkfedipt52 mmHg(Recorded: 03/07/2024 17:28 EDT) Diastolic Blood Vjraafhg48 mmHg(Recorded: 03/07/2024 17:25 EDT) Diastolic Blood Fpokvkwr67 mmHg(Recorded: 03/07/2024 17:12 EDT) Diastolic Blood Mtoxovnl67 mmHg(Recorded: 03/07/2024 16:58 EDT) Diastolic Blood Vfkgshxy43 mmHg(Recorded: 03/07/2024 16:43 EDT) Diastolic Blood Rgzrjfkz79 mmHg(Recorded: 03/07/2024 16:38 EDT) Diastolic Blood Jvqmqbww13 mmHg(Recorded: 03/07/2024 16:34 EDT) Diastolic Blood Mwhcegwi96 mmHg(Recorded: 03/07/2024 16:23 EDT) Diastolic Blood Tlqbcafp82 mmHg(Recorded: 03/07/2024 16:18 EDT) Diastolic Blood Jkjtvcxx74 mmHg(Recorded: 03/07/2024 16:13 EDT) Diastolic Blood Lizdzmsh65 mmHg(Recorded: 03/07/2024 16:08 EDT) Diastolic Blood Kuktbzio68 mmHg(Recorded: 03/07/2024 16:05 EDT) Diastolic Blood Kmlccdnh91 mmHg(Recorded: 03/07/2024 15:53 EDT) Diastolic Blood Skeviqoh84 mmHg(Recorded: 03/07/2024 15:48 EDT) Diastolic Blood Qyehrjrc02 mmHg(Recorded: 03/07/2024 15:43 EDT) Diastolic Blood Ojobgevg38 mmHg(Recorded: 03/07/2024 15:33 EDT) Diastolic Blood Uphyoyro73 mmHg(Recorded: 03/07/2024 15:32 EDT) Diastolic Blood Mgyexjnt19 mmHg(Recorded: 03/07/2024 15:28 EDT) Diastolic Blood Hwjawqba85 mmHg(Recorded: 03/07/2024 15:18 EDT) Diastolic Blood Kqpctflg85 mmHg(Recorded: 03/07/2024 14:05 EDT) Diastolic Blood Juwfmhgp88 mmHg(Recorded: 03/07/2024 12:04 EDT) Diastolic Blood Lqareyty57 mmHg(Recorded: 03/07/2024 07:15 EDT) Diastolic Blood Fqnkfkbh59 mmHg(Recorded: 03/07/2024 00:37 EDT) Vudcwa617 kg(Recorded: 03/07/2024 04:02 EDT) Ppyvgx035 kg(Recorded: 03/07/2024 04:02 EDT) Ltxsvy901 kg(Recorded: 03/07/2024 02:59 EDT) MovementPresent(Recorded: 03/07/2024 04:02 EDT) MovementPresent(Recorded: 03/07/2024 00:25 EDT) Edema EdemaNone Cervical Exam Cervix Dilation6.5 cm(Recorded: 03/07/2024 20:20 EDT) Cervix Dilation5 cm(Recorded: 03/07/2024 19:23 EDT) Cervix Dilation4 cm(Recorded: 03/07/2024 16:54 EDT) Cervix Dilation4 cm(Recorded: 03/07/2024 10:23 EDT) Cervix Dilation4 cm(Recorded: 03/07/2024 08:35 EDT) Cervix Dilation3.5 cm(Recorded: 03/07/2024 05:40 EDT) Cervix Dilation3 cm(Recorded: 03/07/2024 02:30 EDT) Cervix Dilation2 cm(Recorded: 03/07/2024 00:30 EDT) Cervix Hhkzulopbm819(Recorded: 03/07/2024 20:20 EDT) Cervix Mfnlimhtne92(Recorded: 03/07/2024 19:23 EDT) Cervix Vqttxqdkpf77(Recorded: 03/07/2024 16:54 EDT) Cervix Tuwqczxovs05(Recorded: 03/07/2024 10:23 EDT) Cervix Ohcifdgofy86(Recorded: 03/07/2024 08:35 EDT) Cervix Koymuqgunh63(Recorded: 03/07/2024 05:40 EDT) Cervix Cmoerwcqgv47(Recorded: 03/07/2024 02:30 EDT) Cervix Iuyhrieuqz87(Recorded: 03/07/2024 00:30 EDT) Station0(Recorded: 03/07/2024 20:20 EDT) Station-2(Recorded: 03/07/2024 16:54 EDT) Station-2(Recorded: 03/07/2024 10:23 EDT) Station-2(Recorded: 03/07/2024 08:35 EDT) Station-2(Recorded: 03/07/2024 05:40 EDT) Station-2(Recorded: 03/07/2024 02:30 EDT) Station-2(Recorded: 03/07/2024 00:30 EDT) Physical Exam Vitals & Measurements T:??36.9?C ??(Temporal Artery)?? HR:??80??(Monitored)?? RR:??18?? BP:??127/65?? SpO2:??94%?? HT:??165.1??cm?? HT:??165.1??cm?? WT:??109??kg?? WT:??109??kg?? BMI:??39.99?? BMI:??39.99?? Pain Score:??0?? O2 Therapy:??Room air?? BSA:??2.24?? Assessment/Plan 1.??Delay hemorrhage??O72.2 ??Decision was made to proceed with??suction D&C and??Tawnya??catheter placement. ??Risks of surgery reviewed and consent for surgery was obtained. Stat CBC was ordered??and??patient was typed and crossed for 2 units??PRBCs. 2.??Normal labor??O80 Orders: methylergonovine, 0.2 mg = 1 mL, Intramuscular, Vial, Once, PRN other (see comment), First Dose: 03/07/24 23:05:00 EDT, Physician Stop, Routine miSOPROStol, 1,000 mcg = 5 tab, Rectal, Tab, Once, PRN bleeding, First Dose: 03/07/24 23:05:00 EDT,Physician Stop, Routine ondansetron, 4 mg = 2 mL, IV Push, Vial, every 4 hr, PRN nausea/vomiting, First Dose: 03/07/24 16:21:00 EDT, Routine, zofran oxytocin, 10 units = 1 mL, Intramuscular, Vial, Once, PRN other (see comment), First Dose: 03/07/2423:05:00 EDT, Physician Stop, Routine oxytocin IV additive 20 units + LR Diluent 1,000 mL, Total Volume (mL): 1,002, 1,000 mL, Vial, IV, Titrate per protocol, Start Date: 03/07/24 23:05:00 EDT, 109 kg, Populate Charting Weight From Order, 2.24, m2 oxytocin IV additive 30 units + LR Diluent 500 mL, Total Volume (mL): 503, 500 mL, Vial, IV, Titrate Per protocol, Order Duration: 30 days, Start Date: 03/07/24 16:55:00 EDT, Stop Date: 04/06/24 16:54:00 EDT, 109 kg, Populate Charting Weight From Order, 2.24, m2 tranexamic acid, 1,000 mg = 100 mL, IV Piggyback, Injection, Once, PRN bleeding, Administer over: 20 minutes, First Dose: 03/07/24 23:05:00 EDT, Physician Stop, Routine, 300 mL/hr Diet Order, 03/07/24 23:05:00 EDT, Regular Discontinue IV Fluids, 03/07/24 23:05:00 EDT, Stop date 03/07/24 23:05:00 EDT, Discontinue intravenous fluids with good oral intake if IV no longer needed. Discontinue Saline Lock, 03/07/24 23:05:00 EDT, Stop date 03/07/24 23:05:00 EDT Screen, Blood, Routine, 03/07/24 23:05:00 EDT, Once, Lab Collect Hematocrit, Blood, Routine, 03/07/24 23:05:00 EDT, every morning, Lab Collect Hemoglobin, Blood, Routine, 03/07/24 23:05:00 EDT, every morning, Lab Collect Notify Provider, 03/07/24 23:05:00 EDT, Constant order, of blood loss > 1 pad in less than 2hrs Notify Provider, 03/07/24 23:05:00 EDT, Constant order, of active blood clots Notify Provider, 03/07/24 23:05:00 EDT, Constant order, of large gushes/continuous trickle/heavy bleeding Checks, 03/07/24 23:05:00 EDT, every 12 hr (rudy), PRN PSO Admit to Inpatient, Obstetrics, Inpatient, 03/07/24 2:42:00 EDT, 03/07/24 2:42:00 EDT, :42:00 EDT, 2 midnights or more Rhogam, Routine, Print Label Saline Lock Flush, 03/07/24 23:05:00 EDT, Stop date 03/07/24 23:05:00 EDT, may d/c once taking adequate fluids Saline Lock Insert, 03/07/24 23:05:00 EDT, Stop date 03/07/24 23:05:00 EDT Straight Catheter Insertion, Stop date 03/07/24 23:05:00 EDT, If not voiding, straight catheter as needed Urinary Catheter Discontinue, 03/07/24 23:05:00 EDT Medications and Immunizations This Visit Given Lactated Ringers Injection (ANES), 1000 mL, IV Lactated Ringers Injection, 1000 mL, IV oxytocin IV additive 30 units + LR Diluent 500 mL, IV albuterol (ANES), 180 mcg, IV dexamethasone (ANES), 10 mg, IV fentaNYL, 50 mcg, 50 mcg, 50 mcg, IV Push fentaNYL (ANES), 100 mcg, IV ondansetron, 4 mg, Oral ondansetron, 4 mg, IV Push ondansetron, 4 mg, 4 mg, IV Push propofol (ANES), 200 mg, IV succinylcholine (ANES), 120 mg, IV LMP/EGA/JEREMÍAS Last Menstrual Period: 06/19/23 Gestational Age (EGA) and JEREMÍAS? * Note: EGA calculated as of 03/08/2024 ?? JEREMÍAS:??03/25/2024?EGA*:??37 weeks 3 days ?Type:??Authoritative?Method Date:??06/19/2023 ?Method:??Last Menstrual Period??(06/19/2023) ?Confirmation:??Confirmed [...] Entry):??7 weeks 3 days ?Type:??Non-Authoritative ?Comments:??-- ?Entered by:??Tanna Lisa on 09/05/2023 OB History History?(1,1,4,2)? # 1?Marked [...] weeks ? Outcome:??Live ? Sex:??Female?Wt:?2722 g ?Child's Name:??Cristinamitcheiadria ?Hospital:??[facility] ?Comment:??Covid in August prior to delivery, dilated 2 cm, water broke in October, no lacerations ?? # 6 ?Baby 1 ?Outcome Date:??02/2023 ?Outcome or Result:??Ectopic, Medical Management ?Gest Age:??Unknown ? Outcome:? Sex:??-- Risk Screening Risk Factors (Current ) Unique Risk Factors:?Drug abuse during , Tobacco use during ?? Ethnic Screening ?No ethnicities have been [...] second trimester Procedure/Surgical History ???Cholecystectomy (06/2016) Medications acetaminophen, 650 mg= 2 tab, Oral, every 4 hr, PRN acetaminophen 500 mg oral tablet, 1000 mg= 2 tab, Oral, every 8 hr, PRN albuterol 90 mcg/inh inhalation powder, 1 puffs, Inhale, every 4 hr, PRN calcium (as carbonate) 500 mg oral tablet, 500 mg= 1 tab, Oral, every 2 hr, PRN calcium (as carbonate) 500 mg oral tablet, 1000 mg= 2 tab, Oral, every 2 hr, PRN cyclobenzaprine 10 mg oral tablet, 10 mg= 1 tab, Oral, TID, PRN fentaNYL, 50 mcg= 1 mL, IV Push, every 1 hr, PRN methylergonovine, 0.2 mg= 1 mL, Intramuscular, Once, PRN miSOPROStol, 1000 mcg= 5 tab, Rectal, Once, PRN ondansetron, 4 mg= 2 mL, IV Push, every 4 hr, PRN ondansetron 4 mg oral tablet, disintegrating, 4 mg= 1 tab, Oral, every 8 hr, PRN oxytocin, 10 units= 1 mL, Intramuscular, Once, PRN oxytocin IV additive 20 units + LR Diluent 1,000 mL oxytocin IV additive 30 units + LR Diluent 500 mL Complete with DHA, 1 cap, Oral, Daily promethazine 25 mg oral tablet, 25 mg= 1 tab, Oral, every night at bedtime Protonix 20 mg oral delayed release tablet, 20 mg= 1 tab, Oral, Daily, 3 refills ropivacaine 0.2% IV additive 200 mg + Premix Diluent 100 mL tranexamic acid, 1000 mg= 100 mL, IV Piggyback, Once, PRN Tums 500 mg oral tablet, chewable, 1000 [...] Given Transcribed Labs ABO/Rh Echo: O POS ABO/Rh Type: O POS Blood Type, Transcribed: O positive Chlamydia Date Performed: 10/04/23 Chlamydia, Transcribed: Negative GBS Date Performed: 03/07/24 Genetic Testing Date Performed: 09/23/23 Genetic Testing, Results Text: Inheritest: negativeMaterniT 21: negative/male Genetic Testing, Transcribed: Yes Gonorrhea Date Performed: 10/04/23 Gonorrhea, Transcribed: Negative Group B Strep, Transcribed: Negative Hepatitis B Date Performed: 09/06/23 Hepatitis B, Transcribed: Negative HIV Antibodies, Transcribed: Negative HIV Date Performed: 09/06/23 RPR Date Performed: 09/06/23 RPR, Transcribed: Negative Rubella Date Performed: 09/06/23 Rubella,Transcribed: Immune Electronically Signed on 03/08/2024 02:43 EDT Dionisio Ochoa MD History and physical note * Dionisio Ochoa MD: PERFORM Event Display: History and Physical Authored Date: [id number] BRIDGET ALCOCER :2000 Age:24 years Sex:Female Visit Date:03/07/2024 Primary Care Physician: ALYCIA ARCHER APRN Reason for Visit OB Labor check History of Present Illness 24 year old @ 37.3 weeks presented in active labor displaying cervical change from 2 to 3 cm in dilatation and now 4 cm. course has been uncomplicated with the exception of periodicnausea and vomiting. GBS was collected on admission and returned negative.?? Review of Systems As per HPI Physical Exam Vitals & Measurements T:??36.4?C ??(Temporal Artery)?? HR:??83??(Monitored)?? RR:??20?? BP:??137/76?? HT:??165.1??cm?? HT:??165.1??cm?? WT:??109??kg?? WT:??109??kg?? BMI:??39.99?? BMI:??39.99?? Pain Score:??7?? O2 Therapy:??Room air?? BSA:??2.24?? Cx??4/70/-2 with intact membranes??per nurse's exam.?? Obstetric Exam Baby A FHR Interpretation Category:I Denise's Score8.5 Assessment/Plan 1.??Normal labor??O80 ??Admit to labor and delivery for management of active labor. Patient did receive??Fentanyl for pain management. Reviewed options for nitrous and epidural as well.? Orders: acetaminophen, 650 mg = 2 tab, Oral, Tab, every 4 hr, PRN pain, mild, First Dose: 03/07/24 0:20:00 EDT, Routine calcium (as carbonate) 500 mg oral tablet, 500 mg = 1 tab, Oral, Tab-Chew, every 2 hr, PRN dyspepsia, First Dose: 03/07/24 0:20:00 EDT, Routine calcium (as carbonate) 500 mg oral tablet, 1,000 mg = 2 tab, Oral, Tab-Chew, every 2 hr, PRN dyspepsia, First Dose: 03/07/24 0:20:00 EDT, Routine fentaNYL, 50 mcg = 1 mL, IV Push, Injection, every 1 hr, PRN pain, severe, First Dose: 03/07/24 2:40:00 EDT, Physician Stop, Routine Lactated Ringers Injection 1,000 mL, Total Volume (mL): 1,000, 1,000 mL, Soln- IV, IV, 150 mL/hr, Start Date: 03/07/24 4:00:00 EDT, 109 kg, Populate Charting Weight From Order, 2.24, m2 sodium chloride 0.9% flush, 10 mL, IV Flush, Injection, As Directed, PRN other (see comment), FirstDose: 03/07/24 2:40:00 EDT, Routine Activity, 03/07/24 0:20:00 EDT, Stop date 03/07/24 0:20:00 EDT, Up ad martha Activity, 03/07/24 2:40:00 EDT, Stop date 03/07/24 2:40:00 EDT, Up ad martha Ambulate, 03/07/24 2:40:00 EDT, Stop date 03/07/24 2:40:00 EDT, Ad martha Bathroom Privileges, 03/07/24 0:20:00 EDT, PRN, 03/07/24 0:20:00 EDT, 03/07/24 0:20:00 EDT Bathroom Privileges, 03/07/24 2:40:00 EDT, PRN, 03/07/24 2:40:00 EDT, 03/07/24 2:40:00 EDT Communication Order, 03/07/24 2:40:00 EDT, If not voiding, straight cath as needed, Q12 hour frequency Communication Order, 03/07/24 2:40:00 EDT, Nurse /Provider to remain at bedside for 15 minutes after initiation & Vital Signs every 30 minutes while Nitrous in use Consent For Treatment, 03/07/24 2:40:00 EDT, Obtain consent prior to initiation Diet Order, 03/07/24 2:40:00 EDT, Clear Liquids Heart Monitoring, 03/07/24 0:20:00 EDT, PRN, Continuous monitoring. Group B Strep (GeneXpert), Swab, Routine Collect, 03/10/24, Once, Nurse collect, Print Label, Normal in multigravida in third trimester, Order for future visit Hourly Rounding, 03/07/24 2:40:00 EDT, every 12 hr (rudy) Isolation Precautions, 03/07/24 2:40:00 EDT, [place] Precautions [facility] [place] Nursing Task, 03/07/24 2:40:00 EDT, Stop date 03/07/24 2:40:00 EDT, Obtain heart rate, assess for Decels. Notify Provider, 03/07/24 2:40:00 EDT, Of patient arrival Notify Provider, 03/07/24 2:40:00 EDT, For severe headaches, visual changes, RUQ pain. Q12 hour frequency Notify Provider, 03/07/24 2:40:00 EDT, notify provider acute changes in BP, Two Consecutive BP >160/110 Notify Provider of Vital Signs, 03/07/24 2:40:00 EDT, If temperature greater than 38 C, if pulse greater than 100, or if blood pressure is dropping, Acute Baseline changes. Q12 hour frequency. NST on arrival LTTL, 03/07/24 0:20:00 EDT, Once, Stop date 03/07/24 0:20:00 EDT, Upon Arrival Oxygen Therapy, to keeps sats >= 94% via N/C or simple mask, Dionisio Ochoa MD PSO Admit to Inpatient, Obstetrics, Inpatient, 03/07/24 2:42:00 EDT, 03/07/24 2:42:00 EDT, :42:00 EDT, 2 midnights or more Resuscitation Status, 03/07/24 2:40:00 EDT, Full Code Shower Privileges, 03/07/24 2:40:00 EDT, PRN Temperature, 03/07/24 2:40:00 EDT, every 1 hr, After ROM. Vaginal Exam, 03/07/24 2:40:00 EDT, Frequency Once, Prior to epidural placement., Stop date 03/07/24 2:40:00 EDT Vaginal Exam, 03/07/24 2:40:00 EDT, Frequency As Directed, Prior to pain medication administration. Vaginal Exam, 03/07/24 2:40:00 EDT, Frequency Once, On Admission to Unit, Stop date 03/07/24 2:40:00 EDT Vaginal Exam, 03/07/24 0:20:00 EDT, ROM/Vaginal Pressure/Regular Contractions, Stop date 03/07/24 0:20:00 EDT Vital Signs, 03/07/24 2:40:00 EDT, Once, Stop date 03/07/24 2:40:00 EDT, On Arrival to unit. Vital Signs, 03/07/24 2:40:00 EDT, every 30 min, while nitrous in use. Vital Signs, 03/07/24 2:40:00 EDT, every 2 hr, while in labor. Vital Signs, 03/07/24 2:40:00 EDT, Stop date 03/07/24 2:40:00 EDT, Obtain Full set vital signs prior to initiation LMP/EGA/JEREMÍAS Last Menstrual Period: 06/19/23 Gestational Age (EGA) and JEREMÍAS? * Note: EGA calculated as of 03/07/2024 ?? JEREMÍAS:??03/25/2024?EGA*:??37 weeks 3 days ?Type:??Authoritative?Method Date:??06/19/2023 ?Method:??Last Menstrual Period??(06/19/2023) ?Confirmation:??Confirmed [...] Medical Management ?Gest Age:??Unknown ? Outcome:? Sex:??-- Antepartum Risk Factors Risk Factors, Antepartum Current Preg: Drug abuse during , Tobacco use during (03/07/24) Problem List/Past Medical History Ongoing Depression GERD [...] second trimester Procedure/Surgical History ???Cholecystectomy (06/2016) Medications Inpatient acetaminophen, 650 mg= 2 tab, Oral, every 4 hr, PRN calcium (as carbonate) 500 mg oral tablet, 500 mg= 1 tab, Oral, every 2 hr, PRN calcium (as carbonate) 500 mg oral tablet, 1000 mg= 2 tab, Oral, every 2 hr, PRN fentaNYL, 50 mcg= 1 mL, IV Push, every 1 hr, PRN Lactated Ringers Injection 1,000 mL, 1000 mL, IV sodium chloride 0.9% flush, 10 mL, IV Flush, As Directed, PRN Home acetaminophen 500 mg oral tablet, 1000 mg= [...] Given Transcribed Labs ABO/Rh Echo: O POS ABO/Rh Type: O POS Blood Type, Transcribed: O positive Chlamydia Date Performed: 10/04/23 Chlamydia, Transcribed: Negative GBS Date Performed: 03/07/24 Genetic Testing Date Performed: 09/23/23 Genetic Testing, Results Text: Inheritest: negativeMaterniT 21: negative/male Genetic Testing, Transcribed: Yes Gonorrhea Date Performed: 10/04/23 Gonorrhea, Transcribed: Negative Group B Strep, Transcribed: Negative Hepatitis B Date Performed: 09/06/23 Hepatitis B, Transcribed: Negative HIV Antibodies, Transcribed: Negative HIV Date Performed: 09/06/23 RPR Date Performed: 09/06/23 RPR, Transcribed: Negative Rubella Date Performed: 09/06/23 Rubella,Transcribed: Immune Electronically Signed on 03/07/2024 07:36 EDT Dionisio Ochoa MD Discharge summary * Dionisio Ochoa MD: PERFORM Event Display: Discharge Summary Authored Date: [id number] BRIDGET ALCOCER :2000 Age:24 years Sex:Female Visit Date:03/07/2024 Primary Care Physician: ALYCIA ARCHER APRN Admission Information 24 year old @ 37.3 weeks presented in active labor displaying cervical change from 2 to 3 cm in dilatation and now 4 cm. course has been uncomplicated with the exception of periodicnausea and vomiting. GBS was collected on admission and returned negative.?? Hospital Course Patient was admitted to labor and delivery??in early labor.?? She progressed to 4 cm dilatation. ??Amniotomy was performed??as she had stalled??in her labor at that point. ??She made little progress to the day and an epidural was placed and eventually started on Pitocin. ??Once Pitocin was administered??later in the day she??did progress normally??eventually??to complete cervical dilatation and [place] ving a successful .?? She did have moderate uterine atony?which was difficult control at the bedside??due to discomfort and delayed hemorrhage.?? She was brought to the operating room??for D&C and Tawnya catheter placement.?? The Kim catheter was removed the following morning??repeat hemoglobin was 10??and EBL estimated at??approximately 500 mL.?? The remainder of her postop course was uncomplicated and she was felt suitable for discharge home on day #2. Procedures and Treatment Provided 1. ?? 2.?? D&C and Tawnya catheter placement Physical Exam Vitals & Measurements T:??36.5?C ??(Temporal Artery)?? TMIN:??36.5?C ??(Temporal Artery)?? TMAX:??36.9?C ??(Temporal Artery)?? HR:??78??(Peripheral)?? RR:??16?? BP:??126/74?? Pain Score:??4?? O2 Therapy:??Roomair?? Procedure/Surgical History ???Dilation and Curettage (03/08/2024)???Cholecystectomy (06/2016) Social History Alcohol Past- Comments: very occasionallly [...] time per day. Never Smokeless Tobacco use:. Discharge Plan 1.??Delay hemorrhage??O72.2 2.??Normal labor??O80 Orders: ibuprofen, 600 mg = 1 tab, Oral, Tab, every 6 hr, PRN pain, First Dose: 03/08/24 9:41:00 EDT, Routine oxyCODONE 5 mg oral tablet, 5 mg = 1 tab, Oral, Tab, every 4 hr for 4 doses, PRN pain, First Dose: 03/08/24 9:32:00 EDT, Stop Date: Limited # of times, Physician Stop, Routine Discharge Patient, 03/09/24 7:54:00 EDT, Home Independently All Diagnoses This Visit Delay hemorrhage Normal labor Patient Discharge Condition Good Discharge Disposition Home dependently Patient Education [facility] - Vaginal or Delivery Post Discharge Instructions (CUSTOM) Follow Up With When Contact Information Dionisio Ochoa MD Within 1 to [address] [place] [address] [phone] Additional Instructions: Medication Reconciliation Unchanged acetaminophen (acetaminophen 500 mg oral tablet)2 tab Oral (given by mouth) every 8 hours as neededas needed for fever. ?? albuterol (albuterol 90 mcg/inh inhalation powder)1 Puffs Inhale (breathe in) every 4 hours as needed. ?? calcium carbonate (Tums 500 mg oral tablet, chewable)2 tab Chewed 4 times a day as needed as neededfor dyspepsia. ?? cyclobenzaprine (cyclobenzaprine 10 mg oral tablet)1 tab Oral (given by mouth) 3 times a day as needed as needed for muscle spasm. Refills: 0. ?? multivitamin, ( Complete with DHA)1 Capsules Oral (given by mouth) every day. ?? ondansetron (ondansetron 4 mg oral tablet, disintegrating)1 tab Oral (given by mouth) every 8 hoursas needed as needed for nausea/vomiting. Refills: 0. ?? pantoprazole (Protonix 20 mg oral delayed release tablet)1 tab Oral (given by mouth) every day. Refills: 3. ?? promethazine (promethazine 25 mg oral tablet)1 tab Oral (given by mouth) every night at bedtime. Refills: 0. Electronically Signed on 03/09/2024 07:56 EDT Dionisio Ochoa MD Patient Care team information Care Team Personnel Name: ALYCIA ARCHER APRN Position: No Access Member Role: Primary Care Physician Address: Address: [address] Name: Tonya Ramirez Position: Women's Health - Nurse Tracking Member Role: Registered Nurse Name: Yamila Knott Position: Women's Health - Nurse Tracking Member Role: Registered Nurse Care Team Related Persons Name: RYLEY ALCOCER Address: Home [address] [place] [phone] [facility]
--- OUTSIDE RECORDS SUMMARY | 2024-04-05 16:58 | XMS_ITS | Continuity of Care Document ---
Author Organization [facility] Address [address] [place] [address] Care Team Providers Care Ski Top Trimmer Name Role Phone ALYCIA ARCHER APRN Primary Care Physician Encounter [facility] [id number] Date(s): 03/05/24 - 03/05/[address] [address]- [place] Discharge Disposition: Home or Self Care Attending Physician: Moris Perez MD Admitting Physician: Moris Perez MD Allergies, Adverse Reactions, Alerts Substance Reaction Severity Status penicillin Hives Mild Active Blueberries Anaphylaxis Severe Active Assessment and Plan Future Appointments Appointment Date:03/10/2024 01:00:00 PM Scheduled Provider:Dionisio Ochoa MD Location:[facility] Appointment Type:OB Follow Up Appointment Date:03/17/2024 01:00:00 PM Scheduled Provider:Carlos Akers MD Location:[facility] Appointment Type:OB Follow Up Appointment Date:03/24/2024 01:00:00 PM Scheduled Provider:Dionisio Ochoa MD Location:[facility] Appointment Type:OB Follow Up Future Scheduled Tests Laboratory* Group B Strep (GeneXpert) 03/04/24 Immunizations Given and Recorded Vaccine Date Status [...] spasm, # 30 tab, 0 Refill(s), Pharmacy: [facility] #[facility], 165.1, cm, 09/06/23 13:49:00 EST, Height, 105, kg, 11/05/23 14:29:00 EST, Weight Dosing Start Date: 11/05/23 Status: Ordered ondansetron 4 mg oral tablet, disintegrating 4 mg = 1 tab, Oral, every 8 hr, PRN as needed for nausea/vomiting, # 30 tab, 0 Refill(s), Pharmacy:[facility], 165.1, cm, 01/10/24 14:49:00 EDT, Height, 106.6, kg, 01/10/24 14:55:00 EDT, Weight Dosing Start Date: 01/30/24 Status: Ordered Complete with DHA 0 Refill(s) Start Date: 07/22/23 Status: Ordered promethazine 25 mg oral tablet 25 mg = 1 tab, Oral, every night at bedtime, # 24 tab, 0 Refill(s), Pharmacy: [facility], 165.1, cm, 02/24/24 14:56:00 EDT, Height, 109, kg, 02/24/24 15:10:00 EDT, Weight Dosing Start Date: 02/24/24 Status: Ordered Protonix 20 mg oral delayed release tablet 20 mg = 1 tab, Oral, Daily, # 90 tab, 3 Refill(s), Pharmacy: [facility], 165.1, cm, 09/06/23 13:49:00 EST, [...] 06/19/23 Active 1suicide attempt 10/2017, hospitalized at [facility] and [facility] Procedures Procedure Date Related Diagnosis Body Site [...] Member Role: Primary Care Physician Address: Address: [address] [facility] [address]
--- OUTSIDE RECORDS SUMMARY | 2024-04-05 16:58 | XMS_ITS | Continuity of Care Document ---
Author Organization [facility] Address [address] [place] [address] Encounter [facility] [facility] NBR [id number] Date(s): 07/22/23 - 07/22/23 [facility] [address] [place] [address]- [place] Discharge Disposition: Home or Self Care Attending Physician: Lore Guido APRN Admitting Physician: Lore Guido APRN Allergies, Adverse Reactions, Alerts Substance Reaction Severity Status penicillin Hives Mild Active Medications Complete with DHA 0 Refill(s) Start Date: 07/22/23 Status: Ordered Problem List Condition Confirmation Course Effective Dates Status Health St atus Informant Depression 1 Confirmed Active 1suicide attempt 10/2017, hospitalized at [facility] and [facility] Procedures Procedure Date Related Diagnosis Body Site Status Cholecystectomy 06/2016 Completed Results Laboratory List Name Date Beta hCG Quantitative 07/22/23 Most recent to oldest [Reference Range]: 1 Beta hCG Qnt [<=5.0 mIntlUnit/mL] 1630.0 mIntlUnit/mL 1 *HI* (07/22/23 10:28 AM) 1Interpretive Data: WEEKS POST LMP: APPROXIMATE [...]
--- OUTSIDE RECORDS SUMMARY | 2024-04-05 16:58 | XMS_ITS | Continuity of Care Document ---
Author Organization [facility] Address [address] [place] [address] Encounter [facility] NBR [id number] Date(s): 09/16/23 - 09/16/23 [facility] [address] [place] [address] [place] Discharge Disposition: Home Allergies, Adverse Reactions, Alerts Substance Reaction Severity Status penicillin Hives Mild Active Blueberries Anaphylaxis Severe Active Assessment and Plan Future Appointments Appointment Date:10/04/2023 01:30:00 PM Scheduled Provider:Dionisio Ochoa MD Location:[facility] Appointment Type:OB Follow Up Medications acetaminophen 500 [...] nausea/vomiting, # 60 tab, 2 Refill(s), Pharmacy: [facility] #[facility], 165.1, cm, 08/07/23 10:09:00 EST, Height, [...] 06/19/23 Active 1suicide attempt 10/2017, hospitalized at [facility] and [facility] Procedures Procedure Date Related Diagnosis Body Site Status Cholecystectomy 06/2016 Completed Social History Social History Type Response Smoking Status Smoking tobacco use: Current everyday tobacco user;Never; Number used per day: smokes in a bong with MJ at same time; entered on: 09/06/23 Sex
--- OUTSIDE RECORDS SUMMARY | 2024-04-05 16:58 | XMS_ITS | Continuity of Care Document ---
Author Organization [facility] Address [address] [place] [phone] Care Team Providers Care Electromechanical Engineer Name Role Phone ALYCIA ARCHER APRN Primary Care Physician [phone] Encounter [facility] [facility] NBR [id number] Date(s): 12/31/23 - 12/31/[address] [address] [place] Encounter Diagnosis Normal in multigravida in third trimester(Discharge Diagnosis) - 12/31/23 Threatened labor, antepartum(Discharge Diagnosis) - 12/31/23 History of delivery(Discharge Diagnosis) - 12/31/23 Discharge Disposition: Home f/u Internal Provider Attending Physician: Carlos Akers MD Admitting Physician: Carlos Akers MD Referring Physician: Carlos Akers MD Allergies, Adverse Reactions, Alerts Substance Reaction Severity Status penicillin Hives Mild Active Blueberries Anaphylaxis Severe Active Assessment and Plan Future Appointments Appointment Date:01/10/2024 02:45:00 PM Scheduled Provider:Moris Perez MD Location:[facility] Appointment Type:OB Follow Up Immunizations Given [...] spasm, # 30 tab, 0 Refill(s), Pharmacy: [facility], 165.1, cm, 09/06/23 13:49:00 EST, [...] for nausea/vomiting, # 30 tab, 0 Refill(s), Pharmacy:[facility] #93, 165.1, cm, 09/06/23 13:49:00 EST, Height, 103.6, kg, 09/06/23 14:07:00 EST, Weight Dosing Start Date: 10/02/23 Status: Ordered Complete with DHA 0 Refill(s) Start Date: 07/22/23 Status: Ordered promethazine 12.5 mg oral tablet 12.5 mg = 1 tab, Oral, every 4 hr, PRN as needed for nausea/vomiting, # 60 tab, 2 Refill(s), Pharmacy: [facility] #93, 165.1, cm, 08/07/23 10:09:00 EST, Height, 107.9, kg, 08/07/23 10:15:00 EST, Weight Dosing Start Date: 08/07/23 Status: Ordered Protonix 20 mg oral delayed release tablet 20 mg = 1 tab, Oral, Daily, # 90 tab, 3 Refill(s), Pharmacy: [facility] #93, 165.1, cm, 09/06/23 13:49:00 EST, Height, [...] Confirmed Active History of delivery Confirmed Active Supervision of normal in second trimester Confirmed Active Normal in multigravida in third trimester Confirmed Active Confirmed 06/19/23 Active 1suicide attempt 10/2017, hospitalized at [facility] Procedures Procedure Date Related Diagnosis Body Site Status Cholecystectomy 06/2016 Completed Results Laboratory List Name Date Urinalysis with Micro if Indicated and C ulture if Indicated 12/31/23 Most recent to oldest [Reference Range]: 1 UA Color [Yellow] Yellow (12/31/23 3:16 PM) UA Urobilinogen [0.2] 1.0 *ABN* (12/31/23 3:16 PM) UA Bili [Negative] Small *ABN* (12/31/23 3:16 PM) UA Ketones >=80 mg/dL *NA* (12/31/23 3:16 PM) UA Leuk Est [Negative] Negative (12/31/23 3:16 PM) UA Nitrite [Negative] Negative (12/31/23 3:16 PM) UA Glucose [Negative] Negative (12/31/23 3:16 PM) UA Protein [Negative] Trace *ABN* (12/31/23 3:16 PM) UA Blood [Negative] Negative (12/31/23 3:16 PM) UA Spec Grav [1.001-1.030] 1.015 (12/31/23 3:16 PM) UA pH [5.00-9.00] 8.00 (12/31/23 3:16 PM) UA Appear [Clear] Clear (12/31/23 3:16 PM) Urine Srce Clean Catch (12/31/23 3:16 PM) Vital Signs Most recent to oldest [Reference Range]: 1 Temperature Temporal Artery [36-38 Deg C ] 36.0 Deg C (12/31/23 3:07 PM) Temperature Temporal Artery (DegF) [97.3 -100 Deg F] 96.8 Deg F *LOW* (12/31/23 3:07 PM) Apical Heart Rate [60-100 bpm] 82 bpm (12/31/23 3:07 PM) Heart Rate Monitored [60-100 bpm] 84 bpm (12/31/23 3:42 PM) Blood Pressure [90-140/60-90 mmHg] 132/7 0mmHg (12/31/23 3:07 PM) Mean Arterial Pressure, Cuff [65-140 mmH g] 91 mmHg (12/31/23 3:07 PM) Social History Social History Type Response Smoking Status Smoking tobacco use: Current everyday tobacco user;Never; Number used per day: smokes in a bong with MJ at same time; entered on: 09/06/23 Sex Procedure note * Carlos Akers MD: PERFORM Event Display: Procedure Note Authored Date: [id number] BRIDGET ALCOCER :2000 Age:23 years Sex:Female Visit Date:12/31/2023 Primary Care Physician: ALYCIA ARCHER APRN History of Present Illness 23yo 142, JEREMÍAS- 03/25/2024 The patient presented to??OB due to??lower abdominal pain??and vaginal pressure. ??The lower abdominal pain feels like cramping that comes and goes. ??She has been having a??clear vaginal discharge??that is thick like mucus. ??She has difficulty urinating. ??She feels the urge to void when standingdue to vaginal pressure, but when she sits on the toilet??she is unable to empty her bladder. ??There is no burning or discomfort with urination.?? Active movements. ??She reports being active at the park on the playground??yesterday??and climbing onto??a tunnel to get a small child out??a bit.?? There is no vaginal bleeding.?? She a delivery??at 36 weeks with her last . ??Her other delivery was at full-term. LMP/EGA/JEREMÍAS Gestational Age (EGA) and JEREMÍAS? * Note: EGA calculated as of 12/31/2023 ?? JEREMÍAS:??03/25/2024?EGA*:??27 weeks 6 days ?Type:??Authoritative?Method Date:??06/19/2023 ?Method:??Last Menstrual Period??(06/19/2023) ?Confirmation:??Confirmed ?Description:??-- ?Comments:??-- ?Entered by:??Tanna Lisa on 09/05/2023? Other JEREMÍAS Calculations for this : ?Method:??Ultrasound ?Method Date:??11/05/2023 ?JEREMÍAS:??03/23/2024 ?EGA (At Entry):??20 weeks 1 days ?Type:??Non-Authoritative ?Comments:??Normal anatomy, survey complete, cord insert 2 cm from sheridan of placenta (no f/u required) ?Entered by:??Moris Perez MD on 12/05/2023 ?Method:??Ultrasound ?Method Date:??08/07/2023 ?JEREMÍAS:??03/22/2024 ?EGA (At Entry):??7 weeks 3 days ?Type:??Non-Authoritative ?Comments:??-- ?Entered by:??Lisa Cisse on 09/05/2023 Testing Baby A Heart Rate FHR Baseline Description:Normal, 110-160 bpm FHR Baseline Variability:Moderate variability FHR Accelerations:Present FHR Deceleration:No decelerations FHR Interpretation Category:I Physical Exam Vitals & Measurements T:??36.0?C ??(Temporal Artery)?? HR:??84??(Monitored)?? BP:??132/70?? General: Alert and oriented, well nourished, no [...] Psychiatric: Cooperative, appropriate mood and affect ? Cervix: Closed/Uneffaced,?Intact Membranes ? Heart Monitor: Heart Rate Tracing Reassuring for 27 weeks. ??No worrisome decelerations. ??No contractions. ?? Assessment/Plan 1.??Threatened labor, antepartum??O47.03 2.??Normal in multigravida in third trimester??Z34.83 3.??History of delivery??Z87.51 Orders: Urinalysis with Micro if Indicated and Culture if Indicated, Urine, Routine Collect, 12/31/23 15:15:00 EDT, Once, Nurse collect, Print Label, Back pain IUP 27 weeks. ??No contractions on the heart monitor. ??Her cervix is??not dilated??and is uneffaced. ?? heart rate tracing is reassuring for 27 weeks.?? Recommend that she go home and rest today??and ensure that she is??well-hydrated.?? Urinalysis is pending.?? She may??be discharged home and follow-up as scheduled. OB History History?(1,1,4,2)? # 1?Marked as Sensitive [...] ? Outcome:??Live ? Sex:??Female?Wt:?2722 g ?Child's Name:??Lance ?Hospital:[facility] ?Comment:??Covid in August prior to delivery, dilated 2 cm, water broke in October, no lacerations ?? # 6 ?Baby 1 ?Outcome Date:??02/2023 ?Outcome or Result:??Ectopic, Medical Management ?Gest Age:??Unknown ? Outcome:? Sex:??-- Last Menstrual Period: 06/19/23 Problem List/Past Medical History Ongoing Depression GERD (gastroesophageal reflux disease) History of ectopic History of gestational diabetes History of delivery History of recurrent miscarriages Normal in multigravida in third trimester with history of ectopic , antepartum Supervision of normal in second trimester Tobacco use Historical History of delivery, currently in first trimester Procedure/Surgical History ???Cholecystectomy (06/2016) Medications Inpatient No active inpatient medications Home acetaminophen 500 mg oral tablet, 1000 [...] Oral, Daily, 3 refills Allergies Blueberries??(Anaphylaxis) penicillin??(Hives) Electronically Signed on 12/31/23 03:46 PM Carlos Akers MD Patient Care team information Care Team Personnel Name: ALYCIA ARCHER APRN Position: No Access Member Role: Primary Care Physician Address: Address: [address] [facility], [place] [address]
--- OUTSIDE RECORDS SUMMARY | 2024-04-05 16:58 | XMS_ITS | Continuity of Care Document ---
Author Organization [facility] Address [address] [place] [address] Care Team Providers Care Beam Worker Name Role Phone ALYCIA ARCHER APRN Primary Care Physician [phone] Encounter [facility] FIN NBR [id number] Date(s): 11/05/23 - 11/05/23 [facility] [address] [place], [place] [address] Encounter Diagnosis Supervision of normal in second trimester(Discharge Diagnosis) - 11/05/23 Discharge Disposition: Home or Self Care Attending Physician: Dionisio Ochoa MD Allergies, Adverse Reactions, Alerts Substance Reaction Severity Status penicillin Hives Mild Active Blueberries Anaphylaxis Severe Active Assessment and Plan Extracted from: Title:OB Extended Office Visit Author:Dionisio rogel MD Date:11/05/23 1.??Supervision of normal pr egnancy in second trimester??ZGerald.Chantal Has severe back pain. Seen at [facility] and pain is so severe that she feels that she may pass out. Pain no relieved with tylenol. Advised limited and short term use of Ibuprofen. Heating pads, cold packs ok. Rx for flexeril provided. ?? Ultrasound was reviewed demonstrating a marginal cord insertion at 2 cm from placental edge.?? No further evaluation needed. Follow-up 4 weeks [1] ? Ordered: cyclobenzaprine 10 mg oral tablet, 10 mg = 1 tab, Oral, TID, PRN as needed for muscle spasm, # 30 tab, 0 Refill(s), Pharmacy: [facility] #[facility], 165.1, cm, 09/06/23 13:49:00 EST, Height, 105, kg, 11/05/23 14:29:00 EST, Weight Dosing ?? Future Appointments Appointment Date:12/05/2023 10:00:00 AM Scheduled Provider:Moris Perez MD Location:[facility] Appointment Type:OB Follow Up Medications [...] spasm, # 30 tab, 0 Refill(s), Pharmacy: [facility], 165.1, cm, 09/06/23 13:49:00 EST, Height, [...] for nausea/vomiting, # 30 tab, 0 Refill(s), Pharmacy:[facility] #[facility], 165.1, cm, 09/06/23 13:49:00 EST, Height, 103.6, kg, 09/06/23 14:07:00 EST, Weight Dosing Start Date: 10/02/23 Status: Ordered Complete with DHA 0 Refill(s) Start Date: 07/22/23 Status: Ordered promethazine 12.5 mg oral tablet 12.5 mg = 1 tab, Oral, every 4 hr, PRN as needed for nausea/vomiting, # 60 tab, 2 Refill(s), Pharmacy: [facility] #[facility], 165.1, cm, 08/07/23 10:09:00 EST, Height, 107.9, kg, 08/07/23 10:15:00 EST, Weight Dosing Start Date: 08/07/23 Status: Ordered Protonix 20 mg oral delayed release tablet 20 mg = 1 tab, Oral, Daily, # 90 tab, 3 Refill(s), Pharmacy: [facility] #[facility], 165.1, cm, 09/06/23 13:49:00 EST, [...] 06/19/23 Active 1suicide attempt 10/2017, hospitalized at [facility] and [facility] Procedures Procedure Date Related Diagnosis Body Site Status Cholecystectomy 06/2016 Completed Results Most recent to oldest [Reference Range]: 1 Protein Urine Dipstick Trace (11/05/23 2:15 PM) Glucose Urine Dipstick Negative (11/05/23 2:15 PM) Urine Color Urine Dipstick Dark yellow (11/05/23 2:15 PM) Urine Appearance Urine Dipstick Clear (11/05/23 2:15 PM) Vital Signs Most recent to oldest [Reference Range]: 1 Blood Pressure [90-140/60-90 mmHg] 120/6 8mmHg (11/05/23 2:15 PM) Mean Arterial Pressure, Cuff [65-140 mmH g] 85 mmHg (11/05/23 2:15 PM) Weight 105.0 kg (11/05/23 2:15 PM) Weight Measured (lbs) 231.485 lb (11/05/23 2:15 PM) Weight Dosing 105.000 kg (11/05/23 2:15 PM) Social History Social History Type Response Smoking Status Smoking tobacco use: Current everyday tobacco user;Never; Number used per day: smokes in a bong with MJ at same time; entered on: 09/06/23 Sex Physician Outpatient Note * Dionisio Ochoa MD: PERFORM Event Display: Office Clinic Note Physician Authored Date: [id number] BRIDGET ALCOCER :2000 Age:23 years Sex:Female Visit Date:11/05/2023 Primary Care Physician: ALYCIA ARCHER APRN Chief Complaint OB FU 19wks, 6d. Urine cx today. U/S completed. Experiencing severe back pain, went to [facility] ED, muscle relaxant prescribed, providing no relief. Uncomfortable, can be severe when going up and down stairs, and black out on the floor. Visit Vital Signs/Measurements Systolic Blood Fodilxyv005 mmHg Diastolic Blood Ahcwyigx75 mmHg Zlveex242.0 kg Urine POC Protein Urine DipstickTrace Glucose Urine DipstickNegative Physical Exam Vitals & Measurements BP:??120/68?? WT:??105.0??kg?? Assessment/Plan 1.??Supervision of normal in second trimester??Z34.92 Has severe back pain. Seen at [facility] and pain is so severe that she feels that she may pass out. Pain no relieved with tylenol. Advised limited and short term use of Ibuprofen. Heating pads, cold packs ok. Rx for flexeril provided. ?? Ultrasound was reviewed demonstrating a marginal cord insertion at 2 cm from placental edge.?? No further evaluation needed. Follow-up 4 weeks [1] Ordered: cyclobenzaprine 10 mg oral tablet, 10 mg = 1 tab, Oral, TID, PRN as needed for muscle spasm, # 30 tab, 0 Refill(s), Pharmacy: [facility], 165.1, cm, 09/06/23 13:49:00 EST, Height, 105, kg, 11/05/23 14:29:00 EST, Weight Dosing ?? LMP/EGA/JEREMÍAS Last Menstrual Period: 06/19/23 Gestational Age (EGA) and JEREMÍAS? * Note: EGA calculated as of 11/05/2023 ?? JEREMÍAS:??03/25/2024?EGA*:??19 weeks 6 days ?Type:??Authoritative?Method Date:??06/19/2023 ?Method:??Last Menstrual [...] normal in second trimester Tobacco use Historical Procedure/Surgical History ???Cholecystectomy (06/2016) [...] Negative Rubella Date Performed: 09/06/23 Rubella,Transcribed: Immune [1]??Office Visit Note; Dionisio Ochoa MD 11/05/2023 14:47 EST Electronically Signed on 11/05/23 02:48 PM Dionisio Ochoa MD Patient Care team information Care Team Personnel Name: ALYCIA ARCHER APRN Position: No Access Member Role: Primary Care Physician Address: Address: [address] [facility], [place] [address]
--- OUTSIDE RECORDS SUMMARY | 2024-04-05 16:58 | XMS_ITS | Continuity of Care Document ---
Author Organization [facility] Address [address] [place] [phone] Encounter [facility] [facility] NBR [id number] Date(s): 09/06/23 - 09/06/23 [facility] [address] [place] [address]- [place] Discharge Disposition: Home or Self Care Attending Physician: Carlos Akers MD Admitting Physician: Carlos Akers MD Referring Physician: Carlos Akers MD Allergies, Adverse Reactions, Alerts Substance Reaction Severity Status penicillin Hives Mild Active Blueberries Anaphylaxis Severe Active Assessment and Plan Future Appointments Appointment Date:10/04/2023 01:30:00 PM Scheduled Provider:Dionisio Ochoa MD Location:[facility] Appointment Type:OB Follow Up Diagnostic Tests Pending * Inheritest Core Panel Ref 09/06/23 * HBsAg Screen 09/06/23 * T pallidum Screening [place] 09/06/23 * Rubella Antibodies, IgG 09/06/23 * HCV Antibody [place] to Quant PCR and Genotyping [id number] 09/06/23 * HIV Ag/Ab w/ Reflex to Conf 09/06/23 * MaterniT 21 PLUS w/ESS and SCA Ref 09/06/23 Medications acetaminophen 500 mg oral tablet 1,000 [...] # 60 tab, 2 Refill(s), Pharmacy: [facility] #[facility], 165.1, cm, 08/07/23 10:09:00 EST, Height, [...] 06/19/23 Active 1suicide attempt 10/2017, hospitalized at [facility] and [facility] Procedures Procedure Date Related Diagnosis Body Site Status Cholecystectomy 06/2016 Completed Results Laboratory List Name Date ABO/Rh Echo 09/06/23 ABSC Echo (Antibody Screen Echo) 3 CBC w/ Diff 09/06/23 Automated Diff 09/06/23 Most recent to oldest [Reference Range]: 1 WBC [4.8-10.8 K/mcL] 10.0 K/mcL (09/06/23 2:55 PM) RBC [4.20-5.40 Million/mcL] 5.04 Million /mcL (09/06/23 2:55 PM) Neutro Auto [42.2-75.2 %] 62.3 % (09/06/23 2:55 PM) Lymph Auto [20.5-51.1 %] 31.8 % (09/06/23 2:55 PM) [place] Auto [1.7-9.3 %] 4.9 % (09/06/23 2:55 PM) Basophil Auto [0.0-0.8 %] 0.4 % (09/06/23 2:55 PM) Baso Absolute [0.0-0.2 K/mcL] 0.0 K/mcL (09/06/23 2:55 PM) MCV [81.0-99.0 fL] 88.6 fL (09/06/23 2:55 PM) MCHC [32.0-37.0 g/dL] 33.7 g/dL (09/06/23 2:55 PM) Lymph Absolute [1.2-3.4 K/mcL] 3.2 K/mcL (09/06/23 2:55 PM) Hct [37.0-47.0 %] 44.7 % (09/06/23 2:55 PM) [place] Absolute [0.1-0.6 K/mcL] 0.5 K/mcL (09/06/23 2:55 PM) MCH [27.0-31.0 pg] 29.9 pg (09/06/23 2:55 PM) Neutro Absolute [1.4-6.5 K/mcL] 6.2 K/mc L (09/06/23 2:55 PM) Hgb [12.0-16.0 g/dL] 15.1 g/dL (09/06/23 2:55 PM) MPV [7.4-10.4 fL] 8.7 fL (09/06/23 2:55 PM) Platelets [130-400 K/mcL] 257 K/mcL (09/06/23 2:55 PM) Eos Absolute [0.0-0.2 K/mcL] 0.1 K/mcL (09/06/23 2:55 PM) RDW-CV [11.5-14.5 %] 13.7 % (09/06/23 2:55 PM) Slide Review Not Indicated (09/06/23 2:55 PM) ABO/Rh Echo O POS *Unknown* (09/06/23 2:55 PM) Eos, Auto [0.00-3.00 %] 0.60 % (09/06/23 2:55 PM) ABSC Echo Negative ABSC (09/06/23 2:55 PM) Social History Social History Type Response Smoking Status Smoking tobacco use: Current everyday tobacco user;Never; Number used per day: smokes in a bong with MJ at same time; entered on: 09/06/23 Sex
--- OUTSIDE RECORDS SUMMARY | 2024-04-05 16:58 | XMS_ITS | Continuity of Care Document ---
Author Organization [facility] Ambulatory Clinics Address [address] [place] [address] Care Team Providers Care Customer Operations Intern Name Role Phone ALYCIA ARCHER APRN Primary Care Physician [phone] Encounter [email or web address] FIN NBR [id number] Date(s): 12/31/23 - 12/31/23 [facility] Ambulatory Clinics [address] [place], [place] [address] Discharge Disposition: Home Allergies, Adverse Reactions, Alerts Substance Reaction Severity Status penicillin Hives Mild Active Blueberries Anaphylaxis Severe Active Assessment and Plan Future Appointments Appointment Date:01/10/2024 02:45:00 PM Scheduled Provider:Moris Perez MD Location:[facility] Appointment Type:OB Follow Up Immunizations [...] # 30 tab, 0 Refill(s), Pharmacy: [id number], 165.1, cm, 09/06/23 13:49:00 EST, Height, [...] for nausea/vomiting, # 30 tab, 0 Refill(s), Pharmacy:[facility], 165.1, cm, 09/06/23 13:49:00 EST, Height, 103.6, kg, 09/06/23 14:07:00 EST, Weight Dosing Start Date: 10/02/23 Status: Ordered Complete with DHA 0 Refill(s) Start Date: 07/22/23 Status: Ordered promethazine 12.5 mg oral tablet 12.5 mg = 1 tab, Oral, every 4 hr, PRN as needed for nausea/vomiting, # 60 tab, 2 Refill(s), Pharmacy: [facility], 165.1, cm, 08/07/23 10:09:00 EST, Height, 107.9, kg, 08/07/23 10:15:00 EST, Weight Dosing Start Date: 08/07/23 Status: Ordered Protonix 20 mg oral delayed release tablet 20 mg = 1 tab, Oral, Daily, # 90 tab, 3 Refill(s), Pharmacy: [facility], 165.1, cm, 09/06/23 13:49:00 EST, Height, 104.6, kg, 10/04/23 13:31:00 EST, Weight Dosing Start Date: 10/04/23 Status: Ordered Problem List Condition Confirmation Course Effective Dates Status [facility] Informant Depression 1 Confirmed Active GERD [...] 06/19/23 Active 1suicide attempt 10/2017, hospitalized at [facility] and [facility] Procedures Procedure Date Related Diagnosis [...] Member Role: Primary Care Physician Address: Address: [address] [facility] [address]
--- OUTSIDE RECORDS SUMMARY | 2024-04-05 16:58 | XMS_ITS | Encounter Summary ---
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 Name Role Phone Unknown, Provider Primary Care Provider Encounter Details Date Type Department Care Team (Late st Contact Info) Description 04/02/2022 Lab Requisition [facility] Pathology & Laboratory Medicine - [facility] [address], [place] [address] Outr Resulting Lab, Provider Social History Tobacco Use Types Packs/Day [...] Procedure Name Priority Date/Time Associated Diagnosis Comments QUANT BETA HCG, Routine 04/02/2022 10:35 EDT documented in this encounter Results * QUANT BETA HCG, (04/02/2022 10:35 EDT) Beta HCG Quant, <5 <5 mIU/mL 04/02/2022 21:18 EDT [facility] Comment: NOTE: : Negative: Less than 5mIU/mL Indeterminant: Between 5 and 25 mIU/mL, recommend repeat testing in 48 hours Positive: Greater than 25 mIU/mL The results of this assay can be falsely lowered due to the consumption of Biotin. Blood VENOUS BLOOD / Unknown 04/02/2022 10:35 EDT 04/02/2022 20:41 EDT Provider Outr Resulting Lab CHEMISTRY & BLOOD GAS ORDERABLES [facility] [address] [place] [id number] documented in this encounter Visit Diagnoses Not on filedocumented in this encounter Care Teams Brake Machine Operator Relationship Specialty Start Date End Date Unknown, Provider, PCP - General 06/07/16 documented as of this encounter
--- OUTSIDE RECORDS SUMMARY | 2024-04-05 16:58 | XMS_ITS | Continuity of Care Document ---
Author Organization [facility] Address [address] [place] [phone] Care Team Providers Care Corporate Scheduler Name Role Phone ALYCIA ARCHER APRN Primary Care Physician Encounter LTTL_GA FIN NBR [id number] Date(s): 03/19/24 - 03/20/[address] [phone]- [place] Encounter Diagnosis endometritis(Discharge Diagnosis) - 03/19/24 Discharge Disposition: Home f/u Internal Provider Attending Physician: Dionisio Ochoa MD Admitting Physician: Dionisio Ochoa MD Referring Physician: Dionisio Ochoa MD Allergies, Adverse Reactions, Alerts Substance Reaction Severity Status penicillin Hives Mild Active Blueberries Anaphylaxis Severe Active Assessment and Plan Extracted from: Title:Clinical Document Author:Lena Christensen Gunnar e:03/20/24 Diagnosis: 1. end ometritis Comment: Discontinued IV, pt educated on signs and symptoms to be aware of and will notify MD as needed. DIscharged home with partner and sister. Extracted from: Title:Discharge Note Author:Carlos Akers MD Date :03/20/24 Discharge Plan 1.?? endometritis??O86.12 Ordered: clindamycin, 300 mg = 2 cap, Oral, Cap, every 6 hr, Antibiotic Indication Gynecologic, endometritis, First Dose: 03/20/24 18:00:00 EDT, Routine clindamycin 150 mg oral capsule, 300 mg = 2 cap, Oral, every 6 hr, 0 Refill(s) clindamycin 300 mg oral capsule, 300 mg = 1 cap, Oral, every 6 hr, # 40 cap, 0 Refill(s), Pharmacy: [facility], 165.1, , 03/19/24 15:24:00 EDT, Height, 98.5, kg, 03/19/24 15:25:00 EDT, Weight Dosing ?? Orders: albuterol, 90 mcg, Inhale, Powder, every 4 hr, PRN not specified, First Dose: 03/20/24 17:27:00 EDT, Routine Follow Up With When Contact Information Dionisio Ochoa MD In 4 days 03/24/2024 EDT [address] [place] [address]- [phone] Additional Instructions: Extracted from: Title:Progress/SOAP Note Author:Carlso Akers MD Date:03/20/24 1.?? endometritis??O86.12 Continue IV??Gentamicin and??Clindamycin.?? Afebrile and??White Blood Cell??Count.?? Considering discharge home after 24 hours of IV antibiotics. Extracted from: Title:H & P Author:Dionisio Ochoa MD Date:03/19 1.?? endometritis? ?O86.12 ??Will admit to labor and delivery??for IV antibiotic.?? Will start on clindamycin 900 mg??every 8 hours IV??and gentamicin 100 mg every 8 hours. Orders: acetaminophen, 650 mg = 2 tab, Oral, Tab, every 4 hr, PRN fever, First Dose: 03/19/24 17:57:00 EDT, Routine clindamycin, 900 mg = 50 mL, IV Piggyback, Injection, every 8 hr, Antibiotic Indication Gynecologic, endometritis, Administer over: 30 minutes, First Dose: 03/19/24 18:00:00 EDT, Routine, 100 mL/hr gentamicin, 100 mg = 50 mL, IV Piggyback, Injection, every 8 hr, Antibiotic Indication Gynecologic, endometritis, Administer over: 30 minutes, First Dose: 03/19/24 18:00:00 EDT, Routine, 100 mL/hr ibuprofen, 400 mg = 2 tab, Oral, Tab, every 4 hr, PRN fever, First Dose: 03/19/24 17:57:00 EDT, Routine Lactated Ringers Injection 1,000 mL, Total Volume (mL): 1,000, 1,000 mL, Soln- IV, IV, 75 mL/hr, Start Date: 03/19/24 17:57:00 EDT, 98.5 kg, Populate Charting Weight From Order, 2.13, m2 sodium chloride 0.9% flush, 10 mL, IV Flush, Injection, As Directed, First Dose: 03/19/24 17:57:00 EDT, Physician Stop, Routine sodium chloride 0.9% flush, 10 mL, IV Flush, Injection, every 8 hr, First Dose: 03/19/24 18:00:00 EDT, Routine zolpidem, 5 mg = 1 tab, Oral, Tab, every night at bedtime, PRN sleep, First Dose: 03/19/24 17:57:00 EDT, Routine Ambulate, 03/19/24 17:57:00 EDT, Constant order CBC w/ Diff, Blood, Routine, 03/19/24 15:45:00 EDT, Once, Lab Collect, Dionisio Ochoa MD Diet Order, 03/19/24 17:57:00 EDT, Regular Patient Condition, 03/19/24 17:57:00 EDT, Condition Good/ Stable PSO Admit to Inpatient, Obstetrics, Inpatient, Dionisio Ochoa MD, 03/19/24 15:00:00 EDT, 03/19/24 15:00:00 EDT, 03/19/24 15:00:00 EDT, Less than 96 hours Resuscitation Status, 03/19/24 17:57:00 EDT, Full Code Vital Signs, 03/19/24 17:57:00 EDT, every 4 hr (rudy) Future Appointments Future Scheduled Tests Laboratory* Group B Strep ([facility]) 03/10/24 Functional Status 03/19/24 Family Member Travel History No recent t ravel Recent Travel History No recent travel Immunizations Given and Recorded Vaccine Date Status [...] hr, # 40 cap, 0 Refill(s), Pharmacy: [facility], 165.1, cm, 03/19/24 15:24:00 EDT, Height, 98.5, kg, 03/19/24 15:25:00 EDT, Weight Dosing Start Date: 03/20/24 Stop Date: 03/30/24 Status: Ordered cyclobenzaprine 10 mg oral tablet 10 mg = 1 tab, Oral, TID, PRN as needed for muscle spasm, # 30 tab, 0 Refill(s), Pharmacy: [id number], 165.1, cm, 09/06/23 13:49:00 EST, Height, [...] Confirmed Active 1suicide attempt 10/2017, hospitalized at [facility] and [facility] Procedures Procedure Date Related Diagnosis Body Site Status Dilation and Curettage 1 03/08/24 Completed Cholecystectomy 06/2016 Completed 1auto-populated from documented surgical case Results Laboratory List Name Date Automated Diff 03/19/24 CBC w/ Diff 03/19/24 Most recent to oldest [Reference Range]: 1 WBC [4.8-10.8 K/mcL] 10.5 K/mcL (03/19/24 3:45 PM) RBC [4.20-5.40 Million/mcL] 4.38 Million /mcL (03/19/24 3:45 PM) Neutro Auto [42.2-75.2 %] 53.0 % (03/19/24 3:45 PM) Lymph Auto [20.5-51.1 %] 36.0 % (03/19/24 3:45 PM) Juniata Auto [1.7-9.3 %] 6.0 % (03/19/24 3:45 PM) Basophil Auto [0.0-0.8 %] 1.0 % *HI* (03/19/24 3:45 PM) Baso Absolute [0.0-0.2 K/mcL] 0.1 K/mcL (03/19/24 3:45 PM) MCV [81.0-99.0 fL] 86.8 fL (03/19/24 3:45 PM) MCHC [32.0-37.0 g/dL] 33.4 g/dL (03/19/24 3:45 PM) Lymph Absolute [1.2-3.4 K/mcL] 3.8 K/mcL *HI* (03/19/24 3:45 PM) Hct [37.0-47.0 %] 38.0 % (03/19/24 3:45 PM) Juniata Absolute [0.1-0.6 K/mcL] 0.6 K/mcL (03/19/24 3:45 PM) MCH [27.0-31.0 pg] 29.0 pg (03/19/24 3:45 PM) Neutro Absolute [1.4-6.5 K/mcL] 5.5 K/mc L (03/19/24 3:45 PM) Hgb [12.0-16.0 g/dL] 12.7 g/dL (03/19/24 3:45 PM) MPV [7.4-10.4 fL] 8.1 fL (03/19/24 3:45 PM) Platelets [130-400 K/mcL] 541 K/mcL *HI* (03/19/24 3:45 PM) Eos Absolute [0.0-0.2 K/mcL] 0.4 K/mcL *HI* (03/19/24 3:45 PM) RDW-CV [11.5-14.5 %] 13.8 % (03/19/24 3:45 PM) Eos, Auto [0.00-3.00 %] 4.00 % *HI* (03/19/24 3:45 PM) Vital Signs Most recent to oldest [Reference Range]: 1 2 3 Temperature Oral [35.8-37.3 Deg C] 36.3 Deg C (03/20/24 3:56 AM) 37.1 Deg C (03/19/24 8:16 PM) Temperature Oral (DegF) [96.4-99.1 Deg F] 97.34 Deg F (03/20/24 3:56 AM) Temperature Temporal Artery [36-38 Deg C] 36.8 Deg C (03/20/24 12:42 PM) 36.5 Deg C (03/20/24 9:12 AM) 36.7 Deg C (03/19/24 2:27 PM) Temperature Temporal Artery (DegF) [97.3-100 Deg F] 98.24 Deg F (03/20/24 12:42 PM) 98.06 Deg F (03/19/24 2:27 PM) Heart Rate Monitored [60-100 bpm] 57 bpm *LOW* (03/20/24 12:42 PM) 80 bpm (03/20/24 9:12 AM) 50 bpm *LOW* (03/20/24 3:56 AM) Respiratory Rate [12-24 br/min] 16 br/min (03/20/24 3:56 AM) 20 br/min (03/19/24 8:16 PM) 20 br/min (03/19/24 2:27 PM) Blood Pressure [90-140/60-90 mmHg] 132/89mmHg (03/20/24 12:42 PM) 126/76mmHg (03/20/24 9:12 AM) 126/71mmHg (03/20/24 3:56 AM) Mean Arterial Pressure, Cuff [65-140 mmHg] 103 mmHg (03/20/24 12:42 PM) 93 mmHg (03/20/24 9:12 AM) 89 mmHg (03/20/24 3:56 AM) Blood Pressure Location Right arm (03/20/24 12:42 PM) Right arm (03/20/24 9:12 AM) Left arm (03/20/24 3:56 AM) Blood Pressure Method Automatic (03/20/24 12:42 PM) Automatic (03/20/24 9:12 AM) Automatic (03/20/24 3:56 AM) Weight 98.5 kg (03/19/24 3:24 PM) Weight Dosing 98.500 kg (03/19/24 3:24 PM) Height 165.1 cm (03/19/24 3:24 PM) BSA Measured 2.13 m2 (03/19/24 3:24 PM) BSA Estimated 0 m2 (03/19/24 3:24 PM) Body Mass Index 36.14 kg/m2 (03/19/24 3:24 PM) Social History Social History Type Response Smoking Status Smoking tobacco use: Current everyday tobacco user;Never; Number used per day: smokes in a bong with MJ at same time; entered on: 09/06/23 Sex Hospital Discharge Instructions Patient Education 03/20/2024 16:31:04 Endometritis Endometritis Endometritis is an irritation, soreness, or inflammation that affects the lining of the uterus (endometrium). It is often caused by an infection. It is vital to get treatment to prevent complications. Common complications may include more severe infections and not being able to have children(infertility). What are the causes? This condition may be caused by: ??? Bacterial infections. ??? STIs (sexually transmitted infections). ??? A miscarriage or giving , especially after a long labor or delivery. ??? Certain procedures affecting the female reproductive tract. These may include dilation and curettage (D&C), hysteroscopy, or control (contraceptive) insertion. ??? Tuberculosis (TB). What increases the risk? The following factors may make you more likely to develop this condition: ??? Having multiple sexual partners. ??? Not using barrier protection during sex, such as a condom. ??? Sexual activity before age 16. What are the signs or symptoms? Symptoms of this condition include: ??? Fever. ??? Pain in your lower abdomen. ??? Pain in the area between your hip bones (pelvis). ??? Vaginal discharge or bleeding that is not normal. ??? Abdominal bloating or swelling. ??? General feeling of discomfort or feeling ill. ??? Discomfort with bowel movements or constipation. How is this diagnosed? This condition may be diagnosed based on: ??? A physical exam, including a pelvic exam. ??? Tests, such as: ??? Blood tests. ??? Taking a sample of endometrial tissue for testing (endometrial biopsy). ??? Examining a sample of vaginal discharge under a microscope (wet prep). ??? Removing a sample of fluid from the cervix for testing (cervical culture). ??? Surgical exam of the pelvis and abdomen. How is this treated? This condition is treated with antibiotic medicines. For more severe cases, fluids and antibiotics may be given through an IV at a hospital. Follow these instructions at home: Medicines ??? Take [id number] and prescription medicines only as told by your health care provider. ??? Take your antibiotic medicine as told by your health care provider. Do not stop taking the antibiotic even if you start to feel better. Activity ??? Do not douche or have sex until your health care provider says it is safe. ??? If this condition was caused by an STI, do nothave sex until your partner has also been treatedfor the STI. ??? Return to your normal activities as told by your health care provider. Ask your health care provider what activities are safe for you. General instructions ??? Drink enough fluid to keep your urine pale yellow. ??? Keep all follow-up visits. This is important. Contact a health care provider if: ??? You have pain that does not get better with medicine. ??? You have a fever. ??? You have pain with bowel movements. Get help right away if: ??? You have swelling in your abdomen. ??? You have pain in your abdomen that gets worse. ??? You have a vaginal discharge that smells bad, or you have an increased amount of discharge. ??? You have vaginal bleeding that is not normal. ??? You have nausea and vomiting. Summary ??? Endometritis affects the lining of the uterus (endometrium). It is often caused by an infection. ??? It is vital to get treatment to prevent complications. Treatment may include antibiotics and IVfluids. ??? Take your antibiotic medicine as told by your health care provider. Do not stop taking the antibiotic even if you start to feel better. ??? Do not douche or have sex until your health care provider says it is safe. This information is not intended to replace advice given to you by your health care provider. Make sure you discuss any questions you have with your health care provider. Document Revised: 03/29/2021 Document Reviewed: 03/29/2021 [employer] Patient Education ?? 2022 [employer]. Follow Up Care 03/19/2024 14:53:29 With:Dionisio Ochoa MD Address: [address] [place] [phone] When:03/23/2024 Discharge instructions * Sharon Beverly: PERFORM Event Display: Discharge Instructions Authored Date: [id number] BRIDGET ALCOCER :2000 Age:24 years Sex:Female Visit Date:03/19/2024 Primary Care Physician: ALYCIA ARCHER APRN Hospital Discharge Instructions We would like to thank you for allowing us to assist you with your healthcare needs. The following includes patient education materials and information regarding your injury/illness. Your Next Steps Scheduled Future Appointments Saturday 1:00 PM EDT ?? With: Dionisio Ochoa MD Where: [facility] Women's Health Status: Confirmed Saturday 3:15 PM EDT ?? With: Dionisio Ochoa MD Where: [facility] Women's Health Status: Confirmed Follow Up Appointments Follow Up with??Dionisio Ochoa MD When:??In 4 days 03/24/2024 EDT Where: [address] [place] [phone] Medications What How Much When Why Instructions Next Dose Changed clindamycin (clindamycin 150 mg oral capsule) 2 Capsules Oral (given by mouth) Every 6 hours endometritis Changed clindamycin (clindamycin 300 mg oral capsule) 1 Capsules Oral (given by mouth) Every 6 hours endometritis Duration: 10 Days Pickup at [facility] Unchanged acetaminophen (acetaminophen 500 mg oral tablet) [...] Supervision of normal in second trimester Unchanged ibuprofen as needed. ?? Unchanged multivitamin, ( Complete with DHA) 1 Capsules Oral (given by mouth) Every day Pharmacy Information [facility]: [address], [place] [phone] ?? What How Much When Comments Stop Taking ondansetron (ondansetron 4 mg oral tablet, disintegrating) 1 tab Oral (given by mouth) Every 8 hours as needed for as needed for nausea/vomiting Stop Taking pantoprazole (Protonix 20 mg oral delayed release tablet) 1 tab Oral (given by mouth) Every day Stop Taking promethazine (promethazine 25 mg oral tablet) 1 tab Oral (given by mouth) Every night at bedtime Your Summary Your Care Team Admitting Physician - Dionisio Ochoa MD Attending Physician - Dionisio Ochoa MD Consulting Physician - Dionisio Ochoa MD Primary Care Physician - ALYCIA ARCHER APRN Referring Physician - Dionisio Ochoa MD Your Diagnosis endometritis Problems Ongoing - Any problem that you [...] trimester Supervision of normal in second trimester Tests Performed/Pending Automated Diff CBC w/ Diff Discharge Vitals Temperature??(Temporal Artery) 98.2 ??F (36.8 ??C) Heart Rate??(Monitored) 57 Respiratory Rate?? 16 Blood Pressure?? 132/89?? Allergies Blueberries??(Anaphylaxis) penicillin??(Hives) Education Materials Endometritis Endometritis is an irritation, soreness, or inflammation that affects the lining of the uterus (endometrium). It is often caused by an infection. It is vital to get treatment to prevent complications. Common complications may include more severe infections and not being able to have children(infertility). What are the causes? This condition may be caused by: ? Bacterial infections. ? STIs (sexually transmitted infections). ? A miscarriage or giving , especially after a long labor or delivery. ? Certain procedures affecting the female reproductive tract. These may include dilation and curettage (D&C), hysteroscopy, or control (contraceptive) insertion. ? Tuberculosis (TB). What increases the risk? The following factors may make you more likely to develop this condition: ? Having multiple sexual partners. ? Not using barrier protection during sex, such as a condom. ? Sexual activity before age 16. What are the signs or symptoms? Symptoms of this condition include: ? Fever. ? Pain in your lower abdomen. ? Pain in the area between your hip bones (pelvis). ? Vaginal discharge or bleeding that is not normal. ? Abdominal bloating or swelling. ? General feeling of discomfort or feeling ill. ? Discomfort with bowel movements or constipation. How is this diagnosed? This condition may be diagnosed based on: ? A physical exam, including a pelvic exam. ? Tests, such as: ? Blood tests. ? Taking a sample of endometrial tissue for testing (endometrial biopsy). ? Examining a sample of vaginal discharge under a microscope (wet prep). ? Removing a sample of fluid from the cervix for testing (cervical culture). ? Surgical exam of the pelvis and abdomen. How is this treated? This condition is treated with antibiotic medicines. For more severe cases, fluids and antibiotics may be given through an IV at a hospital. Follow these instructions at home: Medicines ? Take [id number]-rlntjzo and prescription medicines only as told by your health care provider. ? Take your antibiotic medicine as told by your health care provider. Do not stop taking the antibiotic even if you start to feel better. Activity ? Do not douche or have sex until your health care provider says it is safe. ? If this condition was caused by an STI, do nothave sex until your partner has also been treated forthe STI. ? Return to your normal activities as told by your health care provider. Ask your health care provider what activities are safe for you. General instructions ? Drink enough fluid to keep your urine pale yellow. ? Keep all follow-up visits. This is important. Contact a health care provider if: ? You have pain that does not get better with medicine. ? You have a fever. ? You have pain with bowel movements. Get help right away if: ? You have swelling in your abdomen. ? You have pain in your abdomen that gets worse. ? You have a vaginal discharge that smells bad, or you have an increased amount of discharge. ? You have vaginal bleeding that is not normal. ? You have nausea and vomiting. Summary ? Endometritis affects the lining of the uterus (endometrium). It is often caused by an infection. ? It is vital to get treatment to prevent complications. Treatment may include antibiotics and IV fluids. ? Take your antibiotic medicine as told by your health care provider. Do not stop taking the antibiotic even if you start to feel better. ? Do not douche or have sex until your health care provider says it is safe. This information is not intended to replace advice given to you by your health care provider. Make sure you discuss any questions you have with your health care provider. Document Revised: 03/29/2021 Document Reviewed: 03/29/2021 [employer] Patient Education ?? 2022 [employer] Patient/Homebound Teacher Signature Patient Name:BRIDGET ALCOCER I have received this information and my questions have been answered. Patient/Homebound Teacher Name: Patient/Homebound Teacher Signature: Relationship to Patient: Witness Name/Signature: Date: Electronically Signed on: 03/20/2024 20:00 EDTSigned by:ANNY summary Document * Event Display: Summary Document Authored Date: [id number] BRIDGET ALCOCER : 2000 Age: 24 Years [...] 98 Problems (Active Problems Only) (SNOMED CT: 181773225, Onset: 06/19/23) Tobacco use (SNOMED CT: 6415230798, Onset: --) Depressive disorder (SNOMED CT: 72727536, Onset: --) Comment: suicide attempt 10/2017, hospitalized at [facility] and [facility] (Lata Cano on 07/22/23) H/O: ectopic (SNOMED CT: 047307943, Onset: --) History of gestational diabetes mellitus (SNOMED CT: 5776469579, Onset: --) H/O: miscarriage (SNOMED CT: 759084274, Onset: --) H/O: ectopic (SNOMED CT: 497079884, Onset: --) Gastroesophageal reflux disease (SNOMED CT: 657809311, Onset: --) Normal (SNOMED CT: 361633355, Onset: --) History of delivery (SNOMED CT: 6805456190, Onset: --) High risk (SNOMED CT: 16169726, Onset: --) Puerperal endometritis (SNOMED CT: 37688003, Onset: --) BRIDGET ALCOCER : [birth year] Risk Factors and Genetic Screening All [...] ALCOCER : [birth year] Exam and Notes Date STAN Chase PTL S/S Cervix BP Weight Urine Baby [...] Present per patient 12/30/2023 Present per patient CARLYNBRIDGET Alvaro : [birth year] Physical Exams Physical Exam Mental [...] Color: Normal for ethnicity (03/19/24) Skin Description: Show Low (03/19/24) Skin Temperature: Warm (03/19/24) Skin Turgor: Elastic (03/19/24) Skin Moisture General: Dry (03/19/24) Skin Integrity: Intact, no abnormalities (03/19/24) Mucous Membrane Color: Show Low (03/19/24) BRIDGET ALCOCER : [birth year] Blood Types [...] fL 09/06/23 (11 weeks) (81.0 - 99.0) Juniata Absolute 0.5 K/mcL 09/06/23 (11 weeks) (0.1 - 0.6) Eos Absolute 0.1 K/mcL 09/06/23 (11 weeks) (0.0 - 0.2) Lymph Absolute 3.2 K/mcL 09/06/23 (11 weeks) (1.2 - 3.4) Basophil Auto 0.4 % 09/06/23 (11 weeks) (0.0 - 0.8) Juniata Auto 4.9 % 09/06/23 (11 weeks) (1.7 [...] Urine Color Urine Dipstick Dark yellow 12/26/23 ( weeks) Protein Urine Dipstick Trace 12/30/23 ( weeks) Glucose Urine Dipstick Negative 12/30/23 ( weeks) Urine Color Urine Dipstick Dark yellow 12/30/23 ( weeks) Urine Appearance Urine Dipstick Clear 12/30/23 ( weeks) RBC 4.20 Million/mcL 12/30/23 ( weeks) (4.20 - 5.40) WBC (H) 12.2 [...] % 12/30/23 ( weeks) (0.00 - 3.00) Juniata Absolute (H) 0.7 K/mcL 12/30/23 ( weeks) [...] % 12/30/23 ( weeks) (0.0 - 0.8) Juniata Auto 5.7 % 12/30/23 ( weeks) (1.7 [...] ( weeks) UA Leuk Est Negative 12/31/23 ( [...] K/mcL 01/30/24 (32 weeks) (1.4 - 6.5) Juniata Absolute (H) 0.7 K/mcL 01/30/24 (32 weeks) (0.1 - 0.6) Lymph Absolute 1.9 K/mcL 01/30/24 (32 weeks) (1.2 - 3.4) Baso Absolute 0.0 K/mcL 01/30/24 (32 weeks) (0.0 - 0.2) Basophil Auto 0.5 % 01/30/24 (32 weeks) (0.0 - 0.8) Juniata Auto 7.6 % 01/30/24 (32 weeks) (1.7 [...] % 03/07/24 (37 weeks) (42.2 - 75.2) Jun[place]ata Auto 7.6 % 03/07/24 (37 weeks) (1.7 - 9.3) Lymph Absolute (H) 3.8 K/mcL 03/07/24 (37 weeks) (1.2 - 3.4) Baso Absolute 0.1 K/mcL 03/07/24 (37 weeks) (0.0 - 0.2) Basophil Auto 0.6 % 03/07/24 (37 weeks) (0.0 - 0.8) Eos, Auto 2.60 % 03/07/24 (37 weeks) (0.00 - 3.00) Juniata Absolute (H) 1.1 K/mcL 03/07/24 (37 weeks) [...] (U) O POS 03/07/24 (37 weeks) BRIDGET ALCOCER: [birth year] Actions No Actions have been documented. BRIDGET ALCOCER: [birth year] Situational Awareness No comments have been documented. 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 : [birth year] Medications Prescriptions and Home Medications [...] Status: Completed Ordered: 03/08/24 Provider: MarilinUser, Generated dexamethasone (ANES) (dexAMETHasone 10 mg/1 mL PF Vial [LTTL]) IV, Once Status: Completed Ordered: 03/08/24 Provider: Love Kamara dexAMETHasone preservative-free (dexamethasone) 10 mg = 1 mL, N/A, Once Status: Completed Ordered: 03/08/24 Provider: MarilinUser, Generated fentaNYL (ANES) (fentaNYL 50 mcg/mL 2 mL Vial [LTTL]) IV, Once Status: Completed Ordered: 03/08/24 Provider: Love Kamara ibuprofen 600 mg = 1 tab, N/A, Once Status: Completed Ordered: 03/08/24 Provider: MarilinUser Generated Lactated Ringers Injection (ANES) 1000 mL [...] N/A, Once Status: Completed Ordered: 03/07/24 Provider: Tanishar, Generated propofol 500 mg = 50 mL, [...] Sex: Female Wt: 2722 g [facility]: [facility] Comment: Covid in August prior to delivery, [...] undocumented age from an undocumented cause) [facility], Age: 2 Years) Alive and well [...] Plan: No Written Plan Location: -- Support Person/Operations Asst Relationship to Pt: Boyfriend, Father of baby Oral Intake OB: -- Labor Preferences: -- Non-Medicinal Pain Relief: -- Anesthesia/Pain Medication During Labor: Epidural, IV narcotic Delivery Plan: -- Feeding: -- Circumcision: Before discharge Baby For Adoption: No Patient Requests: -- Father of the Baby's Name: -- Coin Machine Mechanic Selected: -- Surrogate : No Support Person's Name: Bill Km BRIDGET ALCOCER DOB: [birth year] Education Educational Materials/Leaflets Provided Title/Topic Date Provided [facility] - Vaginal or Delivery Post Discharge Instructions 03/08/24 BRIDGET ALCOCER: [birth year] Registration and Information Race: White Ethnicity: Not , , or Welsh Origin Marital Status: Single Language(s): Danish Mandaen Preference(s): None/No Preference Occupation/Education: Address, Phone, and Health Plans Home Address: [address] [place] [address], [place] [phone] (Home), , -- Health Plans: 1 - MEDICAID [id number] Member/Group: [id number] Deductible: $ -- Type: Medicaid Address: [address] [id number] - [place] Member/Group: [id number] Deductible: $ -- Type: Medicaid Address: [address] [place] [id number] 3 - [place] Member/Group: [id number] Deductible: $ -- Type: Medicaid Address: [address] [id number] 4 - [place] Member/Group: [id number] Deductible: $ -- Type: Medicaid Address: [address] [id number] - [place] Member/Group: [id number] Deductible: $ -- Type: Medicaid Address: [address] [id number] - [place] Member/Group: [id number] Deductible: $ -- Type: Medicaid Address: [address] [id number] - [place] Member/Group: [id number] Deductible: $ -- Type: Medicaid Address: [address] [id number] General Information OB Provider(s) Information: Not explicitly [...] Date Location Provider Type Medical Service 04/17/2024 [facility] Dionisio Ochoa MD [facility] 03/24/2024 [facility] Dionisio Ochoa MD Clinic [facility] 03/19/2024 Kerry Ochoa MD Inpatient Inpatient 03/19/2024 6 Dionisio Ochoa MD Clinic Clinic 03/17/2024 [facility] -- Clinic [facility] 03/10/2024 [facility] -- Clinic [facility] 03/07/2024 Kerry Ochoa MD Inpatient Inpatient 03/05/2024 [facility] Moris Perez MD Clinic [facility] 03/05/2024 [facility] Moris Perez MD Outpatient Lab 03/02/2024 [facility] Moris Perez MD [facility] 02/24/2024 5 Carlos Akers MD Clinic Clinic 02/11/2024 [facility] Moris Perez MD Clinic [facility] 02/11/2024 T1 Moris Perez MD Clinic Clinic 01/30/2024 Kerry Ochoa MD Outpatient NST 01/27/2024 [facility] Lore Guido APRN Clinic [facility] 01/22/2024 [facility] -- Between Visit -- 01/10/2024 3 Moris Perez MD Clinic Clinic 12/31/2023 Kerry Akers MD Outpatient NST 12/31/2023 [facility] -- Clinic Clinic 12/31/2023 [facility] -- Between Visit -- 12/30/2023 [facility] Dionisio Ochoa MD Outpatient Lab 12/30/2023 1 Moris Perez MD Clinic Clinic 12/26/2023 4 Dionisio Ochoa MD Clinic Clinic 12/05/2023 [facility] -- Between Visit -- 12/05/2023 [facility] 11/05/2023 [facility] Dionisio Ochoa MD Outpatient Lab 11/05/2023 T2 Dionisio Ochoa MD Clinic Clinic 11/05/2023 [facility] Dionisio Ochoa MD Outpatient US 10/07/2023 [facility] -- Between Visit -- 10/04/2023 [facility] Dionisio Ochoa MD Outpatient Lab 10/04/2023 6 Dionisio Ochoa MD Clinic Clinic 10/03/2023 [facility] -- Between Visit -- 09/23/2023 [facility] Carlos Akers MD Outpatient Lab 09/16/2023 [facility] -- Between Visit -- 09/12/2023 [facility] -- Between Visit -- 09/06/2023 [facility] Carlos Akers MD Outpatient Lab 09/06/2023 [facility] Carlos Akers MD Outpatient Lab 09/06/2023 1 Carlos Akers MD Clinic Clinic 08/07/2023 [facility] Lore Guido, GAS FITTER Clinic Clinic 08/07/2023 [facility] Lore Guido, GAS FITTER Outpatient 08/05/2023 [facility] -- Between Visit -- 07/25/2023 [facility] -- Between Visit -- 07/24/2023 [facility] -- Between Visit -- 07/24/2023 [facility] Lore Guido, GAS FITTER Outpatient Lab 07/22/2023 [facility] Lore Guido, GAS FITTER Outpatient Lab 07/22/2023 [facility] Lore Guido APRN Clinic Clinic BRIDGET ALCOCER : [birth year] Visit / Encounter Location Information The following information represents known location and contact information for locations visitedduring [facility] Business Address: [address] [place] [address] Phone:[phone] [employer] [facility] Business Address: [address] [place] [address] Phone: No phone numbers found on file [...] No Cord Blood Sent to Lab: Yes Supervisor Rod Placing: Love Kamara Maternal Delivery Complications: None Delivery Physician: Dionisio Ochoa MD Information Risk Factors: Other: left compound arm Complications: None Nuchal Cord Times: 1 Nuchal Cord Tension: Loose Nuchal Cord Intervention: Reduced prior to delivery Umbilical Cord Description: 3 vessel cord, Nuchal cord Infant Data Gender: Male ID Band Number: [id number] Outcome: Live Security Tag Number: [id number] Weight: 2.750 kg Score 1 Minute: 8 Score 5 Minute: 9 Coin Machine Mechanic: Bridgette Jasso MD Note: Items documented with '--' had no clinical data which qualified at time of report creation END OF REPORT Progress note * Carlos Akers MD: PERFORM Event Display: Progress Note - Physician Authored Date: [id number] BRIDGET ALCOCER :2000 Age:24 years Sex:Female Visit Date:03/19/2024 Primary Care Physician: ALYCIA ARCHER APRN Subjective Pt has improved. ??She??states??bleeding has decreased??and is no longer having cramping or pain.??She is ambulating well??and tolerating a regular diet. Objective Vitals & Measurements T:??36.5?C ??(Temporal Artery)?? TMIN:??36.3?C ??(Oral)?? TMAX:??37.1?C ??(Oral)?? HR:??80??(Monitored)?? RR:??16?? BP:??126/76?? HT:??165.1??cm?? WT:??98.5??kg?? BMI:??36.14?? Pain Score:??0?? O2 Therapy:??Room air?? BSA:??2.13?? Physical Exam General: Alert and oriented, well nourished, no acute distress HEENT: Normocephalic, grossly normal hearing, moist oral mucosa, no scleral icterus Lungs: Clear to auscultation, non-labored respiration Heart: Normal rate, regular rhythm, no murmurs Abdomen: Soft, non-tender, non-distended Musculoskeletal: Grossly normal range of motion and strength, no tenderness or swelling Skin: Skin is warm, dry, no rashes Neurologic: Awake, alert, and oriented X4 Psychiatric: Cooperative, appropriate mood and affect Assessment/Plan 1.?? endometritis??O86.12 Continue IV??Gentamicin and??Clindamycin.?? Afebrile and??White Blood Cell??Count.?? Considering discharge home after 24 hours of IV antibiotics. Electronically Signed on 03/20/2024 11:26 EDT Carlos Akers MD History and physical note * Dionisio Ochoa MD: PERFORM Event Display: History and Physical Authored Date: [id number] BRIDGET ALCOCER :2000 Age:24 years Sex:Female Visit Date:03/19/2024 Primary Care Physician: ALYCIA ARCHER APRN History of Present Illness 24-year-old presents to the office today for??heavy vaginal bleeding??and abdominal pain.?? She is 11 days status post ??with delivery complicated by hemorrhage requiring??D&C and Tawnya catheter.?? She denies any fevers or chills??but abdominal pain has increased in severity. ??Onexam in the office she was noted to have significant vaginal discharge and??moderate bleeding.?? She also did have significant fundal tenderness which was consistent with endometritis. Review of Systems Constitutional:?No??fevers,?No??chills,?No??sweats Eye:?No??recent visual problems ENT:?No??ear pain,?No??nasal congestion,?No??sore throat Respiratory:?No??shortness of breath,?No??cough Cardiovascular:?No??Chest pain,?No??palpitations,?No??syncope Gastrointestinal:?Nonausea,?No??vomiting,?No??diarrhea Genitourinary:?No??hematuria Bernardo/Lymph:?No??bruising tendency,?No??swollen lymph glands Endocrine:?No??excessive thirst,??No??excessive hunger Musculoskeletal:??No??back pain,??No??neck pain,??No??joint pain,??No??muscle pain,??No??decreased range of motion Integumentary:?No??rash,?No??pruritus,?No??abrasions Neurologic: Alert & oriented X 4 Psychiatric:?No??anxiety,?No??depression Physical Exam Vitals & Measurements T:??36.7?C ??(Temporal Artery)?? HR:??63??(Monitored)?? RR:??20?? BP:??135/83?? HT:??165.1??cm?? WT:??98.5??kg?? BMI:??36.14?? O2 Therapy:??Room air?? BSA:??2.13?? As per office note Assessment/Plan 1.?? endometritis??O86.12 ??Will admit to labor and delivery??for IV antibiotic.?? Will start on clindamycin 900 mg??every 8 hours IV??and gentamicin 100 mg every 8 hours. Orders: acetaminophen, 650 mg = 2 tab, Oral, Tab, every 4 hr, PRN fever, First Dose: 03/19/24 17:57:00 EDT,Routine clindamycin, 900 mg = 50 mL, IV Piggyback, Injection, every 8 hr, Antibiotic Indication Gynecologic, endometritis, Administer over: 30 minutes, First Dose: 03/19/24 18:00:00 EDT, Routine, 100 mL/hr gentamicin, 100 mg = 50 mL, IV Piggyback, Injection, every 8 hr, Antibiotic Indication Gynecologic,endometritis, Administer over: 30 minutes, First Dose: 03/19/24 18:00:00 EDT, Routine, 100 mL/hr ibuprofen, 400 mg = 2 tab, Oral, Tab, every 4 hr, PRN fever, First Dose: 03/19/24 17:57:00 EDT, Routine Lactated Ringers Injection 1,000 mL, Total Volume (mL): 1,000, 1,000 mL, Soln- IV, IV, 75 mL/hr, Start Date: 03/19/24 17:57:00 EDT, 98.5 kg, Populate Charting Weight From Order, 2.13, m2 sodium chloride 0.9% flush, 10 mL, IV Flush, Injection, As Directed, First Dose: 03/19/24 17:57:00 EDT, Physician Stop, Routine sodium chloride 0.9% flush, 10 mL, IV Flush, Injection, every 8 hr, First Dose: 03/19/24 18:00:00 EDT, Routine zolpidem, 5 mg = 1 tab, Oral, Tab, every night at bedtime, PRN sleep, First Dose: 03/19/24 17:57:00EDT, Routine Ambulate, 03/19/24 17:57:00 EDT, Constant order CBC w/ Diff, Blood, Routine, 03/19/24 15:45:00 EDT, Once, Lab Collect, Dionisio Ochoa MD Diet Order, 03/19/24 17:57:00 EDT, Regular Patient Condition, 03/19/24 17:57:00 EDT, Condition Good/ Stable PSO Admit to Inpatient, Obstetrics, Inpatient, Dionisio Ochoa MD, 03/19/24 15:00:00 EDT, 03/19/24 15:00:00 EDT, 03/19/24 15:00:00 EDT, Less than 96 hours Resuscitation Status, 03/19/24 17:57:00 EDT, Full Code Vital Signs, 03/19/24 17:57:00 EDT, every 4 hr ([facility]) Problem List/Past Medical History Ongoing Depression GERD [...] History ???Dilation and Curettage (03/08/2024)???Cholecystectomy (06/2016) Medications Inpatient acetaminophen, 650 mg= 2 tab, Oral, every 4 hr, PRN clindamycin, 900 mg= 50 mL, IV Piggyback, every 8 hr gentamicin, 100 mg= 50 mL, IV Piggyback, every 8 hr ibuprofen, 400 mg= 2 tab, Oral, every 4 hr, PRN Lactated Ringers Injection 1,000 mL, 1000 mL, IV sodium chloride 0.9% flush, 10 mL, IV Flush, every 8 hr sodium chloride 0.9% flush, 10 mL, IV Flush, As Directed zolpidem, 5 mg= 1 tab, Oral, every night at bedtime, PRN Home acetaminophen 500 mg oral tablet, [...] adult/adol 12/30/2023 Given Electronically Signed on 03/19/2024 17:59 EDT Dionisio Ochoa MD Discharge summary * Lena Christensen: PERFORM Event Display: Discharge Note Authored Date: [id number] Diagnosis: 1. endometritis Comment: Discontinued IV, pt educated on signs and symptoms to be aware of and will notify MD as needed. DIscharged home with partner and sister. Electronically Signed on 03/20/2024 22:09 EDT Lena Christensen * Carlos Akers MD: PERFORM Event Display: Discharge Summary Authored Date: [id number] CARLYN BRIDGET L :2000 Age:24 years Sex:Female Visit Date:03/19/2024 Primary Care Physician: ALYCIA ARCHER APRN Admission Information Patient admitted on 03/19/2024 due to Endometritis Hospital Course 24yo female, The patient was admitted??1 day ago??for suspected Endometritis.?? She has responded well to??IV Antibiotic Treatment. ??She Has Received IV??gentamicin and IV Clindamycin. ??She has remained afebrile throughout her??hospitalization. ??She is no longer having any pain.?? She had a Spontan eous Vaginal Delivery on 03/08/2024. ??Her delivery was complicated by Hemorrhage. ??She went to the operating room for a D&C??and placement of a??Tawnya drain. Physical Exam Vitals & Measurements T:??36.8?C ??(Temporal Artery)?? TMIN:??36.3?C ??(Oral)?? TMAX:??37.1?C ??(Oral)?? HR:??57??(Monitored)?? RR:??16?? BP:??132/89?? Pain Score:??0?? General: Alert and oriented, well nourished, no acute distress Eye: Pupils equal, EOMI HEENT: Normocephalic, grossly normal hearing, moist oral mucosa, no scleral icterus Lungs: Clear to auscultation, non-labored respiration Heart: Normal rate, regular rhythm, no murmurs Abdomen: Soft, non-tender, non-distended, no masses Musculoskeletal: Grossly normal range of motion and strength, no tenderness or swelling Skin: Skin is warm, dry, no rashes Neurologic: Awake, alert, and oriented X4 Psychiatric: Cooperative, appropriate mood and affect Procedure/Surgical History ???Dilation and Curettage (03/08/2024)???Cholecystectomy (06/2016) [...] day. Never Smokeless Tobacco use:. Discharge Plan 1.?? endometritis??O86.12 Ordered: clindamycin, 300 mg = 2 cap, Oral, Cap, every 6 hr, Antibiotic Indication Gynecologic, endometritis, First Dose: 03/20/24 18:00:00 EDT, Routine clindamycin 150 mg oral capsule, 300 mg = 2 cap, Oral, every 6 hr, 0 Refill(s) clindamycin 300 mg oral capsule, 300 mg = 1 cap, Oral, every 6 hr, # 40 cap, 0 Refill(s), Pharmacy:[facility], 165.1, cm, 03/19/24 15:24:00 EDT, Height, 98.5, kg, 03/19/24 15:25:00 EDT, Weight Dosing ?? Orders: albuterol, 90 mcg, Inhale, Powder, every 4 hr, PRN not specified, First Dose: 03/20/24 17:27:00 EDT, Routine All Diagnoses This Visit endometritis Patient Discharge Condition Good Discharge Disposition Discharge Home Patient Education Endometritis Follow Up With When Contact Information Dionisio Ochoa MD In 4 days 03/24/2024 EDT [address] [place] [address] [phone] Additional Instructions: Medication Reconciliation Changed clindamycin (clindamycin 150 mg oral capsule)2 Capsules Oral (given by mouth) every 6 hours. ?? clindamycin (clindamycin 300 mg oral capsule)1 Capsules Oral (given by mouth) every 6 hours for 10 Days. Refills: 0. ?? Unchanged acetaminophen (acetaminophen 500 mg oral tablet)2 [...] needed for muscle spasm. Refills: 0. ?? ibuprofenas needed.. ?? multivitamin, ( Complete with DHA)1 Capsules Oral (given by mouth) every day. ?? Discontinued ondansetron (ondansetron 4 mg oral tablet, disintegrating)1 tab Oral (given by mouth) every 8 hoursas needed as needed for nausea/vomiting. Refills: 0. ?? pantoprazole (Protonix 20 mg oral delayed release tablet)1 tab Oral (given by mouth) every day. Refills: 3. ?? promethazine (promethazine 25 mg oral tablet)1 tab Oral (given by mouth) every night at bedtime. Refills: 0. Electronically Signed on 03/20/2024 17:34 EDT Carlos Akers MD Patient Care team information Care Team Personnel Name: ALYCIA ARCHER APRN Position: No Access Member Role: Primary Care Physician Address: Address: [address] [place] [address]- Care Team Related Persons Name: RYLEY ALCOCER Address: Home [address] [place] [phone] [facility]
--- OUTSIDE RECORDS SUMMARY | 2024-04-05 16:58 | XMS_ITS | Clinical Summary ---
Author Organization [facility] Address [address] [place] [address] Care Team Providers Care Agricultural Education Instructor Name Role Phone Unknown, Provider Primary Care Provider [phone] Social History Tobacco Use Types Packs/Day Years Used Date Smoking Tobacco: Never Assessed Interpersonal Safety Answer Date Record ed Physically Hurt Never 04/11/2020 Verbally Threaten Not on file 04/11/2020 Sex and Gender Information Value Date Recorded Sex Assigned at Not on file Gender Identity Not on file Sexual Orientation Not on file Plan of Treatment Health Maintenance Due Date Last Done Comments Hepatitis B Vaccine (1 of 3 - 19+ 3-dose series) 01/08 COVID-19 Vaccine ( season) 2023 Hepatitis C Screen Completed 09/03/2021 Procedures Procedure Name Priority Date/Time Associated Diagnosis Comments HEPATITIS C AB W REFLEX TO HCV RNA BY PCR Routine 09/03/2021 20:42 EST from Last 3 Months or Most Recently Relevant to Health Maintenance Results * HEPATITIS C AB W REFLEX TO HCV RNA BY PCR (09/03/2021 20:42 EST) Hep C Antibody Negative Negative 09/05/2021 12:06 EST [facility] Blood VENOUS BLOOD / Unknown 09/03/2021 20:42 EST 09/04/2021 16:32 EST Provider Outr Resulting Lab CHEMISTRY & BLOOD GAS ORDERABLES [facility] [address] [place] [address] from Last 3 Months or Most Recently Relevant to Health Maintenance Care Teams Agricultural Education Instructor Relationship Specialty Start Date End Date Unknown, Provider, PCP - General 06/07/16
--- OUTSIDE RECORDS SUMMARY | 2024-04-05 16:58 | XMS_ITS | Encounter Summary ---
Author Organization [facility] Address [address] [place] [address] Care Team Providers Care Front Elevator Operator Name Role Phone Unknown, Provider Primary Care Provider [phone] Encounter Details Date Type Department Care Team (Late st Contact Info) Description 07/03/2022 Lab Requisition [facility] Pathology & Laboratory Medicine - [facility] [address] [place] [address] Outr Resulting Lab, Provider Social History Tobacco [...] Procedure Name Priority Date/Time Associated Diagnosis Comments CHLAMYDIA/N. GONORRHOEAE AMPLIFIED NUCLEIC ACID Routine 07/03/2022 13:20 EDT documented in this encounter Results * CHLAMYDIA/N. GONORRHOEAE AMPLIFIED RNA (07/03/2022 13:20 EDT) Neisseria gonorrhoeae Result Negative Negative 07/06/2022 15:56 EDT [facility] Chlamydia trachomatis Result Negative Negative 07/06/2022 15:56 EDT [facility] ZZUNK ENTIRE ENDOCERVIX / Unknown 07/03/2022 13:20 EDT 07/05/2022 12:03 EDT Provider Outr Resulting Lab MICROBIOLOGY - GENERAL ORDERABLES [facility] [address] [place] [address] documented in this encounter Visit Diagnoses Not on filedocumented in this encounter Care Teams Front Elevator Operator Relationship Specialty Start Date End Date Unknown, Provider, PCP - General 06/07/16 documented as of this encounter
--- OUTSIDE RECORDS SUMMARY | 2024-04-05 16:58 | XMS_ITS | Continuity of Care Document ---
Author Organization [facility] Ambulatory Clinics Address [address] [place] [address] Care Team Providers Care Clinical Engineering Director Name Role Phone ALYCIA ARCHER APRN Primary Care Physician [phone] Encounter [facility] NBR [id number] Date(s): 01/10/24 - 01/10/24 [facility] Ambulatory Clinics [address] [place], [place] [address] Encounter Diagnosis Normal in multigravida in third trimester(Discharge Diagnosis) - 01/10/24 Discharge Disposition: Home or Self Care Attending Physician: Moris Perez MD Allergies, Adverse Reactions, Alerts Substance Reaction Severity Status penicillin Hives Mild Active Blueberries Anaphylaxis Severe Active Assessment and Plan Extracted from: Title:OB Extended Office Visit Author:Moris miles MD Date:01/10/24 1.??Normal in mult igravida in third trimester??Z34.83 ?? Recs for GERD reviewed.?? Otherwise doing well. Future Appointments Appointment Date:01/27/2024 02:00:00 PM Scheduled Provider:Lore Guido APRN Location:[facility] Appointment Type:OB Follow Up Appointment Date:02/11/2024 04:00:00 PM Scheduled Provider:Moris Perez MD Location:[facility] Appointment Type:OB Follow Up Appointment Date:02/24/2024 02:45:00 PM Scheduled Provider:Carlos Akers MD Location:[facility] Appointment Type:OB Follow Up Appointment Date:03/02/2024 01:45:00 PM Scheduled Provider:Moris Perez MD Location:[facility] Appointment Type:OB Follow Up Appointment Date:03/10/2024 01:00:00 PM Scheduled Provider:Dionisio Ochoa MD Location:[facility] Appointment Type:OB Follow Up Appointment Date:03/17/2024 01:00:00 PM Scheduled Provider:Carlos Akers MD Location:[facility] Appointment Type:OB Follow Up Appointment Date:03/24/2024 01:00:00 PM Scheduled Provider:Dionisio Ochoa MD Location:[facility] Appointment Type:OB Follow Up Immunizations [...] spasm, # 30 tab, 0 Refill(s), Pharmacy: [id number], 165.1, cm, 09/06/23 13:49:00 EST, Height, [...] for nausea/vomiting, # 30 tab, 0 Refill(s), Pharmacy:[id number], 165.1, cm, 09/06/23 13:49:00 EST, Height, 103.6, kg, 09/06/23 14:07:00 EST, Weight Dosing Start Date: 10/02/23 Status: Ordered Complete with DHA 0 Refill(s) Start Date: 07/22/23 Status: Ordered promethazine 12.5 mg oral tablet 12.5 mg = 1 tab, Oral, every 4 hr, PRN as needed for nausea/vomiting, # 60 tab, 2 Refill(s), Pharmacy: [id number], 165.1, cm, 08/07/23 10:09:00 EST, [...] 06/19/23 Active 1suicide attempt 10/2017, hospitalized at [facility] Procedures Procedure Date Related Diagnosis Body Site Status Cholecystectomy 06/2016 Completed Results Most recent to oldest [Reference Range]: 1 Protein Urine Dipstick Trace (01/10/24 2:49 PM) Glucose Urine Dipstick Negative (01/10/24 2:49 PM) Urine Color Urine Dipstick Yellow (01/10/24 2:49 PM) Urine Appearance Urine Dipstick Clear (01/10/24 2:49 PM) Vital Signs Most recent to oldest [Reference Range]: 1 Blood Pressure [90-140/60-90 mmHg] 126/6 4mmHg (01/10/24 2:49 PM) Mean Arterial Pressure, Cuff [65-140 mmH g] 85 mmHg (01/10/24 2:49 PM) Weight 106.6 kg (01/10/24 2:49 PM) Weight Measured (lbs) 235.012 lb (01/10/24 2:49 PM) Weight Dosing 106.600 kg (01/10/24 2:49 PM) [place] Body Weight Calculated 57 kg (01/10/24 2:49 PM) Height 165.1 cm (5/3/24 2:49 PM) Height/Length Measured (inches) 65 inch (01/10/24 2:49 PM) BSA Measured 2.21 m2 (01/10/24 2:49 PM) Body Mass Index 39.11 kg/m2 (01/10/24 2:49 PM) Social History Social History Type Response Smoking Status Smoking tobacco use: Current everyday tobacco user;Never; Number used per day: smokes in a bong with MJ at same time; entered on: 09/06/23 Sex Physician Outpatient Note * Moris Perez MD: PERFORM Event Display: Office Clinic Note Physician Authored Date: [id number] BRIDGET ALCOCER :2000 Age:24 years Sex:Female Visit Date:01/10/2024 Primary Care Physician: ALYCIA ARCHER APRN Chief Complaint OB follow-up History of Present Illness Protonix increased from 20 to 40 mg at last visit.?? GERD is still a problem.?? Baby is active.?? No bleeding.?? Some BH CTXs. Visit Baby A Activity:Present per patient FHR Baseline:140 Vital Signs/Measurements Systolic Blood Extydlnj466 mmHg Diastolic Blood Fexlfivp35 mmHg Zpsofq232.6 kg Urine POC Protein Urine DipstickTrace Glucose Urine DipstickNegative Fundal Height Fundal Bfsgat47 cm Additional Information Antepartum CommentWill add in Pepcid. Next Appointment2 weeks Physical Exam Vitals & Measurements BP:??126/64?? HT:??165.1??cm?? WT:??106.6??kg?? BMI:??39.11?? BSA:??2.21?? Assessment/Plan 1.??Normal in multigravida in third trimester??Z34.83 ?? Recs for GERD reviewed.?? Otherwise doing well. LMP/EGA/JEREMÍAS Last Menstrual Period: 06/19/23 Gestational Age (EGA) and JEREMÍAS? * Note: EGA calculated as of 01/10/2024 ?? JEREMÍAS:??03/25/2024?EGA*:??29 weeks 2 days ?Type:??Authoritative?Method Date:??06/19/2023 ?Method:??Last Menstrual [...] weeks ? Outcome:??Live ? Sex:??Female?Wt:?2722 g ?Child's Name:??Cristinanleiadria ?Hospital:??[facility] ?Comment:??Covid in August prior to delivery, dilated [...] Performed: 09/06/23 Rubella,Transcribed: Immune Electronically Signed on 01/10/24 03:08 PM Moris Perez MD Patient Care team information Care Team Personnel Name: ALYCIA ARCHER APRN Position: No Access Member Role: Primary Care Physician Address: Address: [address] [place] [address]-
--- OUTSIDE RECORDS SUMMARY | 2024-04-05 16:58 | XMS_ITS | Continuity of Care Document ---
Author Organization [facility] Address [address] [place] [id number] Care Team Providers Care Cutting Tool Sharpener Name Role Phone ALYCIA ARCHER APRN Primary Care Physician Encounter [facility] NBR [id number] Date(s): 01/30/24 - 01/30/[address] [address] Encounter Diagnosis Nausea and vomiting in (Discharge Diagnosis) - 01/30/24 Other specified related conditions, third trimester(Final) - 32 weeks gestation of (Final) - Discharge Disposition: Home f/u Internal Provider Attending Physician: Dionisio Ochoa MD Admitting Physician: Dionisio Ochoa MD Referring Physician: Dionisio Ochoa MD Allergies, Adverse Reactions, Alerts Substance Reaction Severity Status penicillin Hives Mild Active Blueberries Anaphylaxis Severe Active Assessment and Plan Extracted from: Title:Progress/SOAP Note Author:Dionisio Ochoa MD Date:01/30/24 1.??Nausea and vomiting in ??O21.9 ??Clinically improved after IV fluids and antiemetics.?? Prescription for Zofran called in for patient. ??She does have a prescription for Flexeril which was prescribed previously which I have advised her to take.?? Advised that she may utilize a heating pad for back.?? Laboratory studies including CBC were within normal limits and urinalysis was also normal. Follow-up in clinic as scheduled for routine care. Orders: D5LR 1,000 mL, Total Volume (mL): 1,000, 1,000 mL, Soln-IV, IV, 150 mL/hr, Start Date: 01/30/24 18:15:00 EDT, 106.6 kg, Populate Charting Weight From Order, 2.21, m2 Urine Dipstick POC, 01/30/24 18:13:00 EDT, Stop date 01/30/24 18:13:00 EDT, 01/30/24 18:13:00 EDT Future Appointments Appointment Date:02/11/2024 04:00:00 PM Scheduled Provider:Moris Perez MD Location:[facility] Appointment Type:OB Follow Up Appointment Date:02/24/2024 02:45:00 PM Scheduled Provider:Carlos Akers MD Location:[facility] Appointment Type:OB Follow Up Appointment Date:03/02/2024 01:45:00 PM Scheduled Provider:Moris Perez MD Location:[facility] Appointment Type:OB Follow Up Appointment Date:03/10/2024 01:00:00 PM Scheduled Provider:Dionisio Ochoa MD Location:[facility] Appointment Type:OB Follow Up Appointment Date:03/17/2024 01:00:00 PM Scheduled Provider:Carlos Akers MD Location:[facility] Appointment Type:OB Follow Up Appointment Date:03/24/2024 01:00:00 PM Scheduled Provider:Dionisio Ochoa MD Location:[facility] Appointment Type:OB Follow Up Immunizations [...] spasm, # 30 tab, 0 Refill(s), Pharmacy: [facility], 165.1, cm, 09/06/23 13:49:00 EST, Height, [...] for nausea/vomiting, # 30 tab, 0 Refill(s), Pharmacy:[facility], 165.1, cm, 01/10/24 14:49:00 EDT, Height, 106.6, kg, 01/10/24 14:55:00 EDT, Weight Dosing Start Date: 01/30/24 Status: Ordered Complete with DHA 0 Refill(s) Start Date: 07/22/23 Status: Ordered promethazine 12.5 mg oral tablet 12.5 mg = 1 tab, Oral, every 4 hr, PRN as needed for nausea/vomiting, # 60 tab, 2 Refill(s), Pharmacy: [facility], 165.1, cm, 08/07/23 10:09:00 EST, Height, 107.9, kg, 08/07/23 10:15:00 EST, Weight Dosing Start Date: 08/07/23 Status: Ordered Protonix 20 mg oral delayed release tablet 20 mg = 1 tab, Oral, Daily, # 90 tab, 3 Refill(s), Pharmacy: [facility], 165.1, cm, 09/06/23 13:49:00 EST, Height, [...] 1suicide attempt 10/2017, hospitalized at [facility] Procedures Procedure Date Related Diagnosis Body Site Status Cholecystectomy 06/2016 Completed Results Laboratory List Name Date CBC w/ Diff 01/30/24 Automated Diff 01/30/24 Most recent to oldest [Reference Range]: 1 WBC [4.8-10.8 K/mcL] 9.4 K/mcL (01/30/24 7:24 PM) RBC [4.20-5.40 Million/mcL] 4.03 Million /mcL *LOW* (01/30/24 7: PM) Neutro Auto [42.2-75.2 %] 70.8 % (01/30/24 7:24 PM) Lymph Auto [20.5-51.1 %] 20.6 % (01/30/24 7:24 PM) [place] Auto [1.7-9.3 %] 7.6 % (01/30/24 7:24 PM) Basophil Auto [0.0-0.8 %] 0.5 % (01/30/24 7:24 PM) Baso Absolute [0.0-0.2 K/mcL] 0.0 K/mcL (01/30/24 7:24 PM) MCV [81.0-99.0 fL] 90.5 fL (01/30/24 7:24 PM) MCHC [32.0-37.0 g/dL] 33.8 g/dL (01/30/24 7:24 PM) Lymph Absolute [1.2-3.4 K/mcL] 1.9 K/mcL (01/30/24 7:24 PM) Hct [37.0-47.0 %] 36.4 % *LOW* (01/30/24 7: PM) [place] Absolute [0.1-0.6 K/mcL] 0.7 K/mcL *HI* (01/30/24 7: PM) MCH [27.0-31.0 pg] 30.6 pg (01/30/24 7:24 PM) Neutro Absolute [1.4-6.5 K/mcL] 6.7 K/mc L *HI* (01/30/24 7:24 PM) Hgb [12.0-16.0 g/dL] 12.3 g/dL (01/30/24 7:24 PM) MPV [7.4-10.4 fL] 9.5 fL (01/30/24 7:24 PM) Platelets [130-400 K/mcL] 225 K/mcL (01/30/24 7:24 PM) Eos Absolute [0.0-0.2 K/mcL] 0.1 K/mcL (01/30/24 7:24 PM) RDW-CV [11.5-14.5 %] 13.4 % (01/30/24 7:24 PM) Eos, Auto [0.00-3.00 %] 0.50 % (01/30/24 7:24 PM) Vital Signs Most recent to oldest [Reference Range]: 1 Temperature Temporal Artery [36-38 Deg C ] 36.5 Deg C (01/30/24 5:30 PM) Heart Rate Monitored [60-100 bpm] 83 bpm (01/30/24 5:50 PM) Blood Pressure [90-140/60-90 mmHg] 114/6 2mmHg (01/30/24 5:50 PM) Mean Arterial Pressure, Cuff [65-140 mmH g] 79 mmHg (01/30/24 5:50 PM) Blood Pressure Location Right arm (01/30/24 5:50 PM) Blood Pressure Method Automatic (01/30/24 5:50 PM) Social History Social History Type Response Smoking Status Smoking tobacco use: Current everyday tobacco user;Never; Number used per day: smokes in a bong with MJ at same time; entered on: 09/06/23 Sex Obstetrics Progress note * Dionisio Ochoa MD: PERFORM Event Display: Obstetrics Progress Note Authored Date: [id number] BRIDGET ALCOCER :2000 Age:24 years Sex:Female Visit Date:01/30/2024 Primary Care Physician: ALYCIA ARCHER APRN Subjective 24-year-old G7, P2??at 32 weeks 1 day??presents with??severe nausea vomiting??throughout the day. ??She reports onset of back pain??radiating to her abdomen??which felt like contractions.?? On presentation?? heart tracing was??reactive and no contractions were noted. ??She was given IV fluids??and IV Zofran with improvement in symptoms. Review of Systems As per HPI Objective Vitals & Measurements T:??36.5?C ??(Temporal Artery)?? HR:??83??(Monitored)?? BP:??114/62?? Physical Exam Abdomen: Soft. ??Gravid.?? Nontender.?? Mild musculoskeletal back pain in the low back. ??No CVA tenderness. Assessment/Plan 1.??Nausea and vomiting in ??O21.9 ??Clinically improved after IV fluids and antiemetics.?? Prescription for Zofran called in for patient. ??She does have a prescription for Flexeril which was prescribed previously which I have advised her to take.?? Advised that she may utilize a heating pad for back.?? Laboratory studies includingCBC were within normal limits and urinalysis was also normal. Follow-up in clinic as scheduled for routine care. Orders: D5LR 1,000 mL, Total Volume (mL): 1,000, 1,000 mL, Soln-IV, IV, 150 mL/hr, Start Date: 01/30/24 18:15:00 EDT, 106.6 kg, Populate Charting Weight From Order, 2.21, m2 Urine Dipstick POC, 01/30/24 18:13:00 EDT, Stop date 01/30/24 18:13:00 EDT, 01/30/24 18:13:00 EDT Electronically Signed on 01/30/2024 19:45 EDT Dionisio Ochoa MD Patient Care team information Care Team Personnel Name: ALYCIA ARCHER APRN Position: No Access Member Role: Primary Care Physician Address: Address: [facility] [address] [facility], [place] [address]
--- OUTSIDE RECORDS SUMMARY | 2024-04-05 16:58 | XMS_ITS | Continuity of Care Document ---
Author Organization [facility] Address [address] [place] [address] Encounter [facility] NBR [id number] Date(s): 08/07/23 - 08/07/23 [facility] [address] [place], [place] [address] Encounter Diagnosis Nausea and vomiting in (Discharge Diagnosis) - 08/07/23 History of gestational diabetes(Discharge Diagnosis) - 08/07/23 History of delivery(Discharge Diagnosis) - 08/07/23 History of ectopic (Discharge Diagnosis) - 08/07/23 Discharge Disposition: Home or Self Care Attending [...] Confirmed Active 1suicide attempt 10/2017, hospitalized at [facility] and [facility] Procedures Procedure Date Related Diagnosis Body Site Status Cholecystectomy 06/2016 Completed Vital Signs Most recent to oldest [Reference Range]: 1 Blood Pressure [90-140/60-90 mmHg] 116/7 4mmHg (08/07/23 10:09 AM) Mean Arterial Pressure, Cuff [70-110 mmH g] 88 mmHg (08/07/23 10:09 AM) Weight 107.9 kg (08/07/23 10:09 AM) Weight Measured (lbs) 237.878 lb (08/07/23 10:09 AM) Weight Dosing 107.900 kg (08/07/23 10:09 AM) [place] Body Weight Calculated 57 kg (08/07/23 10:09 AM) Height 165.1 cm (08/07/23 10:09 AM) Height/Length Measured (inches) 65 inch (08/07/23 10:09 AM) BSA Measured 2.22 m2 (08/07/23 10:09 AM) Body Mass Index 39.58 kg/m2 (08/07/23 10:09 AM) Social History Social History Type Response Tobacco Current everyday tob acco user Tobacco Use:. smokes in a bong with MJ at same time per day. Sex Physician Outpatient Note * Lore Guido APRN: PERFORM Event Display: Office Clinic Note Physician Authored Date: [id number] BRIDGET ALCOCER :2000 Age:23 years Sex:Female Visit Date:08/07/2023 Chief Complaint , dating US follow up really tired, emesis in am X 3 days History of Present Illness Presents today after dating US. Report pending. Prelim reading 7 weeks 3 days. +FHTs 140s. No cramps??or bleeding. ?? Review of Systems GENERAL??Overall she feels ok, some nausea and vomiting.. PRIVATE EYE??No complaints..?? Physical Exam Vitals & Measurements BP:??116/74?? HT:??165.1??cm?? WT:??107.9??kg?? BMI:??39.58?? BSA:??2.22?? GENERAL?Alert and oriented, well nourished, no acute distress Reasonable historian.? Assessment/Plan 1.??Nausea and vomiting in ??O21.9 Reviewed prelim US findings and will let her know the official report comes back. At today's appointment we discussed nausea and vomiting in early . Typically this can be improved with sips and snacks throughout the day, B6 50 mg??twice a day along with Unisom/doxylamine before bed, yelena, ??sour candy, sea bands,??can all be helpful to manage symptoms.??Stopping the vitamin is typically best when struggling with significant nausea and vomiting.?? Promethazine prescription sent in prn. If she has questions or concerns, to call.?? Ordered: promethazine 12.5 mg oral tablet, 12.5 mg = 1 tab, Oral, every 4 hr, PRN as needed for nausea/vomiting, # 60 tab, 2 Refill(s), Pharmacy: [facility], 165.1, cm, 08/07/23 10:09:00 EST, Height, 107.9, kg, 08/07/23 10:15:00 EST, Weight Dosing ?? 2.??History of gestational diabetes??Z86.32 She states she had GDM with her last , managed through diet. ?? 3.??History of delivery??Z87.51 PROM @36 weeks, delivered at [facility]. ?? 4.??History of ectopic ??Z87.59 She had an ectopic in February, managed at [facility]. Ordered: US OB < 14 Weeks Single, 08/07/23 9:00:00 EST, Routine, Reason: dating US, Consulting Dr: Lore Guido, [employer] POURER, Transport Mode: Ambulatory, Prior poor obstetrical history in first trimester, antepartum Hx of ectopic , ABN Status: Not Required ?? Follow Up Instructions 4 weeks New OB Problem List/Past Medical History Ongoing Depression Tobacco use Historical Procedure/Surgical History ???Cholecystectomy (06/2016) Medications Complete with DHA promethazine 12.5 mg oral tablet, 12.5 mg= 1 tab, Oral, every 4 hr, PRN, 2 refills Allergies penicillin??(Hives) Social History Alcohol Past- Comments: [...] GPARENT, at age: Unknown. Cause of : Electronically Signed on 08/07/23 12:05 PM Lore Guido APRN
--- OUTSIDE RECORDS SUMMARY | 2024-04-05 16:59 | XMS_ITS | Encounter Summary ---
Author Organization [facility] Address [address] [place] [address] Care Team Providers Care Director Global Market Research Name Role Phone Unknown, Provider Primary Care Provider Encounter Details Date Type Department Care Team (Late st Contact Info) Description 03/10/2019 Results Only [facility] [phone] Cristin Kenney FNP [address] [place], [place] [id number] Social History Tobacco Use Types Packs/Day Years Used Date Smoking Tobacco: Never Assessed Sex and Gender Information Value Date Recorded Sex Assigned at Not on file Gender Identity Not on file Sexual Orientation Not on file documented as of this encounter Plan of Treatment Not on file documented as of this encounter Procedures Procedure Name Priority Date/Time Associated Diagnosis Comments PAP TEST- RESULT ONLY Routine 03/10/2019 0:00 EDT documented in this encounter Results * PAP TEST- RESULT ONLY (03/10/2019 0:00 EDT) Pathology Report: CYTOPATHOLOGY REPORT Reports generated via electronic interface contain original data; however they are lacking the format of the original report. Caution should be taken when reading/interpreti ng unformatted reports. Name: ? NIKI, AMELIA ? Accession #: ? [id number] : ? 2000 (Age: 19) ??F ?Collect Date: ? 03/10/2019 Location: ? [facility] ? Receive Date: ? 03/13/2019 Provider: ?CRISTIN LATHA HOT WALKER Copy to: ? Specimen/Source: ?Pap Test, Cervix, ThinPrep Imaging System with manual evaluation Last Menstrual Period: ? Hormonal/Contracep tive Status: ? None Other: ? Additional clinical information: Z00.00 Z12.4 Z11.51 ? SPECIMEN ADEQUACY ? Satisfactory for Evaluation - transformation zone component present GENERAL CATEGORIZATION ? Negative for Intraepithelial Lesion or Malignancy INTERPRETATION ? Shift in inna present suggestive of bacterial vaginosis. ? Document reviewed and electronically signed by: ? PATY Villareal(ASCP) ? Report Date: ??03/17/2019 09:15 End of Report [facility] 03/10/2019 03/13/2019 Cristin RUEDA PATHOLOGY ORDERABLES Performing Organization Address City/State/[facility] Co de Phone Number [facility] [address] [place] [address] documented in this encounter Visit Diagnoses Not on filedocumented in this encounter Care Teams Director Global Market Research Relationship Specialty Start Date End Date Unknown, Provider, PCP - General 06/07/16 documented as of this encounter
--- OUTSIDE RECORDS SUMMARY | 2024-04-05 16:59 | XMS_ITS | Encounter Summary ---
Author Organization [facility] Address [address] [place] [address] Care Team Providers Care Business Systems Analyst Name Role Phone Unknown, Provider Primary Care Provider [phone] Encounter Details Date Type Department Care Team (Late st Contact Info) Description 09/04/2021 Lab Requisition [facility] Pathology & Laboratory Medicine - [facility] [address] [place] [address] Outr Resulting Lab, Provider Social History Tobacco [...] Name Priority Date/Time Associated Diagnosis Comments HEPATITIS B SURFACE ANTIGEN Routine 09/03/2021 20:42 EST documented in this encounter Results * HEPATITIS B SURFACE ANTIGEN (09/03/2021 20:42 EST) Hep B Surface Ag Negative Negative 09/05/2021 11:16 EST [facility] Blood VENOUS BLOOD / Unknown 09/03/2021 20:42 EST 09/04/2021 16:32 EST Provider Outr Resulting Lab CHEMISTRY & BLOOD GAS ORDERABLES [facility] [address] [place] [address] documented in this encounter Visit Diagnoses Not on filedocumented in this encounter Care Teams Business Systems Analyst Relationship Specialty Start Date End Date Unknown, Provider, PCP - General 06/07/16 documented as of this encounter
--- OUTSIDE RECORDS SUMMARY | 2024-04-05 16:59 | XMS_ITS | Encounter Summary ---
Author Organization [facility] Address [address] [place] [address] Care Team Providers Care Ammunition Assembly I Laborer Name Role Phone Unknown, Provider Primary Care Provider [phone] Encounter Details Date Type Department Care Team (Late st Contact Info) Description 06/06/2016 Results Only [facility] [phone] Blevins Evens Alvaro, DO [address] [place] [address] Social History Tobacco Use Types Packs/Day Years Used Date Smoking Tobacco: Never Assessed Sex and Gender Information Value Date Recorded Sex Assigned at Not on file Gender Identity Not on file Sexual Orientation Not on file documented as of this encounter Plan of Treatment Not on file documented as of this encounter Procedures Procedure Name Priority Date/Time Associated Diagnosis Comments SURGICAL PATHOLOGY Routine 06/06/2016 9:26 EDT documented in this encounter Results * SURGICAL PATHOLOGY (06/06/2016 9:26 EDT) Pathology Report: SURGICAL PATHOLOGY REPORT Reports generated via electronic interface contain original data; however they are lacking the format of the original report. Caution should be taken when reading/interpret ing unformatted reports. Name: ? CHRISTIE PRINCE ? Accession #: ? [id number] ? : ? 2000 (Age: 16) ??F ? Collect Date: ? 06/06/2016 ? Location: ? [facility] ? Receive Date: ? 06/07/2016 ? Provider: EVENS BLEVINS DO Copy to: ? Final Pathologic Diagnosis: GALLBLADDER, CHOLECYSTECTOMY: - ??Mild chronic cholecystitis. - ??Cholelithiasis. - ??One reactive lymph node. Document reviewed and electronically signed by: ASHLEY BAIG MD Report ??Date: 06/11/2016 16:22 By the signature above, the attending physician certifies that he/she has personally conducted a gross and/or microscopic examination of the described specimens and rendered or confirmed the above diagnosis. Specimen(s) Received: Gallbladder Clinical History: Biliary colic Gross Description: ? Received in formalin labelled with proper patient identification (initials M, A) and gallbladder is an intact gallbladder, 7.0 x 3.0 x 2.8 cm with a 1.0 cm in length segment of cystic duct. The duct lumen is patent. An attached 0.6 x 0.5 x 0.3 cm periductal lymph node is present. The gallbladder serosa is smooth zazueta -green. The gallbladder wall is without areas of induration, averaging 0.1 cm in thickness. The mucosa is velvety green. The lumen is packed with multiple smooth multifaceted mixed cholesterol pigment calculi up to 0.9 cm in greatest dimension. School Adjustment Counselor sections are submitted in 1. ÁNGEL Cason (ASCP) 06/07/2016 10:15 AM End of Report [facility] 06/06/2016 9:26 EDT 06/07/2016 9:26 EDT Evesn Blevins DO PATHOLOGY ORDERABLES [facility] [address] [place] [address] documented in this encounter Visit Diagnoses Not on filedocumented in this encounter Care Teams Ammunition Assembly I Laborer Relationship Specialty Start Date End Date Unknown, Provider, PCP - General 06/07/16 documented as of this encounter
--- OUTSIDE RECORDS SUMMARY | 2024-04-05 16:59 | XMS_ITS | Encounter Summary ---
Author Organization [facility] Address [address] [place] [address] Care Team Providers Care Medical Staff Assistant Name Role Phone Unknown, Provider Primary Care Provider [phone] Encounter Details Date Type Department Care Team (Late st Contact Info) Description 09/04/2021 Lab Requisition [facility] Pathology & Laboratory Medicine - [facility] [address] [place], [place] [address] Outr Resulting Lab, Provider Social History Tobacco [...] Procedure Name Priority Date/Time Associated Diagnosis Comments HIV 1/2 ANTIGEN AND ANTIBODY, 4TH GENERATION Routine 09/03/2021 20:42 EST documented in this encounter Results * HIV 1/2 ANTIGEN AND ANTIBODY, 4TH GENERATION (09/03/2021 20:42 EST) HIV 1 and 2 Antibody/p24 Antigen, 4th Generation Negative Negative 09/05/2021 11:55 EST [facility] Comment:If acute HIV-1 infec tion is suspected in a high risk patient, submit plasma specimen for HIV-1 RNA quantitation test. Blood VENOUS BLOOD / Unknown 09/03/2021 20:42 EST 09/04/2021 16:32 EST Narrative [facility] - 09/05/2021 11:55 EST Fourth Generation assay performed on the Siemens Centaur XPT. Provider Outr Resulting Lab IMMUNOLOGY A ND SEROLOGY ORDERABLES [facility] [address] [place] [address] documented in this encounter Visit Diagnoses Not on filedocumented in this encounter Care Teams Medical Staff Assistant Relationship Specialty Start Date End Date Unknown, Provider, PCP - General 06/07/16 documented as of this encounter
--- OUTSIDE RECORDS SUMMARY | 2024-04-05 16:59 | XMS_ITS | Encounter Summary ---
Author Organization [facility] Address [address] [place] [address] Care Team Providers Care Rehanger Name Role Phone Unknown, Provider Primary Care Provider [phone] Encounter Details Date Type Department Care Team (Late st Contact Info) Description 11/06/2021 Lab Requisition [facility] Pathology & Laboratory Medicine - [facility] [address], [place] [id number] Terese Calhoun, TOWER WATCHMAN [address] [place] [id number] premature rupture of membranes, unspecified as to length of time between rupture and onset of labor, unspecified trimester Social History Tobacco Use Types Packs/Day Years [...] Priority Date/Time Associated Diagnosis Comments SURGICAL PATHOLOGY Today 11/06/2021 0: 57 EST premature rupture of membranes, unspecified as to length of time between rupture and onset of labor, unspecified trimester documented in this encounter Results * SURGICAL PATHOLOGY (11/06/2021 0:57 EST) Note to Patient The following pathology results have been interpreted by your pathologist and may be available to you before your health provider has had the opportunity to review them. Please allow time for your provider to receive these results and explore management options, if applicable. 11/23/2021 16:03 [facility] Final Diagnosis PLACENTA, 36 6/7 WEEKS, DELIVERY METHOD NOT SPECIFIED: - Anderson placenta, 388 grams (10-25th percentile for gestational age) - Placental disk with appropriate villous maturation and no specific pathologic abnormality - membranes with pigmented macrophages suggestive of meconium - Hypercoiled 3 vessel umbilical cord 11/23/2021 16:03 [facility] Attestation By the signature below, the attending physician certifies that they have 1) personally conducted a gross and/or microscopic examination of the described specimen(s), and/or personally interpreted the results of laboratory testing of the described specimen(s), and 2) personally rendered or confirmed the above diagnosis. 11/23/2021 16:03 [facility] at 1603 Clinical History 36w 6d complicated by Covid in third trimester; PROM; anemia; marijuana use in ; LMP: 02/21/2021 11/23/2021 16:03 [facility] Gross Description A. Received in formalin labelled with proper patient identification (initials M, A) and placenta is a 388.0 g (trimmed, formalin fixed), 13.0 x 12.5 x 3.1 cm circular placenta. The surface is blue-green and semi translucent with a dispersed vascular pattern. No lesions are present. The maternal surface is red-brown with intact and complete cotyledons. There is a small amount of loosely adherent blood clot. No indentation is present. Sectioning reveals spongy, red-brown cut surfaces. No masses or lesions are identified. The membranes are leon-green and semi translucent with a marginate insertion. The point of rupture is indeterminate. There is a 32.5 cm in length by 1.0 cm in diameter leon-white, trivascular umbilical cord with a central insertion, 4.5 cm from the nearest disc margin. There are 5 coils per 10 cm. Disability Services Coordinator sections are submitted as follows: BLOCK SNYDER A1- membranes and end of cord A2- membranes and section of cord 5 cm from insertion site A3- placenta adjacent to umbilical cord insertion site A4-A5- unremarkable central 2/3 of placental disc, bisected A6-A7- unremarkable central 2/3 of placental disc, bisected ÁNGEL GUZMAN(ASCP) 11/09/2021 16:33 11/23/2021 16:03 EDT [facility] Performing Lab [facility] 11/23/2021 16:03 EDT [facility] Scanned Images 11/23/2021 16:03 EDT [facility] Tissue PLACENTAL STRUCTURE / Unknown 11/06/2021 0:57 EST 11/06/2021 18:20 EST Terese Calhoun APN PATHOLOGY ORDERAB LES Performing Organization Address City/State/[facility] Co de Phone Number [facility] [address] [place] [address] documented in this encounter Visit Diagnoses Diagnosis premature rupture of membranes, unspecified as to length of time between rupture and onset of labor, unspecified trimester documented in this encounter Care Teams Rehanger Relationship Specialty Start Date End Date Unknown, Provider, PCP - General 06/07/16 documented as of this encounter
--- OUTSIDE RECORDS SUMMARY | 2024-04-05 16:59 | XMS_ITS | Encounter Summary ---
Author Organization [facility] Address [address] [place] [address] Care Team Providers Care Senior Linux Administrator Name Role Phone Unknown, Provider Primary Care Provider [phone] Encounter Details Date Type Department Care Team (Late st Contact Info) Description 09/04/2021 Lab Requisition [facility] Path[facility] [address], [place] [id number] Outr Resulting Lab, Provider Social History Tobacco [...] Procedure Name Priority Date/Time Associated Diagnosis Comments RUBELLA IGG ANTIBODY Routine 09/03/2021 20:42 EST VARICELLA IGG ANTIBODY Routine 09/03/2021 20:42 EST documented in this encounter Results * VARICELLA IGG ANTIBODY (09/03/2021 20:42 EST) Varicella IgG Ab Positive See Note 09/05/2021 11:56 EST [facility] Comment:Presence of detectab le Varicella Zoster virus IgG antibodies. Blood VENOUS BLOOD / Unknown 09/03/2021 20:42 EST 09/04/2021 16:32 EST Provider Outr Resulting Lab IMMUNOLOGY A ND SEROLOGY ORDERABLES Performing Organization Address [facility] Co de Phone Number [facility] [address] [place] [address] * RUBELLA IGG ANTIBODY (09/03/2021 20:42 EST) Rubella IgG Ab Positive See Note 09/05/2021 12:38 EST [facility] Comment:Positive for IgG ant ibodies to Rubella virus. Blood VENOUS BLOOD / Unknown 09/03/2021 20:42 EST 09/04/2021 16:32 EST Provider Outr Resulting Lab CHEMISTRY & BLOOD GAS ORDERABLES Performing Organization Address [facility] Co de Phone Number [facility] [address] [place] [address] documented in this encounter Visit Diagnoses Not on filedocumented in this encounter Care Teams Senior Linux Administrator Relationship Specialty Start Date End Date Unknown, Provider, PCP - General 06/07/16 documented as of this encounter
--- OUTSIDE RECORDS SUMMARY | 2024-04-05 16:59 | XMS_ITS | Encounter Summary ---
Author Organization [facility] Address [address] [place] [address] Care Team Providers Care Application Designer Name Role Phone Unknown, Provider Primary Care Provider [phone] Encounter Details Date Type Department Care Team (Late st Contact Info) Description 09/04/2021 Lab Requisition [facility] Pathology & Laboratory Medicine - [address] [id number] Outr Resulting Lab, Provider Social History Tobacco [...] RNA BY PCR Routine 09/03/2021 20:42 EST documented in this encounter Results * HEPATITIS C AB W REFLEX TO HCV RNA BY PCR (09/03/2021 20:42 EST) Hep C Antibody Negative Negative 09/05/2021 12:06 EST [facility] Blood VENOUS BLOOD / Unknown 09/03/2021 20:42 EST 09/04/2021 16:32 EST Provider Outr Resulting Lab CHEMISTRY & BLOOD GAS ORDERABLES [facility] [address] [place] [id number] documented in this encounter Visit Diagnoses Not on filedocumented in this encounter Care Teams Application Designer Relationship Specialty Start Date End Date Unknown, Provider, PCP - General 06/07/16 documented as of this encounter
--- OUTSIDE RECORDS SUMMARY | 2024-04-05 16:59 | XMS_ITS | Encounter Summary ---
Author Organization [facility] Address [address] [place] [address] Care Team Providers Care Manager Infrastructure Name Role Phone Unavailable Primary Care Provider Unavailabl e Encounter Details Date Type Department Care Team (Latest Contact Info) Description 06/06/2016 9:46 EDT - 06/06/2016 23:59 EDT Hospital Encounter [address] [address] Unknown, Provider, Discharge Disposition: Home or Self Care Social History Tobacco Use Types Packs/Day Years Used Date Smoking Tobacco: Never Assessed Sex and Gender Information Value Date Recorded Sex Assigned at Not on file Gender Identity Not on file Sexual Orientation Not on file documented as of this encounter Discharge Disposition Disposition Code Departure Means Destination Home or Self Half-Way documented in this encounter Plan of Treatment Not on file documented as of this encounter Visit Diagnoses Not on filedocumented in this encounter
--- NOTE | 2024-04-05 17:22 | DI.CT_ITS ---
Exam(s) CT ABDOMEN PELVIS W EXAM: CT ABDOMEN PELVIS W CLINICAL HISTORY: post uterine infection TECHNIQUE: Imaging Protocol: Axial computed tomography images with coronal and sagittal reformatted images were created and reviewed. CONTRAST MATERIAL: Intravenous: Omnipaque 350 Contrast volume:100 mL Oral: No COMPARISON: CT CT ABDOMEN PELVIS W from 05/02/2022 FINDINGS: ABDOMEN: Lung Bases: There is atelectasis in the lung bases. Liver: Normal density. No measurable mass. Portal, Superior Mesenteric, and Splenic Veins: Unremarkable. Gallbladder and Biliary Tract: Status post cholecystectomy. No significant biliary ductal dilatation . Pancreas: Normal density, no abnormal calcifications or inflammatory process. Spleen: Normal. Adrenals: No masses seen. Kidneys: Normal size, contour and axis. No radiodense stones or obstructive uropathy. No masses seen. Abdominal Aorta: Abdominal portion non-dilated. Bowel: There is no evidence of obstruction. There is mild wall thickening seen in the sigmoid colon. Appendix is unremarkable. Peritoneal Cavity: No ascites, collection or mesenteric inflammatory response. No free air. Lymph Nodes: Within normal limits. Bones: Within normal limits for the patient's age. Soft Tissues: There is a small fat containing umbilical hernia. PELVIS: Bladder: Symmetric distention, no gross wall thickening. Reproductive Organs: Unremarkable as visualized. No focal fluid collection is seen. No gas is seen. Lymph Nodes: Within normal limits. Bones: Within normal limits for the patient's age. IMPRESSION: 1. There is mild wall thickening seen in the sigmoid colon. No significant pericolonic inflammatory changes are seen. This might reflect of very early colitis. Please correlate clinically. 2. The uterus is mildly enlarged which can be seen with uterus. No focal fluid collection or gas is seen. If there is continued clinical concern pelvic ultrasound should be considered. RADIATION DOSE DELIVERED: Total DLP DATA REPOSITORY: All CT scans at this facility are submitted to the National Radiology Data Registry (NRDR) Dose Index Registry (DIR) with the [employer] (ACR). RADIATION OPTIMIZATION: All CT scans at this facility use at least one of these dose optimization te chniques: automated exposure control; mA and/or kV adjustment per patient size (includes targeted exa ms where dose is matched to clinical indication); or iterative reconstruction.
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
[2024-04-05] MEDS: ACETAMINOPHEN 1,000 MG/100 ML BTL 400 MG IVPB (17:30)
[2024-04-05] MEDS: Normal Saline 1,000 ML 1000 ML IV (17:30)
[2024-04-05 17:50] LABS: Abs Immature Grans 0.03 10^3/uL (0.0-0.06); Absolute Eosinophil Count 0.29 10^3/uL (0.0-0.7); Absolute Monocyte Count 0.62 10^3/uL (0.1-0.8); Absolute Neutrophil Count 7.04 10^3/uL (1.2-6.7); Basophils % 0.4 %; Eosinophils % 2.6 %; HCT 42.5 % (36.0-46.0); HGB 13.3 g/dL (11.2-15.7); Immature Grans % 0.3 %; Lymphocytes % 28.5 %; MCH 27.5 pg (27.0-33.0); MCHC 31.3 % (32.0-36.0); MCV 88 fL (80-95); Monocytes % 5.5 %; Neutrophils % 62.7 %; Platelet Count 496 10^3/uL (130-400); RBC 4.84 10^6/uL (3.93-5.22); RDW 13.2 % (11.7-14.6); RDW-SD 42.7 fL; WBC 11.23 10^3/uL (4.4-10.8)
[2024-04-05 17:51] LABS: Absolute Basophil Count 0.04 10^3/uL (0.0-0.2)
[2024-04-05 18:22] VITALS: BP 137/80; PULSE 89; RESP 18; TEMP 36.9; O2SAT 96
[2024-04-05 18:38] LABS: ALT 12 U/L (14-59); AST 10 U/L (15-37); Albumin 2.6 g/dL (3.4-5.0); Alkaline Phosphatase 71 U/L (46-116); Anion Gap 9.1 mmol/L (3-11); BUN 7 mg/dL (7-18); Bilirubin, Total 0.42 mg/dL (0.2-1.0); CO2 22.9 mmol/L (21.0-32.0); CREATININE 0.8 mg/dL (0.55-1.02); Calcium 7.1 mg/dL (8.5-10.1); Chloride 112 mmol/L (98-107); Estimated GFR 104.15 (mL/min/1.73m2); Glucose 80 mg/dL (74-106); Potassium 3.1 mmol/L (3.5-5.1); Sodium 144 mmol/L (136-145); Total Protein 5.6 g/dL (6.4-8.2)
[2024-04-05 18:53] LABS: Procalcitonin < 0.1 ng/mL
[2024-04-05] MEDS: Normal Saline - Diluent 50 ML VIAL IJ (18:59)
[2024-04-05] MEDS: Omnipaque 350 MG/ML 100 ML BTL IJ (19:00)
[2024-04-05 19:29] LABS: Bilirubin Negative (Negative); Blood Negative (Negative); Clarity Clear (Clear); Glucose Negative (Negative); Ketones Negative (Negative); Leukocyte Esterase Negative (Negative); Nitrite Negative (Negative); Urobilinogen 0.2 mg/dL (Up to 0.2); pH 5.5 (5-8)
--- NOTE | 2024-04-05 20:30 | DI.VRAD_ITS ---
PROCEDURE INFORMATION: Exam: CT Abdomen And Pelvis With Contrast Exam date and time: 04/05/2024 6:54 PM Age: 24 years old Clinical indication: Other: Post infection TECHNIQUE: Imaging protocol: Computed tomography of the abdomen and pelvis with contrast. Radiation optimization: All CT scans at this facility use at least one of these dose optimization techniques: automated exposure control; mA and/or kV adjustment per patient size (includes targeted exams where dose is matched to clinical indication); or iterative reconstruction. Contrast material: OMNIPAQUE 350; Contrast volume: 100 ml; Contrast route: IV; COMPARISON: CT ABDOMEN PELVIS W 05/02/2022 5:52 PM FINDINGS: Lungs: Some mild ground-glass at the lung bases which is favored to represent atelectasis or air trapping but should be correlated with any concern for infection, including COVID-19 infection. Liver: Hepatomegaly with the liver measuring 18.5 cm craniocaudally. Gallbladder and biliary ducts: Cholecystectomy. Pancreas: Normal. No ductal dilation. Spleen: Normal. No splenomegaly. Adrenal glands: Normal. No mass. 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 No hydronephrosis. Stomach and bowel: No obstruction. There is wall prominence to the colon which is worrisome for colitis. There is also mild gastric wall prominence which can be seen with underdistention or gastritis. Appendix: No evidence of appendicitis. Intraperitoneal space: Unremarkable. No free air. No significant fluid collection. Vasculature: Unremarkable. No abdominal aortic aneurysm. Lymph nodes: Unremarkable. No enlarged lymph nodes. Urinary bladder: Mild urinary bladder wall prominence which can be seen with infection or underdistention. Reproductive: Heterogeneous appearance to the uterus which should be correlated with concern for infection. No gas locules are seen. There is a 2.2 cm cystic structure in the left ovary which may contain a septation, not fulfilling the criteria for a simple cyst. Bones/joints: Unremarkable. No acute fracture. Soft tissues: Tiny fat containing umbilical hernia. IMPRESSION: 1.There is wall prominence to the colon which is worrisome for colitis. There is also mild gastric wall prominence which can be seen with underdistention or gastritis. 2. Mild urinary bladder wall prominence which can be seen with infection or underdistention. 3. Some mild ground-glass at the lung bases which is favored to represent atelectasis or air trapping but should be correlated with any concern for infection, including COVID-19 infection. 4. Heterogeneous appearance to the uterus which should be correlated with any concern for infection. No gas locules are seen. There is a 2.2 cm cystic structure in the left ovary which may contain a septation, not fulfilling the criteria for a simple cyst. Suggest ultrasound for further evaluation. 5. Hepatomegaly. Other findings/details as above. Dictated and Authenticated by: Tahira Guerra MD. Ordering:BEULAH Chavira MD
[2024-04-05 21:13] VITALS: BP 124/85; PULSE 60; RESP 18; O2SAT 100
== END 2024-04-05 21:15 | disposition home or self-care (01) ==
PROVIDERS: Emergency Provider Emergency Medicine; PCP Nurse Practitioner Family
DX: R10.30 Lower abdominal pain, unspecified (principal)
CPT/HCPCS: 36415; 80053; 84145; 96365; 99285; 74177; 81003; 85025; 99283; J0131; J3490

== ENCOUNTER 2024-08-27 19:12 | Observation (INO) | payer MEDICAID, SELFPAY ==
[2024-08-27 19:16] VITALS: BP 135/86; PULSE 103; RESP 18; TEMP 36.8; O2SAT 96
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
[2024-08-27 20:03] LABS: Lactate 1.9 mmol/L (0.6-1.4)
[2024-08-27 20:05] LABS: HCT 42.6 % (36.0-46.0); HGB 13.5 g/dL (11.2-15.7); MCH 23.9 pg (27.0-33.0); MCHC 31.7 % (32.0-36.0); MCV 75 fL (80-95); MPV 10.5 fL (8.0-11.0); Platelet Count 290 10^3/uL (130-400); RBC 5.66 10^6/uL (3.93-5.22); RDW 21.6 % (11.7-14.6); RDW-SD 56.6 fL; WBC 14.26 10^3/uL (4.4-10.8)
[2024-08-27] MEDS: Ondansetron 4 MG/2 ML VIAL IVP (20:10)
[2024-08-27 20:23] LABS: Absolute Monocyte Count 1.43 10^3/uL (0.1-0.8); Absolute Neutrophil Count 10.84 10^3/uL (1.2-6.7); Atypical Lymphocytes % 2 %
[2024-08-27 20:24] LABS: Anisocytosis 2+; Diff Comment Manual Differential; Hypochromasia 1+
[2024-08-27 20:26] LABS: ALT 16 U/L (14-59); AST 13 U/L (15-37); Albumin 3.4 g/dL (3.4-5.0); Alkaline Phosphatase 96 U/L (46-116); Anion Gap 12.8 mmol/L (3-11); BUN 5 mg/dL (7-18); Bilirubin, Total 1.05 mg/dL (0.2-1.0); CO2 24.2 mmol/L (21.0-32.0); Chloride 100 mmol/L (98-107); Estimated GFR 79.68 (mL/min/1.73m2); Glucose 118 mg/dL (74-106); Lipase 10 U/L (<78); Potassium 3.2 mmol/L (3.5-5.1); Sodium 137 mmol/L (136-145)
[2024-08-27] MEDS: Omnipaque 350 MG/ML 100 ML BTL IJ (20:28)
[2024-08-27] MEDS: Normal Saline - Diluent 50 ML VIAL IJ (20:28)
[2024-08-27 20:31] LABS: Calcium 9.1 mg/dL (8.5-10.1)
[2024-08-27 20:32] LABS: Bilirubin Small (Negative); Blood Small (Negative); Clarity Cloudy (Clear); Glucose Negative (Negative); Ketones Trace mg/dL (Negative); Leukocyte Esterase Moderate (Negative); Nitrite Positive (Negative); Specific Gravity 1.025 (1.005-1.025)
[2024-08-27 20:42] LABS: Bacteria Moderate HPF (Negative); C & S Indicated? Yes; Casts 0-2 Coarse Granular LPF (Negative); Crystals Negative HPF (Negative); Epithelial Cells Few HPF (Negative); Mucus Negative (Negative); Other Cells Negative (Negative); RBC 0-2 HPF (0-2); WBC >50 HPF (0-5)
[2024-08-27] MEDS: Potassium Chloride 20 MEQ TABCR 40 MEQ PO (21:08)
[2024-08-27] MEDS: Acetaminophen 500 MG TAB 1000 MG PO (21:46)
[2024-08-27] MEDS: Ibuprofen 400 MG TAB PO (21:46)
[2024-08-27] MEDS: metroNIDAZOLE 500 MG TAB PO (21:46)
[2024-08-27] MEDS: Azithromycin 250 MG TAB 1000 MG PO (21:46)
[2024-08-27] MEDS: levoFLOXacin 500 MG TAB PO (21:46)
--- NOTE | 2024-08-27 22:05 | DI.VRAD_ITS ---
PROCEDURE INFORMATION: Exam: CT Abdomen And Pelvis With Contrast Exam date and time: 08/27/2024 8:31 PM Age: 24 years old Clinical indication: Other: Abd pain; Epigastric, pelvic TECHNIQUE: Imaging protocol: Computed tomography of the abdomen and pelvis with contrast. Contrast material: OMNIPAQUE 350; Contrast volume: 100 ml; Contrast route: INTRAVENOUS (IV); COMPARISON: CT ABDOMEN PELVIS W 04/05/2024 6:54 PM FINDINGS: Liver: Hepatomegaly. The liver measures up to 20 centimetres cc. No focal lesions. Gallbladder and biliary ducts: Status post cholecystectomy. Pancreas: Normal. No ductal dilation. Spleen: Normal. No splenomegaly. Adrenal glands: Normal. No mass. Kidneys and ureters: There are several areas of decreased attenuation in the right kidney. There is a significantly sized region at the lower pole level with mixed attenuation. The area measures approximately 3.0 x 1.8 cm. A smaller area of central decreased attenuation is noted. Trace right perinephric edema evident. Stomach and bowel: Unremarkable. No obstruction. No mucosal thickening. Appendix: The appendix is well seen, within normal limits. Intraperitoneal space: Unremarkable. No free air. No significant fluid collection. Vasculature: Unremarkable. No abdominal aortic aneurysm. Lymph nodes: Unremarkable. No enlarged lymph nodes. Urinary bladder: The bladder is decompressed. Reproductive: Unremarkable as visualized. Bones/joints: Unremarkable. No acute fracture. Soft tissues: Unremarkable. IMPRESSION: Fairly severe right-sided pyelonephritis with prominent area of lobar nephronia at the lower pole level. Early abscess formation not excludable. Dictated and Authenticated by: Merry Patel MD. Ordering:DAV Mcgregor MD
--- NOTE | 2024-08-27 22:14 | DI.VRAD_ITS ---
PROCEDURE INFORMATION: Exam: CT Lumbar Spine Without Contrast Exam date and time: 08/27/2024 8:31 PM Age: 24 years old Clinical indication: Other: Lumbar back pain TECHNIQUE: Imaging protocol: Computed tomography of the lumbar spine without contrast. COMPARISON: CR XR LUMBAR SPINE COMPLETE 09/06/2019 1:54 PM FINDINGS: Bones/joints: There appears to be central disc protrusion, moderate at the L5-S1 level. No evidence for stenosis. There is some superior extent of disc material. No evidence for disc space narrowing. Mild left-sided foraminal narrowing. Kidneys and ureters: Right renal abnormalities described on abdomen report consistent with pyelonephritis, lobar nephronia and possible renal abscess. Soft tissues: Unremarkable. IMPRESSION: Apparent disc protrusion without stenosis L5-S1. In the setting of active renal infection, discitis is not excludable. Consider MRI follow-up to include gadolinium enhancement. If patient MRI compatible. Dictated and Authenticated by: Merry Patel MD. Ordering:DAV Mcgregor MD
--- NOTE | 2024-08-27 23:00 | RT.EKG_ITS ---
APPROVED REPORT Exam: Resting ECG Reason for Exam: multiple QT prolonging agents Patient Location: E HR:61 bpm ECG Measurements Heart Rate 61 AXIS RI 103 P -2 QRSd 100 QRS 75 QT 439 T 37 QTc 441 Conclusion Sinus rhythm...normal P axis, V-rate 60- 99
[2024-08-27 23:06] LABS: ESR 64 mm/hr (0-20)
[2024-08-27 23:13] LABS: C-Reactive Protein 20.14 mg/dL (<or=0.5)
--- NOTE | 2024-08-27 23:19 | ED.PROG_ITS ---
Date of service: 08/27/24 Time of Service: 23:19 Medical Decision Making The case was discussed with nephrology at [facility]. They recommended that the patient be admitted for IV antibiotics and observe for improvement clinically and until she defervesced this. She can continue oral a ntibiotics after this and have reimaging after the completion of antibiotic course. If the patient becomes septic or has a significantly clinical worsening course, she can have imaging earlier and consider alternative management plans. I discussed the case with Dr. Bains for admission to the hospitalist service. Quality:[facility] Health Related Social Needs: No Data to Display Discharge Plan Disposition Patient Disposition: Home Condition: Stable Discharge Details Clinical Impression: Pelvic inflammatory disease, Urinary tract infection, Bacterial vaginosis Primary Care Provider: ALYCIA ARCHER ED Provider: Gilmer Perry Home Meds and New Rx's Prescriptions: New levofloxacin 500 mg tablet 500 mg PO DAILY 14 Days Qty: 14 0RF metronidazole 500 mg tablet 500 mg PO BID 14 Days Qty: 28 0RF Continued albuterol sulfate 90 mcg/actuation HFA aerosol inhaler 2 puff INHALATION PRN PRN (Reason: shortness of breath or wheezing) Qty: 6.7 1RF acetaminophen 500 mg Capsule 1,000 mg PO PRN PRN pantoprazole 20 mg tablet,delayed release (DR/EC) 20 mg PO DAILY Patient Comments: TAKE ONE TABLET BY MOUTH EVERY DAY Vitamin 27 mg iron- 800 mcg tablet 1 tab PO DAILY Discharge Instructions Instructions: Levofloxacin (Systemic), Metronidazole (Systemic), Urinary Tract Infection, Adult ED, Bacterial Vaginosis ED, Pelvic Inflammatory Disease ED Additional Instructions: You were seen in the emergency department for your likely pelvic inflammatory disease, bacterial vaginosis, UTI, we do not have results for any STI testing I am treating empirically medicines that cover all of these conditions, we provided you a 1 g dose of azithromycin this evening and started you on levofloxacin and metronidazole, please take these as directed for the next 2 weeks, the antibiotic should begin to tackle the infection by day 3, please reevaluate yourself frequently during this time and do not do not hesitate to be reevaluated for acute worsening despite treatment. Please use therapeutic dosing of Tylenol (acetamenophen) & Advil (ibuprofen) in an alternating fashion as follows: Take 1000mg of Tylenol every 6 hours without missing doses- that is 4 times per day. Retirement in between the Tylenol dosings, take 400-600mg of Advil also on a 6 hour schedule, that is also 4 times per day. The daily maximum dosing of Tylenol is 4000mg, and the daily maximum dosing of Advil is 2400mg. This is safe to do for weeks. Please note that some common cold medications & prescription pain medications may contain acetamenophen and you need to read OTC drug labels and factor that in to maximum daily dosings. Please return to the emergency department for acute worsening despite treatment especially with high fever, worsening abdominal pain Referrals: ALYCIA ARCHER, [facility] [employer] [Primary Care Provider] -
[2024-08-27 23:26] VITALS: BP 167/77; PULSE 71; RESP 16; O2SAT 99
[2024-08-28] VITALS (7 sets, daily range): BP systolic 84–117; BP diastolic 56–68; PULSE 68–85; RESP 15–28; TEMP 35.3–37.5; O2SAT 98–100
--- NOTE | 2024-08-28 | DI.MRI_ITS ---
Exam(s) MR LUMBAR SPINE WO/W EXAM: MR LUMBAR SPINE WO/W CLINICAL HISTORY: question spinal abscess. TECHNIQUE: Multiplanar multisequence MRI of the Lumbar spine was performed. COMPARISON: CT CT ABDOMEN PELVIS W from 08/27/[address] LUMBAR SPINE RECONS from 08/27/2024 FINDINGS: Conus medullaris is at normal level. There is no evidence of conus mass nor subjacent clumping of in trathecal nerve roots to suggest arachnoiditis. The distal thecal sac appears unremarkable.There is no evidence of Tarlov intrasacral cysts nor other significant findings within the sacral canal Bones:There are no fractures nor ominous osseous lesions in the lumbar vertebral bodies and visualize d sacrum. With respect to the individual levels... T12-L1: Unremarkable L1-2: Normal disc height and signal. No disc herniation nor central canal stenosis.No foraminal steno sis L2-3: Normal disc height. No disc herniation nor central canal stenosis.No foraminal stenosis.No face t arthropathy. L3-4: Normal disc height. No disc herniation or central canal stenosis.No foraminal stenosis.No face t arthropathy. L4-5: No disc height and signal. There is a small central subligamentous disc protrusion which exten ds posteriorly 2.5 mm and is 9 mm wide. This flattens the anterior thecal sac at this level. Centra l canal dimensions within normal limits. There is no extension into the exiting neural foramen and n o evidence of foraminal stenosis on either side at this level. The facet joints at this level appear unremarkable. L5-S1: This level exhibits mild disc space narrowing. Posteriorly there is a E central disc herniati on superimposed on annular bulging, this extending posteriorly 7 mm and approximately 15 mm wide. Th is slightly indents the anterior thecal sac. Central canal dimensions are within normal limits at th is level. There is no appreciable caudal nor the cephalad migration of herniated disc material. The re is no extension into the exiting neural foramina and there is no foraminal stenosis on either side at this level. CONTRAST: There is mild enhancement around the herniated disc at L5-S1 level which is related to asso ciate inflammation at this level. There is no abnormal epidural collection. There is no evidence of spinal nor paraspinal abscess, as per request. Soft tissues: paraspinal soft tissues appear unremarkable. IMPRESSION: 1. There is central posterior disc herniations at L4-5 and L5-S1 levels, with L5-S1 disc protrusion b eing larger than the L4-5 disc protrusion. Both disc protrusions cause some impression upon the ante rior thecal sac but do central canal dimensions remain within normal limits and there is no extension of herniated disc material into the exiting neural foramen on either side at these levels. There is no evidence of foraminal stenosis in the lumbosacral spine 2. No abnormal fluid collections in the spinal canal nor abnormal paraspinal collections, as per requ est. DATA REPOSITORY:
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
[2024-08-28] MEDS: MORPHine 2 MG/ML SYR IVP (00:59)
[2024-08-28] MEDS: Lactated Ringers 1,000 ML 150 ML IV (01:11)
[2024-08-28] MEDS: levoFLOXacin 250 MG/50 ML BAG 50 MG IVPB (01:31)
[2024-08-28] MEDS: Ondansetron O.D.T. 4 MG TABEF 8 MG PO (02:10)
[2024-08-28] MEDS: oxyCODONE 5 MG TAB PO ×4 (03:10→23:25)
[2024-08-28] MEDS: Cyclobenzaprine 10 MG TAB PO (03:10)
[2024-08-28 07:38] LABS: Abs Immature Grans 0.14 10^3/uL (0.0-0.06); Absolute Eosinophil Count 0.01 10^3/uL (0.0-0.7); Absolute Lymphocyte Count 1.03 10^3/uL (1.2-3.4); Absolute Monocyte Count 1.32 10^3/uL (0.1-0.8); Basophils % 0.3 %; Eosinophils % 0.1 %; HCT 40.9 % (36.0-46.0); HGB 13.2 g/dL (11.2-15.7); Lymphocytes % 7.1 %; MCH 24.3 pg (27.0-33.0); MCHC 32.3 % (32.0-36.0); MCV 75 fL (80-95); MPV 10.4 fL (8.0-11.0); Monocytes % 9.1 %; Neutrophils % 82.4 %; Platelet Count 247 10^3/uL (130-400); RBC 5.43 10^6/uL (3.93-5.22); RDW 21.4 % (11.7-14.6); RDW-SD 56.7 fL; WBC 14.52 10^3/uL (4.4-10.8)
[2024-08-28 07:42] LABS: Absolute Basophil Count 0.04 10^3/uL (0.0-0.2); Absolute Neutrophil Count 11.96 10^3/uL (1.2-6.7)
[2024-08-28] MEDS: Pantoprazole 20 MG TABCR PO (07:48)
[2024-08-28] MEDS: Ketorolac 15 MG/ML VIAL IVP ×3 (07:48→22:21)
[2024-08-28 08:01] LABS: Anisocytosis 2+; Diff Comment RBC Morph Reviewed
[2024-08-28 08:02] LABS: Polychromasia Present
[2024-08-28 08:06] LABS: ALT 56 U/L (14-59); AST 127 U/L (15-37); Alkaline Phosphatase 141 U/L (46-116); Anion Gap 11.4 mmol/L (3-11); BUN 7 mg/dL (7-18); Bilirubin, Total 2.63 mg/dL (0.2-1.0); CO2 24.6 mmol/L (21.0-32.0); CREATININE 1.1 mg/dL (0.55-1.02); Calcium 9.2 mg/dL (8.5-10.1); Chloride 104 mmol/L (98-107); Estimated GFR 71.07 (mL/min/1.73m2); Glucose 106 mg/dL (74-106); Potassium 3.3 mmol/L (3.5-5.1); Sodium 140 mmol/L (136-145); Total Protein 7.7 g/dL (6.4-8.2)
[2024-08-28] MEDS: Prenatal Multivitamin w/CA,FE TAB 1 TAB PO (10:03)
--- NOTE | 2024-08-28 13:13 | NUR.NOTE ---
Nursing Note: Sooke with MRI about pt's nosering- MRI advised it's always ideal if it comes out, but they are willing to work around it when it does not
[2024-08-28 13:18] LABS: Lab Add On Test DONE
[2024-08-28 13:36] LABS: Acetaminophen < 2 ug/mL (10-30)
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
[2024-08-28] MEDS: LORazepam 1 MG TAB PO (14:14)
[2024-08-28] MEDS: Gadoterate meglumine 20 ML VIAL IVP (15:29)
[2024-08-28] MEDS: levoFLOXacin 750 MG/150 ML BAG 100 MG IVPB (16:33)
[2024-08-28 18:16] LABS: Bilirubin Negative (Negative); Blood Small (Negative); Clarity Sl Cloudy (Clear); Glucose Negative (Negative); Ketones Negative (Negative); Leukocyte Esterase Moderate (Negative); Nitrite Negative (Negative)
[2024-08-28 18:32] LABS: WBC >50 HPF (0-5)
[2024-08-28 18:33] LABS: C & S Indicated? Yes
[2024-08-28 19:24] LABS: HIV-1/2 Ag & Ab Screen Negative (Negative)
[2024-08-28] MEDS: Normal Saline Flush 10 ML SYR IVP (22:22)
[2024-08-29] MEDS: oxyCODONE 5 MG TAB PO ×2 (03:16→09:53)
[2024-08-29] MEDS: Normal Saline Flush 10 ML SYR IVP ×2 (05:42→08:13)
[2024-08-29] MEDS: Ketorolac 15 MG/ML VIAL IVP (05:42)
[2024-08-29 06:41] LABS: Abs Immature Grans 0.03 10^3/uL (0.0-0.06); Absolute Basophil Count 0.03 10^3/uL (0.0-0.2); Absolute Eosinophil Count 0.11 10^3/uL (0.0-0.7); Absolute Lymphocyte Count 1.74 10^3/uL (1.2-3.4); Absolute Monocyte Count 1.23 10^3/uL (0.1-0.8); Absolute Neutrophil Count 6.78 10^3/uL (1.2-6.7); Basophils % 0.3 %; Eosinophils % 1.1 %; HCT 37.5 % (36.0-46.0); HGB 12.2 g/dL (11.2-15.7); Immature Grans % 0.3 %; Lymphocytes % 17.5 %; MCH 23.8 pg (27.0-33.0); MCHC 32.5 % (32.0-36.0); MCV 73 fL (80-95); MPV 10.6 fL (8.0-11.0); Monocytes % 12.4 %; Neutrophils % 68.4 %; RBC 5.13 10^6/uL (3.93-5.22); RDW-SD 56.9 fL; WBC 9.92 10^3/uL (4.4-10.8)
[2024-08-29 07:04] LABS: Magnesium 1.8 mg/dL (1.8-2.4)
[2024-08-29 07:06] LABS: ALT 44 U/L (14-59); AST 60 U/L (15-37); Albumin 2.7 g/dL (3.4-5.0); Alkaline Phosphatase 185 U/L (46-116); Anion Gap 12.7 mmol/L (3-11); BUN 7 mg/dL (7-18); Bilirubin, Total 0.72 mg/dL (0.2-1.0); CO2 23.3 mmol/L (21.0-32.0); Calcium 9.2 mg/dL (8.5-10.1); Chloride 101 mmol/L (98-107); Estimated GFR 79.68 (mL/min/1.73m2); Glucose 93 mg/dL (74-106); Potassium 3.3 mmol/L (3.5-5.1); Sodium 137 mmol/L (136-145); Total Protein 7.4 g/dL (6.4-8.2)
[2024-08-29 07:11] LABS: Platelet Count 231 10^3/uL (130-400)
[2024-08-29 07:12] LABS: Anisocytosis 2+; Diff Comment Diff Reviewed; Microcytosis 1+; Polychromasia Present
[2024-08-29 07:58] VITALS: BP 109/63; PULSE 71; RESP 18; TEMP 36.4; O2SAT 100
[2024-08-29] MEDS: levoFLOXacin 500 MG, levoFLOXacin 250 MG 750 MG PO (08:12)
[2024-08-29] MEDS: Pantoprazole 20 MG TABCR PO (08:12)
[2024-08-29 10:35] VITALS: O2SAT 98
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
--- NOTE | 2024-08-29 17:08 | PDOC.CMDIS ---
Date of service: 08/29/24 Time of Service: 10:10 LACE Index Scoring Tool Questions: Length of Stay (in days): 2 Was the patient admitted via the E.D.?: Yes E.D. Visits: 3 Answers: Total Score: 8 Risk of Readmission: Low Risk Care Management Discharge Plan Reason for Hospitalization: pyelonephritis Discharge Plan: Christie was discharged home on oral antibiotics. She will f/u with her PCP in 1-2 weeks, and continue per her plan of care. Christie was driven home in a private vehicle. Patient/Family Education Needs: Review of discharge instructions, activity, any limitations, the f/u plan, and ask me 3. SDOH Health Related Social Needs: Health related social needs inadequate housing(Z59.1), transportation insecurity(Z59.82) Health related social needs: inadequate housing(Z59.1) and transportation insecurity(Z59.82)
[2024-08-31 11:43] LABS: Chlamydia Result Negative (Negative); GC Result Negative (Negative)
[2024-08-31 13:21] LABS: Syphilis Serology (RPR) Negative (Negative)
[2024-08-31 23:16] LABS: Hepatitis A Antibody IgM Negative (Negative); Hepatitis B Core Antibody Negative (Negative); Hepatitis B surface Ag Negative (Negative); Hepatitis C Ab w Rflx HCV PCR Negative (Negative)
== END 2024-08-29 11:45 | disposition home or self-care (01) ==
LOC: ER 23:31 → MS 08-28 00:19
PROVIDERS: Nurse Practitioner Acute Care; Physician Assistant; Admitting Provider Family Medicine; Emergency Provider Emergency Medicine Emergency Medical Services; PCP Nurse Practitioner Family; Visit Provider Family Medicine
DX: N10 Acute pyelonephritis (principal); N76.0 Acute vaginitis; B96.89 Other specified bacterial agents as the cause of diseases classified elsewhere; M51.9 Unspecified thoracic, thoracolumbar and lumbosacral intervertebral disc disorder; F31.9 Bipolar disorder, unspecified; F17.210 Nicotine dependence, cigarettes, uncomplicated; K21.9 Gastro-esophageal reflux disease without esophagitis; M51.369 Other intervertebral disc degeneration, lumbar region without mention of lumbar back pain or lower extremity pain; F43.10 Post-traumatic stress disorder, unspecified; F12.90 Cannabis use, unspecified, uncomplicated
CPT/HCPCS: 00123; 36415; 72158; 80053; 81025; 83690; 85652; 86704; 86709; 86803; 87040; 87077; 87340; 87389; 87491; 87591; 93005; 96361; 96365; 96366; 96375; 96376; 99285; 74177; 80329; 81003; 81015; 83605; 83735; 85025; 86140; 86592; 87086; 87186; 87480; 87510; 87660; 93010; 99222; 99239; G0378; J1885; J1956; J2270; J2405; J3490

== ENCOUNTER 2024-11-02 02:43 | Emergency (ER) | payer MEDICAID, SELFPAY ==
[2024-11-02] VITALS (22 sets, daily range): BP systolic 112–145; BP diastolic 43–75; PULSE 83–108; RESP 2–35; TEMP 36.6; O2SAT 94–100
--- NOTE | 2024-11-02 02:30 | RT.EKG_ITS ---
APPROVED REPORT Exam: Resting ECG Reason for Exam: syncopal episode Patient Location: E HR:88 bpm ECG Measurements Heart Rate 88 AXIS WY 108 P 55 QRSd 90 QRS 74 QT 372 T 45 QTc 451 Conclusion Sinus rhythm...normal P axis, V-rate 60- 99 I have reviewed and interpreted ECG and agree with software generated interpretation.
[2024-11-02 02:53] LABS: BE (Venous) 1 mmol/L (-2-3); HCO3 (Venous) 25 mmol/L (23-28); O2 Sat (Venous) 65 %; TCO2 (Venous) 22 mmol/L (24-29); pCO2 (Venous) 38 mmHg (41-51); pH (Venous) 7.43 (7.31-7.41); pO2 (Venous) 30 mmHg
[2024-11-02] MEDS: Albuterol/Ipratropium 3 ML UPD VIAL 6 ML UPD (02:55)
[2024-11-02] MEDS: methylPREDNISolone SUCC 125 MG VIAL IVP (02:56)
[2024-11-02 02:57] LABS: Abs Immature Grans 0.03 10^3/uL (0.0-0.06); Absolute Basophil Count 0.06 10^3/uL (0.0-0.2); Absolute Lymphocyte Count 2.72 10^3/uL (1.2-3.4); Absolute Monocyte Count 0.73 10^3/uL (0.1-0.8); Absolute Neutrophil Count 6.02 10^3/uL (1.2-6.7); Basophils % 0.6 %; HCT 44.6 % (36.0-46.0); Immature Grans % 0.3 %; Lymphocytes % 28.2 %; MCH 26.1 pg (27.0-33.0); MCHC 31.4 % (32.0-36.0); MCV 83 fL (80-95); MPV 10.3 fL (8.0-11.0); Monocytes % 7.6 %; Neutrophils % 62.3 %; Platelet Count 291 10^3/uL (130-400); RBC 5.37 10^6/uL (3.93-5.22); RDW 17.2 % (11.7-14.6); RDW-SD 52.6 fL; WBC 9.66 10^3/uL (4.4-10.8)
--- NOTE | 2024-11-02 03:00 | DI.RAD_ITS ---
Exam(s) XR PORTABLE CHEST AP EXAM: XR PORTABLE CHEST AP CLINICAL HISTORY: sob TECHNIQUE: 2D digital imaging was performed. COMPARISON: CR PORTABLE CHEST ONE VIEW from 10/28/2017 FINDINGS: LUNGS: Clear. No pleural abnormality seen. HEART: Normal size. AORTA: Normal diameter. BONES: Unremarkable for age. Soft tissues: Unremarkable. IMPRESSION: No acute findings. DATA REPOSITORY: RADIATION DOSE DELIVERED:
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
[2024-11-02 03:18] LABS: ALT 26 U/L (14-59); AST 26 U/L (15-37); Albumin 3.5 g/dL (3.4-5.0); Alkaline Phosphatase 101 U/L (46-116); Anion Gap 13.1 mmol/L (3-11); BUN 8 mg/dL (7-18); Bilirubin, Total 0.18 mg/dL (0.2-1.0); CO2 24.9 mmol/L (21.0-32.0); CREATININE 0.9 mg/dL (0.55-1.02); Calcium 9.1 mg/dL (8.5-10.1); Chloride 104 mmol/L (98-107); Estimated GFR 90.42 (mL/min/1.73m2); Glucose 120 mg/dL (74-106); Potassium 4.1 mmol/L (3.5-5.1); Sodium 142 mmol/L (136-145); Total Protein 7.3 g/dL (6.4-8.2); Troponin I < 4 ng/L (<or=51)
--- NOTE | 2024-11-02 03:18 | DI.VRAD_ITS ---
PROCEDURE INFORMATION: Exam: XR Chest Exam date and time: 11/02/2024 3:13 AM Age: 24 years old Clinical indication: Shortness of breath; SOB TECHNIQUE: Imaging protocol: Radiologic exam of the chest. Views: 1 view. COMPARISON: CT ABDOMEN PELVIS W 08/27/2024 8:31 PM FINDINGS: Lungs: Unremarkable. No consolidation. Pleural spaces: Unremarkable. No pleural effusion. No pneumothorax. Heart/Mediastinum: Unremarkable. No cardiomegaly. Bones/joints: Unremarkable. IMPRESSION: No acute findings. Dictated and Authenticated by: Jeff Cuba MD. Orderin Francisco Mcgregor MD
[2024-11-02 03:23] LABS: D-Dimer 337 ng/mlFEU (<500)
[2024-11-02 03:40] LABS: COVID-19 PCR Negative (Negative); Influenza A PCR Negative (Negative); Influenza B PCR Negative (Negative); RSV PCR Negative (Negative)
[2024-11-02 03:50] LABS: Source Nasopharynx
[2024-11-02] MEDS: Levalbuterol 1.25 MG/3 ML UPD VIAL UPD (03:55)
[2024-11-02 04:06] LABS: Troponin I < 4 ng/L (<or=51)
== END 2024-11-02 04:56 | disposition home or self-care (01) ==
PROVIDERS: Emergency Provider Student in an Organized Health Care Education/Training Program; PCP Nurse Practitioner Family
DX: J45.901 Unspecified asthma with (acute) exacerbation (principal)
CPT/HCPCS: 80053; 82805; 87637; 93005; 94640; 96374; 99284; 71045; 84484; 85025; 85379; 93010; J2919; J7614; J7620

== ENCOUNTER 2024-11-05 01:27 | Emergency (ER) | payer MEDICAID, SELFPAY ==
[2024-11-05 01:32] VITALS: BP 153/83; PULSE 75; RESP 19; TEMP 36.5; O2SAT 96
[2024-11-05 01:35] VITALS: PULSE 88; RESP 19; TEMP 36.6; O2SAT 96
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
[2024-11-05] MEDS: Albuterol/Ipratropium 3 ML UPD VIAL UPD (02:10)
[2024-11-05] MEDS: Albuterol 2.5 MG/3 ML INH SOLN VIAL UPD (02:48)
[2024-11-05 03:31] VITALS: BP 144/91; PULSE 89; RESP 23; TEMP 36.8; O2SAT 96
== END 2024-11-05 03:33 | disposition home or self-care (01) ==
PROVIDERS: Emergency Provider Emergency Medicine; PCP Nurse Practitioner Family
DX: J45.901 Unspecified asthma with (acute) exacerbation (principal)
CPT/HCPCS: 94640; 99284; 99283; J7613; J7620

== ENCOUNTER 2024-11-05 16:26 | Emergency (ER) | payer MEDICAID, SELFPAY ==
[2024-11-05 16:38] VITALS: BP 131/88; PULSE 67; RESP 20; TEMP 36.4; O2SAT 91
== END 2024-11-05 18:17 | disposition left against medical advice (07) ==
LOC: ER 19:09
PROVIDERS: PCP Nurse Practitioner Family
DX: Z53.21 Procedure and treatment not carried out due to patient leaving prior to being seen by health care provider (principal)

== ENCOUNTER 2025-01-23 13:04 | Emergency (ER) | payer OTHER, MEDICAID, SELFPAY ==
[2025-01-23 13:08] VITALS: BP 133/76; PULSE 74; RESP 18; TEMP 36.8; O2SAT 100
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
[2025-01-23] MEDS: Acetaminophen 500 MG TAB 1000 MG PO (13:34)
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
[2025-01-23 14:05] VITALS: BP 138/79; PULSE 67; O2SAT 100
[2025-01-23] MEDS: Ibuprofen 600 MG TAB PO (14:08)
== END 2025-01-23 14:12 | disposition home or self-care (01) ==
PROVIDERS: Emergency Provider Emergency Medicine; PCP Nurse Practitioner Family
DX: S00.83XA Contusion of other part of head, initial encounter (principal); S80.01XA Contusion of right knee, initial encounter; F17.290 Nicotine dependence, other tobacco product, uncomplicated; V43.52XA Car driver injured in collision with other type car in traffic accident, initial encounter
CPT/HCPCS: 73562; 99284; 70450

== ENCOUNTER 2025-03-12 13:16 | Emergency (ER) | payer MEDICAID, SELFPAY ==
[2025-03-12 13:25] VITALS: BP 113/77; PULSE 89; RESP 16; TEMP 36.9; O2SAT 98
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
[2025-03-12 15:07] VITALS: BP 127/88; PULSE 57; RESP 13; O2SAT 98
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
== END 2025-03-12 15:08 | disposition home or self-care (01) ==
PROVIDERS: Emergency Provider Physician Assistant; PCP Nurse Practitioner Family
DX: M54.12 Radiculopathy, cervical region (principal)
CPT/HCPCS: 99284 ×2; 81025; 72125

== ENCOUNTER 2025-04-13 16:35 | Emergency (ER) | payer MEDICAID, SELFPAY ==
[2025-04-13 16:39] VITALS: BP 122/81; PULSE 83; RESP 16; TEMP 37; O2SAT 83
== END 2025-04-13 19:03 | disposition left against medical advice (07) ==
PROVIDERS: PCP Nurse Practitioner Family
DX: Z53.21 Procedure and treatment not carried out due to patient leaving prior to being seen by health care provider (principal)
CPT/HCPCS: 99024

== ENCOUNTER 2025-05-05 12:14 | Outpatient (CLI) | payer MEDICAID, SELFPAY ==
--- NOTE | 2025-05-05 | DI.MRI_ITS ---
Exam(s) MR CERVICAL SPINE WO EXAM: MR CERVICAL SPINE WO CLINICAL HISTORY: CHRONIC NECK PAIN, M54.2, G89.29, PARESTHESIAS, R20.2 TECHNIQUE: Multiplanar multisequence MRI of the cervical spine was performed without intravenous contrast. COMPARISON: CT CT CERVICAL SPINE WO from 03/12/2025 FINDINGS: BONES: Vertebral body heights are maintained. Intervertebral disc spaces are normal. Alignment is normal. Bone marrow signal intensity is within normal limits. CERVICAL CORD: Craniovertebral junction is unremarkable. The cervical cord is normal size and signal intensity. SOFT TISSUES: Unremarkable. C2-3: No disc herniation or bulge is identified. No significant central spinal canal or neural foraminal stenosis. C3-4: No disc herniation or bulge is identified. No significant central spinal canal or neural foraminal stenosis C4-5: No disc herniation or bulge is identified. No significant central spinal canal or neural foraminal stenosis C5-6: No disc herniation or bulge is identified. No significant central spinal canal or neural foraminal stenosis C6-7: No disc herniation or bulge is identified. No significant central spinal canal or neural foraminal stenosis C7-T1: No disc herniation or bulge is identified. No significant central spinal canal or neural foraminal stenosis IMPRESSION: Unremarkable MRI of the cervical spine. DATA REPOSITORY:
== END 2025-05-05 12:34 ==
LOC: DI 12:15
PROVIDERS: PCP Nurse Practitioner Family
DX: M54.2 Cervicalgia (principal); G89.29 Other chronic pain; R20.2 Paresthesia of skin
CPT/HCPCS: 72141

== ENCOUNTER 2025-06-03 16:57 | Outpatient (REF) | payer MEDICAID, SELFPAY ==
[2025-06-03 21:08] LABS: Abs Immature Grans 0.01 10^3/uL (0.0-0.06); HCT 48.6 % (36.0-46.0); HGB 15.7 g/dL (11.2-15.7); Immature Grans % 0.1 %; MCH 28.0 pg (27.0-33.0); MCHC 32.3 % (32.0-36.0); MCV 87 fL (80-95); MPV 10.9 fL (8.0-11.0); Platelet Count 280 10^3/uL (130-400); RBC 5.61 10^6/uL (3.93-5.22); RDW 13.9 % (11.7-14.6); RDW-SD 44.4 fL; WBC 8.81 10^3/uL (4.4-10.8)
[2025-06-03 21:36] LABS: Anion Gap 9.3 mmol/L (3-11); BUN 10 mg/dL (7-18); CO2 24.7 mmol/L (21.0-32.0); Calcium 8.9 mg/dL (8.5-10.1); Chloride 107 mmol/L (98-107); Estimated GFR 121.49 (mL/min/1.73m2); Glucose 89 mg/dL (74-106); Potassium 4.4 mmol/L (3.5-5.1); Sodium 141 mmol/L (136-145); TSH (W/Ref FT4) 0.70 uIU/mL (0.36-3.74)
== END 2025-06-03 16:58 | disposition home or self-care (01) ==
LOC: LBN 16:57
PROVIDERS: PCP Nurse Practitioner Family; Visit Provider Physician Assistant Medical
DX: R53.83 Other fatigue (principal)
CPT/HCPCS: 80048; 84443; 85025

== ENCOUNTER 2025-06-15 15:26 | Outpatient (REF) | payer MEDICAID, SELFPAY ==
[2025-06-18 13:34] LABS: HSV 1 PCR Negative (Negative); HSV 2 PCR Negative (Negative)
== END 2025-06-15 15:27 | disposition home or self-care (01) ==
LOC: LBN 15:26
PROVIDERS: PCP Nurse Practitioner Family; Visit Provider Nurse Practitioner Women's Health
DX: N90.89 Other specified noninflammatory disorders of vulva and perineum (principal)
CPT/HCPCS: 87529